=== PATIENT | female | born 1945 | race Caucasian/White ===

== ENCOUNTER → 2017-12-04 | Outpatient (CLI) | payer MEDICARE, OTHER ==
[~2017-12-04] MED LIST: ADVAIR 500/501 EA INH; CARVEDILOL3.125 MG PO; CLOPIDOGREL75 MG PO; COREG3.125 MG PR; CYANOCOBAL1000 MCG/M IM; DIAZEPAM10 MG PO; FUROSEMIDE20 MG PO; GLIMEPIRIDE2 MG PO; JANUVIA100 MG PO; LANCETS1 EACH; LANTUS 3ML100 UNITS/; LOSARTAN POTAS100 MG PO; LOVASTATIN40 MG PO; METFORMIN HCL1000 MG PO; NOVOLOG100 UNITS1; PEN NEEDLE1 EA10 SQ; PLAVIX75 MG PO; PROCARDIA XL60 MG PO; WELLBUTRIN XL150 MG; WELLBUTRIN XL150 MG PO; ZETIA10 MG PO; [UNRECOGNIZED DRUG - OTHER]
--- NOTE | 2017-12-04 11:22 | Diagnostic Imaging Report ---
PROCEDURE: Frontal and lateral views of the chest. COMPARISON: DX, CHEST 2 VIEWS - [facility], 02/20/2016, 9:47. INDICATIONS: COUGH, COPD FINDINGS: Lines/tubes: None. Lungs: The lungs are well inflated. Stable postoperative changes in the left lateral lower lung, with presence of metallic clips. Stable calcified granulomas. There is no evidence of pneumonia or pulmonary edema. Pleura: There is no pleural effusion or pneumothorax. Heart and mediastinum: The heart and the mediastinum are normal. Pulmonary vasculature is normal. Calcified mediastinal nodes. Bones: No acute bony abnormality. IMPRESSION: 1. No acute cardiopulmonary abnormalities. Ivan Rust M.D. Dictated by: Ivan Rust M.D. on 12/04/2017 at 11:28 Electronically approved by: Ivan Rust M.D. on 12/04/2017 at 11:28
== END ==
LOC: RAD 10:41
PROVIDERS: ATTEND Family Medicine
DX: R05 Cough (principal)
CPT/HCPCS: 71046

== ENCOUNTER → 2018-01-15 | Outpatient (CLI) | payer MEDICARE, OTHER ==
--- NOTE | 2018-01-15 13:26 | Diagnostic Imaging Report ---
History: Left arm numbness Comparison studies: None Technique: Cervical spine: Sagittal T1, T2 and inversion recovery, axial T2 and axial 3-D gradient echo. Thoracic spine: Sagittal T1, T2 and inversion recovery, axial T2. Lumbar spine: Sagittal T1,T2 and inversion recovery, axial T2 and spin density oblique without contrast Findings: Number of lumbar vertebral bodies: 5 Alignment: Normal cervical lordosis. Mild grade 1 anterolisthesis of L3 over L4. Normal thoracic kyphosis. No scoliosis . Soft tissues: No prior spinal signal abnormalities. Bilateral renal cysts the largest one measuring 1.2 cm in the left upper pole. Cholelithiasis without evidence of cholecystitis left adrenal mass measuring approximately 2 cm is partially visualized. Paraspinal muscles: No signal abnormalities. Well-preserved. No atrophic changes . Spinal cord: Normal in signal and morphology from the foramen magnum through the tip of the conus at L1-L2 . Vertebrae: No acute fractures, infection or neoplasm. 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 Degenerative changes: Cervical spine: At C2-C3, right uncinate process hypertrophy results in mild right foraminal narrowing with patent canal. At C3-4, bilateral facet hypertrophy with patent canal and mild bilateral foraminal narrowing. At C4-5, disc degeneration with loss of T2 signal. Left uncinate process hypertrophy and bilateral facet hypertrophy results in no significant canal stenosis and moderate right foraminal narrowing. Edema signal at the right facet. At C5-6, disc degeneration with loss of T2 signal. Diffuse disc osteophyte complex, ligamentum flavum thickening, bilateral uncinate process and facet hypertrophy results in mild canal stenosis and moderate right and mild left foraminal narrowing. At C6-7, disc degeneration with decreased intervertebral space. Bilateral uncinate process and facet hypertrophy results in no significant canal stenosis and moderate right and severe left foraminal narrowing At C7-T1, patent canal and foramina. Thoracic spine: Diffuse disc degeneration with loss of T2 signal throughout the thoracic spine. Mild Modic type I changes at T6-7. Patent canal and foramina . Lumbar spine: At L3-L4, disc degeneration with loss of T2 signal. Diffuse disc bulge, moderate facet hypertrophy and ligamentum flavum thickening results in moderate canal stenosis and mild bilateral foraminal narrowing. At L4-L5 disc degeneration with loss of T2 signal. Diffuse disc bulge and mild facet hypertrophy results in no significant canal stenosis or foraminal narrowing. At L5-S1, diffuse disc bulge and mild facet hypertrophy results in no significant canal stenosis or foraminal narrowing. IMPRESSION: Cervical spine: 1. Severe degenerative left foraminal narrowing at C6-7. 2. Moderate degenerative right foraminal narrowing at C4-5, C5-6 and C6-7. 3. Facet hypertrophy with edema signal at C4-5 on the right. Thoracic spine: Mild disc degeneration throughout the thoracic spine. Mild Modic type I changes as to C6-7. Patent canal and foramina. Lumbar spine: 1. No acute spinal abnormality. 2. Moderate canal stenosis and mild bilateral foraminal narrowing at L3-L4. Other mild degenerative changes as described above. 3. Incidentally noted 2 cm left adrenal nodule, recommend further evaluation with dedicated imaging. Signed by: DR Mando Medina M.D. on 01/15/2018 1:23 PM
== END ==
LOC: MRI 08:16
PROVIDERS: ATTEND Physical Medicine & Rehabilitation
DX: M54.2 Cervicalgia (principal); M54.6 Pain in thoracic spine; M54.5 Low back pain
CPT/HCPCS: 72141; 72146; 72148

== ENCOUNTER 2018-03-06 21:36 | Emergency (ER) | payer MEDICARE, OTHER ==
[~2018-03-06] VITALS: Ht 167.6 cm; Wt 76.2 kg
--- OUTSIDE RECORDS SUMMARY | 2018-03-06 21:39 | XMS REPORT | Continuity of Care Document ---
Author Author [facility] Interface Address Unknown Phone Unavailable Problems Problem Status Onset Date Classification Date Reported Comments Source PNEUMONIA Active 12/19/2016 [facility] Diabetes type 2, uncontrolled Active Problem 12/26/2017 Ede Weber Inflammatory arthritis Active Problem 12/26/2017 Ede Weber Trigger finger, right middle finger Active Problem 12/26/2017 Ede Weber Joint pain Active Problem 12/26/2017 Ede Weber Need for prophylactic vaccination and inoculation against influenza Active Diagnosis 02/14/2017 Ede Weber Back pain Active Diagnosis 02/14/2017 Ede Weber Varicose veins of lower extremities with other complications Active Problem 01/25/2016 Argelia Parada Abnormal electrocardiogram Active Problem 01/25/2016 Argelia Parada COPD Active Problem 01/25/2016 Argelia Parada Other nonspecific abnormal cardiovascular system function study Active Problem 01/25/2016 Argelia Parada Patient unable to exercise Active Problem 01/25/2016 Argelia Parada Stented coronary artery Active Problem 01/25/2016 Argelia Parada Old myocardial infarction Active Problem 01/25/2016 Argelia Parada Pure hypercholesterolemia Active Problem 01/25/2016 Argelia Parada CAD in [place] artery Active Problem 01/25/2016 Argelia Parada Type 2 diabetes mellitus with unspecified complications Active Problem 01/25/2016 Argelia 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 Active Problem 01/25/2016 Argelia Parada Smoker Active Problem 01/25/2016 Argelia Parada Carotid artery disease Active Problem 01/25/2016 Argelia Parada Venous insufficiency Active Problem 01/25/2016 Argelia Parada Anemia Resolved Problem 12/25/2016 [facility] Carotid artery disease Active Problem 12/25/2016 [facility] Cataract Resolved Problem 12/25/2016 [facility] Colonic polyp Resolved Problem 12/25/2016 [facility] COPD - Chronic obstructive pulmonary disease Active Problem 12/25/2016 [facility] DM - Diabetes mellitus Active Problem 12/25/2016 [facility] DU - Duodenal ulcer Resolved Problem 12/25/2016 [facility] Emphysema of lung Active Problem 12/25/2016 [facility] Heart attack Resolved Problem 12/25/2016 [facility] HTN - Hypertension Active Problem 12/25/2016 [facility] Hypercholesterolemia Active Problem 12/25/2016 [facility] Lactose intolerance Active Problem 12/25/2016 [facility] OA - Osteoarthritis Active Problem 12/25/2016 [facility] PUD - Peptic ulcer disease Active Problem 12/25/2016 [facility] PNEUMONIA, UNSPECIFIED ORGANISM Active [facility] Medications Medication Details Route Status Patient Instructions Ordering Provider Order Date Source Leflunomide 1 tablet Orally Active 20 MG Orally Once a day Jordana 02/11/2017 Ede Weber Naproxen 1 tablet Orally Active 250 MG Orally Twice a day Jordana 02/11/2017 Ede Weber remove patch 1 patch, Route: TOP, Drug form: ERFILM, Daily, Start date: 12/23/16 9:00:00 CDT, Duration: 30 day, Stop date: 01/21/17 9:00:00 CDTNotes: Remove old patch before application of new patch. WASTE: F/P - P Waste Black; E - P Waste Black No Longer Active 12/23/2016 [facility] Nebulizer 1 ea, MISC, ONCALL, # 1 ea, 0 Refill(s) Active 12/22/2016 [facility] Symbicort 160/4.5 inhalation aerosol with adapter 2 inhalation, INHALATION, RBID, # 1 ea, 0 Refill(s), Pharmacy: [facility] [id number] Active 12/22/2016 [facility] Albuterol 0.833 MG/ML / Ipratropium Calhoun 0.167 MG/ML Inhalant Solution [DuoNeb] 3 mL, NEB, Q6H, PRN as needed for shortness of breath or wheezing, # 360 mL, 0 Refill(s), Pharmacy: [facility] [id number] Active 12/22/2016 [facility] levofloxacin 250 mg oral tablet 750 mg=3 tab, PO, Daily, X 5 day, # 15 tab, 0 Refill(s), Pharmacy: [facility] [id number] Active 12/22/2016 [facility] predniSONE 20 mg oral tablet 40 mg=2 tab, PO, Daily, X 5 day, # 10 tab, 0 Refill(s), Pharmacy: [facility] [id number] Active 12/22/2016 [facility] insulin detemir 10 unit, 0.1 mL, Route: SUB-Q, Drug form: SOLN, ONCE, Dosing Weight 75, kg, Start date: 12/22/16 9:12:00 CDT, Stop date: 12/22/16 9:12:00 CDTNotes: Same as Levemir Do not hold insulin without contact ing prescriber WASTE: F/P - Black; E - Municipal Trash Bin "single patient use only" Inactive 12/22/2016 [facility] Levofloxacin 750 mg, 3 tab, Route: PO, Drug form: TAB, Daily, Dosing Weight 75, kg, Start date: 12/22/16 9:00:00 CDT, Duration: 30 day, Stop date: 01/20/17 9:00:00 CDT, ABX Indication: PneumoniaNotes: Do not give w/ antacids, dairy pdt & minerals Take 1 hr before or 2 hr after dairy pdt (Same as:Levaquin) Inactive 12/22/2016 [facility] Nicotine 21 mg, 1 patch, Route: TOP, Drug form: ERFILM, Daily, Dosing Weight 75, kg, Start date: 12/22/16 9:00:00 CDT, Duration: 30 day, Stop date: 01/20/17 9:00:00 CDTNotes: (Same as: Habitrol) "Remove old patch before application of new patch" WASTE: F/P - P Waste Black; E - P Waste Black Inactive 12/22/2016 [facility] Prednisone 40 mg, 2 tab, Route: PO, Drug form: TAB, Daily, Dosing Weight 75, kg, Priority: NOW, Start date: 12/21/16 14:27:00 CDT, Duration: 30 day, Stop date: 01/20/17 9:00:00 CDTNotes: Take with food. No Longer Active 12/21/2016 [facility] Lasix 20 mg, 2 mL, Route: IVP, Drug form: INJ, ONCE, Dosing Weight 75, kg, Start date: 12/21/16 14:26:00 CDT, Stop date: 12/21/16 14:26:00 CDTNotes: (Same as: Lasix) Inactive 12/21/2016 [facility] Symbicort 160/4.5 inhalation aerosol with adapter 2 inhalation, Route: INHALATION, Drug Form: AERO/A, Dosing Weight 75, kg, RBID, NOW, Start date: 12/21/16 14:26:00 CDT, Duration: 30 day, Stop date: 01/20/17 8:00:00 CDTNotes: (Same as: Symbicort) WASTE: Aerosol - Return to Pharmacy No Longer Active 12/21/2016 [facility] pantoprazole 40 mg, 1 tab, Route: PO, Drug form: ECTAB, Daily, Dosing Weight 75, kg, Start date: 12/21/16 9:00:00 CDT, Duration: 30 day, Stop date: 01/19/17 9:00:00 CDTNotes: Tablet should not be chewed or crushe d. (Same as: Protonix) No Longer Active 12/21/2016 [facility] Zetia 10 mg, 1 tab, Route: PO, Drug form: TAB, Daily, Dosing Weight 75, kg, Start date: 12/21/16 9:00:00 CDT, Duration: 30 day, Stop date: 01/19/17 9:00:00 CDTNotes: (Same as: Zetia) No Longer Active 12/21/2016 [facility] clopidogrel 75 mg, 1 tab, Route: PO, Drug form: TAB, Daily, Dosing Weight 75, kg, Start date: 12/21/16 9:00:00 CDT, Duration: 30 day, Stop date: 01/19/17 9:00:00 CDTNotes: (Same As: Plavix) No Longer Active 12/21/2016 [facility] carvedilol 6.25 mg, 2 tab, Route: PO, Drug form: TAB, Daily, Dosing Weight 75, kg, Start date: 12/21/16 9:00:00 CDT, Duration: 30 day, Stop date: 01/19/17 9:00:00 CDTNotes: Give with food. (Same As: Coreg) No Longer Active 12/21/2016 [facility] Zocor 20 mg, 1 tab, Route: PO, Drug form: TAB, Bedtime, Dosing Weight 75, kg, Start date: 12/20/16 21:00:00 CDT, Duration: 30 day, Stop date: 01/18/17 21:00:00 CDTNotes: (Same as: Zocor) No Longer Active 12/21/2016 [facility] Levemir 20 unit, 0.2 mL, Route: SUB-Q, Drug form: SOLN, Bedtime, Dosing Weight 75, kg, Start date: 12/20/16 21:00:00 CDT, Duration: 30 day, Stop date: 01/18/17 21:00:00 CDTNotes: Same as Levemir Do not hold insulin without contacting prescriber WASTE: F/P - Black; E - Municipal Trash Bin "single patient use only" No Longer Active 12/21/2016 [facility] NovoLog 10 unit, 0.1 mL, Route: SUB-Q, Drug form: SOLN, TID-Before Meals, Dosing Weight 75, kg, Start date: 12/20/16 16:30:00 CDT, Duration: 30 day, Stop date: 01/19/17 11:30:00 CDTNotes: Roll in palms of hands gently; Do not shake vigorously. (Same as: NovoLOG) "single patient use only" WASTE: F/P - Black; E - Municipal Trash Bin Stable for 28 days at room temperature. Expires in days from Date No Longer Active 12/20/2016 [facility] Aspirin 81 mg, 1 tab, Route: PO, Drug form: CHEWTAB, Daily, Dosing Weight 75, kg, Start date: 12/20/16 15:00:00 CDT, Duration: 30 day, Stop date: 01/19/17 9:00:00 CDTNotes: Take with food. No Longer Active 12/20/2016 [facility] azithromycin 250 mg oral tablet 250 mg, 1 tab, Route: PO, Drug form: TAB, [id number], Dosing Weight 75.455, kg, Start date: 12/20/16 11:00:00 CDT, Duration: 4 day, Stop date: 12/23/16 11:00:00 CDT, ABX Indication: Pneumonia No Longer Active 12/20/2016 [facility] Ceftriaxone 1 gm, Route: IVPB, [id number], Dosing Weight 75.455, kg, Start date: 12/20/16 10:00:00 CDT, Duration: 7 day, Stop date: 12/26/16 10:00:00 CDT, ABX Indication: PneumoniaNotes: (Same As: Rocephin). Use with 100 mL NS and infuse over 30 min MEDICATION WASTE Product Size: 1000 mg Product Wasted: ___ mg No Longer Active 12/20/2016 [facility] Streptococcus pneumoniae serotype 1 capsular antigen diphtheria [id number] protein conjugate vaccine / Streptococcus pneumoniae serotype 14 capsular antigen diphtheria [id number] protein conjugate vaccine / Streptococcus pneumoniae serotype 18C capsular antigen d 0.5 mL, Route: IM, Drug Form: INJ, Daily, Start date: 12/20/16 9:00:00 CDT, Duration: 1 doses or times, Stop date: 12/20/16 9:00:00 CDTNotes: Shake well prior to use (Same as: Prevnar 13) Inactive 12/20/2016 [facility] Enoxaparin 40 mg, 0.4 mL, Route: SUB-Q, Drug form: INJ, [id number], Dosing Weight 75.455, kg, Start date: 12/20/16 9:00:00 CDT, Duration: 30 day, Stop date: 01/18/17 9:00:00 CDTNotes: (Same as: Lovenox) No Longer Active 12/20/2016 [facility] Albuterol 0.833 MG/ML / Ipratropium Cal[place] 0.167 MG/ML Inhalant Solution [DuoNeb] 3 ml, Route: NEB, Drug Form: SOLN, Dosing Weight 75.455, kg, PRN, PRN Respiratory Protocol, Start date: 12/20/16 8:37:00 CDT, Duration: 30 day, Stop date: 01/19/17 8:36:00 CDTNotes: (Same as: Duoneb) No Longer Active 12/20/2016 [facility] Codeine Phosphate 2 MG/ML / Guaifenesin 20 MG/ML Oral Solution 5 mL, Route: PO, Drug Form: LIQ, Dosing Weight 75.455, kg, Q4H, PRN Cough, Start date: 12/19/16 23:57:00 CDT, Duration: 30 day, Stop date: 01/18/17 23:56:00 CDTNotes: (Same As: Robitussin AC) No Longer Active 12/20/2016 [facility] Acetaminophen 650 mg, 2 tab, Route: PO, Drug form: TAB, Q4H, Dosing Weight 75.455, kg, PRN Pain Score 1-3, For fever > 100.4. Not to exceed 4 grams in 24 hours, Start date: 12/19/16 23:57:00 CDT, Duration: 30 day, Stop date: 01/18/17 23:56:00 CDTNotes: Do not exceed 4 gm/day. (Same as: Tylenol) No Longer Active 12/20/2016 [facility] Guaifenesin 200 mg, 10 mL, Route: PO, Drug form: LIQ, Q4H, Dosing Weight 75.455, kg, PRN Cough, Start date: 12/19/16 23:57:00 CDT, Duration: 30 day, Stop date: 01/18/17 23:56:00 CDTNotes: (Same as: Yannitussin) No Longer Active 12/20/2016 [facility] Ondansetron 4 mg, 2 mL, Route: IVP, Drug form: INJ, Q6H, Dosing Weight 75.455, kg, PRN Nausea & Vomiting, Start date: 12/19/16 23:57:00 CDT, Duration: 30 day, Stop date: 01/18/17 23:56:00 CDTNotes: (Same as: Erick) MEDICATION WASTE Product Size: 4 mg Product Wasted: ___ mg No Longer Active 12/20/2016 [facility] Albuterol 0.833 MG/ML / Ipratropium Calhoun 0.167 MG/ML Inhalant Solution 3 mL, Route: NEB, Drug Form: SOLN, Dosing Weight 75.455, kg, PRN, PRN Respiratory Protocol, Start date: 12/19/16 23:57:00 CDT, Duration: 30 day, Stop date: 01/18/17 23:56:00 CDTNotes: (Same as: Duoneb) No Longer Active 12/20/2016 [facility] Saline Flush 0.9% 10 ml, Route: IVP, Drug Form: INJ, Dosing Weight 75.455, kg, PRN, PRN Line Flush, Start date: 12/19/16 23:57:00 CDT, Duration: 30 day, Stop date: 01/18/17 23:56:00 CDTNotes: (Same as: BD Posiflush) No Longer Active 12/20/2016 [facility] Azithromycin 500 mg, Route: IVPB, ONCE, Dosing Weight 75.455, kg, Priority: STAT, Start date: 12/19/16 23:56:00 CDT, Duration: 1 doses or times, Stop date: 12/19/16 23:56:00 CDT, ABX Indication: PneumoniaNotes: (Same As: Zithromax IV) No Longer Active 12/20/2016 [facility] Ceftriaxone 1 gm, Route: IVPB, ONCE, Dosing Weight 75.455, kg, Priority: STAT, Start date: 12/19/16 23:56:00 CDT, Duration: 1 doses or times, Stop date: 12/19/16 23:56:00 CDT, ABX Indication: PneumoniaNotes: (Same As: Rocephin). Use with 100 mL NS and infuse over 30 min MEDICATION WASTE Product Size: 1000 mg Product Wasted: ___ mg No Longer Active 12/20/2016 [facility] pregabalin 300 mg oral capsule 300 mg=1 cap, PO, TID, 0 Refill(s) Active 12/20/2016 [facility] clopidogrel 75 mg oral tablet 75 mg=1 tab, PO, Daily, # 30 tab, 0 Refill(s) Active 12/20/2016 [facility] Furosemide 40 MG Oral Tablet 40 mg=1 tab, PO, Daily, # 30 tab, 0 Refill(s) Active 12/20/2016 [facility] ezetimibe 10 MG Oral Tablet [Zetia] 10 mg=1 tab, PO, Daily, # 30 tab, 0 Refill(s) Active 12/20/2016 [facility] naproxen 500 mg oral tablet 500 mg=1 tab, PO, BID, # 60 tab, 0 Refill(s) Active 12/20/2016 [facility] Levofloxacin 500 mg=1 tab, PO, Daily, # 7 tab, 0 Refill(s) Active 12/20/2016 [facility] losartan 100 mg oral tablet 100 mg=1 tab, PO, Daily, # 30 tab, 0 Refill(s) Active 12/20/2016 [facility] diazepam 10 mg oral tablet 10 mg=1 tab, PO, BID, # 60 tab, 0 Refill(s) Active 12/20/2016 [facility] Levemir 20 unit, SUB-Q, Bedtime, 0 Refill(s) Active 12/20/2016 [facility] Aspirin 81 mg, 0 Refill(s) Active 12/20/2016 [facility] Leflunomide 1 tablet Orally Active 20 MG Orally Once a day [facility] Ede Weber Hydroxychloroquine Sulfate 1 tablet with food or milk Orally Active 200 MG Orally BID [facility] Ede Weber Bydureon as directed Subcutaneous Active 2 MG Subcutaneous Jordana Ede Weber Zetia 1 tablet Orally Active 10 MG Orally Once a day [facility] Ede Weber Simvastatin 1 tablet in the evening Orally Active 10 MG Orally Once a day [facility] Ede Weber Furosemide 1 tablet Orally Active 40 MG Orally Once a day [facility] Ede Weber Albuterol as directed Inhalation Active 90 MCG/ACT Inhalation [facility] Ede Weber NovoLog Mix 70/30 as directed Subcutaneous Active (70-30) 100 UNIT/ML Subcutaneous [facility] Ede Weber Diazepam 1 tablet as needed Orally Active 10 MG Orally Twice a day [facility] Ede Weber Coreg as directed Orally Active 6.25 MG Orally [facility] Ede Weber Tizanidine HCl 1 tablet as needed Orally Active 2 MG Orally Three times a day [facility] Ede Weber Pantoprazole Sodium 1 tablet Orally Active 40 MG Orally Once a day [facility] Ede Weber NovoLog as directed Subcutaneous Active 100 UNIT/ML Subcutaneous [facility] Ede Weber Klor-Con 10 1 tablet with food Orally Active 10 MEQ Orally Twice a day [facility] Ede Weber Anoro Ellipta 1 puff Inhalation Active 62.5-25 MCG/INH Inhalation Once a day [facility] Ede Weber Advair Diskus 1 puff Inhalation Active 500-50 MCG/DOSE Inhalation Twice a day [facility] Ede Weber Gabapentin 1 capsule Orally Active 300 MG Orally Three times a day [facility] Ede Weber Losartan 1 tablet Orally Active 50mg Orally Once a day [facility] Ede Weber Plavix 1 tablet Orally Active 75 MG Orally Once a day [facility] Ede Weber Furosemide 1 tablet Orally Active 40 MG Orally Once a day [facility] Ede Weber Klor-Con 10 1 tablet with food Orally Active 10 MEQ Orally Twice a day [facility] Ede Weber Gabapentin 1 capsule Orally Active 300 MG Orally Three times a day [facility] Ede Weber Plavix 1 tablet Orally Active 75 MG Orally Once a day [facility] Ede Weber Pantoprazole Sodium 1 tablet Orally Active 40 MG Orally Once a day Jordana Ede Weber Simvastatin 1 tablet in the evening Orally Active 10 MG Orally Once a day [facility] Ede Weber Coreg as directed Orally Active 6.25 MG Orally [facility] Ede Weber Tizanidine HCl 1 tablet as needed Orally Active 2 MG Orally Three times a day [facility] Ede Weber Aspirin 1 tablet Orally Active 81 MG Orally Once a day [facility] Ede Weber Zetia 1 tablet Orally Active 10 MG Orally Once a day [facility] Ede Weber Diazepam 1 tablet as needed Orally Active 10 MG Orally Twice a day Jordana Ede Weber NovoLog as directed Subcutaneous Active 100 UNIT/ML Subcutaneous [facility] Ede Weber Hydroxychloroquine Sulfate 1 tablet with food or milk Orally Active 200 MG Orally BID Jordana Ede Weber Levofloxacin 1 tablet Orally Active 500 MG Orally Once a day Jordana Ede Weber Benzonatate 1 capsule as needed Orally Active 100 MG Orally Three times a day [facility] Ede Weber Plavix 1 tablet Orally Active 75 MG Orally Once a day [facility] Ede Weber Clopidogrel Bisulfate 1 tablet Orally Active 75 mg Orally Once a day Karma Parada Allergies, Adverse Reactions, Alerts Substance Category Reaction Severity Reaction type Status Date Reported Comments Source penicillin Adverse Reaction swelling Adverse Reaction Active 12/24/2017 Ede Weber penicillins Assertion Drug allergy Active [facility] Immunizations Immunization Date Given Site Status Last Updated Comments Source Flu Vaccine 02/11/2017 completed Ede Weber pneumococcal 13-valent vaccine 12/20/2016 Right deltoid completed García [facility] Results Order Name Results Value Reference Range Date Interpretation Comments Source BACTERIAL - SEROLOGY Strep pneumoniae Ag Negative (12/20/16 3:20 PM) Negative 12/20/2016 [facility] BACTERIAL - SEROLOGY Source Strep Urine *NA* (12/20/16 3:20 PM) 12/20/2016 [facility] CHEM PANEL Procalcitonin Lvl null 0.00 - 0.10 12/20/2016 [facility] Chest 1view DX Chest 1view DX Patient Name: MAMADOU WYATT : 1945; Age: 71 years Female MR: [id number] Study: Chest 1view DX Order Time: 12/20/2016 8:44 AM CDT CLINICAL INDICATION: - PAtient with Pneumonia from [facility] ER COMPARISON: Chest radiograph on 07/13/2008 FINDINGS: Lines: None. Lungs: Unchanged pleural and parenchymal scarring within the left lower lung, associated with surgical clips. No significant effusion or pneumothorax. Mediastinum: The cardiac silhouette is within normal limits of size. Midline trachea. Bones and soft tissues: No acute abnormalities. IMPRESSION: Stable scarring within the left lower lung. No significant change since 07/13/2008. SL: [id number] 12/20/2016 - - Read by: Zhang Browne MD Dictated Date/time: 12/20/16 11:39 Electronically Signed by: Zhang Browne MD 12/20/16 11:40 FINAL REPORT [facility] CHEM PANEL Lactic Acid Lvl 1.5 mMol/L 0.5 - 2.2 12/20/2016 [facility] CHEM PANEL eGFR 56 mL/min/1.73m2 12/20/2016 Result Comment: The eGFR is calculated using the CKD-EPI formula. In most young, healthy individuals the eGFR will be >90 mL/min/1.73m2. The eGFR declines with age. An eGFR of 60-89 may be normal in some populations, particularly the elderly, for whom the CKD-EPI formula has not been extensively validated. Use of the eGFR is not recommended in the following populations: Individuals with unstable creatinine concentrations, including patients and those with serious co-morbid conditions. Patients with extremes in muscle mass or diet. The data above are obtained from the National Kidney Disease Education Program (NKDEP) which additionally recommends that when the eGFR is used in patients with extremes of body mass index for purposes of drug dosing, the eGFR should be multiplied by the estimated BMI. [facility] CHEM PANEL Bili Total 0.5 mg/dL 0.2 - 1.3 12/20/2016 [facility] CHEM PANEL AGAP 13.0 meq/L 10.0 - 20.0 12/20/2016 [facility] CHEM PANEL AST 16 unit/L 0 - 37 12/20/2016 [facility] CHEM PANEL Alk Phos 33 unit/L 39 - 136 12/20/2016 [facility] CHEM PANEL B/C Ratio 18 6 - 25 12/20/2016 [facility] CHEM PANEL A/G Ratio 1.1 0.7 - 1.6 12/20/2016 [facility] CHEM PANEL Globulin 3.6 g/dL 2.7 - 4.2 12/20/2016 [facility] CHEM PANEL Potassium Lvl 4.0 meq/L 3.5 - 5.1 12/20/2016 [facility] CHEM PANEL Chloride Lvl 101 meq/L 95 - 109 12/20/2016 [facility] CHEM PANEL Sodium Lvl 136 meq/L 135 - 145 12/20/2016 [facility] CHEM PANEL ALT 21 unit/L 0 - 65 12/20/2016 [facility] CHEM PANEL Total Protein 7.4 g/dL 6.4 - 8.4 12/20/2016 [facility] CHEM PANEL Albumin Lvl 3.8 g/dL 3.5 - 5.0 12/20/2016 [facility] CHEM PANEL CO2 26 meq/L 24 - 32 12/20/2016 [facility] CHEM PANEL Calcium Lvl 9.0 mg/dL 8.5 - 10.5 12/20/2016 [facility] CHEM PANEL BUN 18 mg/dL 7 - 22 12/20/2016 [facility] CHEM PANEL Creatinine Lvl 1.00 mg/dL 0.50 - 1.40 12/20/2016 [facility] CHEM PANEL Glucose Lvl 114 mg/dL 70 - 99 12/20/2016 [facility] HEMATOLOGY Monocytes # 0.9 K/CMM 0.0 - 0.8 12/20/2016 [facility] HEMATOLOGY Eosinophils # 0.1 K/CMM 0.0 - 0.5 12/20/2016 [facility] HEMATOLOGY Lymphocytes # 1.4 K/CMM 1.0 - 5.5 12/20/2016 [facility] HEMATOLOGY Basophils # 0.1 K/CMM 0.0 - 0.2 12/20/2016 [facility] HEMATOLOGY Basophils 0.8 % 0.0 - 1.0 12/20/2016 [facility] HEMATOLOGY Monocytes 9.1 % 2.0 - 12.0 12/20/2016 [facility] HEMATOLOGY Eosinophils 0.5 % 0.0 - 4.0 12/20/2016 [facility] HEMATOLOGY Segs-Bands # 7.6 K/CMM 1.5 - 8.1 12/20/2016 [facility] HEMATOLOGY Lymphocytes 14.3 % 20.0 - 40.0 12/20/2016 [facility] Segs 75.3 % 45.0 - 75.0 12/20/2016 [facility] HEMATOLOGY RBC 4.47 M/CMM 4.20 - 5.40 12/20/2016 [facility] HEMATOLOGY Hgb 14.1 g/dL 12.0 - 16.0 12/20/2016 [facility] HEMATOLOGY WBC 10.1 K/CMM 3.7 - 10.4 12/20/2016 [facility] HEMATOLOGY Hct 41.6 % 36.0 - 48.0 12/20/2016 [facility] MCV 93.0 fL 80.0 - 98.0 12/20/2016 [facility] HEMATOLOGY RDW 12.6 % 11.5 - 14.5 12/20/2016 [facility] MCH 31.5 pg 27.0 - 31.0 12/20/2016 [facility] MCHC 33.8 g/dL 32.0 - 36.0 12/20/2016 [facility] Platelet 310 K/CMM 133 - 450 12/20/2016 [facility] MPV 8.0 fL 7.4 - 10.4 12/20/2016 [facility] Vital Signs Vital Sign Value Date Comments Source Weight 152.8 12/24/2017 Ede Weber Height 64 12/24/2017 Ede Weber Temperature Oral (F) 97.2 F 12/24/2017 Ede Weber Heart Rate 76 12/24/2017 Ede Weber Diastolic (mm Hg) 70 12/24/2017 Ede Weber Systolic (mm Hg) 134 12/24/2017 Ede Weber Weight 153.9 09/23/2017 Ede Weber Height 64 09/23/2017 Ede Weber Temperature Oral (F) 97.6 F 09/23/2017 Ede Weber Heart Rate 74 09/23/2017 Ede Weber Diastolic (mm Hg) 72 09/23/2017 Ede Weber Systolic (mm Hg) 118 09/23/2017 Ede Weber Weight 158 08/12/2017 Ede Weber Height 64 08/12/2017 Ede Weber Temperature Oral (F) 96.8 F 08/12/2017 Ede Weber Heart Rate 76 08/12/2017 Ede Weber Diastolic (mm Hg) 72 08/12/2017 Ede Weber Systolic (mm Hg) 126 08/12/2017 Ede Weber Weight 161 05/14/2017 Ede Weber Height 64 05/14/2017 Ede Weber Temperature Oral (F) 97.5 F 05/14/2017 Ede Weber Heart Rate 72 05/14/2017 Ede Weber Diastolic (mm Hg) 60 05/14/2017 Ede Weber Systolic (mm Hg) 118 05/14/2017 Ede Weber Weight 164.6 02/11/2017 Ede Weber Height 65 02/11/2017 Ede Weber Temperature Oral (F) 97.5 F 02/11/2017 Ede Weber Heart Rate 72 02/11/2017 Ede Weber Diastolic (mm Hg) 60 02/11/2017 Ede Weber Systolic (mm Hg) 100 02/11/2017 Ede Weber Respitory Rate 18 12/22/2016 [facility] Systolic (mm Hg) 166 12/22/2016 [facility] Diastolic (mm Hg) 93 12/22/2016 [facility] Heart Rate 84 12/22/2016 [facility] Temperature Oral (F) 98.5 F 12/22/2016 [facility] Respitory Rate 18 12/22/2016 [facility] Temperature Oral (F) 98.8 F 12/22/2016 [facility] Systolic (mm Hg) 126 12/22/2016 [facility] Diastolic (mm Hg) 77 12/22/2016 [facility] Heart Rate 75 12/22/2016 [facility] Systolic (mm Hg) 150 12/22/2016 [facility] Diastolic (mm Hg) 77 12/22/2016 [facility] Respitory Rate 18 12/22/2016 [facility] Heart Rate 89 12/22/2016 [facility] Temperature Oral (F) 97.6 F 12/22/2016 [facility] Weight 75 12/20/2016 [facility] BMI Calculated 27.68 12/20/2016 [facility] Weight 75.455 12/20/2016 [facility] Height 165.1 cm 12/20/2016 [facility] Encounters Location Location Details Encounter Type Encounter Number Reason For Visit Attending Provider ADM Date DC Date Status Source Argelia Parada MD PA Unknown [id number] 01/24/2016 01/24/2016 Argelia Parada [facility] Inpatient [id number] 12/20/2016 12/22/2016 [facility] Procedures Procedure Code Date Perfomer Comments Source Insertion of coronary artery stent [id number] 03/12/2012 [facility] Cataract surgery [id number] [facility] Colonoscopy [id number] [facility] Esophagogastroduodenoscopy [id number] [facility]
--- OUTSIDE RECORDS SUMMARY | 2018-03-06 21:40 | XMS REPORT ---
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
--- OUTSIDE RECORDS SUMMARY | 2018-03-06 21:40 | XMS REPORT | Summary of Care ---
Author Author [facility] Organization [facility] Address Unknown Phone Unavailable Encounter HQ Rosa(KELLY) [id number] Date(s): 12/19/16 - 12/22/16 [facility] [address] [place] [address]- [phone] Discharge Disposition: Home or Self Care Vital Signs 1 2 3 Most recent to oldest [Reference Range]: 165.1 cm (12/19/16 9:03 PM) Height 98.5 DegF (12/22/16 11:32 AM) 98.8 DegF (12/22/16 7:19 AM) 97.6 DegF (12/22/16 4:53 AM) Temperature Oral [96.4-99.1 DegF] 166/93 mmHg *HI* (12/22/16 11:32 AM) 126/77 mmHg (12/22/16 7:19 AM) 150/77 mmHg *HI* (12/22/16 4:53 AM) Blood Pressure [90-140/60-90 mmHg] 18 BRMIN (12/22/16 11:32 AM) 18 BRMIN (12/22/16 7:19 AM) 18 BRMIN (12/22/16 4:53 AM) Respiratory Rate [14-20 BRMIN] 84 bpm (12/22/16 11:32 AM) 75 bpm (12/22/16 7:19 AM) 89 bpm (12/22/16 4:53 AM) Peripheral Pulse Rate [60-100 bpm] 75 kg (12/20/16 9:00 AM) 75.455 kg (12/19/16 9:03 PM) Weight 27.68 m2 (12/19/16 9:03 PM) Body Mass Index Problem List Condition Effective Dates Status Health Status Informant Anemia(Confirmed) Resolved Carotid artery Active disease(Confirmed) Cataract(Confirmed) Resolved Colonic Resolved polyp(Confirmed) COPD - Chronic Active obstructive pulmonary disease(Confirmed) DM - Diabetes Active mellitus(Confirmed) DU - Duodenal Resolved ulcer(Confirmed) Emphysema of Active lung(Confirmed) Heart Resolved attack(Confirmed) HTN - Active Hypertension(Confirm ed) Hypercholesterolemia Active (Confirmed) Lactose Active intolerance(Confirme d) OA - Active Osteoarthritis(Confi rmed) PUD - Peptic ulcer Active disease(Confirmed) Allergies, Adverse Reactions, Alerts Substance Reaction Severity Status penicillins Active Medications acetaminophen 650 mg, 2 tab, Route: PO, Drug form: TAB, Q4H, Dosing Weight 75.455, kg, PRN Eliazar n Score 1-3, For fever > 100.4. Not to exceed 4 grams in 24 hours, Start date: 12/19/16 23:57:00 CDT, Duration: 30 day, Stop date: 01/18/17 23:56:00 CDT Notes: Do not exceed 4 gm/day. (Same as: Tylenol) Start Date: 12/19/16 Stop Date: 12/22/16 Status: Discontinued albuterol-ipratropium 2.5-0.5 mg inhalation solution 3 mL, Route: NEB, Drug Form: SOLN, Dosing Weight 75.455, kg, PRN, PRN Respirator y Protocol, Start date: 12/19/16 23:57:00 CDT, Duration: 30 day, Stop date: 01/26 23:56:00 CDT Notes: (Same as: Duoneb) Start Date: 12/19/16 Stop Date: 12/20/16 Status: Discontinued aspirin 81 mg, 1 tab, Route: PO, Drug form: CHEWTAB, Daily, Dosing Weight 75, kg, Start date: 12/20/16 15:00:00 CDT, Duration: 30 day, Stop date: 01/19/17 9:00:00 CDT Notes: Take with food. Start Date: 12/20/16 Stop Date: 12/22/16 Status: Discontinued aspirin 81 mg, 0 Refill(s) Start Date: 12/19/16 Status: Ordered azithromycin + sodium chloride 0.9% INJ 250 mL 500 mg, Route: IVPB, ONCE, Dosing Weight 75.455, kg, Priority: STAT, Start date: 12/19/16 23:56:00 CDT, Duration: 1 doses or times, Stop date: 12/19/16 23:56:00 CDT, ABX Indication: Pneumonia Notes: (Same As: Zithromax IV) Start Date: 12/19/16 Stop Date: 12/20/16 Status: Completed azithromycin 250 mg oral tablet 250 mg, 1 tab, Route: PO, Drug form: TAB, [id number], Dosing Weight 75.455, kg, Sta rt date: 12/20/16 11:00:00 CDT, Duration: 4 day, Stop date: 12/23/16 11:00:00 CD T, ABX Indication: Pneumonia Start Date: 12/20/16 Stop Date: 12/21/16 Status: Discontinued carvedilol 6.25 mg, 2 tab, Route: PO, Drug form: TAB, Daily, Dosing Weight 75, kg, Start da te: 12/21/16 9:00:00 CDT, Duration: 30 day, Stop date: 01/19/17 9:00:00 CDT Notes: Give with food. (Same As: Coreg) Start Date: 12/21/16 Stop Date: 12/22/16 Status: Discontinued cefTRIAXone + sodium chloride 0.9% INJ 100 mL 1 gm, Route: IVPB, [id number], Dosing Weight 75.455, kg, Start date: 12/20/16 10:00 :00 CDT, Duration: 7 day, Stop date: 12/26/16 10:00:00 CDT, ABX Indication: Pneu monia Notes: (Same As: Rocephin).Use with 100 mL NS and infuse over 30 min MEDICA TION WASTE Product Size: 1000 mgProduct Wasted: ___ mg Start Date: 12/20/16 Stop Date: 12/21/16 Status: Discontinued cefTRIAXone + sodium chloride 0.9% INJ 100 mL 1 gm, Route: IVPB, ONCE, Dosing Weight 75.455, kg, Priority: STAT, Start date: 0 12/19/16 23:56:00 CDT, Duration: 1 doses or times, Stop date: 12/19/16 23:56:00 C DT, ABX Indication: Pneumonia Notes: (Same As: Rocephin).Use with 100 mL NS and infuse over 30 min MEDICA TION WASTE Product Size: 1000 mgProduct Wasted: ___ mg Start Date: 12/19/16 Stop Date: 12/20/16 Status: Completed clopidogrel 75 mg, 1 tab, Route: PO, Drug form: TAB, Daily, Dosing Weight 75, kg, Start date : 12/21/16 9:00:00 CDT, Duration: 30 day, Stop date: 01/19/17 9:00:00 CDT Notes: (Same As: Plavix) Start Date: 12/21/16 Stop Date: 12/22/16 Status: Discontinued clopidogrel 75 mg oral tablet 75 mg=1 tab, PO, Daily, # 30 tab, 0 Refill(s) Start Date: 12/19/16 Status: Ordered codeine-guaiFENesin 10 mg-100 mg/5 mL oral syrup 5 mL, Route: PO, Drug Form: LIQ, Dosing Weight 75.455, kg, Q4H, PRN Cough, Start date: 12/19/16 23:57:00 CDT, Duration: 30 day, Stop date: 01/18/17 23:56:00 CDT Notes: (Same As: Robitussin AC) Start Date: 12/19/16 Stop Date: 12/22/16 Status: Discontinued diazepam 10 mg oral tablet 10 mg=1 tab, PO, BID, # 60 tab, 0 Refill(s) Start Date: 12/19/16 Stop Date: 01/18/17 Status: Ordered DuoNeb inhalation solution 3 ml, Route: NEB, Drug Form: SOLN, Dosing Weight 75.455, kg, PRN, PRN Respirator y Protocol, Start date: 12/20/16 8:37:00 CDT, Duration: 30 day, Stop date: 01/19 8:36:00 CDT Notes: (Same as: Duoneb) Start Date: 12/20/16 Stop Date: 12/22/16 Status: Discontinued DuoNeb inhalation solution 3 mL, NEB, Q6H, PRN as needed for shortness of breath or wheezing, # 360 mL, 0 R efill(s), Pharmacy: [facility] [id number] Start Date: 12/22/16 Stop Date: 01/21/17 Status: Ordered enoxaparin 40 mg, 0.4 mL, Route: SUB-Q, Drug form: INJ, [id number], Dosing Weight 75.455, kg, Start date: 12/20/16 9:00:00 CDT, Duration: 30 day, Stop date: 01/18/17 9:00:00 CDT Notes: (Same as: Lovenox) Start Date: 12/20/16 Stop Date: 12/22/16 Status: Discontinued furosemide 40 mg oral tablet 40 mg=1 tab, PO, Daily, # 30 tab, 0 Refill(s) Start Date: 12/19/16 Status: Ordered guaiFENesin 200 mg, 10 mL, Route: PO, Drug form: LIQ, Q4H, Dosing Weight 75.455, kg, PRN Cou gh, Start date: 12/19/16 23:57:00 CDT, Duration: 30 day, Stop date: 01/18/17 23: 56:00 CDT Notes: (Same as: Sara) Start Date: 12/19/16 Stop Date: 12/20/16 Status: Discontinued insulin detemir 10 unit, 0.1 mL, Route: SUB-Q, Drug form: SOLN, ONCE, Dosing Weight 75, kg, Star t date: 12/22/16 9:12:00 CDT, Stop date: 12/22/16 9:12:00 CDT Notes: Same as LevemirDo not hold insulin without contacting prescriberWASTE: F/ P - Black; E - [facility] "single patient use only" Start Date: 12/22/16 Stop Date: 12/22/16 Status: Completed Lasix 20 mg, 2 mL, Route: IVP, Drug form: INJ, ONCE, Dosing Weight 75, kg, Start date: 12/21/16 14:26:00 CDT, Stop date: 12/21/16 14:26:00 CDT Notes: (Same as: Lasix) Start Date: 12/21/16 Stop Date: 12/21/16 Status: Completed Levemir 20 unit, 0.2 mL, Route: SUB-Q, Drug form: SOLN, Bedtime, Dosing Weight 75, kg, S tart date: 12/20/16 21:00:00 CDT, Duration: 30 day, Stop date: 01/18/17 21:00:00 CDT Notes: Same as LevemirDo not hold insulin without contacting prescriberWASTE: F/ P - Black; E - [facility] "single patient use only" Start Date: 12/20/16 Stop Date: 12/22/16 Status: Discontinued Levemir 20 unit, SUB-Q, Bedtime, 0 Refill(s) Start Date: 12/19/16 Status: Ordered levofloxacin 750 mg, 3 tab, Route: PO, Drug form: TAB, Daily, Dosing Weight 75, kg, Start simón e: 12/22/16 9:00:00 CDT, Duration: 30 day, Stop date: 01/20/17 9:00:00 CDT, ABX Indication: Pneumonia Notes: Do not give w/antacids, dairy pdt & minerals Take 1 hr before or 2 hr after dairy pdt (Same as:Levaquin) Start Date: 12/22/16 Stop Date: 12/22/16 Status: Discontinued levofloxacin 500 mg=1 tab, PO, Daily, # 7 tab, 0 Refill(s) Start Date: 12/19/16 Stop Date: 12/26/16 Status: Ordered levofloxacin 250 mg oral tablet 750 mg=3 tab, PO, Daily, X 5 day, # 15 tab, 0 Refill(s), Pharmacy: [facility] [id number] Start Date: 12/22/16 Stop Date: 12/27/16 Status: Ordered losartan 100 mg oral tablet 100 mg=1 tab, PO, Daily, # 30 tab, 0 Refill(s) Start Date: 12/19/16 Status: Ordered naproxen 500 mg oral tablet 500 mg=1 tab, PO, BID, # 60 tab, 0 Refill(s) Start Date: 12/19/16 Status: Ordered Nebulizer 1 ea, MISC, ONCALL, # 1 ea, 0 Refill(s) Start Date: 12/22/16 Status: Ordered nicotine 21 mg, 1 patch, Route: TOP, Drug form: ERFILM, Daily, Dosing Weight 75, kg, Star t date: 12/22/16 9:00:00 CDT, Duration: 30 day, Stop date: 01/20/17 9:00:00 CDT Notes: (Same as: Habitrol)"Remove old patch before application of new patch"WAST E: F/P - P Waste Black; E - P Waste Black Start Date: 12/22/16 Stop Date: 12/22/16 Status: Discontinued NovoLOG 10 unit, 0.1 mL, Route: SUB-Q, Drug form: SOLN, TID-Before Meals, Dosing Weight 75, kg, Start date: 12/20/16 16:30:00 CDT, Duration: 30 day, Stop date: 01/19/17 11:30:00 CDT Notes: Roll in palms of hands gently; Do not shake vigorously. (Same as: Mino Sandy)"single patient use only"WASTE: F/P - Black; E - [facility] Trash [facility] Stable f or 28 days at room temperature.Expires in days from Date Start Date: 12/20/16 Stop Date: 12/22/16 Status: Discontinued ondansetron 4 mg, 2 mL, Route: IVP, Drug form: INJ, Q6H, Dosing Weight 75.455, kg, PRN Nause a & Vomiting, Start date: 12/19/16 23:57:00 CDT, Duration: 30 day, Stop date: 01/18/17 23:56:00 CDT Notes: (Same as: Erick) MEDICATION WASTE Product Size: 4 mgProduct Was kriss: ___ mg Start Date: 12/19/16 Stop Date: 12/22/16 Status: Discontinued pantoprazole 40 mg, 1 tab, Route: PO, Drug form: ECTAB, Daily, Dosing Weight 75, kg, Start da te: 12/21/16 9:00:00 CDT, Duration: 30 day, Stop date: 01/19/17 9:00:00 CDT Notes: Tablet should not be chewed or crushed.(Same as: Protonix) Start Date: 12/21/16 Stop Date: 12/22/16 Status: Discontinued pneumococcal 13-valent vaccine 0.5 mL, Route: IM, Drug Form: INJ, Daily, Start date: 12/20/16 9:00:00 CDT, Dura tion: 1 doses or times, Stop date: 12/20/16 9:00:00 CDT Notes: Shake well prior to use (Same as: Prevnar 13) Start Date: 12/20/16 Stop Date: 12/20/16 Status: Completed predniSONE 40 mg, 2 tab, Route: PO, Drug form: TAB, Daily, Dosing Weight 75, kg, Priority: NOW, Start date: 12/21/16 14:27:00 CDT, Duration: 30 day, Stop date: 01/20/17 9: 00:00 CDT Notes: Take with food. Start Date: 12/21/16 Stop Date: 12/22/16 Status: Discontinued predniSONE 20 mg oral tablet 40 mg=2 tab, PO, Daily, X 5 day, # 10 tab, 0 Refill(s), Pharmacy: [facility] [id number] Start Date: 12/22/16 Stop Date: 12/27/16 Status: Ordered pregabalin 300 mg oral capsule 300 mg=1 cap, PO, TID, 0 Refill(s) Start Date: 12/19/16 Status: Ordered remove patch 1 patch, Route: TOP, Drug form: ERFILM, Daily, Start date: 12/23/16 9:00:00 CDT, Duration: 30 day, Stop date: 01/21/17 9:00:00 CDT Notes: Remove old patch before application of new patch.WASTE: F/P - P Waste Anton ck; E - P Waste Black Start Date: 12/23/16 Stop Date: 12/22/16 Status: Canceled Saline Flush 0.9% 10 ml, Route: IVP, Drug Form: INJ, Dosing Weight 75.455, kg, PRN, PRN Line Flush , Start date: 12/19/16 23:57:00 CDT, Duration: 30 day, Stop date: 01/18/17 23:56 :00 CDT Notes: (Same as: BD Posiflush) Start Date: 12/19/16 Stop Date: 12/22/16 Status: Discontinued Symbicort 160/4.5 inhalation aerosol with adapter 2 inhalation, INHALATION, RBID, # 1 ea, 0 Refill(s), Pharmacy: [facility] [id number] Start Date: 12/22/16 Status: Ordered Symbicort 160/4.5 inhalation aerosol with adapter 2 inhalation, Route: INHALATION, Drug Form: AERO/A, Dosing Weight 75, kg, RBID, NOW, Start date: 12/21/16 14:26:00 CDT, Duration: 30 day, Stop date: 01/20/17 8: 00:00 CDT Notes: (Same as: Symbicort)WASTE: Aerosol - Return to Pharmacy Start Date: 12/21/16 Stop Date: 12/22/16 Status: Discontinued Zetia 10 mg, 1 tab, Route: PO, Drug form: TAB, Daily, Dosing Weight 75, kg, Start date : 12/21/16 9:00:00 CDT, Duration: 30 day, Stop date: 01/19/17 9:00:00 CDT Notes: (Same as: Zetia) Start Date: 12/21/16 Stop Date: 12/22/16 Status: Discontinued Zetia 10 mg oral tablet 10 mg=1 tab, PO, Daily, # 30 tab, 0 Refill(s) Start Date: 12/19/16 Status: Ordered Zocor 20 mg, 1 tab, Route: PO, Drug form: TAB, Bedtime, Dosing Weight 75, kg, Start da te: 12/20/16 21:00:00 CDT, Duration: 30 day, Stop date: 01/18/17 21:00:00 CDT Notes: (Same as: Zocor) Start Date: 12/20/16 Stop Date: 12/22/16 Status: Discontinued Results ELECTROLYTES Most recent to 1 oldest [Reference Range]: Sodium Lvl [135-145 136 mEq/L mEq/L] (12/20/16 12:21 AM) Potassium Lvl 4.0 mEq/L [3.5-5.1 mEq/L] (12/20/16 12:21 AM) Chloride Lvl [95-109 101 mEq/L mEq/L] (12/20/16 12:21 AM) CO2 [24-32 mEq/L] 26 mEq/L (12/20/16 12:21 AM) AGAP [10.0-20.0 13.0 mEq/L mEq/L] (12/20/16 12:21 AM) CHEM PANEL Most recent to 1 oldest [Reference Range]: Creatinine Lvl 1.00 mg/dL [0.50-1.40 mg/dL] (12/20/16 12:21 AM) eGFR 56 mL/min/1.73m2 1 *NA* (12/20/16 12:21 AM) BUN [7-22 mg/dL] 18 mg/dL (12/20/16 AM) B/C Ratio [6-25] 18 (12/20/16: AM) Glucose Lvl [70-99 114 mg/dL mg/dL] *HI* (12/20/16 AM) Total Protein 7.4 g/dL [6.4-8.4 g/dL] (12/20/16 AM) Albumin Lvl [3.5-5.0 3.8 g/dL g/dL] (12/20/16 AM) Globulin [2.7-4.2 3.6 g/dL g/dL] (12/20/16 AM) A/G Ratio [0.7-1.6] 1.1 (12/20/16 AM) Calcium Lvl 9.0 mg/dL [8.5-10.5 mg/dL] (12/20/16: AM) ALT [0-65 unit/L] 21 unit/L (12/20/16 AM) AST [0-37 unit/L] 16 unit/L (12/20/16 AM) Alk Phos [39-136 33 unit/L unit/L] *LOW* (12/20/16: AM) Bili Total [0.2-1.3 0.5 mg/dL mg/dL] (12/20/16 AM) Lactic Acid Lvl 1.5 mMol/L [0.5-2.2 mMol/L] (12/20/16 12: AM) Procalcitonin Lvl <0.05 ng/mL [0.00-0.10 ng/mL] (12/20/16 10:06 AM) 1Result Comment: The eGFR is calculated using the [...] from the National Kidney Disease Education Program ( NKDEP) which additionally recommends that when the eGFR is used in patients with extremes of body mass index for purposes of drug dosing, the eGFR should be mul tiplied by the estimated BMI. HEMATOLOGY Most recent to 1 oldest [Reference Range]: WBC [3.7-10.4 K/CMM] 10.1 K/CMM (12/20/16 AM) RBC [4.20-5.40 4.47 M/CMM M/CMM] (12/20/16 AM) Hgb [12.0-16.0 g/dL] 14.1 g/dL (12/20/16 AM) Hct [36.0-48.0 %] 41.6 % (12/20/16 AM) MCV [80.0-98.0 fL] 93.0 fL (12/20/16 AM) MCH [27.0-31.0 pg] 31.5 pg *HI* (12/20/16 AM) MCHC [32.0-36.0 33.8 g/dL g/dL] (12/20/16 AM) RDW [11.5-14.5 %] 12.6 % (12/20/16 AM) Platelet [133-450 310 K/CMM K/CMM] (12/20/16 AM) MPV [7.4-10.4 fL] 8.0 fL (12/20/16 AM) Segs [45.0-75.0 %] 75.3 % *HI* (12/20/16 AM) Lymphocytes 14.3 % [20.0-40.0 %] *LOW* (12/20/16 AM) Monocytes [2.0-12.0 9.1 % %] (12/20/16 AM) Eosinophils [0.0-4.0 0.5 % %] (8/11/17 12:21 AM) Basophils [0.0-1.0 0.8 % %] (12/20/16 12:21 AM) Segs-Bands # 7.6 K/CMM [1.5-8.1 K/CMM] (12/20/16 12:21 AM) Lymphocytes # 1.4 K/CMM [1.0-5.5 K/CMM] (12/20/16 12:21 AM) Monocytes # [0.0-0.8 0.9 K/CMM K/CMM] *HI* (12/20/16 12:21 AM) Eosinophils # 0.1 K/CMM [0.0-0.5 K/CMM] (12/20/16 12:21 AM) Basophils # [0.0-0.2 0.1 K/CMM K/CMM] (12/20/16 12:21 AM) BACTERIAL - SEROLOGY Most recent to 1 oldest [Reference Range]: Source Strep Urine *NA* (12/20/16 3:20 PM) Strep pneumoniae Ag Negative [Negative] (12/20/16 3:20 PM) Immunizations Given and Recorded Vaccine Date Status Refusal Reason pneumococcal 13-valent vaccine 12/20/16 Given Procedures Procedure Date Related Diagnosis Body Site Insertion of coronary artery stent 03/2012 Cataract surgery Colonoscopy Esophagogastroduodenoscopy Social History Social History Type Response Alcohol Current, Frequency: Daily. Smoking Status Current every day smoker; Exposure to Tobacco Smoke None; Cigarette Smoking Last 365 Days Yes; Reg Smoking Cessation Counseling Yes1 1admission packet-red Assessment and Plan Extracted from: Title: Progress Note * Author: Radha Crawford MD Date: 12/21/16 Impression and Plan Left-sided community Acquired Pneumonia probably bacterial Continue [facility] Acute COPD exacerbation Plan: Optimize medications to address COPD -Duonebs PRN -anti tussive -cultures pending -PT/OT Nicotine abuse Patient counseled on smoking cessation Currently refusing to quit CAD Stable HTN benign essential Continue home medications HLD Continue statin DM without known complication Plan: -c/w home meds, hold PO Diabetic medications -SSI+FSBG DVT prophylaxis: Lovenox Dispo: Plan to discharge tomorrow depending on respiratory status
--- OUTSIDE RECORDS SUMMARY | 2018-03-06 21:40 | XMS REPORT ---
Author [facility] Address Unknown Phone Unavailable Care Team Providers Care Community Organization Aide Name Role Phone JENNIFER JUARES Unavailable Unavailable VIV POLLOCK Unavailable Unavailable Problems This patient has no known problems. Allergies, Adverse Reactions, Alerts This patient has no known allergies or adverse reactions. Medications This patient has no known medications. Results Test Description Test Time Test Comments Text Results Atomic Results Result Comments MRI SPINE THORACIC WO 2018-01-15 13:02:00 [place] [address] Patient Name: MAMADOU WYATT MR #: [id number] : 1945 Age/Sex: 72/F Req #: [id number] Adm Physician: Ordered by: JENNIFER JUARES M.D. Report #: [id number] Location: MRI Room/Bed: Procedure: [id number] MRI/MRI SPINE THORACIC WO Exam Date: Exam Time: REPORT STATUS: Signed History: Left arm numbness Comparison studies: None Technique: Cervical spine: Sagittal T1, T2 and inversion recovery, axial T2 and axial 3-D gradient echo. Thoracic spine: Sagittal T1, T2 and inversion recovery, axial T2. Lumbar spine: Sagittal T1,T2 and inversion recovery, axial T2 and spin density oblique without contrast Findings: Number of lumbar vertebral bodies: 5 Alignment: Normal cervical lordosis. Mild grade 1 anterolisthesis of L3 over L4. Normal thoracic kyphosis. No scoliosis . Soft tissues: No prior spinal signal abnormalities. Bilateral renal cysts the largest one measuring 1.2 cm in the left upper pole. Cholelithiasis without evidence of cholecystitis left adrenal mass measuring approximately 2 cm is partially visualized. Paraspinal muscles: No signal abnormalities. Wel l-preserved. No atrophic changes . Spinal cord: Normal in signal and morphology from the foramen magnum through the tip of the conus at L1-L2 . Vertebrae: No acute fractures, infection or neoplasm. 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 Degenerative changes: Cervical spine: At C2-C3, right uncinate process hypertrophy results in mild right foraminal narrowing with patent canal. At C3-4, bilateral facet hypertrophy with patent canal and mild bilateral foraminal narrowing. At C4- 5, disc degeneration with loss of T2 signal. Left uncinate process hypertrophy and bilateral facet hypertrophy results in no significant canal stenosis and moderate right foraminal narrowing. Edema signal at the right facet. At C5- 6, disc degeneration with loss of T2 signal. Diffuse disc osteophyte complex, ligamentum flavum thickening, bilateral uncinate process and facet hypertrophy results in mild canal stenosis and moderate right and mild left foraminal narrowing. At C6-7, disc degeneration with decreased intervertebral space. Bilateral uncinate process and facet hypertrophy results in no significant canal stenosis and moderate right and severe left foraminal narrowing At C7- T1, patent canal and foramina. Thoracic spine: Diffuse disc degeneration with loss of T2 signal throughout the thoracic spine. Mild Modic type I changes at T6-7. Patent canal and foramina . Lumbar spine: At L3- L4, disc degeneration with loss of T2 signal. Diffuse disc bulge, moderate facet hypertrophy and ligamentum flavum thickening results in moderate canal stenosis and mild bilateral foraminal narrowing. At L4-L5 disc degeneration with loss of T2 signal. Diffuse disc bulge and mild facet hypertrophy results in no significant canal stenosis or foraminal narrowing. At L5-S1, diffuse disc bulge and mild facet hypertrophy results in no significant canal stenosis or foraminal narrowing. IMPRESSION: Cervical spine: 1. Severe degenerative left foraminal narrowing at C6-7. 2. Moderate degenerative right foraminal narrowing at C4-5, C5-6 and C6-7. 3. Facet hypertrophy with edema signal at C4-5 on the right. Thoracic spine: Mild disc degeneration throughout the thoracic spine. Mild Modic type I changes as to C6-7. Patent canal and foramina. Lumbar spine: 1. No acute spinal abnorma lity. 2. Moderate canal stenosis and mild bilateral foraminal narrowing at L3-L4. Other mild degenerative changes as described above. 3. Incidentally noted 2 cm left adrenal nodule, recommend further evaluation with dedicated imaging. Signed by: DR Mando Medina M.D. on 01/15/2018 1:23 PM Dictated By: MANDO SMALLWOOD MD 1323 Transcribed By: SHUN on 01/15/18 1323 COPY TO: JENNIFER JUARES M.D. MRI SPINE LUMBAR WO 2018-01-15 13:02:00 [place] [address] Patient Name: MAMADOU WYATT MR #: [id number] : 1945 Age/Sex: 72/F Req #: [id number] Adm Physician: Ordered by: JENNIFER JUARES M.D. Report #: [id number] Location: MRI Room/Bed: Procedure: [id number] MRI/MRI SPINE LUMBAR WO Exam Date: Exam Time: REPORT STATUS: Signed History: Left arm numbness Comparison studies: None Technique: Cervical spine: Sagittal T1, T2 and inversion recovery, axial T2 and axial 3-D gradient echo. Thoracic spine: Sagittal T1, T2 and inversion recovery, axial T2. Lumbar spine: Sagittal T1,T2 and inversion recovery, axial T2 and spin density oblique without contrast Findings: Number of lumbar vertebral bodies: 5 Alignment: Normal cervical lordosis. Mild grade 1 anterolisthesis of L3 over L4. Normal thoracic kyphosis. No scoliosis . Soft tissues: No prior spinal signal abnormalities. Bilateral renal cysts the largest one measuring 1.2 cm in the left upper pole. Cholelithiasis without evidence of cholecystitis left adrenal mass measuring approximately 2 cm is partially visualized. Paraspinal muscles: No signal abnormalities. Wel l-preserved. No atrophic changes . Spinal cord: Normal in signal and morphology from the foramen magnum through the tip of the conus at L1-L2 . Vertebrae: No acute fractures, infection or neoplasm. 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 Degenerative changes: Cervical spine: At C2-C3, right uncinate process hypertrophy results in mild right foraminal narrowing with patent canal. At C3-4, bilateral facet hypertrophy with patent canal and mild bilateral foraminal narrowing. At C4- 5, disc degeneration with loss of T2 signal. Left uncinate process hypertrophy and bilateral facet hypertrophy results in no significant canal stenosis and moderate right foraminal narrowing. Edema signal at the right facet. At C5- 6, disc degeneration with loss of T2 signal. Diffuse disc osteophyte complex, ligamentum flavum thickening, bilateral uncinate process and facet hypertrophy results in mild canal stenosis and moderate right and mild left foraminal narrowing. At C6-7, disc degeneration with decreased intervertebral space. Bilateral uncinate process and facet hypertrophy results in no significant canal stenosis and moderate right and severe left foraminal narrowing At C7- T1, patent canal and foramina. Thoracic spine: Diffuse disc degeneration with loss of T2 signal throughout the thoracic spine. Mild Modic type I changes at T6-7. Patent canal and foramina . Lumbar spine: At L3- L4, disc degeneration with loss of T2 signal. Diffuse disc bulge, moderate facet hypertrophy and ligamentum flavum thickening results in moderate canal stenosis and mild bilateral foraminal narrowing. At L4-L5 disc degeneration with loss of T2 signal. Diffuse disc bulge and mild facet hypertrophy results in no significant canal stenosis or foraminal narrowing. At L5-S1, diffuse disc bulge and mild facet hypertrophy results in no significant canal stenosis or foraminal narrowing. IMPRESSION: Cervical spine: 1. Severe degenerative left foraminal narrowing at C6-7. 2. Moderate degenerative right foraminal narrowing at C4-5, C5-6 and C6-7. 3. Facet hypertrophy with edema signal at C4-5 on the right. Thoracic spine: Mild disc degeneration throughout the thoracic spine. Mild Modic type I changes as to C6-7. Patent canal and foramina. Lumbar spine: 1. No acute spinal abnorma lity. 2. Moderate canal stenosis and mild bilateral foraminal narrowing at L3-L4. Other mild degenerative changes as described above. 3. Incidentally noted 2 cm left adrenal nodule, recommend further evaluation with dedicated imaging. Signed by: DR Mando Medina M.D. on 01/15/2018 1:23 PM Dictated By: MANDO SMALLWOOD MD 1323 Transcribed By: SHUN on 01/15/18 1323 COPY TO: JENNIFER JUARES M.D. MRI SPINE CERVICAL WO 2018-01-15 13:02:00 [place] [address] Patient Name: MAMADOU WYATT MR #: [id number] : 1945 Age/Sex: 72/F Req #: [id number] Adm Physician: Ordered by: JENNIFER JUARES M.D. Report #: [id number] Location: MRI Room/Bed: Procedure: [id number] MRI/MRI SPINE CERVICAL WO Exam Date: Exam Time: REPORT STATUS: Signed History: Left arm numbness Comparison studies: None Technique: Cervical spine: Sagittal T1, T2 and inversion recovery, axial T2 and axial 3-D gradient echo. Thoracic spine: Sagittal T1, T2 and inversion recovery, axial T2. Lumbar spine: Sagittal T1,T2 and inversion recovery, axial T2 and spin density oblique without contrast Findings: Number of lumbar vertebral bodies: 5 Alignment: Normal cervical lordosis. Mild grade 1 anterolisthesis of L3 over L4. Normal thoracic kyphosis. No scoliosis . Soft tissues: No prior spinal signal abnormalities. Bilateral renal cysts the largest one measuring 1.2 cm in the left upper pole. Cholelithiasis without evidence of cholecystitis left adrenal mass measuring approximately 2 cm is partially visualized. Paraspinal muscles: No signal abnormalities. Wel l-preserved. No atrophic changes . Spinal cord: Normal in signal and morphology from the foramen magnum through the tip of the conus at L1-L2 . Vertebrae: No acute fractures, infection or neoplasm. 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 Degenerative changes: Cervical spine: At C2-C3, right uncinate process hypertrophy results in mild right foraminal narrowing with patent canal. At C3-4, bilateral facet hypertrophy with patent canal and mild bilateral foraminal narrowing. At C4- 5, disc degeneration with loss of T2 signal. Left uncinate process hypertrophy and bilateral facet hypertrophy results in no significant canal stenosis and moderate right foraminal narrowing. Edema signal at the right facet. At C5- 6, disc degeneration with loss of T2 signal. Diffuse disc osteophyte complex, ligamentum flavum thickening, bilateral uncinate process and facet hypertrophy results in mild canal stenosis and moderate right and mild left foraminal narrowing. At C6-7, disc degeneration with decreased intervertebral space. Bilateral uncinate process and facet hypertrophy results in no significant canal stenosis and moderate right and severe left foraminal narrowing At C7- T1, patent canal and foramina. Thoracic spine: Diffuse disc degeneration with loss of T2 signal throughout the thoracic spine. Mild Modic type I changes at T6-7. Patent canal and foramina . Lumbar spine: At L3- L4, disc degeneration with loss of T2 signal. Diffuse disc bulge, moderate facet hypertrophy and ligamentum flavum thickening results in moderate canal stenosis and mild bilateral foraminal narrowing. At L4-L5 disc degeneration with loss of T2 signal. Diffuse disc bulge and mild facet hypertrophy results in no significant canal stenosis or foraminal narrowing. At L5-S1, diffuse disc bulge and mild facet hypertrophy results in no significant canal stenosis or foraminal narrowing. IMPRESSION: Cervical spine: 1. Severe degenerative left foraminal narrowing at C6-7. 2. Moderate degenerative right foraminal narrowing at C4-5, C5-6 and C6-7. 3. Facet hypertrophy with edema signal at C4-5 on the right. Thoracic spine: Mild disc degeneration throughout the thoracic spine. Mild Modic type I changes as to C6-7. Patent canal and foramina. Lumbar spine: 1. No acute spinal abnorma lity. 2. Moderate canal stenosis and mild bilateral foraminal narrowing at L3-L4. Other mild degenerative changes as described above. 3. Incidentally noted 2 cm left adrenal nodule, recommend further evaluation with dedicated imaging. Signed by: DR Mando Medina M.D. on 01/15/2018 1:23 PM Dictated By: MANDO SMALLWOOD MD 1323 Transcribed By: SHUN on 01/15/18 1323 COPY TO: JENNIFER JUARES M.D. CHEST 2 VIEWS 2017-12-04 11:28:00 [place] [address] Patient Name: MAMADOU WYATT MR #: [id number] : 1945 Age/Sex: 72/F Req #: [id number] Adm Physician: Ordered by: VIV POLLOCK MD Report #: [id number] Location: [facility] Room/Bed: Procedure: [id number] DX/CHEST 2 VIEWS Exam Date: 12/04/17 Exam Time: 1040 REPORT STATUS: Signed PROCEDURE: Frontal and lateral views of the chest. COMPARISON: DX, CHEST 2 VIEWS - [place], 02/20/2016, 9:47. INDICATIONS: COUGH, COPD FINDINGS: Lines/tubes: None. Lungs: The lungs are well inflated. Stable postoperative changes in the left lateral lower lung, with presence of metallic clips. Stable calcified granulomas. There is no evidence of pneumonia or pulmonary edema. Pleura: There is no pleural effusion or pneumothorax. Heart and mediastinum: The heart and the mediastinum are normal. Pulmonary vasculature is normal. Calcified mediastinal nodes. Bones: No acute bony abnormality. IMPRESSION: 1. No acute cardiopulmonary abnormalities. Trung Rust M.D. Dictated by: Trung Rust M.D. on 12/04/2017 at 11:28 Electronically appro bria by: Trung Rust M.D. on 12/04/2017 at 11:28 Dictated By: TRUNG RUST MD 1128 Transcribed By: TOY on 12/04/17 1128 COPY TO: VIV POLLOCK MD
--- OUTSIDE RECORDS SUMMARY | 2018-03-06 21:40 | XMS REPORT ---
Author Author Artie Silveira [facility] eClinical[employer] Address Unknown Phone Unavailable Care Team Providers Care Photo Mask Processor Name Role Phone Artie Silveira Unavailable Allergies, Adverse Reactions, Alerts Substance Reaction Event Type penicillin swelling Drug Allergy Problems Problem Type Condition Code Onset Dates Condition Status Problem Diabetes type 2, uncontrolled E11.65 Active Problem Inflammatory arthritis M19.90 Active Problem Trigger finger, right middle finger M65.331 Active Problem Joint pain M25.50 Active Assessment Inflammatory arthritis M19.90 Active Medications Medication Code System Code Instructions Start Date End Date Status Dosage Albuterol NDC 0 90 MCG/ACT Inhalation Active as directed Simvastatin ND 38456180039 10 MG Orally Once a day Active 1 tablet in the evening Tizanidine HCl ND 59968775005 2 MG Orally Three times a day Active 1 tablet as needed Advair Diskus ND 89327353164 500-50 MCG/DOSE Inhalation Twice a day Active 1 puff Hydroxychloroquine Sulfate ND 87338289498 200 MG Orally BID Active 1 tablet with food or milk Plavix [facility] 83662062479 75 MG Orally Once a day Active 1 tablet Coreg ND 74728709340 6.25 MG Orally Active as directed Pantoprazole Sodium ND 00431692143 40 MG Orally Once a day Active 1 tablet Losartan NDC 0 50mg Orally Once a day Active 1 tablet Anoro Ellipta [facility] 91926044477 62.5-25 MCG/INH Inhalation Once a day Active 1 puff Leflunomide ND 78132299886 20 MG Orally Once a day Active 1 tablet Klor-Con 10 ND 21452126616 10 MEQ Orally Twice a day Active 1 tablet with food Furosemide ND 51338824823 40 MG Orally Once a day Active 1 tablet Bydureon ND 65718568196 2 MG Subcutaneous Active as directed Benzonatate ND 95941485681 100 MG Orally Three times a day Active 1 capsule as needed Zetia ND 50982827956 10 MG Orally Once a day Active 1 tablet NovoLog Mix 70/[address] [facility] 81914972242 (70-30) 100 UNIT/ML Subcutaneous Active as directed Levofloxacin [facility] 12646048525 500 MG Orally Once a day Active 1 tablet Vital Signs Date/Time: Dec 24, 2017 BMI 26.23 Index Weight 152.8 lbs Height 64 in Temperature 97.2 F Cardiac Monitoring Heart Rate 76 /min Blood Pressure Diastolic 70 mm Hg Blood Pressure Systolic 134 mm Hg Results No Known Results Summary Purpose eClinicalWorks Submission
--- OUTSIDE RECORDS SUMMARY | 2018-03-06 21:40 | XMS REPORT ---
Author Author Artie Silveira [facility] eClinical[employer] Address Unknown Phone Unavailable Care Team Providers Care Channel Lip Stiffener Insoles Name Role Phone Artie Silveira Unavailable Allergies, Adverse Reactions, Alerts Substance Reaction Event Type penicillin swelling Drug Allergy Problems Problem Type Condition Code Onset Dates Condition Status Problem Diabetes type 2, uncontrolled E11.65 Active Problem Inflammatory arthritis M19.90 Active Problem Trigger finger, right middle finger M65.331 Active Assessment Diabetes type 2, uncontrolled E11.65 Active Assessment Inflammatory arthritis M19.90 Active Problem Joint pain M25.50 Active Assessment Trigger finger, right middle finger M65.331 Active Medications Medication Code System Code Instructions Start Date End Date Status Dosage Anoro Ellipta [facility] 06871698067 62.5-25 MCG/INH Inhalation Once a day Active 1 puff Bydureon ND 96454077238 2 MG Subcutaneous Active as directed Hydroxychloroquine Sulfate ND 62828424388 200 MG Orally BID Active 1 tablet with food or milk Furosemide ND 67181869620 40 MG Orally Once a day Active 1 tablet Levofloxacin ND 67771753635 500 MG Orally Once a day Active 1 tablet Leflunomide ND 91263430512 20 MG Orally Once a day Active 1 tablet NovoLog Mix 70/30 ND 66148215622 (70-30) 100 UNIT/ML Subcutaneous Active as directed Tizanidine HCl ND 88161908463 2 MG Orally Three times a day Active 1 tablet as needed Losartan NDC 0 50mg Orally Once a day Active 1 tablet Klor-Con 10 ND 54729056240 10 MEQ Orally Twice a day Active 1 tablet with food Albuterol NDC 0 90 MCG/ACT Inhalation Active as directed Advair Diskus ND 29377428773 500-50 MCG/DOSE Inhalation Twice a day Active 1 puff Benzonatate ND 99318856821 100 MG Orally Three times a day Active 1 capsule as needed Pantoprazole Sodium ND 11792838632 40 MG Orally Once a day Active 1 tablet Plavix [facility] 01584738092 75 MG Orally Once a day Active 1 tablet Zetia [facility] 84722155454 10 MG Orally Once a day Active 1 tablet Coreg [facility] 60836347023 6.25 MG Orally Active as directed Simvastatin [facility] 45433965068 10 MG Orally Once a day Active 1 tablet in the evening Vital Signs Date/Time: September 23, 2017 BMI 26.41 Index Weight 153.9 lbs Height 64 in Temperature 97.6 F Cardiac Monitoring Heart Rate 74 /min Blood Pressure Diastolic 72 mm Hg Blood Pressure Systolic 118 mm Hg Results No Known Results Summary Purpose eClinicalWorks Submission
--- OUTSIDE RECORDS SUMMARY | 2018-03-06 21:40 | XMS REPORT ---
Author Author Sharan Weber Organization [employer] Address Unknown Phone Unavailable Care Team Providers Care Phlebotomy Manager Name Role Phone Sharan Weber CP Unavailable [...]
--- OUTSIDE RECORDS SUMMARY | 2018-03-06 21:40 | XMS REPORT ---
Author Author Artie Silveira [facility] eClinicalWorks Address Unknown Phone Unavailable Care Team Providers Care Telegraph Installer Name Role Phone Artie Silveira CP Unavailable Allergies, Adverse Reactions, Alerts Substance Reaction Event Type penicillin swelling Drug Allergy Problems Problem Type Condition Code Onset Dates Condition Status Assessment Need for prophylactic vaccination and inoculation against influenza Z23 Active Assessment Back pain M54.9 Active Problem Diabetes type 2, uncontrolled E11.65 Active Problem Joint pain M25.50 Active Problem Trigger finger, right middle finger M65.331 Active Assessment Trigger finger, right middle finger M65.331 Active Assessment Joint pain M25.50 Active Problem Inflammatory arthritis M19.90 Active Assessment Inflammatory arthritis M19.90 Active Medications Medication Code System Code Instructions Start Date End Date Status Dosage Furosemide [facility] [address]-33 40 MG Orally Once a day Active 1 tablet Klor-Con 10 [facility] [address]-92 10 MEQ Orally Twice a day Active 1 tablet with food Leflunomide [facility] [address]-09 20 MG Orally Once a day Feb 11, 2017 Jun 11, 2017 Active 1 tablet Gabapentin [facility] [address]-19 300 MG Orally Three times a day Active 1 capsule Plavix [facility] [address]-11 75 MG Orally Once a day Active 1 tablet Pantoprazole Sodium [facility] [address]-27 40 MG Orally Once a day Active 1 tablet Simvastatin [facility] [address]-59 10 MG Orally Once a day Active 1 tablet in the evening Coreg [facility] [address]-54 6.25 MG Orally Active as directed Albuterol NDC 0 90 MCG/ACT Inhalation Active as directed Naproxen [facility] [address]-53 250 MG Orally Twice a day Feb 11, 2017 Inactive 1 tablet Tizanidine HCl [facility] [address]-04 2 MG Orally Three times a day Active 1 tablet as needed Losartan NDC 0 50mg Orally Once a day Active 1 tablet Aspirin [facility] [address]-29 81 MG Orally Once a day Active 1 tablet Zetia [facility] [address]-74 10 MG Orally Once a day Active 1 tablet Diazepam [facility] [address]-07 10 MG Orally Twice a day Active 1 tablet as needed NovoLog [facility] [address]-26 100 UNIT/ML Subcutaneous Active as directed Hydroxychloroquine Sulfate [facility] [address]-86 200 MG Orally BID Active 1 tablet with food or milk Vital Signs Date/Time: Feb 11, 2017 BMI 27.39 Index Weight 164.6 lbs Height 65 in Temperature 97.5 F Cardiac Monitoring Heart Rate 72 /min Blood Pressure Diastolic 60 mm Hg Blood Pressure Systolic 100 mm Hg Results Name Result Date Reference Range Unit Abnormality Flag COMPREHENSIVE METABOLIC PANEL W/EGFR ----CALCIUM 9.2 85722818 8.6-10.4 mg/dL N ----CARBON DIOXIDE 28 20170211 20-31 mmol/L N ----ALT 17 19053802 6-29 U/L N ----CREATININE 1.44 04856204 0.60-0.93 mg/dL H ----AST 13 58305917 10-35 U/L N ----eGFR NON-AFR. BRUNEIAN 36 60975456 > OR=60 mL/min/1.73m2 L ----ALKALINE PHOSPHATASE 34 49215185 33-130 U/L N ----eGFR 42 00475129 > OR=60 mL/min/1.73m2 L ----BILIRUBIN, TOTAL 0.5 77713243 0.2-1.2 mg/dL N ----BUN/CREATININE RATIO 19 60551289 6-22 (calc) N ----ALBUMIN/GLOBULIN RATIO 1.8 06776202 1.0-2.5 (calc) N ----SODIUM 136 05728488 135-146 mmol/L N ----GLOBULIN 2.4 77999626 1.9-3.7 g/dL (calc) N ----POTASSIUM 4.7 87647627 3.5-5.3 mmol/L N ----GLUCOSE 155 81883502 65-99 mg/dL H ----CHLORIDE 101 75708589 98-110 mmol/L N ----ALBUMIN 4.3 85642428 3.6-5.1 g/dL N ----UREA NITROGEN (BUN) 28 31890874 7-25 mg/dL H ----PROTEIN, TOTAL 6.7 65950927 6.1-8.1 g/dL N SED RATE BY MODIFIED WESTERGREN ----SED RATE BY MODIFIED WESTERGREN 9 06555776 < OR=30 mm/h N C-REACTIVE PROTEIN ----C-REACTIVE PROTEIN 2.7 65910056 <8.0 mg/L N CBC (INCLUDES DIFF/PLT) ----MCHC 33.4 12554788 32.0-36.0 g/dL N ----MCH 30.5 02506917 27.0-33.0 pg N ----PLATELET COUNT 253 35179476 140-400 Thousand/uL N ----RDW 13.0 95850919 11.0-15.0 % N ----BASOPHILS 0.6 31654287 % N ----ABSOLUTE NEUTROPHILS 4951 62091318 2563-4048 cells/uL N ----ABSOLUTE LYMPHOCYTES 831 76707606 850-3900 cells/uL L ----MPV 10.5 92155584 7.5-12.5 fL N ----ABSOLUTE BASOPHILS 40 39819559 0-200 cells/uL N ----HEMATOCRIT 37.1 98499120 35.0-45.0 % N ----NEUTROPHILS 73.9 42444875 % N ----MCV 91.4 38767426 80.0-100.0 fL N ----RED BLOOD CELL COUNT 4.06 24898345 3.80-5.10 Million/uL N ----ABSOLUTE MONOCYTES 670 57479731 200-950 cells/uL N ----ABSOLUTE EOSINOPHILS 208 70514647 15-500 cells/uL N ----HEMOGLOBIN 12.4 52265288 11.7-15.5 g/dL N ----EOSINOPHILS 3.1 78534485 % N ----WHITE BLOOD CELL COUNT 6.7 02717677 3.8-10.8 Thousand/uL N ----LYMPHOCYTES 12.4 52219787 % N ----MONOCYTES 10.0 93846430 % N Immunizations Vaccine Administration Date Flu Vaccine Feb 11, 2017 Summary Purpose eClinicalWorks Submission
--- OUTSIDE RECORDS SUMMARY | 2018-03-06 21:40 | XMS REPORT ---
Author Author Argelia Parada Organization [employer] Address Unknown Phone Unavailable Care Team Providers Care Liner Worker Name Role Phone Argelia Parada CP Unavailable Encounters Encounter Location Date Unknown Argelia Parada MD [place] Jan 24, 2016 Problems Problem Type Condition ICD-9 Code Onset Dates Condition Status Problem Varicose veins of lower extremities with other complications I83.899 Active Problem Abnormal electrocardiogram R94.31 Active Problem COPD (chronic obstructive pulmonary disease) J44.9 Active Problem Other nonspecific abnormal cardiovascular system function study R94.39 Active Problem Patient unable to exercise Z72.89 Active Problem 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 Active Problem Old myocardial infarction I25.2 Active Problem Pure hypercholesterolemia E78.0 Active Problem 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 Status Current Smoker One carton per week Dec 13, 2015 Alcohol Use Yes. Dec 13, 2015 Alcohol Screening: Yes. Did you have a drink containing alcohol in the past year?: Yes, How often did you have a drink containing alcohol in the past year?: Two to four times a month (2 points), How many drinks did you have on a typical day when you were drinking in the past year?: 3 or 4 (1 point), How often did you have six or more drinks on one occasion in the past year?: Less than monthly (1 point), Points: 4 Dec 13, 2015 Marital Status: . Dec 13, 2015 Do you drink alcohol? Yes. 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
--- OUTSIDE RECORDS SUMMARY | 2018-03-06 21:40 | XMS REPORT ---
Author Author Artie Silveira [facility] e[employer] Address Unknown Phone Unavailable Care Team Providers Care Single Stayer Operator Name Role Phone Artie Silveira Unavailable Allergies, Adverse Reactions, Alerts Substance Reaction Event Type penicillin swelling Drug Allergy Problems Problem Type Condition Code Onset Dates Condition Status Problem Diabetes type 2, uncontrolled E11.65 Active Problem Inflammatory arthritis M19.90 Active Problem Trigger finger, right middle finger M65.331 Active Assessment Inflammatory arthritis M19.90 Active Problem Joint pain M25.50 Active Assessment Trigger finger, right middle finger M65.331 Active Medications Medication Code System Code Instructions Start Date End Date Status Dosage Bydureon [facility] 15809346909 2 MG Subcutaneous Active as directed Zetia [facility] 73520000136 10 MG Orally Once a day Active 1 tablet Simvastatin ND 20842890341 10 MG Orally Once a day Active 1 tablet in the evening Furosemide ND 28280799618 40 MG Orally Once a day Active 1 tablet Albuterol ND 0 90 MCG/ACT Inhalation Active as directed NovoLog Mix 70/30 [facility] 32844813304 (70-30) 100 UNIT/ML Subcutaneous Active as directed Diazepam ND 96295659352 10 MG Orally Twice a day Active 1 tablet as needed Coreg ND 58540379122 6.25 MG Orally Active as directed Tizanidine HCl ND 51982451887 2 MG Orally Three times a day Active 1 tablet as needed Pantoprazole Sodium ND 39797436752 40 MG Orally Once a day Active 1 tablet NovoLog [facility] 28699569154 100 UNIT/ML Subcutaneous Active as directed Klor-Con 10 [facility] 34842099281 10 MEQ Orally Twice a day Active 1 tablet with food Anoro Ellipta [facility] 83161068724 62.5-25 MCG/INH Inhalation Once a day Active 1 puff Advair Diskus ND 79105478078 500-50 MCG/DOSE Inhalation Twice a day Active 1 puff Gabapentin ND 83836849702 300 MG Orally Three times a day Active 1 capsule Losartan NDC 0 50mg Orally Once a day Active 1 tablet Leflunomide [facility] 00153372392 20 MG Orally Once a day Active 1 tablet Hydroxychloroquine Sulfate [facility] 15702610688 200 MG Orally BID Active 1 tablet with food or milk Plavix [facility] 41809080028 75 MG Orally Once a day Active 1 tablet Vital Signs Date/Time: May 14, 2017 BMI 27.63 Index Weight 161 lbs Height 64 in Temperature 97.5 F Cardiac Monitoring Heart Rate 72 /min Blood Pressure Diastolic 60 mm Hg Blood Pressure Systolic 118 mm Hg Results No Known Results Summary Purpose [employer] Submission
--- OUTSIDE RECORDS SUMMARY | 2018-03-06 21:40 | XMS REPORT ---
Author Author Sharan Weber Organization [employer] Address Unknown Phone Unavailable Care Team Providers Care Agriculture Science Teacher Name Role Phone Sharan Weber CP Unavailable Allergies No Known Allergies Problems Problem Type Condition Code Onset Dates Condition Status Problem Diabetes type 2, uncontrolled E11.65 Active Problem Inflammatory arthritis M19.90 Active Problem Trigger finger, right middle finger M65.331 Active Problem Joint pain M25.50 Active Assessment Inflammatory arthritis M19.90 Active Medications Medication Code System Code Instructions Start Date End Date Status Dosage Leflunomide [facility] 92609885903 20 MG Orally Once a day Active 1 tablet Hydroxychloroquine Sulfate [facility] 32309325009 200 MG Orally BID Active 1 tablet with food or milk Results No Known Results Summary Purpose [employer] Submission
--- OUTSIDE RECORDS SUMMARY | 2018-03-06 21:40 | XMS REPORT ---
Author Author Artie Silveira [facility] e[employer] Address Unknown Phone Unavailable Care Team Providers Care Burglar Alarm Inspector Name Role Phone Artie Silveira Unavailable Allergies, [...] Instructions Start Date End Date Status Dosage Pantoprazole Sodium ND 93679499330 40 MG Orally Once a day Active 1 tablet Losartan NDC 0 50mg Orally Once a day Active 1 tablet Klor-Con 10 ND 65315643862 10 MEQ Orally Twice a day Active 1 tablet with food Simvastatin ND 54392219422 10 MG Orally Once a day Active 1 tablet in the evening Advair Diskus ND 01426971982 500-50 MCG/DOSE Inhalation Twice a day Active 1 puff Hydroxychloroquine Sulfate ND 71627689958 200 MG Orally BID Active 1 tablet with food or milk Furosemide ND 69321403383 40 MG Orally Once a day Active 1 tablet Levofloxacin ND 03479385433 500 MG Orally Once a day Active 1 tablet NovoLog ND 90931396528 100 UNIT/ML Subcutaneous Active as directed Bydureon ND 69943048925 2 MG Subcutaneous Active as directed Benzonatate ND 31089134757 100 MG Orally Three times a day Active 1 capsule as needed NovoLog Mix 70/30 ND 26789291577 (70-30) 100 UNIT/ML Subcutaneous Active as directed Leflunomide ND 68990654288 20 MG Orally Once a day Active 1 tablet Tizanidine HCl ND 32158494253 2 MG Orally Three times a day Active 1 tablet as needed Diazepam ND 89065059898 10 MG Orally Twice a day Active 1 tablet as needed Zetia [facility] 61282010672 10 MG Orally Once a day Active 1 tablet Anoro Ellipta [facility] 93973390511 62.5-25 MCG/INH Inhalation Once a day Active 1 puff Albuterol [facility] 0 90 MCG/ACT Inhalation Active as directed Gabapentin [facility] 30266922178 300 MG Orally Three times a day Active 1 capsule Coreg [facility] 00092072343 6.25 MG Orally Active as directed Vital Signs Date/Time: August 12, 2017 BMI 27.12 Index Weight 158 lbs Height 64 in Temperature 96.8 F Cardiac Monitoring Heart Rate 76 /min Blood Pressure Diastolic 72 mm Hg Blood Pressure Systolic 126 mm Hg Results No Known Results Summary Purpose [employer] Submission
[2018-03-06] MEDS ORDERED: HYDROCODONE/APAP 7.5MG-325MG 1 EA TAB PO ONE (22:00)
--- NOTE | 2018-03-06 22:33 | Diagnostic Imaging Report ---
SHOULDER LEFT COMPLETE Comparison: None Clinical history: Fall, popping of the left shoulder Findings: Frontal and lateral view provided. See impression Impression: Mildly displaced proximal left humeral fracture. Signed by: Dr Patricia Jin MD on 03/06/2018 10:30 PM
[2018-03-06 22:46] VITALS: BP 129/63
[2018-03-06] MEDS ORDERED: FENTANYL 50 MCG/HR PATCH TOP ONE (23:00)
== END 2018-03-06 22:41 | disposition home or self-care (01) ==
LOC: ER 21:36
DX: S42.292A Other displaced fracture of upper end of left humerus, initial encounter for closed fracture (principal); W01.0XXA Fall on same level from slipping, tripping and stumbling without subsequent striking against object, initial encounter; Y93.01 Activity, walking, marching and hiking; Y92.008 Other place in unspecified non-institutional (private) residence as the place of occurrence of the external cause; E11.9 Type 2 diabetes mellitus without complications; Z86.718 Personal history of other venous thrombosis and embolism
CPT/HCPCS: 99284

== ENCOUNTER → 2018-10-07 | Outpatient (CLI) | payer MEDICARE, OTHER ==
--- NOTE | 2018-10-07 09:47 | Diagnostic Imaging Report ---
EXAMINATION: PA and lateral views of the chest. COMPARISON: Left shoulder radiographs 03/06/2018 CLINICAL HISTORY: Cough DISCUSSION: Lungs are well-inflated and without focal consolidation, pleural effusion, or pneumothorax. Anterior and lateral left chest wall surgical clips are unchanged. Atherosclerotic calcification of the thoracic aorta. Normal heart size. Innumerable calcified hilar and mediastinal lymph nodes presumably related to prior granulomatous disease. No acute osseous abnormality. Incompletely healed fracture of the left humerus partially visualized. IMPRESSION: No acute cardiopulmonary abnormalities. Signed by: Dr. Ruel Lomeli M.D. on 10/07/2018 9:43 AM
== END ==
LOC: RAD 08:51
DX: R05 Cough (principal)
CPT/HCPCS: 71046

== ENCOUNTER → 2018-12-16 | Outpatient (CLI) | payer MEDICARE, OTHER | LOC: RAD 08:26 | DX: M79.662 Pain in left lower leg (principal) | CPT/HCPCS: 93971 ==

== ENCOUNTER → 2019-02-08 | Outpatient (CLI) | payer MEDICARE, OTHER ==
--- NOTE | 2019-02-08 10:03 | Diagnostic Imaging Report ---
EXAMINATION: CHEST 2 VIEWS INDICATION: Shortness of breath COMPARISON: Chest radiograph of 10/07/2018 FINDINGS: LINES/TUBES:None LUNGS:The lungs are moderately inflated. There is perihilar fullness and indistinctness of the pulmonary vasculature. Mild bibasilar subsegmental atelectasis. Postoperative findings of the left lower lung zone with surgical clips in unchanged position. PLEURA:No pleural effusion or pneumothorax. MEDIASTINUM:Cardiomediastinal silhouette is stably enlarged. Atherosclerotic calcifications of the thoracic aorta. Calcified mediastinal and hilar lymph nodes. BONES/SOFT TISSUES:No acute osseous injury. ABDOMEN:No free air under the diaphragm. IMPRESSION: Mild cardiomegaly and mild pulmonary interstitial edema. Signed by: Karon Izquierdo MD on 02/08/2019 10:00 AM
== END ==
LOC: RAD 09:26
DX: R06.02 Shortness of breath (principal); J44.9 Chronic obstructive pulmonary disease, unspecified
CPT/HCPCS: 71046

== ENCOUNTER → 2019-03-09 | Outpatient (CLI) | payer MEDICARE, OTHER ==
[~2019-03-09] MED LIST changes: +IOPAMIDOL 370 MG/ML 200 ML INFUS..BTL INJ ONE; +SODIUM CHLORIDE 0.9% 50ML 50 ML ONE
[2019-03-09 08:40] LABS: BLOOD UREA NITROGEN 8 mg/dL (7-26); BUN/CREATININE RATIO 10 (6-25); CREATININE, SERUM 0.84 mg/dL (0.57-1.11); EST GLOMERULAR FILTRATION RATE > 60 ML/MIN (60-)
--- NOTE | 2019-03-09 09:53 | Diagnostic Imaging Report ---
EXAM: CT Chest WITH intravenous contrast 03/09/2019 7:58 AM INDICATION: Shortness of breath COMPARISON: Chest radiograph of 02/08/2019 TECHNIQUE: Chest was scanned utilizing a multidetector helical scanner from the lung apex through the level of the adrenal glands after administration of IV contrast. Coronal and sagittal reformations were obtained. Routine protocol was performed. IV CONTRAST: 100mL Isovue 370 RADIATION DOSE: Total DLP: 481.9 mGy*cm. Dose modulation, iterative reconstruction, and/or weight based adjustment of the mA/kV was utilized to reduce the radiation dose to as low as reasonably achievable. COMPLICATIONS: None FINDINGS: LINES/ TUBES: None. LUNGS AND AIRWAYS: The central airways are patent. There are bilateral lower lobe predominant ground glass opacities and smooth interlobular septal thickening consistent with mild pulmonary edema. Bibasilar dependent subsegmental atelectasis. Along the medial aspect of the right lower lobe, there is a 3.4 x 3.4 cm parenchymal/sierra mass (series 2 image 56) which abuts the bifurcation of the bronchus intermedius anteriorly. PLEURA: Small bilateral right greater than left pleural effusions. No pneumothorax. Mild pleural thickening and postoperative changes at the lateral lingula. HEART AND MEDIASTINUM: The thyroid gland is normal. No supraclavicular lymphadenopathy. There is calcified and noncalcified mediastinal and bilateral hilar lymphadenopathy. Calcified hilar lymph nodes measure up to 3.1 x 2.5 cm in the subcarinal station. Left hilar lymph nodes measure up to 1.3 cm short axis. Right infrahilar mass/lymphadenopathy measures approximately 3.4 x 3.4 cm (series 2 image 56) as discussed in the lung section. Mild multichamber cardiomegaly.. Atherosclerotic calcifications involve the coronary arteries, thoracic aorta, and proximal great vessels.. No central pulmonary embolism. No pericardial effusion. UPPER ABDOMEN: Limited views of the upper abdomen demonstrate no focal abnormality of the partially visualized liver, spleen, pancreatic tail, or upper left kidney. Partially visualized bilateral adrenal nodules measure indeterminate soft tissue density and up to 3.0 cm on each side. BONES: No acute osseous injury. No suspicious lytic or blastic lesions. SOFT TISSUES: Unremarkable. IMPRESSION: Medial right lower lobe 3.4 x 3.4 cm parenchymal/sierra mass which abuts the bifurcation of the bronchus intermedius anteriorly. Calcified and noncalcified mediastinal and bilateral hilar lymphadenopathy. Findings are concerning for malignancy. There is no safe window for percutaneous biopsy of this lesion. Recommend bronchoscopic biopsy. Bilateral soft tissue density adrenal nodules measure up to 3.0 cm and are indeterminate on this single phase chest CT. However given the above pulmonary findings, metastatic disease would be high in the differential. Mild multichamber cardiomegaly. Mild pulmonary edema. Small bilateral pleural effusions right greater than left. Diffuse atherosclerotic arterial calcifications including of the coronary arteries. Signed by: Karon Izquierdo MD on 03/09/2019 9:50 AM
== END ==
LOC: CT 07:49
PROVIDERS: ATTEND Internal Medicine Critical Care Medicine
DX: D49.1 Neoplasm of unspecified behavior of respiratory system (principal); J44.9 Chronic obstructive pulmonary disease, unspecified
CPT/HCPCS: 36415; 71260; 82565; 84520; Q9967

== ENCOUNTER → 2019-03-17 | Outpatient (CLI) | payer MEDICARE, OTHER ==
[~2019-03-17] MED LIST changes: -IOPAMIDOL 370 MG/ML 200 ML INFUS..BTL INJ ONE; -SODIUM CHLORIDE 0.9% 50ML 50 ML ONE
== END ==
LOC: SLEEP 20:08
PROVIDERS: ATTEND Internal Medicine Critical Care Medicine
DX: G47.33 Obstructive sleep apnea (adult) (pediatric) (principal); J44.9 Chronic obstructive pulmonary disease, unspecified
CPT/HCPCS: 95810

== ENCOUNTER 2019-09-26 11:10 | Emergency (ER) | payer MEDICARE, OTHER ==
[~2019-09-26] VITALS: Ht 167.6 cm; Wt 76.2 kg
--- OUTSIDE RECORDS SUMMARY | 2019-09-26 11:13 | XMS REPORT | Clinical Summary ---
Author Author LG [email or web address] Address Unknown Phone Unavailable Care Team Providers Care Correction Lieutenant Name Role Phone Donald Turk PCP Allergies Comments Active Allergy Reactions Severity Noted Date Penicillins Swelling High 04/19/2019 Medications End Date Status Medication Sig Dispensed Refills Start Date Active calcium-vitamin D 250-100 Take 1 tablet 0 mg-unit per tablet by mouth daily 600mgs / 800 units . Active carvedilol (COREG) 6.25 Take 6.25 mg 0 MG tablet by mouth 2 (two) times daily with breakfast and dinner. Active diazePAM (VALIUM) 10 MG Take 5 mg by 0 tablet mouth every 6 (six) hours as needed for Anxiety. Active exenatide ER 2 mg/0.85 mL Inject 2 mg 0 (BYDUREON) 2 mg/0.85 mL subcutaneousl AtIn y once a week Every Friday . Active fluticasone Inhale 1 puff 0 propion-salmeterol by mouth via (ADVAIR) 500-50 mcg/dose inhaler 2 diskus inhaler (two) times daily. Active furosemide (LASIX) 40 MG Take 40 mg by 0 tablet mouth daily. Active hydroxychloroquine Take by mouth 0 (PLAQUENIL) 200 mg 2 (two) times tabletIndications: daily. arthritis Active insulin aspart U-100 Inject 0 (NOVOLOG) 100 unit/mL subcutaneousl injection y 3 (three) times daily before meals Sliding scale . Active insulin detemir U-100 Inject 20 0 (LEVEMIR) 100 unit/mL (3 Units mL) InPn injection subcutaneousl y every night as needed. Active leflunomide (ARAVA) 20 MG Take 20 mg by 0 tabletIndications: mouth daily. rheumatoid arthritis Active losartan (COZAAR) 100 MG Take 100 mg 0 tablet by mouth daily. Active montelukast (SINGULAIR) Take 10 mg by 0 10 mg tablet mouth nightly. Active pantoprazole (PROTONIX) Take 40 mg by 0 40 MG tablet mouth daily. Active umeclidinium-vilanterol Inhale 1 puff 0 (ANORO ELLIPTA) 62.5-25 by mouth via mcg/actuation DsDv inhaler. Active cholecalciferol, vitamin Take 2,000 0 D3, 2,000 unit Tab Units by mouth daily. Active polyethylene glycol Take 17 g by 14 each 1 06/23 (GLYCOLAX) 17 gram packet mouth daily. 0 Active senna-docusate (SENOKOT Take 2 60 tablet 1 S) 8.6-50 mg per tablet tablets by 0 mouth 2 (two) times daily. 04/27/2019 Discontinued atorvastatin (LIPITOR) 40 Take 40 mg by 0 MG tablet mouth nightly. 06/22/2019 Discontinued clopidogrel (PLAVIX) 75 Take 75 mg by 0 mg tablet mouth daily. 06/04/2019 Discontinued UNKNOWN Neurx 2x 0 daily, Anora inhaler 1 puff daily . 04/27/2019 Discontinued ranitidine (ZANTAC) 300 Take 300 mg 0 MG tablet by mouth nightly. 07/02/2019 HYDROcodone-acetaminophen Take 1 tablet 30 tablet 0 (NORCO 5-325) 5-325 mg by mouth 0 per tablet every 6 (six) hours as needed for Pain for up to 10 days. 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 04/27/2019 Pure hypercholesterolemia 04/27/2019 Bronchospasm Hyperglycemia Anemia of chronic disease Resolved Problems Problem Noted Date Resolved Date Chest tube in place 06/16/2019 06/22/2019 Encounters Care Team Description Date Type Specialty Nahum Gatica MD Surgical follow-up care (Primary Dx) 07/14/2019 Office Visit Cardiology Marcell Allison MD 06/15/2019 Anesthesia Event Nahum Gtaica MD BRONCHOSCOPY 06/15/2019 Surgery Nahum Gatica MD Merchant, Omar, MD Kim, Sung In, MD 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; Non-small cell cancer of right lung (HCC); Malignant pleural effusion; Goals of care, counseling/discussion; Cancer associated pain; Slow transit constipation; Shortness of breath; Advance care planning; Palliative care by specialist 06/15/2019 Hospital Cardiology - Encounter 06/22/2019 Nahum Gatica MD 06/14/2019 Hospital Cardiology Encounter Nahum Gatica MD 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 06/14/2019 Hospital Pre-Admission Testi ng Encounter Antonia Davis, SANTANA 06/14/2019 Orders Only Cardiology 06/04/2019 Hospital Pre-Admission Testi ng Encounter Nahum Gatica MD Right lower lobe lung mass (Primary Dx); Pulmonary emphysema, unspecified emphysema type (HCC) 06/02/2019 Office Visit Cardiology Igor Rinaldi AA 04/27/2019 Anesthesia Event Nahum Gatica MD BRONCHOSCOPY 04/27/2019 Surgery Nahum Gatica MD Malignant neoplasm of hilus of right gómez g (HCC); Mediastinal lymphadenopathy; Chronic obstructive pulmonary disease, unspecified COPD type (HCC); Chronic systolic heart failure (HCC); Coronary artery disease involving sycuan coronary artery of sycuan heart, angina presence unspecified; Type 2 diabetes mellitus with other specified complication, with long-term current use of insulin (HCC) 04/27/2019 Hospital Cardiology - Encounter 04/28/2019 Nahum Gatica MD 04/26/2019 Hospital Encounter Nahum Gatica MD 04/26/2019 Hospital Pre-Admission Testi ng Encounter Donald Turk 04/26/2019 Outside Orders Antonia Davis, SANTANA 04/26/2019 Orders Only Cardiology 04/19/2019 Hospital Pre-Admission Testi ng Encounter after 09/25/2018 Family History Medical History Relation Name Comments Hodgkin's lymphoma Mother Lung cancer Sister Hodgkin's lymphoma Sister Relation Name Status Comments Mother Sister Sister Social History Date Tobacco Use Types Packs/Day Years Used Quit: 04/05/2019 Former Smoker 1.5 Smokeless Tobacco: Never Used Comments: quit cold turkey 2 weeks ago Alcohol Use Drinks/Week oz/Week Comments No quit 1 year ago Alcohol Habits Answer Date Recorded How often do you have a drink containing alcohol? Never 04/19/2019 How many drinks containing alcohol do you have on No t asked a typical day when you are drinking? How often do you have six or more drinks on one Not asked occasion? Sex Assigned at Date Recorded Not on file Industry Job Start Date Occupation Not on file Not on file Not on file Travel End Travel History Travel Start No recent travel history available. Last Filed Vital Signs Time Taken Vital Sign Reading 07/14/2019 1:21 PM [employer]IEF [employer] OFFICER Blood Pressure 105/59 07/14/2019 1:21 PM [employer]IEF [employer] CHAIN OFFICER Pulse 92 06/22/2019 7:50 AM CHIEF [employer] CH[employer] OFFICER Temperature 36.6 C (97.8 F) 06/22/2019 8:10 AM CHIEF [employer] CH[employer] OFFICER Respiratory Rate 18 06/22/2019 8:10 AM CHIEF [employer] CHAIN OFFICER Oxygen Saturation 98% 06/20/2019 9:13 AM CHIEF [employer] OFFICER Inhaled Oxygen 32% Concentration 07/14/2019 1:21 PM CHIEF [employer] OFFICER Weight 62.4 kg (137 lb 8 oz) 06/15/2019 6:00 AM CHIEF [employer] CHAIN OFFICER Height 165.1 cm (5' 5") 07/14/2019 1:21 PM CHIEF [employer] CHAIN OFFICER Body Mass Index 22.88 Plan of Treatment Health Maintenance Due Date Last Done Comments MEDICARE ANNUAL WELLNESS 04/12/2009 (YEAR 2 or FIRST YEAR if no IPPE) PNEUMOCOCCAL 65+ 12/20/2017 12/20/2016 LOW/MEDIUM RISK (2 of 2 - PPSV23) INFLUENZA VACCINE (#1) 2019 HEMOGLOBIN A1C 04/27/2019 Procedures Comments Procedure Name Priority Date/Time Associated Diag nosis RHYTHM STRIP - SCAN 06/23/2019 1:11 PM [employer]IEF [employer] OFFICER POCT-GLUCOSE METER Routine 06/22/2019 8:01 AM CHIEF [employer] CHAIN OFFICER XR CHEST 1 VIEW Routine 06/22/2019 PORTABLE/BEDSIDE 5:46 AM CHIEF [employer] CHAIN OFFICER MAGNESIUM Routine 06/22/2019 3:25 AM CHIEF [employer]Y CHAIN OFFICER BASIC METABOLIC PANEL (7) Routine 06/22/2019 3:25 AM CHIEF [employer]Y CHAIN OFFICER POCT-GLUCOSE METER Routine 06/21/2019 9:41 PM CHIEF SUPPLY CHAIN OFFICER POCT-GLUCOSE METER Routine 06/21/2019 5:27 PM CHIEF SUP[employer]Y CHAIN OFFICER POCT-GLUCOSE METER Routine 06/21/2019 12:37 PM CHIEF SUPPLY CHAIN OFFICER POCT-GLUCOSE METER Routine 06/21/2019 12:23 PM CHIEF [employer]Y CHAIN OFFICER POCT-GLUCOSE METER Routine 06/21/2019 8:09 AM CHIEF [employer]Y CHAIN OFFICER XR CHEST 1 VIEW Routine 06/21/2019 PORTABLE/BEDSIDE 5:28 AM CHIEF SUP[employer]Y CHAIN OFFICER MAGNESIUM Routine 06/21/2019 4:29 AM CHIEF [employer]PPLY CHAIN OFFICER BASIC METABOLIC PANEL (7) Routine 06/21/2019 4:29 AM CHIEF SUPPLY CHAIN OFFICER CBC (HEMOGRAM ONLY) Routine 06/21/2019 4:29 AM CHIEF [employer]PPLY CHAIN OFFICER POCT-GLUCOSE METER Routine 06/20/2019 10:17 PM CHIEF [employer]PPLY CHAIN OFFICER POCT-GLUCOSE METER Routine 06/20/2019 5:33 PM CHIEF [employer]Y CHAIN OFFICER POCT-GLUCOSE METER Routine 06/20/2019 12:34 PM CHIEF [employer] CHAIN OFFICER POCT-GLUCOSE METER Routine 06/20/2019 8:35 AM CHIEF [employer] CHAIN OFFICER XR CHEST 1 VIEW Routine 06/20/2019 PORTABLE/BEDSIDE 2:41 AM CHIEF SUP[employer]Y CHAIN OFFICER POCT-GLUCOSE METER Routine 06/19/2019 9:18 PM CHIEF [employer]Y CHAIN OFFICER POCT-GLUCOSE METER Routine 06/19/2019 6:24 PM CHIEF [employer] CHAIN OFFICER MR BRAIN WITH & WITHOUT CASSI 06/19/2019 IV CONTRAST 6:20 PM CHIEF [employer] CHAIN OFFICER POCT-GLUCOSE METER Routine 06/19/2019 12:57 PM CHIEF [employer] CHAIN OFFICER POCT-GLUCOSE METER Routine 06/19/2019 7:39 AM CHIEF [employer] CHAIN OFFICER CORTISOL Routine 06/19/2019 4:40 AM CHIEF [employer] OFFICER ACTH Routine 06/19/2019 4:40 AM CHIEF [employer] OFFICER TSH/FREE T4 IF INDICATED Routine 06/19/2019 4:40 AM CHIEF [employer] OFFICER HIV-1 ANTIGEN WITH Routine 06/19/2019 HIV-1/2 ANTIBODY 4:40 AM CHIEF [employer] OFFICER HEPATITIS PANEL, ACUTE Routine 06/19/2019 4:40 AM CHIEF [employer] CH[employer] OFFICER XR CHEST 1 VIEW Routine 06/19/2019 PORTABLE/BEDSIDE 2:35 AM CHIEF [employer]ER CT ABDOMEN/PELVIS WITH IV Routine 06/18/2019 CONTRAST 9:52 PM CHIEF [employer] OFFICER CT CHEST WITH IV CONTRAST Routine 06/18/2019 9:52 PM CHIEF [employer]Y CHAIN OFFICER POCT-GLUCOSE METER Routine 06/18/2019 9:11 PM CHIEF [employer] CHAIN OFFICER POCT-GLUCOSE METER Routine 06/18/2019 8:01 PM CHIEF [employer]Y CHAIN OFFICER POCT-GLUCOSE METER Routine 06/18/2019 12:13 PM CHIEF [employer] CHAIN OFFICER POCT-GLUCOSE METER Routine 06/18/2019 7:41 AM CHIEF [employer]Y CHAIN OFFICER CBC W/PLT COUNT & AUTO Routine 06/18/2019 DIFFERENTIAL 5:21 AM CHIEF [employer]Y CHAIN OFFICER BASIC METABOLIC PANEL (7) Routine 06/18/2019 5:21 AM CHIEF [employer]Y CHAIN OFFICER CBC W/PLT COUNT & AUTO Routine 06/18/2019 DIFFERENTIAL 5:21 AM CHIEF [employer]Y CHAIN OFFICER XR CHEST 1 VIEW Routine 06/18/2019 PORTABLE/BEDSIDE 5:04 AM CHIEF [employer]Y CHAIN OFFICER POCT-GLUCOSE METER Routine 06/17/2019 9:38 PM CHIEF [employer]Y CHAIN OFFICER POCT-GLUCOSE METER Routine 06/17/2019 6:08 PM CHIEF [employer] CHAIN OFFICER POCT-GLUCOSE METER Routine 06/17/2019 12:24 PM CHIEF [employer]Y CHAIN OFFICER INTRAOPERATIVE PATH 06/17/2019 REPORT - SCAN 10:00 AM CHIEF [employer] CHAIN OFFICER XR CHEST 1 VIEW Routine 06/17/2019 PORTABLE/BEDSIDE 5:12 AM CHIEF [employer] CHAIN OFFICER CBC W/PLT COUNT & AUTO Routine 06/17/2019 DIFFERENTIAL 3:54 AM CHIEF [employer]Y CHAIN OFFICER BASIC METABOLIC PANEL (7) Routine 06/17/2019 3:54 AM CHIEF [employer]Y CHAIN OFFICER CBC W/PLT COUNT & AUTO Routine 06/17/2019 DIFFERENTIAL 3:54 AM CHIEF [employer]Y CHAIN OFFICER POCT-GLUCOSE METER Routine 06/16/2019 10:00 PM CHIEF [employer]Y CHAIN OFFICER POCT-GLUCOSE METER Routine 06/16/2019 8:35 PM CHIEF [employer]Y CHAIN OFFICER POCT-GLUCOSE METER Routine 06/16/2019 6:22 PM CHIEF [employer] CHAIN OFFICER XR CHEST 1 VIEW Routine 06/16/2019 PORTABLE/BEDSIDE 5:22 AM CHIEF [employer]Y CHAIN OFFICER BLOOD GAS, ARTERIAL Routine 06/16/2019 5:04 AM CHIEF [employer]Y CHAIN OFFICER CBC W/PLT COUNT & AUTO Routine 06/16/2019 DIFFERENTIAL 4:31 AM CHIEF [employer]Y CHAIN OFFICER BASIC METABOLIC PANEL (7) Routine 06/16/2019 4:31 AM CHIEF [employer]Y CHAIN OFFICER CBC W/PLT COUNT & AUTO Routine 06/16/2019 DIFFERENTIAL 4:31 AM CHIEF [employer]Y CHAIN OFFICER MAGNESIUM Routine 06/16/2019 4:31 AM CHIEF [employer]Y CHAIN OFFICER TRANSFUSION SERVICE 06/15/2019 REPORT - SCAN 6:25 PM CHIEF [employer] CHAIN OFFICER XR CHEST 1 VIEW STAT 06/15/2019 PORTABLE/BEDSIDE 5:41 PM CHIEF [employer]Y CHAIN OFFICER CBC W/PLT COUNT & AUTO STAT 06/15/2019 DIFFERENTIAL 5:36 PM CHIEF [employer]Y CHAIN OFFICER PHOSPHORUS STAT 06/15/2019 5:36 PM CHIEF [employer]PPLY CHAIN OFFICER MAGNESIUM STAT 06/15/2019 5:36 PM CHIEF [employer]Y CHAIN OFFICER CBC W/PLT COUNT & AUTO STAT 06/15/2019 DIFFERENTIAL 5:36 PM CHIEF [employer] CHAIN OFFICER COMPREHENSIVE METABOLIC STAT 06/15/2019 PANEL 5:36 PM CHIEF [employer] CHAIN OFFICER BLOOD GAS, ARTERIAL STAT 06/15/2019 1:30 PM CHIEF [employer]Y CHAIN OFFICER MAGNESIUM STAT 06/15/2019 1:29 PM CHIEF [employer] CHAIN OFFICER PHOSPHORUS STAT 06/15/2019 1:29 PM CHIEF [employer] CHAIN OFFICER ECG 12-LEAD Routine 06/15/2019 12:18 PM CHIEF [employer] CHAIN OFFICER Procedure Note - Interface, External Ris In - 06/15/2019 11:20 AM CHIEF [employer]Y CHAIN OFFICER Ventricula r Rate 74 BPM Atrial Rate 74 BPM P-R Interval 158 ms QRS Duration 144 ms Q-T Interval 528 ms QTC Calculatio n(Bazett) 586 ms P [place] 58 degrees R [place] -77 degrees T [place] 8 degrees Normal sinus rhythm Right bundle branch block Left anterior fascicular block Bifascicul ar block Abnormal ECG When compared with ECG of 0 13:44, Nonspecifi c T wave abnormalit y, worse in Anterolate ral leads ECG 12-LEAD Routine 06/15/2019 12:18 PM CHIEF [employer]Y CHAIN OFFICER CALCIUM, IONIZED STAT 06/15/2019 11:21 AM CHIEF [employer]Y CHAIN OFFICER PT/APTT STAT 06/15/2019 11:21 AM CHIEF [employer]Y CHAIN OFFICER BASIC METABOLIC PANEL (7) STAT 06/15/2019 11:21 AM CHIEF [employer]Y CHAIN OFFICER CBC (HEMOGRAM ONLY) STAT 06/15/2019 11:21 AM CHIEF [employer]PPLY CHAIN OFFICER XR CHEST 1 VIEW STAT 06/15/2019 PORTABLE/BEDSIDE 11:15 AM CHIEF SUPPLY CHAIN OFFICER SURGICALLY OBTAINED Routine 06/15/2019 CULTURE + GRAM STAIN 9:58 AM CHIEF [employer]Y CHAIN OFFICER FUNGUS CULTURE + SMEAR Routine 06/15/2019 9:58 AM CHIEF [employer]Y CHAIN OFFICER ANAEROBIC CULTURE Routine 06/15/2019 9:58 AM CHIEF SUPPLY CHAIN OFFICER AFB CULTURE + SMEAR Routine 06/15/2019 (NON-SPUTUM) 9:58 AM CHIEF SUPPLY CHAIN OFFICER TISSUE EXAM AP Routine 06/15/2019 9:30 AM CHIEF [employer]Y CHAIN OFFICER CYTOLOGY AP Routine 06/15/2019 9:12 AM CHIEF [employer]Y CHAIN OFFICER FUNGUS CULTURE + SMEAR Routine 06/15/2019 9:06 AM CHIEF [employer]Y CHAIN OFFICER BODY FLUID CULTURE + GRAM Routine 06/15/2019 STAIN 9:06 AM CHIEF SUPPLY CHAIN OFFICER ANAEROBIC CULTURE Routine 06/15/2019 9:06 AM CHIEF SUPPLY CHAIN OFFICER AFB CULTURE + SMEAR Routine 06/15/2019 (NON-SPUTUM) 9:06 AM CHIEF SUPPLY CHAIN OFFICER FUNGUS CULTURE + SMEAR Routine 06/15/2019 8:10 AM CHIEF SUPPLY CHAIN OFFICER AFB CULTURE + SMEAR Routine 06/15/2019 (NON-SPUTUM) 8:10 AM CHIEF [employer]PPLY CHAIN OFFICER SPIN/CONCENTRATION CHARGE Routine 06/15/2019 8:10 AM CHIEF [employer]PPLY CHAIN OFFICER BRONCHIAL CULTURE + GRAM Routine 06/15/2019 STAIN 8:10 AM CHIEF [employer]PPLY CHAIN OFFICER HGB/HCT (H&H) - STAT LAB STAT 06/15/2019 7:51 AM CHIEF [employer]Y CHAIN OFFICER GLUCOSE-STAT LAB STAT 06/15/2019 7:51 AM CHIEF [employer]Y CHAIN OFFICER POTASSIUM-STAT LAB STAT 06/15/2019 7:51 AM CHIEF [employer]Y CHAIN OFFICER SODIUM NA-STAT LAB STAT 06/15/2019 7:51 AM CHIEF [employer]Y CHAIN OFFICER BLOOD GAS, ARTERIAL STAT 06/15/2019 7:51 AM CHIEF [employer]Y CHAIN OFFICER CALCIUM, IONIZED STAT 06/15/2019 7:51 AM CHIEF [employer]Y CHAIN OFFICER RRL CRITICAL LABS STAT 06/15/2019 (ABG,NA,K,H&H,GLUCOSE) 7:51 AM CHIEF [employer]Y CHAIN OFFICER THORACOTOMY 06/15/2019 Mass of right lung 7:30 AM CHIEF [employer]Y CHAIN OFFICER Case Notes 4 HRS THORACOSCOPY (VATS),LUNG 06/15/2019 Mass of righ t lung BIOPSY 7:30 AM CHIEF [employer] CHAIN OFFICER Case Notes 4 HRS BRONCHOSCOPY 06/15/2019 Mass of right lung 7:30 AM CHIEF [employer] CH[employer] OFFICER Case Notes 4 HRS POCT-GLUCOSE METER Routine 06/15/2019 6:03 AM CHIEF [employer]Y CHAIN OFFICER CBC W/PLT COUNT & AUTO Routine 06/14/2019 DIFFERENTIAL 1:52 PM CHIEF [employer]Y CHAIN OFFICER TYPE AND SCREEN, Routine 06/14/2019 AUTOMATED 1:52 PM CHIEF [employer]Y CHAIN OFFICER PT/APTT Routine 06/14/2019 1:52 PM CHIEF [employer]Y CHAIN OFFICER COMPREHENSIVE METABOLIC Routine 06/14/2019 PANEL 1:52 PM CHIEF [employer]Y CHAIN OFFICER CBC W/PLT COUNT & AUTO Routine 06/14/2019 DIFFERENTIAL 1:52 PM CHIEF [employer]Y CHAIN OFFICER ECG 12-LEAD Routine 06/14/2019 1:44 PM CHIEF [employer]Y CHAIN OFFICER Procedure Note - Interface, External Ris In - 06/14/2019 5:56 PM CHIEF [employer]Y CHAIN OFFICER Ventricula r Rate 94 BPM Atrial Rate 94 BPM P-R Interval 148 ms QRS Duration 132 ms Q-T Interval 436 ms QTC Calculatio n(Bazett) 545 ms P [place] 61 degrees R [place] -64 degrees T [place] 64 degrees Normal sinus rhythm Right bundle branch block Left anterior fascicular block Bifascicul ar block Abnormal ECG When compared with ECG of 13:41, No significan t change was found ECG 12-LEAD Routine 06/14/2019 1:44 PM CHIEF [employer]Y CHAIN OFFICER INTRAOPERATIVE PATH 04/30/2019 REPORT - SCAN 1:04 PM CHIEF [employer] CHAIN OFFICER INTRAOPERATIVE PATH 04/30/2019 REPORT - SCAN 1:04 PM CHIEF [employer] CHAIN OFFICER RHYTHM STRIP - SCAN 04/30/2019 9:10 AM CHIEF [employer]PPLY CHAIN OFFICER TRANSFUSION SERVICE 04/28/2019 REPORT - SCAN 6:00 PM CHIEF [employer]Y CHAIN OFFICER POCT-GLUCOSE METER Routine 04/28/2019 8:11 AM CHIEF [employer]Y CHAIN OFFICER PHOSPHORUS Routine 04/28/2019 5:01 AM CHIEF [employer]Y CHAIN OFFICER MAGNESIUM Routine 04/28/2019 5:01 AM CHIEF [employer]Y CHAIN OFFICER BASIC METABOLIC PANEL (7) Routine 04/28/2019 5:01 AM CHIEF [employer]PPLY CHAIN OFFICER CBC (HEMOGRAM ONLY) Routine 04/28/2019 5:01 AM CHIEF [employer]PPLY CHAIN OFFICER POCT-GLUCOSE METER Routine 04/27/2019 8:28 PM CHIEF SUPPLY CHAIN OFFICER POCT-GLUCOSE METER Routine 04/27/2019 6:34 PM CHIEF SUPPLY CHAIN OFFICER TRANSFUSION SERVICE 04/27/2019 REPORT - SCAN 6:05 PM CHIEF [employer]Y CHAIN OFFICER XR CHEST 1 VIEW Routine 04/27/2019 PORTABLE/BEDSIDE 12:57 PM CHIEF [employer]PPLY CHAIN OFFICER SURGICALLY OBTAINED STAT 04/27/2019 CULTURE + GRAM STAIN 11:22 AM CHIEF SUPPLY CHAIN OFFICER AFB CULTURE + SMEAR STAT 04/27/2019 (NON-SPUTUM) 11:22 AM CHIEF SUPPLY CHAIN OFFICER ANAEROBIC CULTURE STAT 04/27/2019 11:22 AM CHIEF SUPPLY CHAIN OFFICER FUNGUS CULTURE + SMEAR STAT 04/27/2019 11:22 AM CHIEF [employer]Y CHAIN OFFICER TISSUE EXAM AP Routine 04/27/2019 11:15 AM CHIEF [employer]Y CHAIN OFFICER CYTOLOGY STAT 04/27/2019 11:00 AM CHIEF [employer]Y CHAIN OFFICER BRONCHIAL CULTURE + GRAM STAT 04/27/2019 STAIN 10:57 AM CHIEF SUPPLY CHAIN OFFICER MEDIASTINOSCOPY 04/27/2019 Lung mass 8:30 AM CHIEF [employer]Y CHAIN OFFICER Case Notes REQ 3 HRS BRONCHOSCOPY 04/27/2019 Lung mass 8:30 AM CHIEF [employer]Y CHAIN OFFICER Case Notes REQ 3 HRS ABORH, MANUAL STAT 04/27/2019 7:31 AM CHIEF [employer]PPLY CHAIN OFFICER POCT-GLUCOSE METER Routine 04/27/2019 6:09 AM CHIEF [employer]PPLY CHAIN OFFICER ECG 12-LEAD Routine 04/26/2019 1:41 PM CHIEF [employer]PPLY CHAIN OFFICER Procedure Note - Interface, External Ris In - 04/26/2019 5:30 PM CHIEF [employer]Y CHAIN OFFICER Ventricula r Rate 90 BPM Atrial Rate 90 BPM P-R Interval 142 ms QRS Duration 128 ms Q-T Interval 432 ms QTC Calculatio n(Bazett) 528 ms P [place] 61 degrees R [place] -67 degrees T [place] 51 degrees Normal sinus rhythm Right bundle branch block Left anterior fascicular block Bifascicul ar block Abnormal ECG No previous ECGs available ECG 12-LEAD Routine 04/26/2019 1:41 PM CHIEF [employer]PPLY CHAIN OFFICER XR CHEST 2 VIEWS Routine 04/26/2019 1:36 PM CHIEF [employer]PPLY CHAIN OFFICER CBC W/PLT COUNT & AUTO Routine 04/26/2019 DIFFERENTIAL 12:42 PM CHIEF [employer]PPLY CHAIN OFFICER TYPE AND SCREEN, Routine 04/26/2019 AUTOMATED 12:42 PM CHIEF SUPPLY CHAIN OFFICER COMPREHENSIVE METABOLIC Routine 04/26/2019 PANEL 12:42 PM CHIEF [employer]PPLY CHAIN OFFICER CBC W/PLT COUNT & AUTO Routine 04/26/2019 DIFFERENTIAL 12:42 PM CHIEF [employer]PPLY CHAIN OFFICER after 09/25/2018 Results * RHYTHM STRIP - SCAN (06/23/2019 1:11 PM CHIEF SUPPLY CHAIN OFFICER) Only the most recent of 2 results within the time period is included. Narrative Performed At This result has an attachment that is n ot available. * POC-Glucose meter (06/22/2019 8:01 AM CHIEF SUPPLY CHAIN OFFICER) Only the most recent of 29 results within the time period is included. POC-Glucose Meter 215 (H)Comment: : TESTED AT 70 - 110 mg/dL [address] [id number]: Cancer Spec/Construction Director ID = [id number] for SUZANNE FRIEDMAN Specimen Blood Performing Organization Address City/State/Zipcode Ph one Number [address] [facility] [facility] * XR chest 1 view portable / bedside (06/22/2019 5:46 AM CHIEF SUPPLY CHAIN OFFICER) Only the most recent of 10 results within the time period is included. Specimen Narrative Performed At FINAL REPORT [facility] RAD, CHEST, 1 VIEW, NON DEPT INDICATION: s/p thoracotomy COMPARISON: Prior day's exam FINDINGS: Portable frontal view of the chest. IMPRESSION: Support Lines: Thoracostomy tube contin ues to retracted with side port now outside the thoracic cage. Lungs and pleura: Appearance of the int erspaces is unchanged. There is a small left effusion. Interstitial congestion is present bilaterally. Persistent trace right api eugenio pneumothorax. Heart and mediastinum: Stable contours. Redemonstration of multistation calcified lymph nodes. Additional findings: None. Signed: JR Arias Robert MD Report Verified Date/Time: 0 07:19:39 Reading Location: [facility] Reading Room Procedure Note Interface, External Ris In - 06/22/2019 7:21 AM CHIEF SUPPLY CHAIN OFFICER FINAL REPORT RAD, CHEST, 1 VIEW, NON DEPT INDICATION: s/p thoracotomy COMPARISON: Prior day's exam FINDINGS: Portable frontal view of the chest. IMPRESSION: Support Lines: Thoracostomy tube continues to retracted with side port now outside the thoracic cage. Lungs and pleura: Appearance of the interspaces is unchanged. There is a small left effusion. Interstitial congestion is present bilaterally. Persistent trace right apical pneumothorax. Heart and mediastinum: Stable contours. Redemonstration of multistation calcified lymph nodes. Additional findings: None. Signed: JR Arias Robert MD Report Verified Date/Time: 06/22/2019 07:19:39 Reading Location: [place] [facility] Reading Room Performing Organization Address [facility] Ph one Number GE RIS * Magnesium (06/22/2019 3:25 AM CHIEF SUPPLY CHAIN OFFICER) Only the most recent of 6 results within the time period is included. Magnesium 1.9Comment: Specimen slightly 1.6 - 2.6 mg/dL [facility] hemolyzed [facility] Specimen Blood Narrative Performed At Cancer Spec ID - [facility] Performing Organization Address [facility]/Zipcode Ph one Number [place] [phone] [facility]ENTER * Basic Metabolic Panel (06/22/2019 3:25 AM CHIEF SUPPLY CHAIN OFFICER) Only the most recent of 7 results within the time period is included. Sodium 137 136 - 145 meq/L [facility] Potassium 4.4Comment: Specimen slightly 3.5 - 5.1 meq/L [facility] Chlor[facility] 97 (L) 98 - 107 meq/L [facility] CO2 31 (H) 22 - 29 meq/L [facility] BUN 17 7 - 21 mg/dL [facility] Creatinine 0.76Comment: Specimen slightly 0.57 - 1.25 mg/ dL [facility] Glucose 168 (H) 70 - 105 mg/dL [facility] Calcium 9.0 8.4 - 10.2 mg/dL [facility] EGFR 74Comment: ESTIMATED GFR IS mL/min/1.73 sq m [facility] NOT ACCURATE CREATININE [facility] CLEARANCE IN PREDICTING GLOMERULAR FILTRATION RATE. ESTIMATED GFR IS NOT APPLICABLE FOR DIALYSIS PATIENTS. Specimen Blood Narrative Performed At Cancer Spec ID - [facility] Performing Organization Address City/State/[place] Ph one Number [facility] [address] [place] [address] MED[facility]ENTER * CBC (Hemogram only) (06/21/2019 4:29 AM [employer]) Only the most recent of 3 results within the time period is included. WBC 5.7 3.5 - 10.5 K/L [facility] RBC 3.08 (L) 3.93 - 5.22 M/L [facility] Hemoglobin 9.1 (L) 11.2 - 15.7 GM/DL [facility] Hematocrit 28.9 (L) 34.1 - 44.9 % [facility] MCV 93.8 79.4 - 94.8 fL [facility] MCH 29.5 25.6 - 32.2 pg [facility] MCHC 31.5 (L) 32.2 - 35.5 GM/DL [facility] RDW 16.6 (H) 11.7 - 14.4 % [facility] [facility] Platelets 244 150 - 450 K/CU MM [facility] MPV 10.3 9.4 - 12.3 fL [facility] nRBC 0 0 - 0 /100 WBC [facility] Specimen Blood Performing Organization Address City/State/Zipcode Ph one Number [facility] [address] [place], [place] [address] [facility] * MR brain without & with IV contrast (06/19/2019 6:20 PM CHIEF SUPPLY CHAIN OFFICER) Specimen Narrative Performed At FINAL REPORT [facility] Exam: MRI brain with and without contra st Comparison:None. Reason for exam: new dx stage 4 SCC of lung, staging Discussion: Multiplanar MR imaging of t he brain was provided [id number] IV gadolinium administrati on using T1, T2, FLAIR, FFE, diffusion weighted sequences, and ADC m ap imaging. There are mild white matter microvascul ar ischemic disease. There is no intracranial hemorrhage, in tracranial mass, mass effect, hydrocephalus, herniation or extra-axia l collection. There are no areas of abnormal enhancement or abnorm al diffusion restriction. Flow-voids are seen in the basilar and internal carotid arteries as well as in the large posterior dural si nuses. The pineal, sella, and craniocervical j unction regions are within normal limits. There are bilateral lens replacements. The skull base and surrounding soft tissues are unrema rkable. There is trace opacification of bilateral mastoid air cells. There is mild paranasal sinus mucosal thickening. Impression: Mild white matter microvascular ischemi c changes. No MRI evidence of intracranial metasta ses. Signed: Naseem Carrillo MD Report Verified Date/Time: 0 23:48:56 Procedure Note Interface, External Ris In - 06/19/2019 11:51 PM CHIEF SUPPLY CHAIN OFFICER FINAL REPORT Exam: MRI brain with and without contrast Comparison: None. Reason for exam: new dx stage 4 SCC of lung, staging Discussion: Multiplanar MR imaging of the brain was provided [id number] IV gadolinium administration using T1, T2, FLAIR, FFE, diffusion weighted sequences, and ADC map imaging. There are mild white matter microvascular ischemic disease. There is no intracranial hemorrhage, intracranial mass, mass effect, hydrocephalus, herniation or extra-axial collection. There are no areas of abnormal enhancement or abnormal diffusion restriction. Flow-voids are seen in the basilar and internal carotid arteries as well as in the large posterior dural sinuses. The pineal, sella, and craniocervical junction regions are within normal limits. There are bilateral lens replacements. The skull base and surrounding soft tissues are unremarkable. There is trace opacification of bilateral mastoid air cells. There is mild paranasal sinus mucosal thickening. Impression: Mild white matter microvascular ischemic changes. No MRI evidence of intracranial metastases. Signed: Naseem Carrillo MD Report Verified Date/Time: 06/19/2019 23:48:56 Performing Organization Address City[facility]State[facility] Ph one Number [facility] * Cortisol (06/19/2019 4:40 AM CHIEF SUPPLY CHAIN OFFICER) Cortisol, Total 8.0 3.7 - 19.4 ug/dL [facility] Specimen Blood Narrative Performed At Cancer Spec ID - JAMAR Carrillo [facility] Performing Organization Address City/[facility] Ph one Number [address] [facility] * TSH/Free T4 If Indicated (06/19/2019 4:40 AM CHIEF SUPPLY CHAIN OFFICER) TSH 2.82 0.35 - 4.94 uIU/mL [facility] Specimen Blood Narrative Performed At Cancer Spec ID - BREANNA Lugo [facility] Performing Organization Address City/[facility] Ph one Number [address] [facility] * HIV-1 Antigen with HIV-1/2 Antibody (06/19/2019 4:40 AM CHIEF SUPPLY CHAIN OFFICER) HIV-1 Antigen with HIV Nonreactive Nonreactive [facility] 1&2 Antibody [facility] Specimen Blood Narrative Performed At Cancer Spec ID - BREANNA Lugo [facility] Performing Organization Address City/[facility] Ph one [address] [phone] [place] [address] * Hepatitis panel, acute (06/19/2019 4:40 AM CHIEF SUPPLY CHAIN OFFICER) Hep A IgM Nonreactive Nonreactive [facility] Hep B C IgM Nonreactive Nonreactive [facility] Hepatitis C Ab Nonreactive Nonreactive [facility] HBsAg Screen Nonreactive Nonreactive [facility] Specimen Blood Narrative Performed At Cancer Spec ID - BREANNA Lugo [facility] Performing Organization Address City/[facility] Ph one [address] 0 [phone] [place] [address] * ACTH (06/19/2019 4:40 AM CHIEF SUPPLY CHAIN OFFICER) ACTH 8 6 - 50 pg/mL [facility] Comment: [facility] Reference range applies only to the specimens collected between 7am-10am. Specimen Blood Narrative Performed At Performing Lab [facility] it[facility] [address] [place] [id number] Mahesh Rosales MD, PhD, STACY Performing Organization Address City/[facility] Ph one Number [facility] [place], [address] [facility] [address] * CT abdomen/pelvis with IV contrast (06/18/2019 9:52 PM CHIEF SUPPLY CHAIN OFFICER) Specimen Narrative Performed At FINAL REPORT [employer] TECHNIQUE: CT of the chest, abdomen, an d pelvis WITH intravenous contrast and WITHOUT oral contrast. Dos e modulation, iterative reconstruction, and/or weight-based adj ustment of the mA/kV was utilized to reduce the radiation dose t o as low as reasonably achievable. INDICATION: Lung cancer, non-small cell , staging. COMPARISON: Chest CT from 02/27/2019. FINDINGS: LINES/TUBES: None. LUNGS AND AIRWAYS: Diffusely increased interstitial opacities of the lungs. A mass in the medial right lower lobe measures 4.4 x 3.6 x 2.1 cm and abuts the right mainstem bronchu s and right lower lobe pulmonary artery. This previous and higinio sured 2.8 x 3.2 x 1.9 cm. A left upper lobe pulmonary nodule cont ains internal calcification and is most likely a calcified granulom a is seen on sagittal image 86. A few scattered groundglass opacities o f the right lung are new and from an indeterminate cause. The larges t groundglass opacities in the right middle lobe and measures 1.2 cm o n axial image 26. There is mild bibasilar subsegmental at electasis. Surgical clips in the lingula with adjacent scarring and atelectasis. PLEURA: Small bilateral pleural effusio ns with a right chest tube in place. This chest tube appears to exten d along the right major fissure. There is a trace residual righ t pneumothorax. HEART AND MEDIASTINUM: The visualized t hyroid gland is normal. The multiple calcified lymph nodes in the m ediastinum are most likely due to prior granulomatous disease. A promi nent, noncalcified subcarinal lymph node measures 0.7 cm in short axi s dimension on axial image 73. The heart and pericardium are within no rmal limits. Moderate calcifications of the thoracic aorta an d arch branch vessels. Marked coronary arterial calcifications. Trace pneumomediastinum. HEPATOBILIARY: No focal hepatic lesions . A stone in the gallbladder measures 1 cm. No gallbladder distentio n or wall thickening. No biliary ductal dilatation. SPLEEN: No splenomegaly. PANCREAS: No focal masses or ductal dil atation. ADRENALS: No adrenal nodules. KIDNEYS/URETERS: No hydronephrosis or s tones. A left upper pole indeterminate renal lesion measures 1.2 cm. The mild irregularity of the right upper pole and interpolar kid kristen is most likely due to intermixed scar and cortical sparing. PELVIC ORGANS/BLADDER: Unremarkable. PERITONEUM/RETROPERITONEUM: No free air or fluid. LYMPH NODES: There are several prominen t calcified lymph nodes in the upper abdomen which are most likely due to prior granulomatous disease. VESSELS: Marked aortoiliac calcificatio n. GI TRACT: No distention or wall thicken ing. BONES AND SOFT TISSUES: Acute, nondispl aced right lateral sixth rib fracture. A left adrenal nodule measure s 2.1 cm, and a right adrenal nodule measures 2.3 cm. These are both low attenuation and homogeneous. These are unchanged from 1 . Old, healed left proximal humeral fracture. Moderate deg enerative disc changes of the thoracic spine. IMPRESSION: 1.A medial right lower lobe mass measur es 4.4 cm and abuts the right mainstem bronchus and right lower lobe pulmonary artery. No definite metastatic disease in the chest, abdome n, or pelvis. However, the mediastinum is difficult to evaluate gi sergio the multiple calcified lymph nodes. Consider further evaluatio n with a PET/CT. 2.The bilateral adrenal nodules are ind eterminate. Further evaluation with a CT of the abdomen with and witho ut intravenous contrast, adrenal mass protocol, is recommended f or further evaluation given the known malignancy if a PET/CT is not obtained. 3.There are several indeterminate groun dglass opacities in the right lung which measure up to 1.2 cm. These may be due to pulmonary edema or infection. A follow-up chest CT is r ecommended in 3-6 months to exclude neoplasm. 4.The diffusely increased interstitial opacities of lungs are likely due to interstitial pulmonary edema. 5.An indeterminate left renal lesion is most likely a cyst. However, further evaluation at the same time as the CT adrenal mass protocol is recommended. 6.The calcified upper abdominal and med iastinal lymph nodes are likely sequelae of prior granulomatous disease. 7.Small bilateral pleural effusions wit h a right-sided chest tube and a trace right pneumothorax. 8.Acute, nondisplaced right lateral six th rib fracture. 9.Cholelithiasis without acute cholecys titis Signed: Peterson Camacho MD Report Verified Date/Time: 0 10:09:57 Reading Location: [facility] C013Y CT Body Reading Room Procedure Note Interface, External Ris In - 06/19/2019 10:12 AM CHIEF SUPPLY CHAIN OFFICER FINAL REPORT TECHNIQUE: CT of the chest, abdomen, and pelvis WITH intravenous contrast and WITHOUT oral contrast. Dose modulation, iterative reconstruction, and/or weight-based adjustment of the mA/kV was utilized to reduce the radiation dose to as low as reasonably achievable. INDICATION: Lung cancer, non-small cell, staging. COMPARISON: Chest CT from 02/27/2019. FINDINGS: LINES/TUBES: None. LUNGS AND AIRWAYS: Diffusely increased interstitial opacities of the lungs. A mass in the medial right lower lobe measures 4.4 x 3.6 x 2.1 cm and abuts the right mainstem bronchus and right lower lobe pulmonary artery. This previous and measured 2.8 x 3.2 x 1.9 cm. A left upper lobe pulmonary nodule contains internal calcification and is most likely a calcified granuloma is seen on sagittal image 86. A few scattered groundglass opacities of the right lung are new and from an indeterminate cause. The largest groundglass opacities in the right middle lobe and measures 1.2 cm on axial image 26. There is mild bibasilar subsegmental atelectasis. Surgical clips in the lingula with adjacent scarring and atelectasis. PLEURA: Small bilateral pleural effusions with a right chest tube in place. This chest tube appears to extend along the right major fissure. There is a trace residual right pneumothorax. HEART AND MEDIASTINUM: The visualized thyroid gland is normal. The multiple calcified lymph nodes in the mediastinum are most likely due to prior granulomatous disease. A prominent, noncalcified subcarinal lymph node measures 0.7 cm in short axis dimension on axial image 73. The heart and pericardium are within normal limits. Moderate calcifications of the thoracic aorta and arch branch vessels. Marked coronary arterial calcifications. Trace pneumomediastinum. HEPATOBILIARY: No focal hepatic lesions. A stone in the gallbladder measures 1 cm. No gallbladder distention or wall thickening. No biliary ductal dilatation. SPLEEN: No splenomegaly. PANCREAS: No focal masses or ductal dilatation. ADRENALS: No adrenal nodules. KIDNEYS/URETERS: No hydronephrosis or stones. A left upper pole indeterminate renal lesion measures 1.2 cm. The mild irregularity of the right upper pole and interpolar kidney is most likely due to intermixed scar and cortical sparing. PELVIC ORGANS/BLADDER: Unremarkable. PERITONEUM/RETROPERITONEUM: No free air or fluid. LYMPH NODES: There are several prominent calcified lymph nodes in the upper abdomen which are most likely due to prior granulomatous disease. VESSELS: Marked aortoiliac calcification. GI TRACT: No distention or wall thickening. BONES AND SOFT TISSUES: Acute, nondisplaced right lateral sixth rib fracture. A left adrenal nodule measures 2.1 cm, and a right adrenal nodule measures 2.3 cm. These are both low attenuation and homogeneous. These are unchanged from 03/09/2019. Old, healed left proximal humeral fracture. Moderate degenerative disc changes of the thoracic spine. IMPRESSION: 1.A medial right lower lobe mass measure s 4.4 cm and abuts the right mainstem bronchus and right lower lobe pulmonary artery. No definite metastatic disease in the chest, abdomen, or pelvis. However, the mediastinum is difficult to evaluate given the multiple calcified lymph nodes. Consider further evaluation with a PET/CT. 2.The bilateral adrenal nodules are inde terminate. Further evaluation with a CT of the abdomen with and without intravenous contrast, adrenal mass protocol, is recommended for further evaluation given the known malignancy if a PET/CT is not obtained. 3.There are several indeterminate ground glass opacities in the right lung which measure up to 1.2 cm. These may be due to pulmonary edema or infection. A follow-up chest CT is recommended in 3-6 months to exclude neoplasm. 4.The diffusely increased interstitial o pacities of lungs are likely due to interstitial pulmonary edema. 5.An indeterminate left renal lesion is most likely a cyst. However, further evaluation at the same time as the CT adrenal mass protocol is recommended. 6.The calcified upper abdominal and medi astinal lymph nodes are likely sequelae of prior granulomatous disease. 7.Small bilateral pleural effusions with a right-sided chest tube and a trace right pneumothorax. 8.Acute, nondisplaced right lateral sixt h rib fracture. 9.Cholelithiasis without acute cholecyst itis Signed: Peterson Camacho MD Report Verified Date/Time: 06/19/2019 10:09:57 Reading Location: [facility] C013Y CT Body Reading Room Performing Organization Address City/State/Zipcode Ph one Number [facility] * CT chest with IV contrast (06/18/2019 9:52 PM CHIEF SUPPLY CHAIN OFFICER) Specimen Narrative Performed At FINAL REPORT [facility] TECHNIQUE: CT of the chest, abdomen, an d pelvis WITH intravenous contrast and WITHOUT oral contrast. Dos e modulation, iterative reconstruction, and/or weight-based adj ustment of the mA/kV was utilized to reduce the radiation dose t o as low as reasonably achievable. INDICATION: Lung cancer, non-small cell , staging. COMPARISON: Chest CT from 02/27/2019. FINDINGS: LINES/TUBES: None. LUNGS AND AIRWAYS: Diffusely increased interstitial opacities of the lungs. A mass in the medial right lower lobe measures 4.4 x 3.6 x 2.1 cm and abuts the right mainstem bronchu s and right lower lobe pulmonary artery. This previous and higinio sured 2.8 x 3.2 x 1.9 cm. A left upper lobe pulmonary nodule cont ains internal calcification and is most likely a calcified granulom a is seen on sagittal image 86. A few scattered groundglass opacities o f the right lung are new and from an indeterminate cause. The larges t groundglass opacities in the right middle lobe and measures 1.2 cm o n axial image 26. There is mild bibasilar subsegmental at electasis. Surgical clips in the lingula with adjacent scarring and atelectasis. PLEURA: Small bilateral pleural effusio ns with a right chest tube in place. This chest tube appears to exten d along the right major fissure. There is a trace residual righ t pneumothorax. HEART AND MEDIASTINUM: The visualized t hyroid gland is normal. The multiple calcified lymph nodes in the m ediastinum are most likely due to prior granulomatous disease. A promi nent, noncalcified subcarinal lymph node measures 0.7 cm in short axi s dimension on axial image 73. The heart and pericardium are within no rmal limits. Moderate calcifications of the thoracic aorta an d arch branch vessels. Marked coronary arterial calcifications. Trace pneumomediastinum. HEPATOBILIARY: No focal hepatic lesions . A stone in the gallbladder measures 1 cm. No gallbladder distentio n or wall thickening. No biliary ductal dilatation. SPLEEN: No splenomegaly. PANCREAS: No focal masses or ductal dil atation. ADRENALS: No adrenal nodules. KIDNEYS/URETERS: No hydronephrosis or s tones. A left upper pole indeterminate renal lesion measures 1.2 cm. The mild irregularity of the right upper pole and interpolar kid kristen is most likely due to intermixed scar and cortical sparing. PELVIC ORGANS/BLADDER: Unremarkable. PERITONEUM/RETROPERITONEUM: No free air or fluid. LYMPH NODES: There are several prominen t calcified lymph nodes in the upper abdomen which are most likely due to prior granulomatous disease. VESSELS: Marked aortoiliac calcificatio n. GI TRACT: No distention or wall thicken ing. BONES AND SOFT TISSUES: Acute, nondispl aced right lateral sixth rib fracture. A left adrenal nodule measure s 2.1 cm, and a right adrenal nodule measures 2.3 cm. These are both low attenuation and homogeneous. These are unchanged from 1 . Old, healed left proximal humeral fracture. Moderate deg enerative disc changes of the thoracic spine. IMPRESSION: 1.A medial right lower lobe mass measur es 4.4 cm and abuts the right mainstem bronchus and right lower lobe pulmonary artery. No definite metastatic disease in the chest, abdome n, or pelvis. However, the mediastinum is difficult to evaluate gi sergio the multiple calcified lymph nodes. Consider further evaluatio n with a PET/CT. 2.The bilateral adrenal nodules are ind eterminate. Further evaluation with a CT of the abdomen with and witho ut intravenous contrast, adrenal mass protocol, is recommended f or further evaluation given the known malignancy if a PET/CT is not obtained. 3.There are several indeterminate groun dglass opacities in the right lung which measure up to 1.2 cm. These may be due to pulmonary edema or infection. A follow-up chest CT is r ecommended in 3-6 months to exclude neoplasm. 4.The diffusely increased interstitial opacities of lungs are likely due to interstitial pulmonary edema. 5.An indeterminate left renal lesion is most likely a cyst. However, further evaluation at the same time as the CT adrenal mass protocol is recommended. 6.The calcified upper abdominal and med iastinal lymph nodes are likely sequelae of prior granulomatous disease. 7.Small bilateral pleural effusions wit h a right-sided chest tube and a trace right pneumothorax. 8.Acute, nondisplaced right lateral six th rib fracture. 9.Cholelithiasis without acute cholecys titis Signed: Peterson Camacho MD Report Verified Date/Time: 0 10:09:57 Reading Location: [address] Body Reading Room Procedure Note Interface, External Ris In - 06/19/2019 10:12 AM CHIEF SUPPLY CHAIN OFFICER FINAL REPORT TECHNIQUE: CT of the chest, abdomen, and pelvis WITH intravenous contrast and WITHOUT oral contrast. Dose modulation, iterative reconstruction, and/or weight-based adjustment of the mA/kV was utilized to reduce the radiation dose to as low as reasonably achievable. INDICATION: Lung cancer, non-small cell, staging. COMPARISON: Chest CT from 02/27/2019. FINDINGS: LINES/TUBES: None. LUNGS AND AIRWAYS: Diffusely increased interstitial opacities of the lungs. A mass in the medial right lower lobe measures 4.4 x 3.6 x 2.1 cm and abuts the right mainstem bronchus and right lower lobe pulmonary artery. This previous and measured 2.8 x 3.2 x 1.9 cm. A left upper lobe pulmonary nodule contains internal calcification and is most likely a calcified granuloma is seen on sagittal image 86. A few scattered groundglass opacities of the right lung are new and from an indeterminate cause. The largest groundglass opacities in the right middle lobe and measures 1.2 cm on axial image 26. There is mild bibasilar subsegmental atelectasis. Surgical clips in the lingula with adjacent scarring and atelectasis. PLEURA: Small bilateral pleural effusions with a right chest tube in place. This chest tube appears to extend along the right major fissure. There is a trace residual right pneumothorax. HEART AND MEDIASTINUM: The visualized thyroid gland is normal. The multiple calcified lymph nodes in the mediastinum are most likely due to prior granulomatous disease. A prominent, noncalcified subcarinal lymph node measures 0.7 cm in short axis dimension on axial image 73. The heart and pericardium are within normal limits. Moderate calcifications of the thoracic aorta and arch branch vessels. Marked coronary arterial calcifications. Trace pneumomediastinum. HEPATOBILIARY: No focal hepatic lesions. A stone in the gallbladder measures 1 cm. No gallbladder distention or wall thickening. No biliary ductal dilatation. SPLEEN: No splenomegaly. PANCREAS: No focal masses or ductal dilatation. ADRENALS: No adrenal nodules. KIDNEYS/URETERS: No hydronephrosis or stones. A left upper pole indeterminate renal lesion measures 1.2 cm. The mild irregularity of the right upper pole and interpolar kidney is most likely due to intermixed scar and cortical sparing. PELVIC ORGANS/BLADDER: Unremarkable. PERITONEUM/RETROPERITONEUM: No free air or fluid. LYMPH NODES: There are several prominent calcified lymph nodes in the upper abdomen which are most likely due to prior granulomatous disease. VESSELS: Marked aortoiliac calcification. GI TRACT: No distention or wall thickening. BONES AND SOFT TISSUES: Acute, nondisplaced right lateral sixth rib fracture. A left adrenal nodule measures 2.1 cm, and a right adrenal nodule measures 2.3 cm. These are both low attenuation and homogeneous. These are unchanged from 03/09/2019. Old, healed left proximal humeral fracture. Moderate degenerative disc changes of the thoracic spine. IMPRESSION: 1.A medial right lower lobe mass measure s 4.4 cm and abuts the right mainstem bronchus and right lower lobe pulmonary artery. No definite metastatic disease in the chest, abdomen, or pelvis. However, the mediastinum is difficult to evaluate given the multiple calcified lymph nodes. Consider further evaluation with a PET/CT. 2.The bilateral adrenal nodules are inde terminate. Further evaluation with a CT of the abdomen with and without intravenous contrast, adrenal mass protocol, is recommended for further evaluation given the known malignancy if a PET/CT is not obtained. 3.There are several indeterminate ground glass opacities in the right lung which measure up to 1.2 cm. These may be due to pulmonary edema or infection. A follow-up chest CT is recommended in 3-6 months to exclude neoplasm. 4.The diffusely increased interstitial o pacities of lungs are likely due to interstitial pulmonary edema. 5.An indeterminate left renal lesion is most likely a cyst. However, further evaluation at the same time as the CT adrenal mass protocol is recommended. 6.The calcified upper abdominal and medi astinal lymph nodes are likely sequelae of prior granulomatous disease. 7.Small bilateral pleural effusions with a right-sided chest tube and a trace right pneumothorax. 8.Acute, nondisplaced right lateral sixt h rib fracture. 9.Cholelithiasis without acute cholecyst itis Signed: Peterson Camacho MD Report Verified Date/Time: 06/19/2019 10:09:57 Reading Location: [facility] C013Y CT Body Reading Room Performing Organization Address City/State/Zipcode Ph one Number GE RIS * CBC with platelet count + automated diff (06/18/2019 5:21 AM CHIEF SUPPLY CHAIN OFFICER) Only the most recent of 6 results within the time period is included. WBC 7.4 3.5 - 10.5 K/L [facility] RBC 3.03 (L) 3.93 - 5.22 M/L [facility] Hemoglobin 8.9 (L) 11.2 - 15.7 GM/DL [facility] Hematocrit 28.2 (L) 34.1 - 44.9 % [facility] MCV 93.1 79.4 - 94.8 fL [facility] MCH 29.4 25.6 - 32.2 pg [facility] MCHC 31.6 (L) 32.2 - 35.5 GM/DL [facility] RDW 16.8 (H) 11.7 - 14.4 % [facility] Platelets 226 150 - 450 K/CU MM [facility] MPV 10.4 9.4 - 12.3 fL [facility] nRBC 0 0 - 0 /100 WBC [facility] % Neutros 77 % [facility] % Lymphs 8 % [facility] % Monos 12 % [facility] % Eos 2 % [facility] % Baso 1 % [facility] # Neutros 5.70 1.56 - 6.13 K/L [facility] # Lymphs 0.56 (L) 1.18 - 3.74 K/L [facility] # Monos 0.90 (H) 0.24 - 0.36 K/L [facility] # Eos 0.16 0.04 - 0.36 K/L [facility] # Baso 0.04 0.01 - 0.08 K/L [facility] Immature 1 0 - 1 % [facility] Granulocytes-[facility] Specimen Blood Performing Organization Address City/[facility] Ph one Number [place] [address] [facility] * INTRAOPERATIVE PATH REPORT - SCAN (06/17/2019 10:00 AM CHIEF SUPPLY CHAIN OFFICER) Only the most recent of 3 results within the time period is included. Narrative Performed At This result has an attachment that is n ot available. * Blood gas, arterial (06/16/2019 5:04 AM CHIEF SUPPLY CHAIN OFFICER) Only the most recent of 3 results within the time period is included. pH, Arterial 7.38 7.35 - 7.45 [facility] pCO2, Arterial 42 35 - 45 mmHg [facility] pO2, Arterial 121 (H) 80 - 90 mmHg [facility] O2 Sat, Arterial 98.4 (H) 96.0 - 97.0 % [facility] HCO3, Arterial 25 21 - 29 mmol/L [facility] Base Excess, Arterial -0.6 -2.0 - 3.0 mmol/L [facility] Patient Temperature 36.6 C [facility] FIO2 44.0 % [facility] Specimen Blood, Arterial Performing Organization Address City/[facility] one Number [place] [address] [facility] * TRANSFUSION SERVICE REPORT - SCAN (06/15/2019 6:25 PM CHIEF SUPPLY CHAIN OFFICER) Only the most recent of 3 results within the time period is included. Narrative Performed At This result has an attachment that is n ot available. * Phosphorus (06/15/2019 5:36 PM CHIEF SUPPLY CHAIN OFFICER) Only the most recent of 3 results within the time period is included. Phosphorus 4.3Comment: Specimen slightly 2.3 - 4.7 mg/dL [facility] Specimen Blood Narrative Performed At Cancer Spec ID - NTP [facility] Performing Organization Address City/State/Zipcode Ph one Number [address] [address] MEDICAL CENTER * Comprehensive metabolic panel (06/15/2019 5:36 PM CHIEF SUPPLY CHAIN OFFICER) Only the most recent of 3 results within the time period is included. Protein, Total 6.6Comment: Specimen slightly 6.0 - 8.3 gm/dL [facility] Albumin 3.4 (L)Comment: Specimen 3.5 - 5.0 g/dL [facility] Alkaline Phosphatase 37 (L) 40 - 150 U/L [facility] Total Bilirubin 0.8Comment: Specimen slightly 0.2 - 1.2 mg/dL [facility] Sodium 141 136 - 145 meq/L [facility] Potassium 5.1Comment: Specimen slightly 3.5 - 5.1 meq/L [facility] Chloride 107 98 - 107 meq/L [facility] CO2 22 22 - 29 meq/L [facility] BUN 18 7 - 21 mg/dL [facility] Creatinine 0.88Comment: Specimen slightly 0.57 - 1.25 mg/ dL [facility] Glucose 250 (H) 70 - 105 mg/dL [facility] Calcium 9.1 8.4 - 10.2 mg/dL [facility] AST 26Comment: Specimen slightly 5 - 34 U/L [facility] hemolyzed [facility] ALT 14Comment: Specimen slightly 6 - 55 U/L [facility] hemolyzed [facility] EGFR 62Comment: ESTIMATED GFR IS mL/min/1.73 sq m [facility] NOT ACCURATE CREATININE [facility] CLEARANCE IN PREDICTING GLOMERULAR FILTRATION RATE. ESTIMATED GFR IS NOT APPLICABLE FOR DIALYSIS PATIENTS. Specimen Blood Narrative Performed At Cancer Spec ID - NTP [facility] Performing Organization Address City/[facility] Ph one Number [facility] [address] [place] [address] [facility] * ECG 12 lead (06/15/2019 12:18 PM CHIEF SUPPLY CHAIN OFFICER) Only the most recent of 3 results within the time period is included. Specimen Narrative Performed At Ventricular Rate 74 BPM GE MUSE Atrial Rate 74 BPM P-R Interval 158 ms QRS Duration 144 ms Q-T Interval 528 ms QTC Calculation(Bazett) 586 ms P [place] 58 degrees R [place] -77 degrees T [place] 8 degrees Normal sinus rhythm Right bundle branch block Left anterior fascicular block Bifascicular block Nonspecific T wave abnormality Prolonged QT Abnormal ECG When compared with ECG of 14-JUN-2019 1 3:44, Nonspecific T wave abnormality, worse i n Anterolateral leadsand inferior leads Confirmed by MD MELÉNDEZ YOCHAI ([id number] ) on 06/15/2019 1:39:26 PM Procedure Note Interface, External Ris In - 06/15/2019 1:39 PM CHIEF SUPPLY CHAIN OFFICER Ventricular Rate 74 BPM Atrial Rate 74 BPM P-R Interval 158 ms QRS Duration 144 ms Q-T Interval 528 ms QTC Calculation(Bazett) 586 ms P [place] 58 degrees R [place] -77 degrees T [place] 8 degrees Normal sinus rhythm Right bundle branch block Left anterior fascicular block Bifascicular block Nonspecific T wave abnormality Prolonged QT Abnormal ECG When compared with ECG of 14-JUN-2019 13:44, Nonspecific T wave abnormality, worse in Anterolateral leads and inferior leads Confirmed by MD MELÉNDEZ YOCHAI ([id number]) on 06/15/2019 1:39:26 PM Performing Organization Address [facility] Ph one Number GE MUSE * PT/aPTT (06/15/2019 11:21 AM CHIEF SUPPLY CHAIN OFFICER) Only the most recent of 2 results within the time period is included. Protime 16.3 (H) 11.9 - 14.2 seconds [facility] INR 1.4 <=5.9 [facility] PTT 31.7 22.5 - 36.0 seconds [facility] Specimen Blood Narrative Performed At Effective 10/07/2018: PT Reference Range Change [facility] New: 11.9-14.2Previous: 11.7-14.7 [facility] MEDICAL CE NTER RECOMMENDED COUMADIN/WARFARIN INR THERA PY RANGES STANDARD DOSE: 2.0-3.0Includes: PRO PHYLAXIS for venous thrombosis, systemic embolization; TREATMENT for venous thro mbosis and/or pulmonary embolus. HIGH RISK: Target INR is 2.5-3.5 for pa tients wiht mechanical heart valves. Performing Organization Address City/[facility] Ph one Number [address] [facility] * Calcium, Ionized (06/15/2019 11:21 AM CHIEF SUPPLY CHAIN OFFICER) Only the most recent of 2 results within the time period is included. Calcium, Ion 0.95 (L) 1.12 - 1.27 mmol/L [facility] pH, Blood 7.35 [facility] Specimen Blood Performing Organization Address City/[facility] Ph one Number [address] [facility] * AFB culture + smear (non-sputum) (06/15/2019 9:58 AM CHIEF SUPPLY CHAIN OFFICER) Only the most recent of 4 results within the time period is included. Result No acid-fast bacilli isolated [facility] in 42 days [facility] AFB Smear No acid fast bacilli seen [facility] Specimen Tissue Performing Organization Address City/[facility]/Zipcode Ph one Number [address] [facility] * Anaerobic culture (06/15/2019 9:58 AM CHIEF SUPPLY CHAIN OFFICER) Only the most recent of 3 results within the time period is included. Result No anaerobes isolated [facility] Specimen Tissue Performing Organization Address City/[facility] Ph one Number [address] [facility] * Surgically obtained culture + gram stain (06/15/2019 9:58 AM CHIEF SUPPLY CHAIN OFFICER) Only the most recent of 2 results within the time period is included. Result No growth [facility] Gram Stain Result No white blood cells seen [facility] Gram Stain Result No organisms seen [facility] Specimen Tissue Performing Organization Address [facility] one Number [address] [facility] * Fungus culture + smear (06/15/2019 9:58 AM CHIEF SUPPLY CHAIN OFFICER) Only the most recent of 4 results within the time period is included. Result No fungus isolated in 28 days [facility] Fungus Smear No fungi seen [facility] Specimen Tissue Performing Organization Address [facility] one Number [address] [facility] * Tissue Exam (06/15/2019 9:30 AM CHIEF SUPPLY CHAIN OFFICER) Only the most recent of 2 results within the time period is included. Case Report Surgical Pathology [facility] Case: [id number] Authorizing Provider:Nahum Gatica, Collected: 06/15/2019929 Ordering Location: [facility] Received: 06/15/2019 0950 PERIOPERATIVE SERVICES Pathologist: Ashley Joyce MD Specimens: A) - Mass, RIGHT LUNG MASS B) - Mass, RIGHT LUNG MASS ADDENDUM This addendum is being issued [facility] to report results of PDL-1 [facility] immunostain performed at [facility]. RESULT: PDL-1 (22C3 clone): EXPRESSED (2+ intensity in 1% of tumor cells) Please see attached scanned report for further details. DIAGNOSIS A. LUNG, RIGHT, MASS FOR [facility] FROZEN SECTION: [facility] - INVASIVE POORLY DIFFERENTIATED SQUAMOUS CELL CARCINOMA B. LUNG, RIGHT, MASS FOR PERMANENT SECTION: - INVASIVE POORLY DIFFERENTIATED SQUAMOUS CELL CARCINOMA Signing Pathologist Direct Phone Line: [phone] COMMENT B. Immunostain for p40 is [facility] positive, supporting the above [facility] diagnosis. CPT Code(s) 48143J4 [facility] [address] [facility] [address] CLINICAL HISTORY Preop diagnosis: Mass of [facility] right lung [facility] SPECIMEN SOURCE Right lung mass [facility] GROSS DESCRIPTION A. Received fresh for frozen [facility] section, labeled with the [facility] patient's name, accession number and "right lung mass" is a 1.3 cm in length yellow-parrish soft tissue core. One touch prep is made, and the specimen is submitted in toto in FSA1. CG/pl B. Received in formalin labeled "right lung mass" are three turner-white cylindrical soft tissues with lengths ranging from 0.3 cm to 1.2 cm with widths 0.1 cm each. The specimen is submitted entirely in cassette B1. CYB/ew INTRAOPERATIVE A. LUNG, RIGHT, MASS: [facility] - SQUAMOUS CELL CARCINOMA [facility] Reported by Dr. Joyce to Dr. Gatica on 06/15/19 at 0952. SPECIAL STUDIES The interpretation of this [facility] case included the use of [facility] immunohistochemistry or special stains. Control Slides Examined: In-house known positive controls were evaluated along with the test tissue. These control slides run alongside of the patients sample show appropriate staining. Internal positive and negative controls when available are evaluated Immunohistochemistry technical testing was performed at [facility] Pathology Laboratory where it was developed and its performance characteristics were determined. It has not been cleared or approved by the U.S. Food and Drug Administration. The FDA has determined that such clearance or approval is not necessary. The test is used for clinical purposes. It should not be regarded as investigational or for research. This laboratory is certified under the Clinical Laboratory Improvement Amendments of 1988 (CLIA-88) as qualified to perform high complexity clinical laboratory testing. Specimen Tissue Tissue - Mass (morphologic abnormality) Narrative Performed At This result has an attachment that is n ot available. Performing Organization Address City/State/Zipcode Ph one Number [facility] [address] [place], [place] [address] MEDICAL CENTER * Cytology (06/15/2019 9:12 AM CHIEF SUPPLY CHAIN OFFICER) Only the most recent of 2 results within the time period is included. Case Report Medical [facility] H Report [facility] Case: [id number] Authorizing Provider:Nahum Gatica, Collected: 06/15/201912 Ordering Location: [facility] Received: 06/15/2019 0933 PERIOPERATIVE SERVICES Pathologist: Ac Tipton MD Specimen:Pleural DIAGNOSIS PLEURAL FLUID LATERALITY NOT [facility] SPECIFIED (CYTOSPINS AND CELL [facility] BLOCK): - POSITIVE FOR MALIGNANCY - POORLY DIFFERENTIATED SQUAMOUS CELL CARCINOMA Signing Pathologist Direct Phone Line: [phone] COMMENT There are rare malignant cells [facility] in a background of reactive [facility] mesothelial cells and lymphoid inflammation. The tumor cells are positive for p40 and negative for TTF-1. CPT Code(s) 79925, 97557, 76289, 04122 [facility] CLINICAL DATA Bilateral pleural effusions, [facility] history of benign left lung [facility] tumor resection, and a new right lung masswith mediastinal adenopathy (squamous cell carcinoma diagnosed at frozen section). SPECIMEN SOURCE PLEURAL FLUID LATERALITY NOT [facility] SPECIFIED [facility] GROSS DESCRIPTION 300 mls zully; 4 cytospins, [facility] cell block (collodion bag) [facility] Collected: [id number] Received: [id number] STATEMENT OF ADEQUACY Satisfactory [facility] SPECIAL STUDIES The interpretation of this [facility] case included the use of [facility] immunohistochemistry or special stains. Control Slides Examined: In-house known positive controls were evaluated along with the test tissue. These control slides run alongside of the patients sample show appropriate staining. Internal positive and negative controls when available are evaluated Immunohistochemistry technical testing was performed at [facility] Pathology Laboratory where it was developed and its performance characteristics were determined. It has not been cleared or approved by the U.S. Food and Drug Administration. The FDA has determined that such clearance or approval is not necessary. The test is used for clinical purposes. It should not be regarded as investigational or for research. This laboratory is certified under the Clinical Laboratory Improvement Amendments of 1988 (CLIA-88) as qualified to perform high complexity clinical laboratory testing. Gross assessment was [facility] performed at [place], Department of [facility] Pathology, [address] [place] [address], Technical component was [facility] performed at [place], Department of [facility] Pathology, [address] [place] [address], Professional component [facility] was performed at [place], Department of [facility] Pathology, [address] [place] [address], Specimen Body Fluid Narrative Performed At This result has an attachment that is n ot available. Performing Organization Address [facility] Ph one Number [address] [facility] * Body fluid culture + gram stain (06/15/2019 9:06 AM CHIEF SUPPLY CHAIN OFFICER) Result No growth [facility] Gram Stain Result <1+ WBCs [facility] Gram Stain Result No organisms seen [facility] Specimen Body Fluid Performing Organization Address [facility] Ph one Number [address] 0 [phone] [place] [address] * SPIN/CONCENTRATION CHARGE (06/15/2019 8:10 AM CHIEF SUPPLY CHAIN OFFICER) Concentration charged Done [facility] Specimen Bronch Washing Performing Organization Address [facility] Ph one Number [address] 0 [phone] [place] [address] * Bronchial culture + gram stain (06/15/2019 8:10 AM CHIEF SUPPLY CHAIN OFFICER) Only the most recent of 2 results within the time period is included. Result No growth [facility] Gram Stain Result 3+ WBCs [facility] Gram Stain Result No organisms seen [facility] Specimen Bronch Washing Performing Organization Address [facility] Ph one Number [address] 0 [phone] [place] [address] * Potassium-Stat Lab (06/15/2019 7:51 AM CHIEF SUPPLY CHAIN OFFICER) Potassium 4.0 3.6 - 5.5 meq/L [facility] Specimen Blood, Arterial Performing Organization Address [facility] Ph one Number [address] 0 [phone] [place] [address] * Sodium Na-Stat Lab (06/15/2019 7:51 AM CHIEF SUPPLY CHAIN OFFICER) Sodium 137 135 - 148 meq/L [facility] Specimen Blood, Arterial Performing Organization Address [facility] Ph one Number [address] 0 [phone] [address] * Glucose-Stat Lab (06/15/2019 7:51 AM CHIEF SUPPLY CHAIN OFFICER) Glucose 212 (H) 70 - 110 mg/dL [facility] Specimen Blood, Arterial Performing Organization Address [facility] Ph one Number [address] 0 [phone] [place] [address] * HGB/HCT (H&H)-Stat Lab (06/15/2019 7:51 AM CHIEF SUPPLY CHAIN OFFICER) Hemoglobin 9.2 (L) 12.0 - 15.0 g/dL [facility] Hematocrit 27.0 (L) 36.0 - 45.0 % [facility] Specimen Blood, Arterial Performing Organization Address [facility] Ph one Number [address] 0 [phone] [address] * Type and screen, automated (06/14/2019 1:52 PM CHIEF SUPPLY CHAIN OFFICER) Only the most recent of 2 results within the time period is included. ABO/RH AUTOMATED (BEAKER) A POSITIVE [facility] Ab Scrn NEGATIVE [facility] Specimen Blood Performing Organization Address [facility] Ph one [address] [phone] 89-[facility] [address] [place] [address] * ABORH, manual (04/27/2019 7:31 AM CHIEF SUPPLY CHAIN OFFICER) ABO Grouping A [facility] Rh Factor POS [facility] Specimen Blood Performing Organization Address [facility] one [phone] [place] [address] * XR chest 2 views (04/26/2019 1:36 PM CHIEF SUPPLY CHAIN OFFICER) Specimen Narrative Performed At FINAL REPORT [facility] INDICATION: baseline for surgery COMPARISON: None TECHNIQUE: Frontal and lateral views of the chest. FINDINGS: Lungs and pleura: Clear lungs. No effus ion. Heart and mediastinum: Normal heart siz e. Unremarkable mediastinal contours. Osseous structures: No acute abnormalit y. Additional findings: Surgical clips ove rlie the left lateral chest. IMPRESSION: No acute intrathoracic abnormality. Signed: Kiarra Gutiérrez MD Report Verified Date/Time: 9 13:41:06 Reading Location: [facility] Reading Room Procedure Note Interface, External Ris In - 04/26/2019 1:43 PM CHIEF SUPPLY CHAIN OFFICER FINAL REPORT INDICATION: baseline for surgery COMPARISON: None TECHNIQUE: Frontal and lateral views of the chest. FINDINGS: Lungs and pleura: Clear lungs. No effusion. Heart and mediastinum: Normal heart size. Unremarkable mediastinal contours. Osseous structures: No acute abnormality. Additional findings: Surgical clips overlie the left lateral chest. IMPRESSION: No acute intrathoracic abnormality. Signed: Kiarra Gutiérrez MD Report Verified Date/Time: 04/26/2019 13:41:06 Reading Location: [facility] Reading Room Performing Organization Address City/State/Zipcode Ph one Number GE RIS after 09/25/2018 Insurance Payer Benefit Subscriber ID Type Phone Address Plan / Group MEDICARE MEDICARE A xxxxxxxxxxx Medicare B xxxxxxxxxxx Other Govt FOR LIFE (, [place], [facility], etc.) [phone] Advance Directives For more information, please contact: [address] [address] Date Inactivated Comments Code Status Date Activated 06/22/2019 2:16 PM Full Code 06/15/2019 6:42 AM This code status was determined by: Patient 04/28/2019 1:44 PM Full Code 04/27/2019 7:07 AM This code status was determined by: Patient
--- OUTSIDE RECORDS SUMMARY | 2019-09-26 11:14 | XMS REPORT | Continuity of Care Document ---
Author Author [employer] Organization [employer] Address Unknown Phone Unavailable Care Team Providers Care Filenet Architect Name Role Phone [employer] Unavailable Un available Problems Problem Status Onset Date Classification Date Reported Comments Source PNEUMONIA Active 12/19/2016 [facility] Inflammatory arthritis Active Problem 06/18/2019 Ede Weber Osteoporosis Active Problem 06/18/2019 Ede Weber Trigger finger, right middle finger Active Problem 11/2019 Ede Weber Vitamin D deficiency Active Problem 06/18/2019 Ede Weber Joint pain Active Problem 06/18/2019 Ede Weber Diabetes type 2, uncontrolled Active Problem 11/2019 Ede Weber Need for prophylactic vaccination and in oculation against influenza Active Diag nosis 02/14/2017 Ede Weber Back pain Active Diagnosis 02/14/2017 Ede Weber Varicose veins of lower extremities with other complications Active Prob syd 01/25/2016 Argelia Parada Abnormal electrocardiogram Act [place] Problem Argelia Parada COPD (chronic obstructive pulmonary disease) Active Problem 01/25/2016 Argelia Parada Other nonspecific abnormal cardiovascula r system function study Active Prob syd 01/25/2016 Argelia Parada Patient unable to exercise Act [place] Problem Argelia Parada Stented coronary artery Active Problem 01/25/2016 Argelia Parada Old myocardial infarction Acti ve Problem Argelia Parada Pure hypercholesterolemia Acti ve Problem Argelia Parada CAD in [place] artery Active Problem 01/25/2016 Argelia Parada Type 2 diabetes mellitus with unspecified complication s Active Problem 01/25/2016 Argelia Parada correction (current) use of insulin Active Problem Argelia Parada Smoker Active Problem 01/25/2016 Argelia Parada Carotid artery disease Active Problem 01/25/2016 Argelia Parada Venous insufficiency Active Problem 01/25/2016 Argelia Parada Anemia (disorder) Resolved Problem 12/25/2016 [facility] Disorder of carotid artery (disorder) Active Problem [facility] Cataract (disorder) Resolved Problem 12/25/2016 [facility] Polyp of colon (disorder) Reso lved Problem [facility] Chronic obstructive lung disease (disorder) Active Problem 12/25/2016 [facility] Diabetes mellitus (disorder) A ctive Problem [facility] Duodenal ulcer disease (disorder) Resolved Problem [facility] Pulmonary emphysema (disorder) Active Problem [facility] Myocardial infarction (disorder) Resolved Problem [facility] Hypertensive disorder, systemic arterial (disorder) Active Problem 12/25/2016 [facility] Hypercholesterolemia (disorder) Active Problem [facility] Lactose intolerance (disorder) Active Problem [facility] Osteoarthritis (disorder) Acti ve Problem [facility] Peptic ulcer (disorder) Active Problem 12/25/2016 [facility] PNEUMONIA, UNSPECIFIED ORGANISM Active [facility] Medications Medication Details Route Status Patient Instructions Ordering Provider Order Date Source Alendronate Sodium 1 tablet Orally Active 70 MG Orally once a week Jordana 11/23/2018 Ede Weber Vitamin D (Ergocalciferol) 1 c apsule Orally Active 10089 UNIT Orally once a week Jordana 05/22/2018 Ede Weber Alendronate Sodium 1 tablet Orally Active 70 MG Orally once a week Jordana 05/20/2018 Ede Weber Leflunomide 1 tablet Orally Active 20 MG Orally Once a day Jordana 02/11/2017 Ede Weber Naproxen 1 tablet Orally Active 250 MG Orally Twice a d ay Jordana 02/11/2017 Ede Weber remove patch Notes: Remove old patch before application of new patch. WASTE: F/P - P Waste Black; E - P Waste Black No Longer Active 12/23/2016 [facility] Nebulizer 1 ea, MISC, ONCALL, # 1 ea, 0 Refill(s) Active 12/22/2016 [facility] Symbicort 160/4.5 inhalation aerosol with adapter 2 inhalation, INHALATION, RBID, # 1 ea, 0 Refill(s), [facility] [id number] Active 12/22/2016 [facility] Albuterol 0.833 MG/ML / Ipratropium Brom tommy 0.167 MG/ML Inhalant Solution [DuoNeb] 3 mL, NEB, Q6H, PRN as needed for shortn ess of breath or wheezing, # 360 mL, 0 Refill(s), Pharmacy: [facility] [id number] Active 12/22/2016 [facility] levofloxacin 250 mg oral tablet 750 mg = 3 tab, PO, Daily, X 5 day, # 15 tab, 0 Refill(s), Pharmacy: [facility] [id number] Active 12/22/2016 [facility] predniSONE 20 mg oral tablet 4 0 mg = 2 tab, PO, Daily, X 5 day, # 10 tab, 0 Refill(s), Pharmacy: [facility] [id number] Active 12/22/2016 [facility] insulin detemir Notes: Same as Levemir Do not hold insulin without contacting prescriber WASTE: F/P - Black; E - Municipal Trash Bin "single patient use only" Inactive 12/22/2016 [facility] Levofloxacin Notes: Do not giv e w/antacids, dairy pdt & minerals Take 1 hr before or 2 hr after dairy pdt (Same as:Levaquin) Inactive 12/22/2016 [facility] Nicotine Notes: (Same as: Kris vital) "Remove old patch before application of new patch" WASTE: F/P - P Waste Black; E - P Waste Black Inactive 12/22/2016 [facility] Prednisone Notes: Take with fo od. No Longer Active 12/21/2016 [facility] Lasix Notes: (Same as: Lasix) Inactive 12/21/2016 [facility] Symbicort 160/4.5 inhalation aerosol with adapter Notes: (Same as: Symbicort) WASTE: Aerosol - Return to Pharmacy No Longer Active 12/21/2016 [facility] pantoprazole Notes: Tablet bruno uld not be chewed or crushed. (Same as: Protonix) N o Longer Active 12/21/2016 [facility] Zetia Notes: (Same as: Zetia) No Longer Active 12/21/2016 [facility] clopidogrel Notes: (Same As: P lavix) No Longer Active 12/21/2016 [facility] carvedilol Notes: Give with fo od. (Same As: Coreg) No Longer Active 12/21/2016 [facility] Zocor Notes: (Same as: Zocor) No Longer Active 12/21/2016 [facility] Levemir Notes: Same as Levemir Do not hold insulin without contacting prescriber WASTE: F/P - Black; E - Municipal Trash Bin "single patient use only" No Longer Active 12/21/2016 [facility] NovoLog Notes: Roll in palms o f hands gently; Do not shake vigorously. (Same as: NovoLOG) "single patient use only" WASTE: F/P - Black; E - Municipal Trash Bin Stable for 28 days at room temperature. Expires in days from Date No Longer Active 12/20/2016 [facility] Aspirin Notes: Take with food. No Longer Active 12/20/2016 [facility] azithromycin 250 mg oral tablet 250 mg, 1 tab, Route: PO, Drug form: TAB, [id number], Dosing Weight 75.455, kg, Start date: 12/20/16 11:00:00 CDT, Duration: 4 day, Stop date: 12/23/16 11:00:00 CDT, ABX Indication: Pneumonia No Longer Active 12/20/2016 [facility] Ceftriaxone Notes: (Same As: Dixon castro). Use with 100 mL NS and infuse over 30 min MEDICATION WASTE Product Size: 1000 mg Product Wasted: ___ mg No Longer Active 12/20/2016 [facility] Streptococcus pneumoniae serotype 1 caps ular antigen diphtheria [id number] protein conjugate vaccine / Streptococcus pneumoniae serotype 14 capsular antigen diphtheria [id number] protein conjugate vaccine / Streptococcus pneumoniae serotype 18C capsular antigen d Notes: Shake well prior to use (Same as: Prevnar 13) Inactive 12/20/2016 [facility] Enoxaparin Notes: (Same as: Lo venox) No Longer Active 12/20/2016 [facility] Albuterol 0.833 MG/ML / Ipratropium Brom tommy 0.167 MG/ML Inhalant Solution [DuoNeb] Notes: (Same as: Duoneb) No Longer Active 12/20/2016 [facility] Codeine Phosphate 2 MG/ML / Guaifenesin 20 MG/ML Oral Solution Notes: (Same As: Robitussin AC) No Longer Active 12/20/2016 [facility] Acetaminophen Notes: Do not ex ceed 4 gm/day. (Same as: Tylenol) No Longer Active 12/20/2016 [facility] Guaifenesin Notes: (Same as: Dixon obitussin) No Longer Active 12/20/2016 [facility] Ondansetron Notes: (Same as: Billy brumfield) MEDICATION WASTE Product Size: 4 mg Product Wasted: ___ mg No Longer Active 12/20/2016 [facility] Albuterol 0.833 MG/ML / Ipratropium Brom tommy 0.167 MG/ML Inhalant Solution Notes: (Same as: Duoneb) No Longer Active 12/20/2016 [facility] Saline Flush 0.9% Notes: (Same as: BD Posiflush) No Longer Active 12/20/2016 [facility] Azithromycin Notes: (Same As: Zithromax IV) No Longer Active 12/20/2016 [facility] Ceftriaxone Notes: (Same As: Dixon hullphin). Use with 100 mL NS and infuse over 30 min MEDICATION WASTE Product Size: 1000 mg Product Wasted: ___ mg No Longer Active 12/20/2016 [facility] pregabalin 300 mg oral capsule 300 mg = 1 cap, PO, TID, 0 Refill(s) Active 12/20/2016 [facility] clopidogrel 75 mg oral tablet 75 mg = 1 tab, PO, Daily, # 30 tab, 0 Refill(s) Active 12/20/2016 [facility] Furosemide 40 MG Oral Tablet 4 0 mg = 1 tab, PO, Daily, # 30 tab, 0 Refill(s) Active 12/20/2016 [facility] ezetimibe 10 MG Oral Tablet [Zetia] 10 mg = 1 tab, PO, Daily, # 30 tab, 0 Refill(s) Active 12/20/2016 [facility] naproxen 500 mg oral tablet 50 0 mg = 1 tab, PO, BID, # 60 tab, 0 Refill(s) Active 12/20/2016 [facility] Levofloxacin 500 mg = 1 tab, P O, Daily, # 7 tab, 0 Refill(s) Active 12/20/2016 [facility] losartan 100 mg oral tablet 10 0 mg = 1 tab, PO, Daily, # 30 tab, 0 Refill(s) Active 12/20/2016 [facility] diazepam 10 mg oral tablet 10 mg = 1 tab, PO, BID, # 60 tab, 0 Refill(s) Active 12/20/2016 [facility] Levemir 20 unit, SUB-Q, Bedtim e, 0 Refill(s) Active 12/20/2016 [facility] Aspirin 81 mg, 0 Refill(s) Active 12/20/2016 [facility] Pantoprazole Sodium 1 tablet Orally Active 40 MG Orally Once a day Jordana Ede Weber Albuterol as directed Inhalation Active 90 MCG/ACT Inhalation Jordana Ede Weber Klor-Con 10 1 tablet with food Orally Active 10 MEQ Orally Twice a day Jordana Ede Weber Anoro Ellipta 1 puff Inhalation Active 62.5-25 MCG/INH Inhalation Once a day Jordana Ede Weber Zetia 1 tablet Orally Active 10 MG Orally Once a day Jordana Chau Weber Plavix 1 tablet Orally Active 75 MG Orally Once a day Jordana Chau Weber Levofloxacin 1 tablet Orally Active 500 MG Orally Once a da y Jordana Ede Weber Furosemide 1 tablet Orally Active 40 MG Orally Once a day [facility] Ede Weber Advair Diskus 1 puff Inhalation Active 500-50 MCG/DOSE Inhalation Twice a day [facility] Ede Weber Leflunomide take 1 tablet daily Orally Active 20MG Orally Once a day [facility] Ede Weber Hydroxychloroquine Sulfate camilo e 1 tablet twice a day with food or milk Orally Active 200MG Orally bid Jordana Ede Weber Tizanidine HCl 1 tablet as nee ded Orally Active 2 MG Orally Three times a day [facility] Ede Weber Losartan 1 tablet Orally Active 50mg Orally Once a day Jordana Chau Weber NovoLog Mix 70/30 as directed Subcutaneous Active (70-30) 100 UNIT/ML Subcutaneous Jordana Eed Weber Benzonatate 1 capsule as needed Orally Active 100 MG Orally Three times a day Jordana Ede Weber Simvastatin 1 tablet in the ev ening Orally Active 10 MG Orally Once a day Jordana Ede Weber Coreg as directed Orally Active 6.25 MG Orally Jordana hCau Weber Bydureon as directed Subcutaneous Active 2 MG Subcutaneous Jordana Ede Weber Furosemide 1 tablet Orally Active 40 MG Orally Once a day Jordana Ede Weber Klor-Con 10 1 tablet with food Orally Active 10 MEQ Orally Twice a day Jordana Ede Weber Gabapentin 1 capsule Orally Active 300 MG Orally Three radha es a day Jordana Ede Sanchezer Plavix 1 tablet Orally Active 75 MG Orally Once a day Chau Weber Pantoprazole Sodium 1 tablet Orally Active 40 MG Orally Once a day Jordana Ede Weber Simvastatin 1 tablet in the ev ening Orally Active 10 MG Orally Once a day Jordana Ede Weber Coreg as directed Orally Active 6.25 MG Orally Chau ramirez Weber Tizanidine HCl 1 tablet as nee ded Orally Active 2 MG Orally Three times a day Ede Weber Aspirin 1 tablet Orally Active 81 MG Orally Once a day Chau Weber Zetia 1 tablet Orally Active 10 MG Orally Once a day Chau Weber Diazepam 1 tablet as needed Orally Active 10 MG Orally Twice a day Jordana Ede Weber NovoLog as directed Subcutaneous Active 100 UNIT/ML Subcutaneou s Jordana Ede Weber Hydroxychloroquine Sulfate 1 t ablet with food or milk Orally Active 200 MG Orally BID Ede Weber Leflunomide 1 tablet Orally Active 20 MG Orally Once a day Ede Weber Hydroxychloroquine Sulfate 1 t ablet with food or milk Orally Active 200 MG Orally BID Jordana Ede Weber Diazepam 1 tablet as needed Orally Active 10 MG Orally Twice a day Jordana Ede Weber NovoLog as directed Subcutaneous Active 100 UNIT/ML Subcutaneou s Jordana Ede Weber Gabapentin 1 capsule Orally Active 300 MG Orally Three radha es a day Jordana Ede Weber Plavix 1 tablet Orally Active 75 MG Orally Once a day Chau ramirez Weber Ranitidine HCl 1 capsule Orally Active 300 MG Orally Once a da y Ede Weber Clopidogrel Bisulfate 1 tablet Orally Active 75 mg Orally Once a day Karma Parada Allergies, Adverse Reactions, Alerts Substance Category Reaction Severity Reaction type Status Date Reported Comments Source penicillin Adverse Reaction swelling Adverse Reaction Active 08/24/2018 Ede Weber penicillins Assertion Drug allergy Active [facility] Immunizations Immunization Date Given Site Status Last Updated Comments Source Flu Vaccine 02/11/2017 completed Ede Weber pneumococcal 13-valent vaccine 12/20/2016 Right deltoid completed [facility] Results Order Name Results Value Reference Range Date Interpretation Comments Source BACTERIAL - SEROLOGY Strep pneumonia e Ag Negative (12/20/16 3:20 PM) Negative 12/20/2016 [facility] BACTERIAL - SEROLOGY Source Strep Urine *NA* (12/20/16 3:20 PM) 12/20/2016 [facility] CHEM PANEL Procalcitonin Lvl <0.05 0.00 - 0.10 12/20/2016 [facility] CHEM PANEL Lactic Acid Lvl 1.5 0.5 - 2.2 12/20/2016 [facility] CHEM PANEL eGFR 56 12/20/2016 Result Comment: The eGFR is calculated [...] should be multiplied by the estimated BMI. [facility] CHEM PANEL Bili Total 0.5 0.2 - 1.3 12/20/2016 [facility] CHEM PANEL AGAP 13.0 10.0 - 20.0 12/20/2016 [facility] CHEM PANEL AST 16 0 - 37 12/20/2016 [facility] CHEM PANEL Alk Phos 33 39 - 136 12/20/2016 [facility] CHEM PANEL B/C Ratio 18 6 - 25 12/20/2016 [facility] CHEM PANEL A/G Ratio 1.1 0.7 - 1.6 12/20/2016 [facility] CHEM PANEL Globulin 3.6 2.7 - 4.2 12/20/2016 [facility] CHEM PANEL Potassium Lvl 4.0 3.5 - 5.1 12/20/2016 [facility] CHEM PANEL Chloride Lvl 101 95 - 109 12/20/2016 [facility] CHEM PANEL Sodium Lvl 136 135 - 145 12/20/2016 [facility] CHEM PANEL ALT 21 0 - 65 12/20/2016 [facility] CHEM PANEL Total Protein 7.4 6.4 - 8.4 12/20/2016 [facility] CHEM PANEL Albumin Lvl 3.8 3.5 - 5.0 12/20/2016 [facility] CHEM PANEL CO2 26 24 - 32 12/20/2016 [facility] CHEM PANEL Calcium Lvl 9.0 8.5 - 10.5 12/20/2016 [facility] CHEM PANEL BUN 18 7 - 22 12/20/2016 [facility] CHEM PANEL Creatinine Lvl 1.00 0.50 - 1.40 12/20/2016 [facility] CHEM PANEL Glucose Lvl 114 70 - 99 12/20/2016 [facility] HEMATOLOGY Monocytes # 0.9 0.0 - 0.8 12/20/2016 [facility] HEMATOLOGY Eosinophils # 0.1 0.0 - 0.5 12/20/2016 [facility] HEMATOLOGY Lymphocytes # 1.4 1.0 - 5.5 12/20/2016 [facility] HEMATOLOGY Basophils # 0.1 0.0 - 0.2 12/20/2016 [facility] HEMATOLOGY Basophils 0.8 0.0 - 1.0 12/20/2016 [facility] HEMATOLOGY Monocytes 9.1 2.0 - 12.0 12/20/2016 [facility] HEMATOLOGY Eosinophils 0.5 0.0 - 4.0 12/20/2016 [facility] HEMATOLOGY Segs-Bands # 7.6 1.5 - 8.1 12/20/2016 [facility] HEMATOLOGY Lymphocytes 14.3 20.0 - 40.0 12/20/2016 [facility] HEMATOLOGY Segs 75.3 45.0 - 75.0 12/20/2016 [facility] HEMATOLOGY RBC 4.47 4.20 - 5.40 12/20/2016 [facility] HEMATOLOGY Hgb 14.1 12.0 - 16.0 12/20/2016 [facility] HEMATOLOGY WBC 10.1 3.7 - 10.4 12/20/2016 [facility] HEMATOLOGY Hct 41.6 36.0 - 48.0 12/20/2016 [facility] HEMATOLOGY MCV 93.0 80.0 - 98.0 12/20/2016 [facility] HEMATOLOGY RDW 12.6 11.5 - 14.5 12/20/2016 [facility] MCH 31.5 27.0 - 31.0 12/20/2016 [facility] MCHC 33.8 32.0 - 36.0 12/20/2016 [facility] HEMATOLOGY Platelet 310 133 - 450 12/20/2016 [facility] HEMATOLOGY MPV 8.0 7.4 - 10.4 12/20/2016 [facility] Pathology Reports No Data Provided for This Section Diagnostic Reports Report Value Date Source Chest 1view DX Patient Name: Seamus WYATT : 1945; Age: 71 years Female MR: [id number] Study: Chest 1view DX Order Time: 12/20/2016 [...] lung. No significant change since 07/13/2008. SL: [id number] 12/20/2016 [facility] Consultation Notes No Data Provided for This Section Discharge Summaries No Data Provided for This Section History and Physicals No Data Provided for This Section Vital Signs Vital Sign Value Date Comments Source Weight 159.2 11/23/2018 Ede Weber Height 65 0 11/23/2018 Ede Weber Temperature Oral (F) 98.3 F 11/23/2018 Ede Weber Heart Rate 74 11/23/2018 Ede Weber Diastolic (mm Hg) 80 11/23/2018 Ede Weber Systolic (mm Hg) 118 11/23/2018 Ede Weber Weight 152.4 08/24/2018 Ede Weber Height 64 0 08/24/2018 Ede Weber Temperature Oral (F) 97.3 F 08/24/2018 Ede Weber Heart Rate 84 08/24/2018 Ede Weber Diastolic (mm Hg) 70 08/24/2018 Ede Weber Systolic (mm Hg) 122 08/24/2018 Ede Weber Weight 155 05/26/2018 Ede Weber Height 64 0 05/26/2018 Ede Weber Temperature Oral (F) 96.9 F 05/26/2018 Ede Weber Heart Rate 84 05/26/2018 Ede Weber Diastolic (mm Hg) 70 05/26/2018 Ede Weber Systolic (mm Hg) 118 05/26/2018 Ede Weber Weight 151.7 05/20/2018 Ede Weber Height 65 0 05/20/2018 Ede Weber Temperature Oral (F) 97.5 F 05/20/2018 Ede Weber Heart Rate 76 05/20/2018 Ede Weber Diastolic (mm Hg) 70 05/20/2018 Ede Weber Systolic (mm Hg) 138 05/20/2018 Ede Weber Weight 152.8 12/24/2017 Ede Weber Height 64 0 12/24/2017 Ede Weber Temperature Oral (F) 97.2 F 12/24/2017 Ede Weber Heart Rate 76 12/24/2017 Ede Weber Diastolic (mm Hg) 70 12/24/2017 Ede Weber Systolic (mm Hg) 134 12/24/2017 Ede Weber Weight 153.9 09/23/2017 Ede Weber Height 64 0 09/23/2017 Ede Weber Temperature Oral (F) 97.6 F 09/23/2017 Ede Weber Heart Rate 74 09/23/2017 Ede Weber Diastolic (mm Hg) 72 09/23/2017 Ede Weber Systolic (mm Hg) 118 09/23/2017 Ede Weber Weight 158 08/12/2017 Ede Weber Height 64 0 08/12/2017 Ede Weber Temperature Oral (F) 96.8 F 08/12/2017 Ede Weber Heart Rate 76 08/12/2017 Ede Weber Diastolic (mm Hg) 72 08/12/2017 Ede Weber Systolic (mm Hg) 126 08/12/2017 Ede Weber Weight 161 05/14/2017 Ede Weber Height 64 0 05/14/2017 Ede Weber Temperature Oral (F) 97.5 F 05/14/2017 Ede Weber Heart Rate 72 05/14/2017 Ede Weber Diastolic (mm Hg) 60 05/14/2017 Ede Weber Systolic (mm Hg) 118 05/14/2017 Ede Weber Weight 164.6 02/11/2017 Ede Weber Height 65 1 Ede Weber Temperature Oral (F) 97.5 F 02/11/2017 Ede Weber Heart Rate 72 02/11/2017 Ede Weber Diastolic (mm Hg) 60 02/11/2017 Ede Weebr Systolic (mm Hg) 100 02/11/2017 Ede Weber Respitory Rate 18 12/22/2016 [facility] Systolic (mm Hg) 166 12/22/2016 [facility] Diastolic (mm Hg) 93 12/22/2016 [facility] Heart Rate 84 12/22/2016 [facility] Temperature Oral (F) 98.5 F 12/22/2016 [facility] Respitory Rate 18 12/22/2016 [facility] Temperature Oral (F) 98.8 F 12/22/2016 [facility] Systolic (mm Hg) 126 12/22/2016 [facility] Diastolic (mm Hg) 77 12/22/2016 [facility] Heart Rate 75 12/22/2016 [facility] Systolic (mm Hg) 150 12/22/2016 [facility] Diastolic (mm Hg) 77 12/22/2016 [facility] Respitory Rate 18 12/22/2016 [facility] Heart Rate 89 12/22/2016 [facility] Temperature Oral (F) 97.6 F 12/22/2016 [facility] Weight 75 0 12/20/2016 [facility] BMI Calculated 27.68 12/20/2016 [facility] Weight 75.455 12/20/2016 [facility] Height 165.1 cm 12/20/2016 [facility] Encounters Location Location Details Encounter Type Encounter Number Reason For Visit Attending Provider ADM Date DC Date Status Source Argelia Parada MD PA Unknown [id number] 01/24/20 16 01/24/2016 Argelia Parada [facility] Inpatient [id number] 12/20/2016 12/22/2016 [facility] Procedures Procedure Code Date Perfomer Comments Source Insertion of coronary artery stent [id number] 03/12/2012 [facility] Cataract surgery [id number] [facility] Colonoscopy [id number] [facility] st Esophagogastroduodenoscopy [id number] [facility] Assessment and Plan Assessment and Plan Date Source Extracted from:Title: Progress Note * Author: Radha Crawford MD Date: 12/21/16 Impression and Plan Left-sided community Acquired Pneumonia probably bacterial Continue Levaquin Pulmonary hygiene Acute COPD exacerbation Plan: Optimize medications to address COPD -Duonebs PRN -anti tussive -cultures pending -PT/OT Nicotine abuse Patient counseled on smoking cessation Currently refusing to quit CAD Stable HTN benign essential Continue home medications HLD Continue statin DM without known complication Plan: -c/w home meds, hold PO Diabetic medicat ions -SSI+FSBG DVT prophylaxis: Lovenox Dispo: Plan to discharge tomorrow depending on respiratory status 12/22/2016 [facility] Plan of Care No Data Provided for This Section Social History Social History Date Source Social History ElementQualifiersDate Rep orted Smoking . Status Current Smoker One tasha pe r week Dec 13, 2015 Alcohol Use Yes. [...] Yes. 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 Smoking Status Current every day smoker; Exposure to Tobacco Smoke None; Cigarette Smoking Last 365 Days Yes; Reg Smoking Cessation Counseling Yes1 1admission packet-red 07/31/19 14 [facility] Family History No Data Provided for This Section Advance Directives No Data Provided for This Section Functional Status No Data Provided for This Section
--- OUTSIDE RECORDS SUMMARY | 2019-09-26 11:14 | XMS REPORT ---
Author Author MAMADOU Weber Organization [employer] Address Unknown Phone Unavailable Care Team Providers Care Machine Feed Operator Name Role Phone Sharan Weber CP Unavailable Allergies No Known Allergies Problems Problem Type Condition Code Onset Dates Condition Statu s Problem Osteoporosis M81.0 Active Problem Trigger finger, right middle finger M65.331 Active Problem Vitamin D deficiency E55.9 Active Problem Joint pain M25.50 Active Problem Diabetes type 2, uncontrolled E11.65 Active Problem Inflammatory arthritis M19.90 Activ e Medications Medication Code System Code Instructions Start Date End Date Status Dosage Vitamin D (Ergocalciferol) [facility] [id number] UNIT Ora lly once a week May 22, 2018 Active 1 capsule Results No Known Results Summary Purpose [employer] Submission
--- OUTSIDE RECORDS SUMMARY | 2019-09-26 11:14 | XMS REPORT ---
Author Author MAMADOU Weber Organization [employer] Address Unknown Phone Unavailable Care Team Providers Care Commission Auditor Name Role Phone Sharan Weber CP Unavailable Allergies No Known Allergies Problems Problem Type Condition Code Onset Dates Condition Statu s Problem Osteoporosis M81.0 Active Problem Trigger finger, right middle finger M65.331 Active Problem Vitamin D deficiency E55.9 Active Problem Joint pain M25.50 Active Problem Diabetes type 2, uncontrolled E11.65 Active Problem Inflammatory arthritis M19.90 Activ e Medications No Known Medications Results No Known Results Summary Purpose [employer] Submission
--- OUTSIDE RECORDS SUMMARY | 2019-09-26 11:14 | XMS REPORT ---
Author Author MAMADOU Weber Organization [employer] Address Unknown Phone Unavailable Care Team Providers Care Retail Leader Name Role Phone Sharan Weber CP Unavailable Allergies No Known Allergies Problems Problem Type Condition Code Onset Dates Condition Statu s Problem Diabetes type 2, uncontrolled E11.65 Active Problem Inflammatory arthritis M19.90 Activ e Problem Trigger finger, right middle finger M65.331 Active Problem Joint pain M25.50 Active Medications No Known Medications Results No Known Results Summary Purpose [employer] Submission
--- OUTSIDE RECORDS SUMMARY | 2019-09-26 11:14 | XMS REPORT ---
Author Author Formerly [facility] t Organization [facility] Address [address] [place] [address] Phone Unavailable Care Team Providers Care Spring Assembler Name Role Phone JULES GATICA Attphys Unavailable JANICE JUDGE Attphys Unavailable BEAUCHAMP, CRISTINA Attphys Unavailable Brittney RIVERA Attphys Unavailable JENNIFER JUARES Attphys Unavailable VIV POLLOCK Attphys Unavailable JULES GATICA Admphys Unavailable Payers Payer Name Policy Type Policy Number Effective Date Expiration Date S ource Problems This patient has no known problems. Allergies, Adverse Reactions, Alerts Allergy Name Allergy Type Status Severity Reaction(s) Onset Date Inacti ve Date Treating Clinician Comments Source atorvastatin calcium DA Active SV 2015-08-07 00:00:00 [facility] Penicillins DA Active U 2015-08-07 00:00:00 [facility] Medications This patient has no known medications. Procedures This patient has no known procedures. Encounters Start Date/Time End Date/Time Encounter Type Admission Type [facility] Care Department Encounter ID Source 2019-05-26 15:17:00 2019-05-26 15:17:00 Outpatient MD MIN Khan MD [place] [id number] Sharan Weber MD 2018-11-23 09:00:00 2018-11-23 09:00:00 Outpatient Sharan Weber MD PA [id number] Sharan Weber MD 2018-08-24 09:00:00 2018-08-24 09:00:00 Outpatient MD MIN Abdi MD PA [id number] Sharan Weber MD 2018-05-26 08:45:00 2018-05-26 08:45:00 Outpatient Sharan Weber MD PA [id number] Sharan Weber MD 2018-05-22 08:07:00 2018-05-22 08:07:00 Outpatient Sharan Weber MD PA [id number] Sharan Weber MD 2018-05-20 12:16:00 2018-05-20 12:16:00 Outpatient Sharan Weber MD PA [id number] Sharan Weber MD 2018-05-20 11:00:00 2018-05-20 11:00:00 Outpatient Sharan Weber MD PA [id number] Sharan Weber MD 2018-05-19 09:39:00 2018-05-19 09:39:00 Outpatient Sharan Weber MD PA [id number] Sharan Weber MD 2018-03-24 09:34:00 2018-03-24 09:34:00 Outpatient Sharan Weber MD PA [id number] Sharan Weber MD 2018-03-24 09:33:00 2018-03-24 09:33:00 Outpatient Sharan Weber MD PA [id number] Sharan Weber MD 2017-12-24 08:15:00 2017-12-24 08:15:00 Outpatient Sharan Weber MD PA [id number] Sharan Weber MD 2017-09-23 10:30:00 2017-09-23 10:30:00 Outpatient Sharan Weber MD PA [id number] Sharan Weber MD 2017-09-22 12:29:00 2017-09-22 12:29:00 Outpatient Sharan Weber MD PA [id number] Sharan Weber MD 2017-08-16 13:39:2017-08-16 13:39:00 Outpatient Sharan Weber MD PA [id number] Sharan Weber MD 2017-08-12 08:00:00 2017-08-12 08:00:00 Outpatient Sharan COPELAND [id number] Sharan Weber MD 2017-05-14 08:57:00 2017-05-14 08:57:00 Outpatient Sharan COPELAND [id number] Sharan Weber MD 2017-05-14 08:00:00 2017-05-14 08:00:00 Outpatient Sharan COPELAND [id number] Sharan Weber MD 2017-02-11 08:00:00 2017-02-11 08:00:00 Outpatient Sharan Weber MD PA [id number] Sharan Weber MD 2016-12-19 20:35:00 2016-12-22 13:24:00 Outpatient [facility] [id number] [facility] 2016-01-24 14:45:00 2016-01-24 14:45:00 Outpatient MD MIN Barnett MD [place] [id number] Argleia ramos MD PA Results Test Description Test Time Test Comments Results Result Comments Source AFB CULTURE + SMEAR (NON-SPUTUM) 2019-07-26 20:17:00 Test Item CULTURE (BEAKER) (test code = 1095) No acid-fast bacilli isolate d in 42 days AFB SMEAR (BEAKER) (test code = 994) No acid fast bacilli seen AFB CULTURE + SMEAR (NON-SPUTUM)2019-07-26 20:17:00* Test Item Value Reference Range Interpretation Comments CULTURE (BEAKER) (test code = 1095) No acid-fast bacilli isolate d in 42 days AFB SMEAR (BEAKER) (test code = 994) No acid fast bacilli seen AFB CULTURE + SMEAR (NON-SPUTUM)2019-07-26 20:17:00* Test Item Value Reference Range Interpretation Comments CULTURE (BEAKER) (test code = 1095) No acid-fast bacilli isolate d in 42 days AFB SMEAR (BEAKER) (test code = 994) No acid fast bacilli seen FUNGUS CULTURE + [id number] 16:47:00* Test Item Value Reference Range Interpretation Comments CULTURE (BEAKER) (test code = 1095) No fungus isolated in 28 days FUNGUS SMEAR (BEAKER) (test code = 1406) No fungi seen FUNGUS CULTURE + [id number] 16:46:00* Test Item Value Reference Range Interpretation Comments CULTURE (BEAKER) (test code = 1095) No fungus isolated in 28 days FUNGUS SMEAR (BEAKER) (test code = 1406) No fungi seen FUNGUS CULTURE + [id number] 16:46:00* Test Item Value Reference Range Interpretation Comments CULTURE (BEAKER) (test code = 1095) No fungus isolated in 28 days FUNGUS SMEAR (BEAKER) (test code = 1406) No fungi seen TISSUE [id number] 09:02:00Surgical Pathology Report Case: [id number] Authorizing Provider: Nahum Gatica, Collected: 06/15/2019 0930 Ordering Location: [facility] Received: 06/15/2019 0941 PERIOPERATIVE SERVICES Pathologist: Ashley Joyce MD Specimens: A) - Mass, RIGHT LUNG MASS B) - Mass, RIGHT LUNG MASS This addendum is being issued to report results of PDL-1 immunostain performed at [facility].RESULT: PDL-1 (22C3 clone): EXPRESSED (2+ intensity in 1% of tumor cells)Please see attached scanned report for further details.Addendum electronically signed by Ashley Joyce MD on 06/25/2019 at 9:02 AMA. LUNG, RIGHT, MASS FOR FROZEN SECTION: - INVASIVE POORLY DIFFERENTIATED SQUAMOUS CELL CARCINOMAB. LUNG, RIGHT, MASS FOR PERMANENT SECTION: - INVASIVE POORLY DIFFERENTIATED SQUAMOUS CELL CARCINOMA Signing Pathologist Direct Phone Line: [phone] signed by Ashley Joyce MD on 06/18/2019 at 12:08 PMB. Immunostain for p40 is positive, supporting the above diagnosis.[id number] diagnosis: Mass of right lungRight lung mass A. Received fresh for frozen section, labeled with the patient's name, accession number and "right lung [...] specimen is submitted entirely in cassette B1. CYB/Latanya. LUNG, RIGHT, MASS: - SQUAMOUS CELL CARCINOMAReported by Dr. Joyce to Dr. Gatica on 06/15/19 at 0952.The interpretation of this case included the use of immunohistochemistry or special stains.Control Slides Examined: In-house known positive controls were evaluated along with the test tissue. These control slides run alongside of the patients sample show appropr iate staining. Internal positive and negative controls when available are evalua kriss Immunohistochemistry technical testing was performed at [facility], Pathology Laboratory where it was developed and its performance ch aracteristics were determined. It has not been cleared or approved by the U.S. F ood and Drug Administration. The FDA has determined that such clearance or appro jennifer is not necessary. The test is used for clinical purposes. It should not be r egarded as investigational or for research. This laboratory is certified under t he Clinical Laboratory Improvement Amendments of 1988 (CLIA-88) as qualified to perform high complexity clinical laboratory testing.POCT-GLUCOSE [id number] 08:13:00* Test Item Value Reference Range Interpretation Comments POC-GLUCOSE METER (CLAUAKER) (test code = 1538) 215 mg/dL 70-110 H : TESTED AT [facility] [address] [facility], [address]: Roof [employer] Tile Setter/Service Desk Director ID = [id number] for SUZANNE FRIEDMAN RAD, CHEST, 1 VIEW, NON [id number] 07:19:00Reason for exam:->s/p thoracotomyShould this be performed at the bedside?->YesFINAL REPORT RAD, CHEST, 1 VIEW, NON DEPT INDICATION: s/p thoracotomy COMPARISON: Prior day's exam FINDINGS: Portable frontal view of the chest. IMPRESSION: Support Lines: Thoracostomy tube continues to retracted with side port now outside the thoracic cage. Lungs and pleura: Appearance of the interspaces is unchanged. There is a small left effusion. Interstitial congestion is present bilaterally. Persistent trace right apical pneumothorax.Heart and mediastinum: Stable contours. Redemonstration of multistation calcified lymph no vini.Additional findings: None. Signed: JR Arias Robert MDReport Verifie d Date/Time: 06/22/2019 07:19:39 Reading Location: [facility] Radiology Read ing Room [id number] 04:05:00* Test Item Value Reference Range Interpretation Comments MAGNESIUM (BEAKER) (test code = 627) 1.9 mg/dL 1.6-2.6 Specimen slightly hemolyzed [employer] Tile Setter ID - GALAPBASIC METABOLIC [id number] 04:05:00* Test Item Value Reference Range Interpretation Comments SODIUM (BEAKER) (test code = 381) 137 meq/L 136-145 POTASSIUM (BEAKER) (test code = 379) 4.4 meq/L 3.5-5.1 Specimen slightly hemolyzed CHLORIDE (BEAKER) (test code = 382) 97 meq/L 98-107 L CO2 (BEAKER) (test code = 355) 31 meq/L 22-29 H BLOOD UREA NITROGEN (BEAKER) (test code = 354) 17 mg/dL 7-21 CREATININE (BEAKER) (test code = 358) 0.76 mg/dL 0.57-1.25 Specimen slightly hemolyzed GLUCOSE RANDOM (BEAKER) (test code = 652) 168 mg/dL 70-105 H CALCIUM (BEAKER) (test code = 697) 9.0 mg/dL 8.4-10.2 EGFR (BEAKER) (test code = 1092) 74 mL/min/1.73 sq m ESTIMATED GFR IS NOT ACCURATE CREATININE CLEARANCE IN PREDICTING GLOMERULAR FILTRATION RATE. ESTIMATED GFR IS NOT APPLICABLE FOR DIALYSIS PATIENTS. Roof [employer] Tile Setter ID - GALAPANAEROBIC [id number] 22:22:00* Test Item Value Reference Range Interpretation Comments CULTURE (BEAKER) (test code = 1095) No anaerobes isolated ANAEROBIC [id number] 22:22:00* Test Item Value Reference Range Interpretation Comments CULTURE (BEAKER) (test code = 1095) No anaerobes isolated POCT-GLUCOSE [id number] 21:53:00* Test Item Value Reference Range Interpretation Comments POC-GLUCOSE METER (BEAKER) (test code = 1538) 278 mg/dL 70-110 H : TESTED AT [address], [address]: Roof [employer]en[employer] Tile Setter/Service Desk Director ID = [id number] for VILLA PRADOO POCT-GLUCOSE [id number] 17:39:00* Test Item Value Reference Range Interpretation Comments POC-GLUCOSE METER (BEAKER) (test code = 1538) 216 mg/dL 70-110 H : TESTED AT [address], [address]: Roof [employer] Tile Setter/Service Desk Director ID = [id number] for SANCHEZ, SKY POCT-GLUCOSE [id number] 12:48:00* Test Item Value Reference Range Interpretation Comments POC-GLUCOSE METER (BEAKER) (test code = 1538) 156 mg/dL 70-110 H : TESTED AT [address], [address]: Ro[employer] Tile Setter/Service Desk Director ID = [id number] for LOIS ROBBINS POCT-GLUCOSE [id number] 12:35:00* Test Item Value Reference Range Interpretation Comments POC-GLUCOSE METER (BEAKER) (test code = 1538) 155 mg/dL 70-110 H : TESTED AT [address], [address]: Roof [employer] Tile Setter/Service Desk Director ID = [id number] for SANCHEZ, SKY POCT-GLUCOSE [id number] 08:22:00* Test Item Value Reference Range Interpretation Comments POC-GLUCOSE METER (BEAKER) (test code = 1538) 168 mg/dL 70-110 H : TESTED AT [address], [address]: Roof [employer] Tile Setter/Service Desk Director ID = [id number] for SANCHEZ, SKY RAD, CHEST, 1 VIEW, NON [id number] 07:35:00Reason for exam:->s/p thoracotomyShould this be performed at the bedside?->YesFINAL REPORT RAD, CHEST, 1 VIEW, NON DEPT INDICATION: s/p thoracotomy COMPARISON: Prior day's exam FINDINGS: Portable frontal view of the chest. IMPRESSION: Support Lines: Stable right thoracostomy tube. The side port projects at the edge of the thoracic cage and may not be correctly positioned. Lungs and pleura: Mild diffuse interstitial markings. Trace left effusion. No pneumothorax.Heart and mediastinum: Stable contours. Stable calcified hilar nodes.Additional findings: None. Signed: JR Hugo, Ferdinand THEODOREeport Verified Date/Time: 06/21/2019 07:35:02 Reading Location: [facility] Radiology Reading Room [id number] 05:21:00* Test Item Value Reference Range Interpretation Comments MAGNESIUM (BEAKER) (test code = 627) 1.5 mg/dL 1.6-2.6 L [employer] Tile Setter ID - IVAN WBASIC METABOLIC [id number] 05:21:00* Test Item Value Reference Range Interpretation Comments SODIUM (BEAKER) (test code = 381) 140 meq/L 136-145 POTASSIUM (BEAKER) (test code = 379) 3.6 meq/L 3.5-5.1 CHLORIDE (BEAKER) (test code = 382) 99 meq/L 98-107 CO2 (BEAKER) (test code = 355) 35 meq/L 22-29 H BLOOD UREA NITROGEN (BEAKER) (test code = 354) 13 mg/dL 7-21 CREATININE (BEAKER) (test code = 358) 0.74 mg/dL 0.57-1.25 GLUCOSE RANDOM (BEAKER) (test code = 652) 153 mg/dL 70-105 H CALCIUM (BEAKER) (test code = 697) 8.8 mg/dL 8.4-10.2 EGFR (BEAKER) (test code = 1092) 76 mL/min/1.73 sq m ESTIMATED GFR IS NOT ACCURATE CREATININE CLEARANCE IN PREDICTING GLOMERULAR FILTRATION RATE. ESTIMATED GFR IS NOT APPLICABLE FOR DIALYSIS PATIENTS. Roof [employer] Tile Setter ID - IVAN WCBC (HEMOGRAM ONLY)2019-06-21 04:50:00* Test Item Value Reference Range Interpretation Comments WHITE BLOOD CELL COUNT (BEAKER) (test code = 775) 5.7 K/ L 3.5- 10.5 RED BLOOD CELL COUNT (BEAKER) (test code = 761) 3.08 M/ L 3.93-5 .22 L HEMOGLOBIN (BEAKER) (test code = 410) 9.1 GM/DL 11.2-15.7 L HEMATOCRIT (BEAKER) (test code = 411) 28.9 % 34.1-44.9 L MEAN CORPUSCULAR VOLUME (BEAKER) (test code = 753) 93.8 fL 79. 4-94.8 MEAN CORPUSCULAR HEMOGLOBIN (BEAKER) (test code = 751) 29.5 pg 25.6-32.2 MEAN CORPUSCULAR HEMOGLOBIN CONC (BEAKER) (test code = 752) 31.5 GM/DL 32.2-35.5 L RED CELL DISTRIBUTION WIDTH (BEAKER) (test code = 412) 16.6 % 11.7-14.4 H PLATELET COUNT (BEAKER) (test code = 756) 244 K/CU MM 150-450 MEAN PLATELET VOLUME (BEAKER) (test code = 754) 10.3 fL 9.4-12 .3 NUCLEATED RED BLOOD CELLS (BEAKER) (test code = 413) 0 /100 WBC 0 -0 POCT-GLUCOSE [id number] 22:29:00* Test Item Value Reference Range Interpretation Comments POC-GLUCOSE METER (BEAKER) (test code = 1538) 228 mg/dL 70-110 H : TESTED AT [address], [address]: Ro[employer] Tile Setter/Service Desk Director ID = [id number] for MONISHA SPECNER POCT-GLUCOSE [id number] 17:44:00* Test Item Value Reference Range Interpretation Comments POC-GLUCOSE METER (BEAKER) (test code = 1538) 115 mg/dL 70-110 H : TESTED AT [address], [address]: Roof [employer] Tile Setter/Service Desk Director ID = [id number] for ORPHEY, ELIEZER POCT-GLUCOSE [id number] 12:45:00* Test Item Value Reference Range Interpretation Comments POC-GLUCOSE METER (BEAKER) (test code = 1538) 206 mg/dL 70-110 H : TESTED AT [address], [address]: Roof [employer] Tile Setter/Service Desk Director ID = [id number] for ORPHEY, ELIEZER POCT-GLUCOSE [id number] 08:47:00* Test Item Value Reference Range Interpretation Comments POC-GLUCOSE METER (BEAKER) (test code = 1538) 192 mg/dL 70-110 H : TESTED AT [facility] [address] [facility], [address]: Roof Promen[employer] Tile Setter/Service Desk Director ID = [id number] for ELIEZER QUINONES, CHEST, 1 VIEW, NON [id number] 06:21:00Reason for exam:->s/p thoracotomyShould this be performed at the bedside?->YesFINAL REPORT Chest, one view. HISTORY: s/p thoracotomy COMPARISON: Radiograph from yesterday IMPRESSION: Unchanged positioning of the right chest tube. The trace right apical pneumothorax is essentially unchanged. The small left pleural effusion and bibasilar subsegmental atelectasis are unchanged. The bilateral airspace opacities are unchanged. The cardiac silhouette is unchanged in size. There are likely multiple calcified lymph nodes. No acute bony abnormality. Old, healed left proximal humeral fracture. Signed: Lalitha Tovar Verified Date/Time: 06/20/2019 06:21:33 Reading Location: [address] Body Reading Room , BRAIN, [id number] 23:48:00FINAL REPORT Exam: MRI brain with and without contrast Comparison: None. Reason for exam: new dx stage 4 SCC of lung, staging Discussion: Multiplanar MR imaging of the brain was provided [id number] IV gadolinium administration using T1, T2, FLAIR, [...] skull base and surrounding soft tissues are un remarkable. There is trace opacification of bilateral mastoid air cells. There i s mild paranasal sinus mucosal thickening. Impression: Mild white matter microva scular ischemic changes.No MRI evidence of intracranial metastases. Signed: Naseem Velazquez Verified Date/Time: 06/19/2019 23:48:56 Electronically s igned by: NASEEM PEREZ MD on 06/19/2019 11:48 PM POCT-GLUCOSE METER 2019-06-19 21:30:00* Test Item Value Reference Range Interpretation Comments POC-GLUCOSE METER (BEAKER) (test code = 1538) 149 mg/dL 70-110 H : TESTED AT [place] [id number] [facility], [address]: Roof [employer]enade Tile Setter/Service Desk Director ID = [id number] for KEN TRAVIS POCT-GLUCOSE [id number] 18:35:00* Test Item Value Reference Range Interpretation Comments POC-GLUCOSE METER (BEAKER) (test code = 1538) 157 mg/dL 70-110 H : TESTED AT [address], [address]: Roof [employer] Tile Setter/Service Desk Director ID = [id number] for SILVA YOUNG POCT-GLUCOSE [id number] 13:09:00* Test Item Value Reference Range Interpretation Comments POC-GLUCOSE METER (BEAKER) (test code = 1538) 232 mg/dL 70-110 H : TESTED AT [address], [address]: Ro[employer] Tile Setter/Service Desk Director ID = [id number] for SILVA YOUNG SURGICALLY OBTAINED CULTURE + GRAM [id number] 11:58:00* Test Item Value Reference Range Interpretation Comments CULTURE (BEAKER) (test code = 1095) No growth GRAM STAIN RESULT (BEAKER) (test code = 1123) No white blood cells seen GRAM STAIN RESULT (BEAKER) (test code = 00744) No organisms seen BODY FLUID CULTURE + GRAM [id number] 11:58:00* Test Item Value Reference Range Interpretation Comments CULTURE (BEAKER) (test code = 1095) No growth GRAM STAIN RESULT (BEAKER) (test code = 1123) <1+ WBCs GRAM STAIN RESULT (BEAKER) (test code = 83981) No organisms seen CT, CHEST, WITH [id number] 10:09:00FINAL REPORT TECHNIQUE: CT of the chest, abdomen, and pelvis WITH intravenous contrast and WITHOUT oral contrast. Dose modulation, iterative reconstruction, and/or weight- based adjustment of the mA/kV was utilized to [...] fissure. There is a trace residual right pneumothorax.HEART AND MEDIASTINUM: The visualized thyroid gland is normal. The multiple calcified lymph nodes in the mediastinum are most likely due to prior granulomatous disease. A prominent, noncalcified subcarinal lymph node measures 0.7 cm in short axis dimension on axial image 73. The heart and pericardium are within normal limits. Moderate calcifications of the thoracic aorta and arch branch vessels. Marked coronary arterial calcificati ons. Trace pneumomediastinum. HEPATOBILIARY: No focal hepatic lesions. A stone i n the gallbladder measures 1 cm. No gallbladder distention or wall thickening. N o biliary ductal dilatation.SPLEEN: No splenomegaly.PANCREAS: No focal masses or ductal dilatation. ADRENALS: No adrenal nodules.KIDNEYS/URETERS: No hydronephro sis or stones. A left upper pole indeterminate renal lesion measures 1.2 cm. The mild irregularity of the right upper pole and interpolar kidney is most likely due to intermixed scar and cortical sparing.PELVIC ORGANS/BLADDER: Unremarkable. PERITONEUM/RETROPERITONEUM: No free air or fluid.LYMPH NODES: There are several prominent calcified lymph nodes in the upper abdomen which are most likely due to prior granulomatous disease.VESSELS: Marked aortoiliac calcification. GI TRAC T: No distention or wall thickening. BONES AND SOFT TISSUES: Acute, nondisplaced right lateral sixth rib fracture. A left adrenal nodule measures 2.1 cm, and a right adrenal nodule measures 2.3 cm. These are both low attenuation and homogen eous. These are unchanged from 03/09/2019. Old, healed left proximal humeral fra cture. Moderate degenerative disc changes of the thoracic spine. IMPRESSION: 1. A medial right lower lobe mass measures 4.4 cm and abuts the right mainstem bron chus and right lower lobe pulmonary artery. No definite metastatic disease in th e chest, abdomen, or pelvis. However, the mediastinum is difficult to evaluate g iven the multiple calcified lymph nodes. Consider further evaluation with a PET/ CT. 2.The bilateral adrenal nodules are indeterminate. Further evaluation with a CT of the abdomen with and without intravenous contrast, adrenal mass protocol, is recommended for further evaluation given the known malignancy if a PET/CT is not obtained. 3.There are several indeterminate groundglass opacities in the ri ght lung which measure up to 1.2 cm. These may be due to pulmonary edema or infe ction. A follow-up chest CT is recommended in 3-6 months to exclude neoplasm. 4. The diffusely increased interstitial opacities of lungs are likely due to inters titial pulmonary edema. 5.An indeterminate left renal lesion is most likely a cy st. However, further evaluation at the same time as the CT adrenal mass protocol is recommended. 6.The calcified upper abdominal and mediastinal lymph nodes are likely sequelae of prior granulomatous disease. 7.Small bilateral pleural effus ions with a right-sided chest tube and a trace right pneumothorax. 8.Acute, nond isplaced right lateral sixth rib fracture. 9.Cholelithiasis without acute cholec ystitis Signed: Lalitha Tovar MDReport Verified Date/Time: 06/19/2019 10:09:57 Dena nguyen Location: [facility] C0Y CT Body Reading Room , [id number] 10:09:00FINAL REPORT TECHNIQUE: CT of the chest, abdomen, and pelvis WITH intravenous contrast and WITHOUT oral contrast. Dose modulation, iterative reconstruction, and/or weight-based adjustment of the mA/kV was utilized to reduce the radiation dose to as low as reasonably achievable. INDICATION: Lung c ancer, non-small cell, staging. COMPARISON: Chest CT from 02/27/2019. FINDINGS: LINES/TUBES: None. LUNGS AND AIRWAYS: Diffusely increased interstitial opacities of the lungs. A mass in the medial right lower lobe measures 4.4 x 3.6 x 2.1 cm and abuts the right mainstem bronchus and right lower lobe pulmonary artery. T his previous and measured 2.8 x 3.2 x 1.9 cm. A left upper lobe pulmonary nodule contains internal calcification and is most likely a calcified granuloma is seen on sagittal image 86. A few scattered groundglass opacities of the right lung are new and from an indeterminate cause. The largest groundglass opacities in th e right middle lobe and measures 1.2 cm on axial image 26. There is mild bibasil ar subsegmental atelectasis. Surgical clips in the lingula with adjacent scarrin g and atelectasis. PLEURA: Small bilateral pleural effusions with a right chest tube in place. This chest tube appears to extend along the right major fissure. There is a trace residual right pneumothorax.HEART AND MEDIASTINUM: The visualiz ed thyroid gland is normal. The multiple calcified lymph nodes in the mediastinu m are most likely due to prior granulomatous disease. A prominent, noncalcified subcarinal lymph node measures 0.7 cm in short axis dimension on axial image 73. The heart and pericardium are within normal limits. Moderate calcifications of the thoracic aorta and arch branch vessels. Marked coronary arterial calcificati ons. Trace pneumomediastinum. HEPATOBILIARY: No focal hepatic lesions. A stone i n the gallbladder measures 1 cm. No gallbladder distention or wall thickening. N o biliary ductal dilatation.SPLEEN: No splenomegaly.PANCREAS: No focal masses or ductal dilatation. ADRENALS: No adrenal nodules.KIDNEYS/URETERS: No hydronephro sis or stones. A left upper pole indeterminate renal lesion measures 1.2 cm. The mild irregularity of the right upper pole and interpolar kidney is most likely due to intermixed scar and cortical sparing.PELVIC ORGANS/BLADDER: Unremarkable. PERITONEUM/RETROPERITONEUM: No free air or fluid.LYMPH NODES: There are several prominent calcified lymph nodes in the upper abdomen which are most likely due to prior granulomatous disease.VESSELS: Marked aortoiliac calcification. GI TRAC T: No distention or wall thickening. BONES AND SOFT TISSUES: Acute, nondisplaced right lateral sixth rib fracture. A left adrenal nodule measures 2.1 cm, and a right adrenal nodule measures 2.3 cm. These are both low attenuation and homogen eous. These are unchanged from 03/09/2019. Old, healed left proximal humeral fra cture. Moderate degenerative disc changes of the thoracic spine. IMPRESSION: 1. A medial right lower lobe mass measures 4.4 cm and abuts the right mainstem bron chus and right lower lobe pulmonary artery. No definite metastatic disease in th e chest, abdomen, or pelvis. However, the mediastinum is difficult to evaluate g iven the multiple calcified lymph nodes. Consider further evaluation with a PET/ CT. 2.The bilateral adrenal nodules are indeterminate. Further evaluation with a CT of the abdomen with and without intravenous contrast, adrenal mass protocol, is recommended for further evaluation given the known malignancy if a PET/CT is not obtained. 3.There are several indeterminate groundglass opacities in the ri ght lung which measure up to 1.2 cm. These may be due to pulmonary edema or infe ction. A follow-up chest CT is recommended in 3-6 months to exclude neoplasm. 4. The diffusely increased interstitial opacities of lungs are likely due to inters titial pulmonary edema. 5.An indeterminate left renal lesion is most likely a cy st. However, further evaluation at the same time as the CT adrenal mass protocol is recommended. 6.The calcified upper abdominal and mediastinal lymph nodes are likely sequelae of prior granulomatous disease. 7.Small bilateral pleural effus ions with a right-sided chest tube and a trace right pneumothorax. 8.Acute, nond isplaced right lateral sixth rib fracture. 9.Cholelithiasis without acute cholec ystitis Signed: Lalitha Tovar MDReport Verified Date/Time: 06/19/2019 10:09:57 Dena nguyen Location: [address] Body Reading Room TITIS PANEL, [id number] 08:05:00* Test Item Value Reference Range Interpretation Comments HEPATITIS A IGM ANTIBODY (BEAKER) (test code = 498) Nonreactive No nreactive HEPATITIS B CORE IGM ANTIBODY (BEAKER) (test code = 645) Non reactive Nonreactive HEPATITIS C ANTIBODY (BEAKER) (test code = 367) Nonreactive Nonrea ctive HEPATITIS B SURFACE ANTIGEN (2) (SEJAL) (test code = 2585) Nonreactive Nonreactive [employer] Tile Setter ID - PIMONICA LTSH/FREE T4 IF [id number] 08:05:00* Test Item Value Reference Range Interpretation Comments THYROID STIMULATING HORMONE (SEJAL) (test code = 772) 2.82 uIU/mL 0.35-4.94 Ro[employer] Tile Setter ID - PIAYA LHIV-1 ANTIGEN WITH HIV-1/2 [id number] 08:05:00* Test Item Value Reference Range Interpretation Comments HIV-1 ANTIGEN WITH HIV 1\\T\\2 ANTIBODY (2) (SEJAL) (te st code = 2586) Nonreactive Nonreactive [employer] Tile Setter ID - PIMONICA LPOCT-GLUCOSE [id number] 07:50:00* Test Item Value Reference Range Interpretation Comments POC-GLUCOSE METER (SEJAL) (test code = 1538) 133 mg/dL 70-110 H : TESTED AT [facility] [address] [facility], [address]: Ro[employer] Tile Setter/Service Desk Director ID = [id number] for Danya Cardenas RAD, CHEST, 1 VIEW, NON [id number] 06:55:00Reason for exam:->s/p thoracotomyShould this be performed at the bedside?->YesFINAL REPORT Chest one view. Clinical history: s/p thoracotomy Comparison: Chest radiograph 06/18/2019. Technique: A single frontal view of the chest was obtained. Findings:There is a right chest tube with tip in the right lung base.The cardiomediastinal contours are stable. There are persistent diffuse bilateral airspace opacities. There is a small left pleural effusion, grossly unchanged. There is a small right apical pneumothorax. Signed: Naseem Perezeport Verified Date/Time: 06/19/2019 06:55:46 [id number] 06:09:00* Test Item Value Reference Range Interpretation Comments CORTISOL, TOTAL (SEJAL) (test code = 2755) 8.0 ug/dL 3.7-19.4 [employer] Tile Setter ID - JAMAR MPOCT-GLUCOSE [id number] 21:23:00* Test Item Value Reference Range Interpretation Comments POC-GLUCOSE METER (BEAKER) (test code = 1538) 300 mg/dL 70-110 H : TESTED AT [facility] [address] [facility], [address]: [employer] Tile Setter/Service Desk Director ID = [id number] for Fariha Howe POCT-GLUCOSE [id number] 20:12:00* Test Item Value Reference Range Interpretation Comments POC-GLUCOSE METER (BEAKER) (test code = 1538) 272 mg/dL 70-110 H : TESTED AT [place] [id number] [facility], [address]: [employer] Tile Setter/Service Desk Director ID = [id number] for Fariha Howe POCT-GLUCOSE [id number] 12:46:00* Test Item Value Reference Range Interpretation Comments POC-GLUCOSE METER (BEAKER) (test code = 1538) 197 mg/dL 70-110 H : TESTED AT [address], [address]: [employer] Tile Setter/Service Desk Director ID = [id number] for Danya Cardenas RAD, CHEST, 1 VIEW, NON [id number] 08:01:00Reason for exam:->s/p thoracotomyShould this be performed at the bedside?->YesFINAL REPORT RAD, CHEST, 1 VIEW, NON DEPT INDICATION: s/p thoracotomy COMPARISON: Prior day's exam FINDINGS: Portable frontal view of the chest. IMPRESSION: Support Lines: Right chest tube Lungs and pleura: Left effusion and airspace edema are slightly increased in the interim. Platelike atelectasis in the right midlung is unchanged, No pneumothorax.Heart and mediastinum: Stable contours. Stable surgical changes.Additional findings: None. Signed: Rea Vigil MDReport Verified Date/Time: 06/18/2019 08:01:34 Reading Location: [facility] Radiology Reading Room C METABOLIC [id number] 07:58:00* Test Item Value Reference Range Interpretation Comments SODIUM (BEAKER) (test code = 381) 135 meq/L 136-145 L POTASSIUM (BEAKER) (test code = 379) 3.9 meq/L 3.5-5.1 CHLORIDE (BEAKER) (test code = 382) 99 meq/L 98-107 CO2 (BEAKER) (test code = 355) 27 meq/L 22-29 BLOOD UREA NITROGEN (BEAKER) (test code = 354) 16 mg/dL 7-21 CREATININE (BEAKER) (test code = 358) 0.76 mg/dL 0.57-1.25 GLUCOSE RANDOM (BEAKER) (test code = 652) 140 mg/dL 70-105 H CALCIUM (BEAKER) (test code = 697) 8.4 mg/dL 8.4-10.2 EGFR (BEAKER) (test code = 1092) 74 mL/min/1.73 sq m ESTIMATED GFR IS NOT ACCURATE CREATININE CLEARANCE IN PREDICTING GLOMERULAR FILTRATION RATE. ESTIMATED GFR IS NOT APPLICABLE FOR DIALYSIS PATIENTS. [employer] Tile Setter ID - JAMAR MPOCT-GLUCOSE [id number] 07:54:00* Test Item Value Reference Range Interpretation Comments POC-GLUCOSE METER (BEAKER) (test code = 1538) 140 mg/dL 70-110 H : TESTED AT [address], [address]: Ro[employer] Tile Setter/Service Desk Director ID = [id number] for SILVA YOUNG CBC W/PLT COUNT & AUTO [id number] 07:16:00* Test Item Value Reference Range Interpretation Comments WHITE BLOOD CELL COUNT (BEAKER) (test code = 775) 7.4 K/ L 3.5- 10.5 RED BLOOD CELL COUNT (BEAKER) (test code = 761) 3.03 M/ L 3.93-5 .22 L HEMOGLOBIN (BEAKER) (test code = 410) 8.9 GM/DL 11.2-15.7 L HEMATOCRIT (BEAKER) (test code = 411) 28.2 % 34.1-44.9 L MEAN CORPUSCULAR VOLUME (BEAKER) (test code = 753) 93.1 fL 79. 4-94.8 MEAN CORPUSCULAR HEMOGLOBIN (BEAKER) (test code = 751) 29.4 pg 25.6-32.2 MEAN CORPUSCULAR HEMOGLOBIN CONC (BEAKER) (test code = 752) 31.6 GM/DL 32.2-35.5 L RED CELL DISTRIBUTION WIDTH (BEAKER) (test code = 412) 16.8 % 11.7-14.4 H PLATELET COUNT (BEAKER) (test code = 756) 226 K/CU MM 150-450 MEAN PLATELET VOLUME (BEAKER) (test code = 754) 10.4 fL 9.4-12 .3 NUCLEATED RED BLOOD CELLS (BEAKER) (test code = 413) 0 /100 WBC 0 -0 NEUTROPHILS RELATIVE PERCENT (BEAKER) (test code = 429) 77 % LYMPHOCYTES RELATIVE PERCENT (BEAKER) (test code = 430) 8 % MONOCYTES RELATIVE PERCENT (BEAKER) (test code = 431) 12 % EOSINOPHILS RELATIVE PERCENT (BEAKER) (test code = 432) 2 % BASOPHILS RELATIVE PERCENT (BEAKER) (test code = 437) 1 % NEUTROPHILS ABSOLUTE COUNT (BEAKER) (test code = 670) 5.70 K/ L 1.56-6.13 LYMPHOCYTES ABSOLUTE COUNT (BEAKER) (test code = 414) 0.56 K/ L 1.18-3.74 L MONOCYTES ABSOLUTE COUNT (BEAKER) (test code = 415) 0.90 K/ L 0. 24-0.36 H EOSINOPHILS ABSOLUTE COUNT (BEAKER) (test code = 416) 0.16 K/ L 0.04-0.36 BASOPHILS ABSOLUTE COUNT (BEAKER) (test code = 417) 0.04 K/ L 0. 01-0.08 IMMATURE GRANULOCYTES-RELATIVE PERCENT (BEAKER) (test code = 2801) 1 % 0-1 POCT-GLUCOSE [id number] 21:50:00* Test Item Value Reference Range Interpretation Comments POC-GLUCOSE METER (BEAKER) (test code = 1538) 232 mg/dL 70-110 H : TESTED AT [address], [address]: Ro[employer] Tile Setter/Service Desk Director ID = [id number] for KEN TRAVIS POCT-GLUCOSE [id number] 18:20:00* Test Item Value Reference Range Interpretation Comments POC-GLUCOSE METER (BEAKER) (test code = 1538) 167 mg/dL 70-110 H : TESTED AT [place] [id number] [facility], [address]: Ro[employer] Tile Setter/Service Desk Director ID = [id number] for HANK DOMINIQUE [id number] 17:21:00Medical Cytology Report Case: [id number] Authorizing Provider: Nahum Gatica, Collected: 06/15/2019911 Ordering Location: [facility] Received: 06/15/2019 0933 PERIOPERATIVE SERVICES Pathologist: Ac Tipton MD Specimen: Pleural PLEURAL FLUID LATERALITY NOT SPECIFIED (CYTOSPINS AND CELL BLOCK): - POSITIVE FOR MALIGNANCY - POORLY DIFFERENTIATED SQUAMOUS CELL CARCINOMA Signing Pathologist Direct Phone Line: [phone] signed by Ac Tiptno MD on 06/17/2019 at 5:21 PMThere are rare malignant cells in a background of reactive mesothelial cells and lymphoid inflammation. The tumor cells are positive for p40 and negative for TTF- 1.38581, 77190, 76427, 26104Vtoijigfu pleural effusions, history of benign left lung tumor resection, and a new right lung mass with mediastinal adenopathy (squamous cell carcinoma diagnosed at frozen section).PLEURAL FLUID LATERALITY NOT [id number] mls zully; 4 cytospins, cell block (collodion bag)Collected: [id number]: [id number] interpretation of this case included the use of immunohistochemistry or special stains.Control Slides Examined: In-house known positive controls were evaluated along with the test tissue. These control slides run alongside of the patients sample show appropriate staining. Internal positive and negative controls when available are evaluated I mmunohistochemistry technical testing was performed at [facility], Pathology Laboratory where it was developed and its performance charact eristics were determined. It has not been cleared or approved by the U.S. Food a nd Drug Administration. The FDA has determined that such clearance or approval i s not necessary. The test is used for clinical purposes. It should not be regard ed as investigational or for research. This laboratory is certified under the Cl inical Laboratory Improvement Amendments of 1988 (CLIA-88) as qualified to perfo rm high complexity clinical laboratory testing.[facility], Department of Pathology, [address] [place] [address], [facility], [address] [place] [address], [facility], [address] [place] [address], BRONCHIAL CULTURE + GRAM [id number] 13:14:00* Test Item Value Reference Range Interpretation Comments CULTURE (BEAKER) (test code = 1095) No growth GRAM STAIN RESULT (BEAKER) (test code = 1123) 3+ WBCs GRAM STAIN RESULT (BEAKER) (test code = 38953) No organisms seen POCT-GLUCOSE [id number] 12:37:00* Test Item Value Reference Range Interpretation Comments POC-GLUCOSE METER (BEAKER) (test code = 1538) 213 mg/dL 70-110 H : TESTED AT [facility] [address] [facility], [address]: Roof [employer] Tile Setter/Service Desk Director ID = [id number] for HANK DOMINIQUE RAD, CHEST, 1 VIEW, NON [id number] 07:45:00Reason for exam:->s/p thoracotomyShould this be performed at the bedside?->YesFINAL REPORT RAD, CHEST, 1 VIEW, NON DEPT INDICATION: s/p thoracotomy COMPARISON: Prior day's exam FINDINGS: Portable frontal view of the chest. IMPRESSION: Support Lines: Chest tubes are unchanged Lungs and pleura: Bilateral airspace disease and atelectasis are unchanged. This may represent multifocal edema. Superimposed infection may be excluded clinically. No pneumothorax.Heart and mediastinum: Stable contours. Stable surgical changes.Additional findings: None. Signed: Rea Vigil Verified Date/Time: 06/17/2019 07:45:22 Reading Location: [facility] Radiology Reading Room C METABOLIC PANEL 2019-06-17 05:01:00* Test Item Value Reference Range Interpretation Comments SODIUM (BEAKER) (test code = 381) 134 meq/L 136-145 L POTASSIUM (BEAKER) (test code = 379) 4.2 meq/L 3.5-5.1 CHLORIDE (BEAKER) (test code = 382) 99 meq/L 98-107 CO2 (BEAKER) (test code = 355) 28 meq/L 22-29 BLOOD UREA NITROGEN (BEAKER) (test code = 354) 21 mg/dL 7-21 CREATININE (BEAKER) (test code = 358) 0.98 mg/dL 0.57-1.25 GLUCOSE RANDOM (BEAKER) (test code = 652) 66 mg/dL 70-105 L CALCIUM (BEAKER) (test code = 697) 8.8 mg/dL 8.4-10.2 EGFR (BEAKER) (test code = 1092) 55 mL/min/1.73 sq m ESTIMATED GFR IS NOT ACCURATE CREATININE CLEARANCE IN PREDICTING GLOMERULAR FILTRATION RATE. ESTIMATED GFR IS NOT APPLICABLE FOR DIALYSIS PATIENTS. Ro[employer] Tile Setter ID - IVAN WCBC W/PLT COUNT & AUTO [id number] 04:37:00* Test Item Value Reference Range Interpretation Comments WHITE BLOOD CELL COUNT (BEAKER) (test code = 775) 9.5 K/ L 3.5- 10.5 RED BLOOD CELL COUNT (BEAKER) (test code = 761) 3.01 M/ L 3.93-5 .22 L HEMOGLOBIN (BEAKER) (test code = 410) 8.8 GM/DL 11.2-15.7 L HEMATOCRIT (BEAKER) (test code = 411) 28.1 % 34.1-44.9 L MEAN CORPUSCULAR VOLUME (BEAKER) (test code = 753) 93.4 fL 79. 4-94.8 MEAN CORPUSCULAR HEMOGLOBIN (BEAKER) (test code = 751) 29.2 pg 25.6-32.2 MEAN CORPUSCULAR HEMOGLOBIN CONC (BEAKER) (test code = 752) 31.3 GM/DL 32.2-35.5 L RED CELL DISTRIBUTION WIDTH (BEAKER) (test code = 412) 16.5 % 11.7-14.4 H PLATELET COUNT (BEAKER) (test code = 756) 231 K/CU MM 150-450 MEAN PLATELET VOLUME (BEAKER) (test code = 754) 10.1 fL 9.4-12 .3 NUCLEATED RED BLOOD CELLS (BEAKER) (test code = 413) 0 /100 WBC 0 -0 NEUTROPHILS RELATIVE PERCENT (BEAKER) (test code = 429) 80 % LYMPHOCYTES RELATIVE PERCENT (BEAKER) (test code = 430) 7 % MONOCYTES RELATIVE PERCENT (BEAKER) (test code = 431) 12 % EOSINOPHILS RELATIVE PERCENT (BEAKER) (test code = 432) 1 % BASOPHILS RELATIVE PERCENT (BEAKER) (test code = 437) 0 % NEUTROPHILS ABSOLUTE COUNT (BEAKER) (test code = 670) 7.55 K/ L 1.56-6.13 H LYMPHOCYTES ABSOLUTE COUNT (BEAKER) (test code = 414) 0.67 K/ L 1.18-3.74 L MONOCYTES ABSOLUTE COUNT (BEAKER) (test code = 415) 1.11 K/ L 0. 24-0.36 H EOSINOPHILS ABSOLUTE COUNT (BEAKER) (test code = 416) 0.06 K/ L 0.04-0.36 BASOPHILS ABSOLUTE COUNT (BEAKER) (test code = 417) 0.02 K/ L 0. 01-0.08 IMMATURE GRANULOCYTES-RELATIVE PERCENT (BEAKER) (test code = 2801) 1 % 0-1 POCT-GLUCOSE [id number] 22:12:00* Test Item Value Reference Range Interpretation Comments POC-GLUCOSE METER (BEAKER) (test code = 1538) 217 mg/dL 70-110 H : TESTED [address], [address]: Ro[employer] Tile Setter/Service Desk Director ID = [id number] for ZANDRA COHEN POCT-GLUCOSE [id number] 20:47:00* Test Item Value Reference Range Interpretation Comments POC-GLUCOSE METER (BEAKER) (test code = 1538) 267 mg/dL 70-110 H : TESTED AT [address], [address]: Ro[employer] Tile Setter/Service Desk Director ID = [id number] for KEN TRAVIS POCT-GLUCOSE [id number] 18:34:00* Test Item Value Reference Range Interpretation Comments POC-GLUCOSE METER (BEAKER) (test code = 1538) 306 mg/dL 70-110 H : TESTED AT [address], [address]: Ro[employer] Tile Setter/Service Desk Director ID = [id number] for SKY SANCHEZ RAD, CHEST, 1 VIEW, NON [id number] 07:22:00Reason for exam:->s/p thoracotomyShould this be performed at the bedside?->YesFINAL REPORT RAD, CHEST, 1 VIEW, NON DEPT INDICATION: s/p thoracotomy COMPARISON: Prior day's exam FINDINGS: Portable frontal view of the chest. IMPRESSION: Support Lines: Stable. Lungs and pleura: Increasing consolidation bilaterally predominantly in the perihilar regions. No visible pneumothorax.Heart and mediastinum: Stable contours. Additional findings: None. Signed: JR Arias Robert MDReport Verified Date/Time: 06/16/2019 07:22:58 Reading Location: [facility] C013 Neuro Reading Room D GAS, [id number] 05:16:00* Test Item Value Reference Range Interpretation Comments PH ARTERIAL (BEAKER) (test code = 383) 7.38 7.35-7.45 PCO2 ARTERIAL (BEAKER) (test code = 384) 42 mmHg 35-45 PO2 ARTERIAL (BEAKER) (test code = 385) 121 mmHg 80-90 H O2 SATURATION ARTERIAL (BEAKER) (test code = 386) 98.4 % 96.0 -97.0 H HCO3 ARTERIAL (BEAKER) (test code = 388) 25 mmol/L 21-29 BASE EXCESS ARTERIAL (BEAKER) (test code = 387) -0.6 mmol/L -2.0-3 .0 PATIENT TEMPERATURE (BEAKER) (test code = 1818) 36.6 C FIO2 (BEAKER) (test code = 1819) 44.0 % [id number] 04:57:00* Test Item Value Reference Range Interpretation Comments MAGNESIUM (BEAKER) (test code = 627) 1.8 mg/dL 1.6-2.6 Ro[employer] Tile Setter ID - JAMAR MBASIC METABOLIC [id number] 04:57:00* Test Item Value Reference Range Interpretation Comments SODIUM (BEAKER) (test code = 381) 140 meq/L 136-145 POTASSIUM (BEAKER) (test code = 379) 4.7 meq/L 3.5-5.1 CHLORIDE (BEAKER) (test code = 382) 108 meq/L 98-107 H CO2 (BEAKER) (test code = 355) 23 meq/L 22-29 BLOOD UREA NITROGEN (BEAKER) (test code = 354) 18 mg/dL 7-21 CREATININE (BEAKER) (test code = 358) 0.94 mg/dL 0.57-1.25 GLUCOSE RANDOM (BEAKER) (test code = 652) 242 mg/dL 70-105 H CALCIUM (BEAKER) (test code = 697) 9.1 mg/dL 8.4-10.2 EGFR (BEAKER) (test code = 1092) 58 mL/min/1.73 sq m ESTIMATED GFR IS NOT ACCURATE CREATININE CLEARANCE IN PREDICTING GLOMERULAR FILTRATION RATE. ESTIMATED GFR IS NOT APPLICABLE FOR DIALYSIS PATIENTS. Ro[employer] Tile Setter ID - JAMAR MCBC W/PLT COUNT & AUTO [id number] 04:54:00* Test Item Value Reference Range Interpretation Comments WHITE BLOOD CELL COUNT (BEAKER) (test code = 775) 13.6 K/ L 3.5- 10.5 H RED BLOOD CELL COUNT (BEAKER) (test code = 761) 3.28 M/ L 3.93-5 .22 L HEMOGLOBIN (BEAKER) (test code = 410) 9.5 GM/DL 11.2-15.7 L HEMATOCRIT (BEAKER) (test code = 411) 31.4 % 34.1-44.9 L MEAN CORPUSCULAR VOLUME (BEAKER) (test code = 753) 95.7 fL 79. 4-94.8 H MEAN CORPUSCULAR HEMOGLOBIN (BEAKER) (test code = 751) 29.0 pg 25.6-32.2 MEAN CORPUSCULAR HEMOGLOBIN CONC (BEAKER) (test code = 752) 30.3 GM/DL 32.2-35.5 L RED CELL DISTRIBUTION WIDTH (BEAKER) (test code = 412) 16.8 % 11.7-14.4 H PLATELET COUNT (BEAKER) (test code = 756) 261 K/CU MM 150-450 MEAN PLATELET VOLUME (BEAKER) (test code = 754) 10.0 fL 9.4-12 .3 NUCLEATED RED BLOOD CELLS (BEAKER) (test code = 413) 0 /100 WBC 0 -0 NEUTROPHILS RELATIVE PERCENT (BEAKER) (test code = 429) 87 % LYMPHOCYTES RELATIVE PERCENT (BEAKER) (test code = 430) 2 % MONOCYTES RELATIVE PERCENT (BEAKER) (test code = 431) 10 % EOSINOPHILS RELATIVE PERCENT (BEAKER) (test code = 432) 0 % BASOPHILS RELATIVE PERCENT (BEAKER) (test code = 437) 0 % NEUTROPHILS ABSOLUTE COUNT (BEAKER) (test code = 670) 11.81 K/ L 1.56-6.13 H LYMPHOCYTES ABSOLUTE COUNT (BEAKER) (test code = 414) 0.30 K/ L 1.18-3.74 L MONOCYTES ABSOLUTE COUNT (BEAKER) (test code = 415) 1.36 K/ L 0. 24-0.36 H EOSINOPHILS ABSOLUTE COUNT (BEAKER) (test code = 416) 0.00 K/ L 0.04-0.36 L BASOPHILS ABSOLUTE COUNT (BEAKER) (test code = 417) 0.02 K/ L 0. 01-0.08 IMMATURE GRANULOCYTES-RELATIVE PERCENT (BEAKER) (test code = 2801) 0 % 0-1 SPIN/CONCENTRATION [id number] 02:03:00* Test Item Value Reference Range Interpretation Comments CONCENTRATION CHARGED (BEAKER) (test code = 2657) Done AFB CULTURE + SMEAR (NON-SPUTUM)2019-06-15 20:25:00* Test Item Value Reference Range Interpretation Comments CULTURE (BEAKER) (test code = 1095) No acid-fast bacilli isolate d in 42 days AFB SMEAR (BEAKER) (test code = 994) No acid fast bacilli seen RAD, CHEST, 1 VIEW, NON [id number] 19:17:00Post-intubationReason for exam:-> sp chest tube placementShould this be performed at the bedside?->YesFINAL REPORT Chest dated 06/15/2019 COMPARISON: Same day Clinical Information: sp chest tube placement Comment: Heart is enlarged. Pulmonary vasculature is indistinct. Interstitial disease is seen bilaterally suggestive of pulmonary edema worse than prior study. No pleural effusion or pneumothorax is seen. There is no interval change in the positions of the 2 right chest tube s. Signed: Mayo Marinelli MDReport Verified Date/Time: 06/15/2019 19:17:11 Reading Location: [address] Consult Reading Room [id number] 18:11:00* Test Item Value Reference Range Interpretation Comments MAGNESIUM (BEAKER) (test code = 627) 1.9 mg/dL 1.6-2.6 Specimen slightly hemolyzed Ro[employer] Tile Setter ID - [id number] 18:11:00* Test Item Value Reference Range Interpretation Comments PHOSPHORUS (BEAKER) (test code = 604) 4.3 mg/dL 2.3-4.7 Specimen slightly hemolyzed Roof [employer] Tile Setter ID - NTPCOMPREHENSIVE METABOLIC [id number] 18:11:00* Test Item Value Reference Range Interpretation Comments TOTAL PROTEIN (BEAKER) (test code = 770) 6.6 gm/dL 6.0-8.3 Specimen slightly hemolyzed ALBUMIN (BEAKER) (test code = 1145) 3.4 g/dL 3.5-5.0 L Specimen slightly hemolyzed ALKALINE PHOSPHATASE (BEAKER) (test code = 346) 37 U/L 40-150 L BILIRUBIN TOTAL (BEAKER) (test code = 377) 0.8 mg/dL 0.2-1.2 Specimen slightly hemolyzed SODIUM (BEAKER) (test code = 381) 141 meq/L 136-145 POTASSIUM (BEAKER) (test code = 379) 5.1 meq/L 3.5-5.1 Specimen slightly hemolyzed CHLORIDE (BEAKER) (test code = 382) 107 meq/L 98-107 CO2 (BEAKER) (test code = 355) 22 meq/L 22-29 BLOOD UREA NITROGEN (BEAKER) (test code = 354) 18 mg/dL 7-21 CREATININE (BEAKER) (test code = 358) 0.88 mg/dL 0.57-1.25 Specimen slightly hemolyzed GLUCOSE RANDOM (BEAKER) (test code = 652) 250 mg/dL 70-105 H CALCIUM (BEAKER) (test code = 697) 9.1 mg/dL 8.4-10.2 AST (SGOT) (BEAKER) (test code = 353) 26 U/L 5-34 Specimen slightly hemolyzed ALT (SGPT) (BEAKER) (test code = 347) 14 U/L 6-55 Specimen slightly hemolyzed EGFR (BEAKER) (test code = 1092) 62 mL/min/1.73 sq m ESTIMATED GFR IS NOT ACCURATE CREATININE CLEARANCE IN PREDICTING GLOMERULAR FILTRATION RATE. ESTIMATED GFR IS NOT APPLICABLE FOR DIALYSIS PATIENTS. Roof Promenade Tile Setter ID - NTPCBC W/PLT COUNT & AUTO [id number] 17:53:00* Test Item Value Reference Range Interpretation Comments WHITE BLOOD CELL COUNT (BEAKER) (test code = 775) 14.5 K/ L 3.5- 10.5 H RED BLOOD CELL COUNT (BEAKER) (test code = 761) 3.43 M/ L 3.93-5 .22 L HEMOGLOBIN (BEAKER) (test code = 410) 10.0 GM/DL 11.2-15.7 L HEMATOCRIT (BEAKER) (test code = 411) 32.6 % 34.1-44.9 L MEAN CORPUSCULAR VOLUME (BEAKER) (test code = 753) 95.0 fL 79. 4-94.8 H MEAN CORPUSCULAR HEMOGLOBIN (BEAKER) (test code = 751) 29.2 pg 25.6-32.2 MEAN CORPUSCULAR HEMOGLOBIN CONC (BEAKER) (test code = 752) 30.7 GM/DL 32.2-35.5 L RED CELL DISTRIBUTION WIDTH (BEAKER) (test code = 412) 16.8 % 11.7-14.4 H PLATELET COUNT (BEAKER) (test code = 756) 271 K/CU MM 150-450 MEAN PLATELET VOLUME (BEAKER) (test code = 754) 10.1 fL 9.4-12 .3 NUCLEATED RED BLOOD CELLS (BEAKER) (test code = 413) 0 /100 WBC 0 -0 NEUTROPHILS RELATIVE PERCENT (BEAKER) (test code = 429) 92 % LYMPHOCYTES RELATIVE PERCENT (BEAKER) (test code = 430) 1 % MONOCYTES RELATIVE PERCENT (BEAKER) (test code = 431) 6 % EOSINOPHILS RELATIVE PERCENT (BEAKER) (test code = 432) 0 % BASOPHILS RELATIVE PERCENT (BEAKER) (test code = 437) 0 % NEUTROPHILS ABSOLUTE COUNT (BEAKER) (test code = 670) 13.30 K/ L 1.56-6.13 H LYMPHOCYTES ABSOLUTE COUNT (BEAKER) (test code = 414) 0.18 K/ L 1.18-3.74 L MONOCYTES ABSOLUTE COUNT (BEAKER) (test code = 415) 0.87 K/ L 0. 24-0.36 H EOSINOPHILS ABSOLUTE COUNT (BEAKER) (test code = 416) 0.02 K/ L 0.04-0.36 L BASOPHILS ABSOLUTE COUNT (BEAKER) (test code = 417) 0.02 K/ L 0. 01-0.08 IMMATURE GRANULOCYTES-RELATIVE PERCENT (BEAKER) (test code = 2801) 0 % 0-1 [id number] 14:07:00* Test Item Value Reference Range Interpretation Comments PHOSPHORUS (BEAKER) (test code = 604) 3.8 mg/dL 2.3-4.7 [employer] ID - [id number] 14:07:00* Test Item Value Reference Range Interpretation Comments MAGNESIUM (BEAKER) (test code = 627) 1.9 mg/dL 1.6-2.6 [employer] ID - [id number] GAS, [id number] 13:41:00* Test Item Value Reference Range Interpretation Comments PH ARTERIAL (BEAKER) (test code = 383) 7.34 7.35-7.45 L PCO2 ARTERIAL (BEAKER) (test code = 384) 45 mmHg 35-45 PO2 ARTERIAL (BEAKER) (test code = 385) 92 mmHg 80-90 H O2 SATURATION ARTERIAL (BEAKER) (test code = 386) 96.9 % 96.0 -97.0 HCO3 ARTERIAL (BEAKER) (test code = 388) 24 mmol/L 21-29 BASE EXCESS ARTERIAL (BEAKER) (test code = 387) -1.8 mmol/L -2.0-3 .0 PATIENT TEMPERATURE (BEAKER) (test code = 1818) 36.2 C FIO2 (BEAKER) (test code = 1819) 21.0 % BASIC METABOLIC [id number] 11:56:00* Test Item Value Reference Range Interpretation Comments SODIUM (BEAKER) (test code = 381) 139 meq/L 136-145 POTASSIUM (BEAKER) (test code = 379) 4.8 meq/L 3.5-5.1 CHLORIDE (BEAKER) (test code = 382) 106 meq/L 98-107 CO2 (BEAKER) (test code = 355) 23 meq/L 22-29 BLOOD UREA NITROGEN (BEAKER) (test code = 354) 15 mg/dL 7-21 CREATININE (BEAKER) (test code = 358) 0.85 mg/dL 0.57-1.25 GLUCOSE RANDOM (BEAKER) (test code = 652) 248 mg/dL 70-105 H CALCIUM (BEAKER) (test code = 697) 8.6 mg/dL 8.4-10.2 EGFR (BEAKER) (test code = 1092) 65 mL/min/1.73 sq m ESTIMATED GFR IS NOT ACCURATE CREATININE CLEARANCE IN PREDICTING GLOMERULAR FILTRATION RATE. ESTIMATED GFR IS NOT APPLICABLE FOR DIALYSIS PATIENTS. [employer] Tile Setter ID - JAMAR MCALCIUM, [id number] 11:52:00* Test Item Value Reference Range Interpretation Comments CALCIUM IONIZED (BEAKER) (test code = 698) 0.95 mmol/L 1.12-1.27 L PH, BLOOD (BEAKER) (test code = 1810) 7.35 PT/[id number] 11:43:00* Test Item Value Reference Range Interpretation Comments PROTIME (BEAKER) (test code = 759) 16.3 seconds 11.9-14.2 H INR (BEAKER) (test code = 370) 1.4 <=5.9 PARTIAL THROMBOPLASTIN TIME (BEAKER) (test code = 760) 31.7 seconds 22.5-36.0 Effective 10/07/2018: PT Reference Range ChangeNew: 11.9-14.2 Previous: 11.7-14. 7RECOMMENDED COUMADIN/WARFARIN INR THERAPY RANGESSTANDARD DOSE: 2.0-3.0 Include s: PROPHYLAXIS for venous thrombosis, systemic embolization; TREATMENT for venou s thrombosis and/or pulmonary embolus.HIGH RISK: Target INR is 2.5-3.5 for patie nts wiht mechanical heart valves.CBC (HEMOGRAM ONLY)2019-06-15 11:39:00* Test Item Value Reference Range Interpretation Comments WHITE BLOOD CELL COUNT (BEAKER) (test code = 775) 7.1 K/ L 3.5- 10.5 RED BLOOD CELL COUNT (BEAKER) (test code = 761) 3.08 M/ L 3.93-5 .22 L HEMOGLOBIN (BEAKER) (test code = 410) 9.1 GM/DL 11.2-15.7 L HEMATOCRIT (BEAKER) (test code = 411) 29.0 % 34.1-44.9 L MEAN CORPUSCULAR VOLUME (BEAKER) (test code = 753) 94.2 fL 79. 4-94.8 MEAN CORPUSCULAR HEMOGLOBIN (BEAKER) (test code = 751) 29.5 pg 25.6-32.2 MEAN CORPUSCULAR HEMOGLOBIN CONC (BEAKER) (test code = 752) 31.4 GM/DL 32.2-35.5 L RED CELL DISTRIBUTION WIDTH (BEAKER) (test code = 412) 16.7 % 11.7-14.4 H PLATELET COUNT (BEAKER) (test code = 756) 242 K/CU MM 150-450 MEAN PLATELET VOLUME (BEAKER) (test code = 754) 10.1 fL 9.4-12 .3 NUCLEATED RED BLOOD CELLS (BEAKER) (test code = 413) 0 /100 WBC 0 -0 RAD, CHEST, 1 VIEW, NON [id number] 11:22:00Reason for exam:->s/p thoracotomy, lung biopsyShould this be performed at the bedside?->YesFINAL REPORT RAD, CHEST, 1 VIEW, NON DEPT INDICATION: s/p thoracotomy, lung biopsy COMPARISON: April 27, 2019 FINDINGS: Portable front al view of the chest. IMPRESSION: Support Lines: Two right-sided chest tubes Lungs and pleura: Previously noted dense right airspace disease is decreased in the interim. Trace left effusion and left retrocardiac airspace disease remain N o pneumothorax.Heart and mediastinum: Stable contours. Additional findings: None . Signed: Rea Vigil Verified Date/Time: 06/15/2019 11:22:54 Read ing Location: [facility] Radiology Reading Room OSE-STAT [id number] 08:03:00* Test Item Value Reference Range Interpretation Comments GLUCOSE RANDOM (BEAKER) (test code = 652) 212 mg/dL 70-110 H HGB/HCT (H&H) - STAT [id number] 08:03:00* Test Item Value Reference Range Interpretation Comments HEMOGLOBIN (BEAKER) (test code = 410) 9.2 g/dL 12.0-15.0 L HEMATOCRIT (BEAKER) (test code = 411) 27.0 % 36.0-45.0 L BLOOD GAS, [id number] 08:02:00* Test Item Value Reference Range Interpretation Comments PH ARTERIAL (BEAKER) (test code = 383) 7.43 7.35-7.45 PCO2 ARTERIAL (BEAKER) (test code = 384) 38 mmHg 35-45 PO2 ARTERIAL (BEAKER) (test code = 385) 274 mmHg 80-90 H O2 SATURATION ARTERIAL (BEAKER) (test code = 386) 99.7 % 96.0 -97.0 H HCO3 ARTERIAL (BEAKER) (test code = 388) 25 mmol/L 21-29 BASE EXCESS ARTERIAL (BEAKER) (test code = 387) 0.2 mmol/L -2.0-3 .0 PATIENT TEMPERATURE (BEAKER) (test code = 1818) 36.0 C FIO2 (BEAKER) (test code = 1819) 100.0 % CALCIUM, [id number] 08:02:00* Test Item Value Reference Range Interpretation Comments CALCIUM IONIZED (BEAKER) (test code = 698) 0.99 mmol/L 1.12-1.27 L PH, BLOOD (BEAKER) (test code = 1810) 7.42 SODIUM NA-STAT [id number] 08:00:00* Test Item Value Reference Range Interpretation Comments SODIUM (BEAKER) (test code = 381) 137 meq/L 135-148 POTASSIUM-STAT [id number] 08:00:00* Test Item Value Reference Range Interpretation Comments POTASSIUM (BEAKER) (test code = 379) 4.0 meq/L 3.6-5.5 POCT-GLUCOSE [id number] 06:15:00* Test Item Value Reference Range Interpretation Comments POC-GLUCOSE METER (BEAKER) (test code = 1538) 213 mg/dL 70-110 H : TESTED AT [facility] [address] [facility], [address]: [employer] Tile Setter/Service Desk Director ID = [id number] for KATRIN JACKMAN COMPREHENSIVE METABOLIC [id number] 14:53:00* Test Item Value Reference Range Interpretation Comments TOTAL PROTEIN (BEAKER) (test code = 770) 6.8 gm/dL 6.0-8.3 ALBUMIN (BEAKER) (test code = 1145) 3.6 g/dL 3.5-5.0 ALKALINE PHOSPHATASE (BEAKER) (test code = 346) 39 U/L 40-150 L BILIRUBIN TOTAL (BEAKER) (test code = 377) 0.9 mg/dL 0.2-1.2 SODIUM (BEAKER) (test code = 381) 136 meq/L 136-145 POTASSIUM (BEAKER) (test code = 379) 4.0 meq/L 3.5-5.1 CHLORIDE (BEAKER) (test code = 382) 102 meq/L 98-107 CO2 (BEAKER) (test code = 355) 23 meq/L 22-29 BLOOD UREA NITROGEN (BEAKER) (test code = 354) 16 mg/dL 7-21 CREATININE (BEAKER) (test code = 358) 0.94 mg/dL 0.57-1.25 GLUCOSE RANDOM (BEAKER) (test code = 652) 212 mg/dL 70-105 H CALCIUM (BEAKER) (test code = 697) 8.9 mg/dL 8.4-10.2 AST (SGOT) (BEAKER) (test code = 353) 16 U/L 5-34 ALT (SGPT) (BEAKER) (test code = 347) 13 U/L 6-55 EGFR (BEAKER) (test code = 1092) 58 mL/min/1.73 sq m ESTIMATED GFR IS NOT ACCURATE CREATININE CLEARANCE IN PREDICTING GLOMERULAR FILTRATION RATE. ESTIMATED GFR IS NOT APPLICABLE FOR DIALYSIS PATIENTS. [employer] Tile Setter ID - RICARDO FPT/[id number] 14:33:00* Test Item Value Reference Range Interpretation Comments PROTIME (BEAKER) (test code = 759) 15.2 seconds 11.9-14.2 H INR (BEAKER) (test code = 370) 1.2 <=5.9 PARTIAL THROMBOPLASTIN TIME (BEAKER) (test code = 760) 29.8 seconds 22.5-36.0 Effective 10/07/2018: PT Reference Range ChangeNew: 11.9-14.2 Previous: 11.7-14. 7RECOMMENDED COUMADIN/WARFARIN INR THERAPY RANGESSTANDARD DOSE: 2.0-3.0 Include s: PROPHYLAXIS for venous thrombosis, systemic embolization; TREATMENT for venou s thrombosis and/or pulmonary embolus.HIGH RISK: Target INR is 2.5-3.5 for patie nts wiht mechanical heart valves.CBC W/PLT COUNT & AUTO [id number] 14:29:00* Test Item Value Reference Range Interpretation Comments WHITE BLOOD CELL COUNT (BEAKER) (test code = 775) 6.8 K/ L 3.5- 10.5 RED BLOOD CELL COUNT (BEAKER) (test code = 761) 3.19 M/ L 3.93-5 .22 L HEMOGLOBIN (BEAKER) (test code = 410) 9.5 GM/DL 11.2-15.7 L HEMATOCRIT (BEAKER) (test code = 411) 29.5 % 34.1-44.9 L MEAN CORPUSCULAR VOLUME (BEAKER) (test code = 753) 92.5 fL 79. 4-94.8 MEAN CORPUSCULAR HEMOGLOBIN (BEAKER) (test code = 751) 29.8 pg 25.6-32.2 MEAN CORPUSCULAR HEMOGLOBIN CONC (BEAKER) (test code = 752) 32.2 GM/DL 32.2-35.5 RED CELL DISTRIBUTION WIDTH (BEAKER) (test code = 412) 16.3 % 11.7-14.4 H PLATELET COUNT (BEAKER) (test code = 756) 263 K/CU MM 150-450 MEAN PLATELET VOLUME (BEAKER) (test code = 754) 10.2 fL 9.4-12 .3 NUCLEATED RED BLOOD CELLS (BEAKER) (test code = 413) 0 /100 WBC 0 -0 NEUTROPHILS RELATIVE PERCENT (BEAKER) (test code = 429) 78 % LYMPHOCYTES RELATIVE PERCENT (BEAKER) (test code = 430) 7 % MONOCYTES RELATIVE PERCENT (BEAKER) (test code = 431) 13 % EOSINOPHILS RELATIVE PERCENT (BEAKER) (test code = 432) 1 % BASOPHILS RELATIVE PERCENT (BEAKER) (test code = 437) 1 % NEUTROPHILS ABSOLUTE COUNT (BEAKER) (test code = 670) 5.30 K/ L 1.56-6.13 LYMPHOCYTES ABSOLUTE COUNT (BEAKER) (test code = 414) 0.47 K/ L 1.18-3.74 L MONOCYTES ABSOLUTE COUNT (BEAKER) (test code = 415) 0.90 K/ L 0. 24-0.36 H EOSINOPHILS ABSOLUTE COUNT (BEAKER) (test code = 416) 0.05 K/ L 0.04-0.36 BASOPHILS ABSOLUTE COUNT (BEAKER) (test code = 417) 0.04 K/ L 0. 01-0.08 IMMATURE GRANULOCYTES-RELATIVE PERCENT (BEAKER) (test code = 2801) 0 % 0-1 FUNGUS CULTURE + [id number] 16:21:00* Test Item Value Reference Range Interpretation Comments CULTURE (BEAKER) (test code = 1095) No fungus isolated in 28 days FUNGUS SMEAR (BEAKER) (test code = 1406) No fungi seen - PET/CT TUMOR SK [id number] 15:21:00 FAX: Cristina Davis MD [phone] [place]: B St: REG FAX: Janice Mac MD [phone] Name: MAMADOU WYATT [facility] : 1945 Age/S: 74/F [address] [facility] Unit #: [id number] Loc: [place] [address] Phys: Janice Judge MD Acct: [id number] Dis Date: Status: REG CLI PHONE #: [phone] Exam Date: 05/31/2019 0845 FAX #: [phone] Reason: LUNG MASS EXAMS: CPT CODE: [id number] PET/CT TUMOR SK [facility] [address] HISTORY: Lung mass. COMPARISON: None available. Location: [facility]. PET/CT scan: 11.6 mCi of FDG administered. Images obtained from the skull base to the upper thighs 1 hour postinj ection. Blood glucose level = 119 mg/dL. HEAD AND NECK: Inte nse uptake within the brain parenchyma limits evaluation. Physiologic phar yngeal uptake. Uptake within the region of the isthmus of the thyroid glan d with SUV ranging up to 2.7. This lesion measures 1.6 cm. No discrete mas s is visible on the CT scan. Correlate with ultrasound. Uptake is borderli ne. CHEST: 4.7 x 4.5 x 2.3 cm mass in the right superior segment o f the medial right lower lobe abutting the mediastinum. SUV uptake ranging up to 9.7. This is highly suspicious for lung cancer. Correlate with biopsy results. 1 cm mass abutting the pleural surface in the anterior r ight upper lobe without uptake. SUV uptake ranging up to 1.3 which is not suspicious. Small bilateral pleural effusions. No other abnormal uptake. N o pathologic hilar, mediastinal or axillary adenopathy. No breast or chest wall uptake. ABDOMEN: No abnormal liver or adrenal uptake to sugg est metastases. Bilateral adrenal nodules likely adenoma without uptake. N o abnormal uptake within the pancreas, spleen or the kidneys. Excretion in to the bowel. No pathologic mesenteric, retroperitoneal or retrocrural adenopathy or uptake. PELVIS: Excretion into the bowel. Excreti on into the urinary bladder. No abnormal uterine uptake. MUS CULOSKELETAL: No abnormal uptake. IMPRESSION: 4.7 x 4.5 x 2.3 cm mass in the superior segment of the medial right lowe r lobe with SUV uptake ranging up to 9.7 is highly suspicious for primar y bronchogenic carcinoma. Additional mass abutting the pleural surface a nteriorly in the left upper lobe measuring 1 cm without abnormal uptake. No distant metastases. PAGE 1 Signed Report (CONTINUED) FAX: Cristina Davis MD [phone] [place]: St: REG FAX: Janice Mac MD [phone] ------- Name: MAMADOU WYATT [facility] : [birth year] Age/S: 74/F [address] [facility] Unit #: [id number] Loc: [place] [address] Phys: Janice Judge MD Acct: [id number] Dis Date: Status: REG CLI PHONE #: [phone] Exam Date: 05/31/2019 0845 FAX #: [phone] Reason: LUNG MASS EXAMS: CPT CODE: [id number] PET/CT TUMOR SK BS MIDTH 88197 <Continued> Uptake as well within the region of the isthmus of the thyroid gland with SUV ranging up to 2.7. This area measures 1.6 cm. No mass is visible on the CT scan. Correlate with ultrasound for definitive evaluation. at 1521 Reported and signed by: Iron Morley M.D. CC: Cristina Beauchamp MD; Janice Judge MD Technologist: Penny Cruz RT(N) Trnscrd Date/Time/By: 05/31/2019 (152) : By: [email or web address] Orig Print D/T: S: 05/31/2019 (1499) PAGE 2 Signed Report TISSUE [id number] 16:14:00Surgical Pathology Report Case: [id number] Authorizing Provider: Nahum Gatica, Collected: 04/27/2019 1115 MD Ordering Location: [facility] Received: 04/27/2019 1124 PERIOPERATIVE SERVICES Pathologist: Ronald Larsen MD Specimens: A) - Soft Tissue, Other, mediastinal mass - frozen B) - Soft Tissue, Other, mediastinal mass- permanent C) - Soft Tissue, Other, mediastinal mass #2 - frozen D) - Soft Tissue, Other, mediastinal mass #2 - permanent E) - Soft Tissue, Other, mediastinal mass - per manent #3 A. SOFT TISSUE, MEDIASTINAL MASS, BIOPSY:H YALINIZED AND CALCIFIED TISSUEB. SOFT TISSUE, MEDIASTINAL MASS, BIOPSY:HYALINIZE D AND CALCIFIED TISSUEC. SOFT TISSUE, MEDIASTINAL MASS #2, BIOPSY:HYALINIZED AND CALCIFIED TISSUED. SOFT TISSUE, MEDIASTINAL MASS, #2, BIOPSY:HYALINIZED TISSUEE. SOFT TISSUE, MEDIASTINAL MASS #3, BIOPSY:HYALINIZED CALCIFIED TISSUE WITH GRAN ULOMATOUS RESPONSE.SEE DIAGNOSTIC COMMENT. Signing Pathologist Direct Phon e Line: [phone] signed by Ronald Larsen MD on 05/07 at 4:14 PMImmunohistochemical studies performed on block E1 demonstrate s cattered lymphoid cells to be comprised of a mixture of CD20 positive B cells an d CD3 positive T cells. Cam 5.2 and synaptophysin are negative. Special stains f or fungal organisms (GMS) and acid fast bacilli (AFB) performed on block E1 are negative. Congo red special stain for amyloid performed on block E1 is negative. The findings demonstrate hyalinzed tissue with partial calcification and areas of giant cell reaction, compatible with a granulomatous response. There is no ev idence of malignancy in any of the tissue samples. Potential causes of a granulo matous response include but are not limited to infections, autoimmunity, toxic e xposures, and therapy effect. Correlation with microbiological studies and serol ogical markers is required for complete interpretation.This case was reviewed wi Dr. Ac Tipton, who agrees with the above interpretation.[id number], 8833 1x2, 28985j3, 74566, 53347, [id number] lung mass Mediastinal massPreoperative and postoperative diagnosis: Lung mass. A. MEDIASTINUM; B. MEDIASTINUM; C. MED IASTINUM; D. MEDIASTINUM; E. MEDIASTINUMA. Received fresh for intraoperative con sultation diagnosis labeled "mediastinal mass" consists of four minute turner-white tissue fragments measuring in aggregate 0.4 x 0.3 x 0.1 cm. Touch prep is perfo rmed, and the specimen is submitted entirely in cassette FSA1. THewB. Received f resh, labeled with the patient's name, accession number and "mediastinal mass, p ermanent" are two irregular yellow-white fibroadipose tissue fragments measuring 0.7 cm and 0.4 cm which are submitted in toto in B1. CG/bc C. Received fresh f or intraoperative consultation diagnosis labeled "mediastinal mass #2" is a 0.3 x 0.2 x 0.2 cm turner-parrish tissue. Touch prep is performed and the specimen is subm itted entirely in cassette FSC1. TH/plD Received in formalin labeled "mediastin al mass #2 - permanent" is a one turner-white unoriented tissue fragment measuring 0.5 x 0.3 x 0.2 cm. The specimen is submitted entirely in cassette D1. E. Receiv ed in formalin labeled "mediastinal mass - permanent #3" are multiple turner-pink t issue fragments measuring in aggregate 2 x 0.8 x 0.2 cm. The specimen is submitt ed entirely in cassette E. TH/Car. MEDIASTINAL MASS, BIOPSY: - HYALINIZED AND CALCIFIED MATERIAL - DEFER TO PERMANENT SECTIONS. MORE MATERIAL IS REQUESTED Th is was reported to Dr. Gatica in [place] - by Dr. Larsen on April 27 at 11:38 a.m. C. MEDIASTINUM, MASS #2, BIOPSY: - HYALINIZED, CALCIFIED TISSUE. MORE T ISSUE REQUESTEDThis was reported to Dr. Gatica in [place] V- by Dr. Larsen on 2018 at 12:10 p.m. Performed.The interpretation of this case included t he use of immunohistochemistry or special stains.BLOCK E1- AFB, GMS, CONGO RED, CD20, CD3, SYNAPTOPHYSIN, CAM 5.2Control Slides Examined: In-house known positi ve controls were evaluated along with the test tissue. These control slides run alongside of the patients sample show appropriate staining. Internal positive a nd negative controls when available are evaluated Immunohistochemistry technical testing was performed at [facility], Pathology Laboratory where it was developed and its performance characteristics were determined. It has not been cleared or approved by the U.S. Food and Drug Administration. The [facility] has determined that such clearance or approval is not necessary. The test is used for clinical purposes. It should not be regarded as investigational or for research. This laboratory is certified under the Clinical Laboratory Improvement Amendments of 1988 (CLIA-88) as qualified to perform high complexity clinical l aboratory testing.[facility], Department of Pathology, [address] [place] [address], [facility], Department of Pathology, [address] [place] [address], [facility], [facility], [address] [place] [phone], ZJLDXNMHI [id number] 17:04:00 * Test Item Value Reference Range Interpretation Comments CULTURE (BEAKER) (test code = 1095) No anaerobes isolated SURGICALLY OBTAINED CULTURE + GRAM [id number] 15:14:00* Test Item Value Reference Range Interpretation Comments CULTURE (BEAKER) (test code = 1095) No growth GRAM STAIN RESULT (BEAKER) (test code = 1123) <1+ WBCs GRAM STAIN RESULT (BEAKER) (test code = 71060) No organisms seen BRONCHIAL CULTURE + GRAM [id number] 10:11:00* Test Item Value Reference Range Interpretation Comments CULTURE (BEAKER) (test code = 1095) No growth GRAM STAIN RESULT (BEAKER) (test code = 1123) <1+ WBCs GRAM STAIN RESULT (BEAKER) (test code = 22946) No organisms seen [id number] 12:33:00Medical Cytology Report Case: [id number] Authorizing Provider: Nahum Gatica, Collected: 04/27/2019 1100 Ordering Location: [facility] Received: 04/27/2019 1416 PERIOPERATIVE SERVICES Pathologist: Roxane Duffy MD Specimen: BAL LUNG, BAL LATERALITY NOT SPECIFIED (CYTOSPINS): - RARE MILDLY ATYPICAL SQUAMOUS CELLS (SEE COMMENT) Signing Pathologist Direct Phone Line: [phone] signed by Roxane Duffy MD on 04/28/2019 at 12:33 PMCytospins show few scattered mildly atypical dyskeratotic squamous cells, in a background of macrophages, bronchial epithelial cells, and inflammatory cells. The paucity of the atypical cells and lack of marked nuclear atypia preclude a more definitive diagnosis. Clinical/radiological/endoscopic correlation is recommended. Please see surgical pathology case [id number] for further evaluation.96100Quab history of smoking (2 packs per day), COPD, history of benign left lung tumor resection, and a new right lung mass.LUNG, BAL LATERALITY NOT SPECIFIED (CYTOSPINS) 10 mls colorless; 4 cytospinsCollected: 121 719Received: [id number] [facility], Department of P athology, [address] [place] [phone], [facility], [facility] of [facility], [address] [place] [phone], [facility], Department of [facility]ology, [address] [place] [address], SUJH-GLUCOSE METER 2019-04-28 08:23:00* Test Item Value Reference Range Interpretation Comments POC-GLUCOSE METER (BEAKER) (test code = 1538) 135 mg/dL 70-110 H : TESTED AT [address], [address]: Ro[employer] Tile Setter/Service Desk Director ID = [id number] for ELIEZER QUINONES [id number] 06:18:00* Test Item Value Reference Range Interpretation Comments PHOSPHORUS (BEAKER) (test code = 604) 3.5 mg/dL 2.3-4.7 [id number] 06:18:00* Test Item Value Reference Range Interpretation Comments MAGNESIUM (BEAKER) (test code = 627) 1.7 mg/dL 1.6-2.6 BASIC METABOLIC [id number] 06:18:00* Test Item Value Reference Range Interpretation Comments SODIUM (BEAKER) (test code = 381) 138 meq/L 136-145 POTASSIUM (BEAKER) (test code = 379) 4.2 meq/L 3.5-5.1 CHLORIDE (BEAKER) (test code = 382) 103 meq/L 98-107 CO2 (BEAKER) (test code = 355) 27 meq/L 22-29 BLOOD UREA NITROGEN (BEAKER) (test code = 354) 14 mg/dL 7-21 CREATININE (BEAKER) (test code = 358) 0.87 mg/dL 0.57-1.25 GLUCOSE RANDOM (BEAKER) (test code = 652) 175 mg/dL 70-105 H CALCIUM (BEAKER) (test code = 697) 8.9 mg/dL 8.4-10.2 EGFR (BEAKER) (test code = 1092) 63 mL/min/1.73 sq m ESTIMATED GFR IS NOT ACCURATE CREATININE CLEARANCE IN PREDICTING GLOMERULAR FILTRATION RATE. ESTIMATED GFR IS NOT APPLICABLE FOR DIALYSIS PATIENTS. CBC (HEMOGRAM ONLY)2019-04-28 05:39:00* Test Item Value Reference Range Interpretation Comments WHITE BLOOD CELL COUNT (BEAKER) (test code = 775) 10.1 K/ L 3.5- 10.5 RED BLOOD CELL COUNT (BEAKER) (test code = 761) 3.30 M/ L 3.93-5 .22 L HEMOGLOBIN (BEAKER) (test code = 410) 9.9 GM/DL 11.2-15.7 L HEMATOCRIT (BEAKER) (test code = 411) 31.2 % 34.1-44.9 L MEAN CORPUSCULAR VOLUME (BEAKER) (test code = 753) 94.5 fL 79. 4-94.8 MEAN CORPUSCULAR HEMOGLOBIN (BEAKER) (test code = 751) 30.0 pg 25.6-32.2 MEAN CORPUSCULAR HEMOGLOBIN CONC (BEAKER) (test code = 752) 31.7 GM/DL 32.2-35.5 L RED CELL DISTRIBUTION WIDTH (BEAKER) (test code = 412) 13.4 % 11.7-14.4 PLATELET COUNT (BEAKER) (test code = 756) 223 K/CU MM 150-450 MEAN PLATELET VOLUME (BEAKER) (test code = 754) 10.8 fL 9.4-12 .3 NUCLEATED RED BLOOD CELLS (BEAKER) (test code = 413) 0 /100 WBC 0 -0 POCT-GLUCOSE [id number] 20:40:00* Test Item Value Reference Range Interpretation Comments POC-GLUCOSE METER (BEAKER) (test code = 1538) 257 mg/dL 70-110 H : TESTED AT [facility] [address] [facility], [address]: Roof [employer] Tile Setter/Service Desk Director ID = [id number] for JUAN PRADO POCT-GLUCOSE [id number] 18:45:00* Test Item Value Reference Range Interpretation Comments POC-GLUCOSE METER (BEAKER) (test code = 1538) 259 mg/dL 70-110 H : TESTED [address], [address]: Roof [employer] Tile Setter/Service Desk Director ID = [id number] for SULTANASHAMEKAKELSEY RAD, CHEST, 1 VIEW, NON [id number] 14:52:00Reason for exam:->Assess for pneumothoraxShould this be performed at the bedside?->YesFINAL REPORT TECHNIQUE: Frontal chest radiograph dated 04/27/2019. CLINICAL HISTORY: Assess for pneumothorax COMPARISON: Chest radiographs dated 04/26/2019 IMPRESSION:There is a new airspace opacity in the lower lobes, right greater than left concerning for pulmonary edema. There are prominent interstitial lung markings bilaterally. No pleural effusion or pneumothorax. Cardiomediastinal silhouette is stable in size. No fracture. Signed: Rosa [place] Verified Date/Time: 04/27/2019 14:52:10 Reading Location: [facility] Reading Room -GLUCOSE [id number] 06:22:00* Test Item Value Reference Range Interpretation Comments POC-GLUCOSE METER (BEAKER) (test code = 1538) 194 mg/dL 70-110 H : TESTED AT [facility] [address] [facility], [address]: [employer] Tile Setter/Service Desk Director ID = [id number] for KATRIN JACKMAN COMPREHENSIVE METABOLIC [id number] 14:14:00* Test Item Value Reference Range Interpretation Comments TOTAL PROTEIN (BEAKER) (test code = 770) 7.4 gm/dL 6.0-8.3 ALBUMIN (BEAKER) (test code = 1145) 4.0 g/dL 3.5-5.0 ALKALINE PHOSPHATASE (BEAKER) (test code = 346) 32 U/L 40-150 L BILIRUBIN TOTAL (BEAKER) (test code = 377) 0.8 mg/dL 0.2-1.2 SODIUM (BEAKER) (test code = 381) 140 meq/L 136-145 POTASSIUM (BEAKER) (test code = 379) 3.9 meq/L 3.5-5.1 CHLORIDE (BEAKER) (test code = 382) 102 meq/L 98-107 CO2 (BEAKER) (test code = 355) 31 meq/L 22-29 H BLOOD UREA NITROGEN (BEAKER) (test code = 354) 9 mg/dL 7-21 CREATININE (BEAKER) (test code = 358) 0.82 mg/dL 0.57-1.25 GLUCOSE RANDOM (BEAKER) (test code = 652) 132 mg/dL 70-105 H CALCIUM (BEAKER) (test code = 697) 9.2 mg/dL 8.4-10.2 AST (SGOT) (BEAKER) (test code = 353) 18 U/L 5-34 ALT (SGPT) (BEAKER) (test code = 347) 19 U/L 6-55 EGFR (BEAKER) (test code = 1092) 68 mL/min/1.73 sq m ESTIMATED GFR IS NOT ACCURATE CREATININE CLEARANCE IN PREDICTING GLOMERULAR FILTRATION RATE. ESTIMATED GFR IS NOT APPLICABLE FOR DIALYSIS PATIENTS. CBC W/PLT COUNT & AUTO [id number] 13:59:00* Test Item Value Reference Range Interpretation Comments WHITE BLOOD CELL COUNT (BEAKER) (test code = 775) 8.5 K/ L 3.5- 10.5 RED BLOOD CELL COUNT (BEAKER) (test code = 761) 3.83 M/ L 3.93-5 .22 L HEMOGLOBIN (BEAKER) (test code = 410) 11.2 GM/DL 11.2-15.7 HEMATOCRIT (BEAKER) (test code = 411) 36.6 % 34.1-44.9 MEAN CORPUSCULAR VOLUME (BEAKER) (test code = 753) 95.6 fL 79. 4-94.8 H MEAN CORPUSCULAR HEMOGLOBIN (BEAKER) (test code = 751) 29.2 pg 25.6-32.2 MEAN CORPUSCULAR HEMOGLOBIN CONC (BEAKER) (test code = 752) 30.6 GM/DL 32.2-35.5 L RED CELL DISTRIBUTION WIDTH (BEAKER) (test code = 412) 13.3 % 11.7-14.4 PLATELET COUNT (BEAKER) (test code = 756) 249 K/CU MM 150-450 MEAN PLATELET VOLUME (BEAKER) (test code = 754) 10.9 fL 9.4-12 .3 NUCLEATED RED BLOOD CELLS (BEAKER) (test code = 413) 0 /100 WBC 0 -0 NEUTROPHILS RELATIVE PERCENT (BEAKER) (test code = 429) 75 % LYMPHOCYTES RELATIVE PERCENT (BEAKER) (test code = 430) 9 % MONOCYTES RELATIVE PERCENT (BEAKER) (test code = 431) 13 % EOSINOPHILS RELATIVE PERCENT (BEAKER) (test code = 432) 2 % BASOPHILS RELATIVE PERCENT (BEAKER) (test code = 437) 1 % NEUTROPHILS ABSOLUTE COUNT (BEAKER) (test code = 670) 6.43 K/ L 1.56-6.13 H LYMPHOCYTES ABSOLUTE COUNT (BEAKER) (test code = 414) 0.75 K/ L 1.18-3.74 L MONOCYTES ABSOLUTE COUNT (BEAKER) (test code = 415) 1.11 K/ L 0. 24-0.36 H EOSINOPHILS ABSOLUTE COUNT (BEAKER) (test code = 416) 0.14 K/ L 0.04-0.36 BASOPHILS ABSOLUTE COUNT (BEAKER) (test code = 417) 0.07 K/ L 0. 01-0.08 IMMATURE GRANULOCYTES-RELATIVE PERCENT (BEAKER) (test code = 2801) 1 % 0-1 RAD, CHEST, 2 [id number] 13:41:00Reason for exam:->baseline for surgery Should this be performed at the bedside?->NoFINAL REPORT INDICATION: baseline for surgery COMPARISON: None TECHNIQUE: Frontal and lateral views of the chest. FINDINGS: Lungs and pleura: Clear lungs. No effusion.Heart and mediastinum: Normal heart size. Unremarkable mediastinal contours.Osseous structures: No acute abnormality.Additional findings: Surgical clips overlie the left lateral chest. IMPRESSION: No acute intrathoracic abnormality. Signed: Rea Vigil Verified Date/Time: 04/26/2019 13:41:06 Reading Location: [facility] Radiology Reading Room [id number] 11:07:00* Test Item Value Reference Range Interpretation Comments GLUBED (test code = GLUBED) 143 mg/dL 74-106 H Performed by certified wood drill operator at [facility] COMPREHENSIVE METABOLIC [id number] 10:41:00* Test Item Value Reference Range Interpretation Comments SODIUM (test code = NA) 141 mmol/L 136-145 N POTASSIUM (test code = K) 3.9 mmol/L 3.5-5.1 N CHLORIDE (test code = CL) 105.0 mmol/L 98-107 N CARBON DIOXIDE (test code = CO2) 31.0 mmol/L 21-32 N ANION GAP (test code = GAP) 8.9 10-20 L GLUCOSE (test code = GLU) 162 mg/dL 74-106 H BLOOD UREA NITROGEN (test code = BUN) 18 mg/dL 7-18 N GLOMERULAR FILTRATION RATE (test code = GFR) 44 mL/min >=60 Estimated GFR by using Modified MDRD formula.Chronic kidney disease is defined as either kidney damageor GFR <60 mL/min/1.73 m2 for >3 months. CREATININE (test code = CREAT) 1.20 mg/dL 0.55-1.02 H Note change in reference range due to change in reagent. BUN/CREATININE RATIO (test code = BUN/CREA) 15.5 10-20 N TOTAL PROTEIN (test code = PROT) 7.4 gram/dL 6.4-8.2 N ALBUMIN (test code = ALB) 3.4 g/dL 3.4-5.0 N GLOBULIN (test code = GLOB) 4.0 gram/dL 2.7-4.2 N ALBUMIN/GLOBULIN RATIO (test code = A/G) 0.8 0.75-1.50 N CALCIUM (test code = CA) 9.2 mg/dL 8.5-10.1 N BILIRUBIN TOTAL (test code = BILT) 0.80 mg/dL 0.0-1.0 N SGOT/AST (test code = AST) 13 IUnit/L 15-37 L SGPT/ALT (test code = ALT) 22 IUnit/L 12-78 N ALKALINE PHOSPHATASE TOTAL (test code = ALKP) 32 IUnit/L 45-117 L Note change in reference range due to change in reagent. LIPID PROFILE (CORONARY RISK)2019-04-13 10:41:00* Test Item Value Reference Range Interpretation Comments TRIGLYCERIDES (test code = TRIG) 122 mg/dL 20-150 N CHOLESTEROL (test code = CHOL) 170 mg/dL 0-200 N CHOLESTEROL/HDL RATIO (test code = CHOLHDL) 3.0 RATIO 0-4.9 N RISK ASSOCIATED WITH CHOL/HDL RATIOS: Risk Male Female1/2 AVERAGE 3.43 3.27AVERAGE 4.97 4.442X AVERAGE 9.55 7.053X AVERAGE 23.39 11.04 REFERENCE VALUE IS RELATED TO RISK LEVELS ASRECOMMENDED BY THE [facility]. HEART, LUNG, AND BLOOD INST. HDL CHOLESTEROL (test code = HDL) 46 mg/dL 40-60 N LIPOPROTEIN LDL (test code = LDL) 111 mg/dL 100-129 N RN PERSONNEL, CONTACT PHYSICIAN IMMEDIATELY IF THIS IS A STROKE, AMI OR CAROTID STENOSIS PATIENT WHEN THE LDL >100 (1ST OCCURENCE, THIS ADMISSION) Reference Interval: mg/dL mmol/L Optimal <100 <2.6Near/above optimal 100-129 2.6- 3.3Borderline High 130-159 3.4-4.1High 160-189 4.1-4.9Very High >=190 >=4.9========= This LDL result is a direct measurement.========= THYROID STIMULATING [id number] 10:41:00* Test Item Value Reference Range Interpretation Comments THYROID STIMULATING HORMONE (test code = TSH) 1.290 uIU/mL 0.36-3.7 4 N TSH REFERENCE RANGES: EUTHYROID: 0.35 - 4.3 mIU/mL HYPO : > 5.5 mIU/mL HYPER : < 0.35 mIU/mL COMPREHENSIVE METABOLIC [id number] 10:22:00* Test Item Value Reference Range Interpretation Comments SODIUM (test code = NA) 141 mmol/L 136-145 N POTASSIUM (test code = K) 3.9 mmol/L 3.5-5.1 N CHLORIDE (test code = CL) 105.0 mmol/L 98-107 N CARBON DIOXIDE (test code = CO2) mmol/L 21-32 ANION GAP (test code = GAP) 10-20 GLUCOSE (test code = GLU) mg/dL 74-106 BLOOD UREA NITROGEN (test code = BUN) mg/dL 7-18 GLOMERULAR FILTRATION RATE (test code = GFR) mL/min >=60 CREATININE (test code = CREAT) mg/dL 0.55-1.02 BUN/CREATININE RATIO (test code = BUN/CREA) 10-20 TOTAL PROTEIN (test code = PROT) gram/dL 6.4-8.2 ALBUMIN (test code = ALB) g/dL 3.4-5.0 GLOBULIN (test code = GLOB) gram/dL 2.7-4.2 ALBUMIN/GLOBULIN RATIO (test code = A/G) 0.75-1.50 CALCIUM (test code = CA) mg/dL 8.5-10.1 BILIRUBIN TOTAL (test code = BILT) mg/dL 0.0-1.0 SGOT/AST (test code = AST) IUnit/L 15-37 SGPT/ALT (test code = ALT) IUnit/L 12-78 ALKALINE PHOSPHATASE TOTAL (test code = ALKP) IUnit/L 45-117 LIPID PROFILE (CORONARY RISK)2019-04-13 10:22:00* Test Item Value Reference Range Interpretation Comments TRIGLYCERIDES (test code = TRIG) mg/dL 20-150 CHOLESTEROL (test code = CHOL) mg/dL 0-200 CHOLESTEROL/HDL RATIO (test code = CHOLHDL) RATIO 0-4.9 HDL CHOLESTEROL (test code = HDL) mg/dL 40-60 LIPOPROTEIN LDL (test code = LDL) mg/dL 100-129 THYROID STIMULATING [id number] 10:22:00* Test Item Value Reference Range Interpretation Comments THYROID STIMULATING HORMONE (test code = TSH) uIU/mL 0.36-3.7 4 CBC W/AUTO [id number] 09:44:00* Test Item Value Reference Range Interpretation Comments WHITE BLOOD CELL (test code = WBC) 6.0 K/mm3 4.5-12.5 N RED BLOOD CELL (test code = RBC) 3.84 mill/mm3 3.7-5.2 N HEMOGLOBIN (test code = HGB) 11.4 gram/dL 11.5-15.5 L HEMATOCRIT (test code = HCT) 36.9 % 36.0-46.0 N MEAN CELL VOLUME (test code = MCV) 96.1 fL 80-98 N MEAN CELL HGB (test code = MCH) 29.7 picogram 27.0-33.0 N MEAN CELL HGB CONCETRATION (test code = MCHC) 30.9 gram/dL 33.0-36. 0 L RED CELL DISTRIBUTION WIDTH (test code = RDW) 13.6 % 11.6-16. 2 N RED CELL DISTRIBUTION WIDTH SD (test code = RDW-SD) 48.2 fL 37 .0-51.0 N PLATELET COUNT (test code = PLT) 254 K/mm3 150-450 N MEAN PLATELET VOLUME (test code = MPV) 10.7 fL 6.7-11.0 N NEUTROPHIL % (test code = NT%) 73.9 % 39.0-69.0 H IMMATURE GRANULOCYTE % (test code = IG%) 0.3 % 0.0-5.0 N LYMPHOCYTE % (test code = LY%) 9.8 % 25.0-55.0 L MONOCYTE % (test code = MO%) 12.9 % 0.0-10.0 H EOSINOPHIL % (test code = EO%) 2.3 % 0.0-5.0 N BASOPHIL % (test code = BA%) 0.8 % 0.0-1.0 N NUCLEATED RBC % (test code = NRBC%) 0.0 % 0-0 N NEUTROPHIL # (test code = NT#) 4.42 K/mm3 1.8-7.7 N IMMATURE GRANULOCYTE # (test code = IG#) 0.02 x10 3/uL 0-0.03 N LYMPHOCYTE # (test code = LY#) 0.59 K/mm3 1.0-5.0 L MONOCYTE # (test code = MO#) 0.77 K/mm3 0-0.8 N EOSINOPHIL # (test code = EO#) 0.14 K/mm3 0.0-0.5 N BASOPHIL # (test code = BA#) 0.05 K/mm3 0.0-0.2 N NUCLEATED RBC # (test code = NRBC#) 0.00 K/mm3 0.0-0.1 N CBC W/AUTO [id number] 09:37:00* Test Item Value Reference Range Interpretation Comments WHITE BLOOD CELL (test code = WBC) K/mm3 4.5-12.5 RED BLOOD CELL (test code = RBC) mill/mm3 3.7-5.2 HEMOGLOBIN (test code = HGB) gram/dL 11.5-15.5 HEMATOCRIT (test code = HCT) 36.9 % 36.0-46.0 N MEAN CELL VOLUME (test code = MCV) fL 80-98 MEAN CELL HGB (test code = MCH) picogram 27.0-33.0 MEAN CELL HGB CONCETRATION (test code = MCHC) gram/dL 33.0-36. 0 RED CELL DISTRIBUTION WIDTH (test code = RDW) % 11.6-16. 2 RED CELL DISTRIBUTION WIDTH SD (test code = RDW-SD) fL 37 .0-51.0 PLATELET COUNT (test code = PLT) K/mm3 150-450 MEAN PLATELET VOLUME (test code = MPV) fL 6.7-11.0 NEUTROPHIL % (test code = NT%) % 39.0-69.0 IMMATURE GRANULOCYTE % (test code = IG%) % 0.0-5.0 LYMPHOCYTE % (test code = LY%) % 25.0-55.0 MONOCYTE % (test code = MO%) % 0.0-10.0 EOSINOPHIL % (test code = EO%) % 0.0-5.0 BASOPHIL % (test code = BA%) % 0.0-1.0 NEUTROPHIL # (test code = NT#) K/mm3 1.8-7.7 LYMPHOCYTE # (test code = LY#) K/mm3 1.0-5.0 MONOCYTE # (test code = MO#) K/mm3 0-0.8 EOSINOPHIL # (test code = EO#) K/mm3 0.0-0.5 BASOPHIL # (test code = BA#) K/mm3 0.0-0.2 - XR CHEST 2 [id number] 08:49:00 FAX: Cristina Davis MD [phone] [place]: O St: PRE FAX: Argelia Senior [phone] Name: MAMADOU WYATT [facility] : 1945 Age/S: 73/F [address] [facility] Unit #: [id number] Loc: [place] [address] Phys: Argelia Parada MD Acct: [id number] Dis Date: Status: PRE [facility] PHONE #: [phone] Exam Date: 04/13/2019 0839 FAX #: [phone] Reason: PRE OP EXAMS: CPT CODE: [id number] XR CHEST 2 V 72312 REASON FOR EXAM: PRE OP Exam Order Date: 04/13/2019 8:29 AM Ordering M.DElli: Argelia Parada MD PROCEDURE: - XR CHEST 2 V COMPARISON: 2 view chest x-ray August 07, 2015 FINDINGS: Surgical clips projecting over the left lower lung zone are unchanged from the prior exam. There is subsegmental atelectasis in the left lung base. There is also mildly increased reticulations in the mid to lower lung zones with indistinctness of the pulmonary vessels. Upper lungs are clear. Cardiomediastinal si lhouette is mildly prominent. Calcified hilar and mediastinal lymph nodes are unchanged. Degenerative changes in the shoulders and spine adele ear similar to the prior exam. Upper abdomen is radiographically unremarka ble. IMPRESSION: Bibasilar subsegmental atelectasis and findings of mild interstitial pulmonary edema in the lower lungs. Upper lungs are clear. Location: [facility] Electronically Sign ed by Robert Louis MD on 04/13/2019 at 0849 Reported and signed by: Robert Louis MD CC: Cristina Beauchamp MD; Argelia Parada Technologist: MARIAM Soria) Trnscrd Date/Time/By: 04/13/2019 (0849) : By: [email or web address] Orig Print D/T: S: 04/13/2019 (0852) [address] CHEST [id number] 09:30:00 [place] [address] Patient Name: MAMADOU WYATT MR #: [id number] : 1945 Age/Sex: 73/F Req #: [id number] Adm Physician: Ordered by: JANICE JUDGE MD Report #: [id number] Location: CT Room/Bed: Procedure: [id number] CT/CT CHEST W Exam Date: 03/09/19 Exam Time: 09 REPORT STATUS: Signed EXAM: CT Chest WITH intravenous contrast 03/09/2019 7:58 AM INDICATION: Shortness of breath CO MPARISON: Chest radiograph of 02/08/2019 TECHNIQUE: Chest was scanned [employer] ng a multidetector helical scanner from the lung apex through the level of the adrenal glands after administration of IV contrast. Coronal and sagittal refo rmations were obtained. Routine protocol was performed. IV CONTRAST: 100m L Isovue 370 RADIATION DOSE: Total DLP: 481.9 mGy*cm. Dose modulation, iterati ve reconstruction, and/or weight based adjustment of the mA/kV was utilized to reduce the radiation dose to as low as reasonably achievable. COMPLICATION S: None FINDINGS: LINES/ TUBES: None. LUNGS AND AIRWAYS: The j carlos tral airways are patent. There are bilateral lower lobe predominant ground gl ass opacities and smooth interlobular septal thickening consistent with mild p ulmonary edema. Bibasilar dependent subsegmental atelectasis. Along the medial aspect of the right lower lobe, there is a 3.4 x 3.4 cm parenchymal/sierra mass (series 2 image 56) which abuts the bifurcation of the bronchus intermedius anteriorly. PLEURA: Small bilateral right greater than left pleural effusio ns. No pneumothorax. Mild pleural thickening and postoperative changes at the lateral lingula. HEART AND MEDIASTINUM: The thyroid gland is normal. No supraclavicular lymphadenopathy. There is calcified and noncalcified mediasti nal and bilateral hilar lymphadenopathy. Calcified hilar lymph nodes measure u p to 3.1 x 2.5 cm in the subcarinal station. Left hilar lymph nodes measure up to 1.3 cm short axis. Right infrahilar mass/lymphadenopathy measures approxim ately 3.4 x 3.4 cm (series 2 image 56) as discussed in the lung section. Mild multichamber cardiomegaly.. Atherosclerotic calcifications involve the coronar y arteries, thoracic aorta, and proximal great vessels.. No central pulmonary embolism. No pericardial effusion. UPPER ABDOMEN: Limited views of the u pper abdomen demonstrate no focal abnormality of the partially visualized live r, spleen, pancreatic tail, or upper left kidney. Partially visualized bilater al adrenal nodules measure indeterminate soft tissue density and up to 3.0 cm on each side. BONES: No acute osseous injury. No suspicious lytic or blasti c lesions. SOFT TISSUES: Unremarkable. IMPRESSION: Medial right low er lobe 3.4 x 3.4 cm parenchymal/sierra mass which abuts the bifurcation of the bronchus intermedius anteriorly. Calcified and noncalcified mediastinal and b ilateral hilar lymphadenopathy. Findings are concerning for malignancy. There is no safe window for percutaneous biopsy of this lesion. Recommend bronchosco pic biopsy. Bilateral soft tissue density adrenal nodules measure up to 3.0 cm and are indeterminate on this single phase chest CT. However given the abo ve pulmonary findings, metastatic disease would be high in the differential. Mild multichamber cardiomegaly. Mild pulmonary edema. Small bilateral pleural effusions right greater than left. Diffuse atherosclerotic arterial eugenio cifications including of the coronary arteries. Signed by: Wilver Garcia MD on 03/09/2019 9:50 AM Dictated By: WILVER GARCIA MD 9 Transcribed By: SHUN on 03/09/19949 COPY TO: JANICE JUDGE MD CHEST 2 [id number] 09:57:00 [place] [address] Patient Name: MAMADOU WYATT MR #: [id number] : 1945 Age/Sex: 73/F Req #: [id number] Adm Physician: Ordered by: CRISTINA BEAUCHAMP MD Report #: [id number] Location: [facility] Room/Bed: Procedure: [id number] DX/ CHEST 2 VIEWS Exam Date: 02/08/19 Exam Time: 09 REPORT STATUS: Signed EXAMINATION: CHEST 2 VIEWS INDICATION: Shortness of breath COMPARISON: Chest radiograph of 10/07/2018 FINDINGS: LINES/TUBES:None LUNGS:The lungs are moderately inflated. There is perihilar fullness and indistinctness of the pulmonary vasculature. Mild bibasilar subsegmental atelectasis. Postop erative findings of the left lower lung zone with surgical clips in unchanged position. PLEURA:No pleural effusion or pneumothorax. MEDIASTINUM:Card iomediastinal silhouette is stably enlarged. Atherosclerotic calcifications of the thoracic aorta. Calcified mediastinal and hilar lymph nodes. BONES/S OFT TISSUES:No acute osseous injury. ABDOMEN:No free air under the diaphrag m. IMPRESSION: Mild cardiomegaly and mild pulmonary interstitial rory a. Signed by: Wilver Garcia MD on 02/08/2019 10:00 AM Dictated By: WILBERT GARCIA MD 1000 Transcribed By: SHUN on 02/08/19 1000 COPY TO: CRISTINA BEAUCHAMP MD CHEST 2 [id number] 09:39:00 [place] [address] Patient Name: MAMADOU WYATT MR #: [id number] : 1945 Age/Sex: 73/F Req #: [id number] Adm Physician: Ordered by: CRISTINA BEAUCHAMP MD Report #: [id number] Location: [facility] Room/Bed: Procedure: [id number] DX/ CHEST 2 VIEWS Exam Date: 10/07/18 Exam Time: 0900 REPORT STATUS: Signed EXAMINATI ON: PA and lateral views of the chest. COMPARISON: Left shoulder radiograph s 03/06/2018 CLINICAL HISTORY: Cough DISCUSSION: Lungs are well-inflated and without focal consolidation, pleural effusion, or pneumothor ax. Anterior and lateral left chest wall surgical clips are unchanged. Atheros clerotic calcification of the thoracic aorta. Normal heart size. Innumerable c alcified hilar and mediastinal lymph nodes presumably related to prior granulo matous disease. No acute osseous abnormality. Incompletely healed fracture of the left humerus partially visualized. IMPRESSION: No acute cardiopulmon negrito abnormalities. Signed by: Dr. Kenji Solis M.D. on 9:43 AM Dictated By: KENJI SOLIS MD 2 Transcribed By: SHUN on 10/07/18942 CO PY TO: CRISTINA BEAUCHAMP MD SCR MAMM BILATERAL RUSSEL CAD [id number] 11:43:06 - SCR MAMM BILATERAL RUSSEL CAD DIGITALBILATERAL DIGITAL SCREENING MAMMOGRAM 3D/2D WITH CAD: 09/09/2018CLINICAL: Asymptomatic. Digital breast tomosynthesis was performed in addition to routine CC and MLO views. Current mammographic images were evaluated by either a [employer] M-Vu or a [employer] ImageChecker CAD (computer aided detection system). Comparison is made to exams dated 09/08/2017 mammogram, 09/04/2016 mammogram, and 09/06/2015 mammogram - [facility]. The tissue of both breasts is predominantly fatty. No suspicious mass, architectural distortion, malignant type calcification, or lymph node abnormality detected. Breast architecture is stable compared to prior exams.IMPRESSION: NEGATIVEThere is no mammographic evidence of malignancy. Resume annual screening mammography in one year. Goran correa/penrad:09/09/2018 11:43:06 Proof Passer: Carole MARY, [facility] sent: BIRADS 1-2 Normal Mammogram BI-RADS: 1 Negative SHOULDER LEFT [id number] 22:27:00 [place] [address] Patient Name: MAMADOU WYATT MR #: [id number] : 1945 Age/Sex: 72/F Req #: [id number] Adm Physician: Ordered by: JOSEPH RIVERA MD Report #: [id number] Location: ER Room/Bed: Procedure: [id number] DX/SHOULDER LEFT COMPLETE Exam Date: 03/06/18 Ex m Time: 2209 REPORT STATUS: Signed SHOULDER LEFT COMPLETE Comparison: None Clinical history: Fall, popping of the left shoulder Findings: Frontal and lateral view provided. See i mpression Impression: Mildly displaced proximal left humeral fracture. Signed by: Dr Anita Lin MD on 03/06/2018 10:30 PM Dictated By: HUBER LIN MD 29 Transcribed By: SHUN on 03/06/182229 COPY TO: JOSEPH RIVERA MD MRI SPINE THORACIC [id number] 13:02:00 [place] [address] Patient Name: MAMADOU WYATT MR #: [id number] : 1945 Age/Sex: 72/F Req #: [id number] Adm Physician: Ordered by: JENNIEFR JUARES M.D. Report #: [id number] Location: MRI Room/Bed: Procedure: [id number] MRI/MRI SPINE THORACIC WO Date: Exam Time: REPORT STATUS: Signed H istory: Left arm numbness Comparison studies: None Technique: Cervical spine: Sagittal T1, T2 and inversion recovery, axial T2 and axial 3-D gradient echo. Thoracic spine: Sagittal T1, T2 and inversion recovery, axial T2. Celia mbar spine: Sagittal T1,T2 and inversion recovery, axial T2 and spin density o blique without contrast Findings: Number of lumbar vertebral bodies: 5 Alignment: Normal cervical lordosis. Mild grade 1 anterolisthesis of L3 over L4. Normal thoracic kyphosis. No scoliosis . Soft tissues: No anneliese or spinal signal abnormalities. Bilateral renal cysts the largest one measurin g 1.2 cm in the left upper pole. Cholelithiasis without evidence of cholecysti tis left adrenal mass measuring approximately 2 cm is partially visualized. Paraspinal muscles: No signal abnormalities. Well-preserved. No atrophic changes . Spinal cord: Normal in signal and morphology from the foramen magnum through the tip of the conus at L1-L2 . Vertebrae: No acute fractures, infection or neoplasm. 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 Degenerative changes: Cervical spine: At C2-C3, right u ncinate process hypertrophy results in mild right foraminal narrowing with pat ent canal. At C3-4, bilateral facet hypertrophy with patent canal and mild dirk ateral foraminal narrowing. At C4-5, disc degeneration with loss of T2 signa l. Left uncinate process hypertrophy and bilateral facet hypertrophy results i n no significant canal stenosis and moderate right foraminal narrowing. Edema signal at the right facet. At C5-6, disc degeneration with loss of T2 signal . Diffuse disc osteophyte complex, ligamentum flavum thickening, bilateral unc inate process and facet hypertrophy results in mild canal stenosis and moderat e right and mild left foraminal narrowing. At C6-7, disc degeneration with d ecreased intervertebral space. Bilateral uncinate process and facet hypertroph y results in no significant canal stenosis and moderate right and severe left foraminal narrowing At C7-T1, patent canal and foramina. Thoracic spine: Diffuse disc degeneration with loss of T2 signal throughout the thoracic sp ine. Mild Modic type I changes at T6-7. Patent canal and foramina . Lumbar spine: At L3-L4, disc degeneration with loss of T2 signal. Diffuse disc bulge, moderate facet hypertrophy and ligamentum flavum thickening results in moder ate canal stenosis and mild bilateral foraminal narrowing. At L4-L5 disc deg eneration with loss of T2 signal. Diffuse disc bulge and mild facet hypertroph y results in no significant canal stenosis or foraminal narrowing. At L5-S1, diffuse disc bulge and mild facet hypertrophy results in no significant canal stenosis or foraminal narrowing. IMPRESSION: Cervical spine: 1. Severe degenerative left foraminal narrowing at C6-7. 2. Moderate degene rative right foraminal narrowing at C4-5, C5-6 and C6-7. 3. Facet hypertro phy with edema signal at C4-5 on the right. Thoracic spine: Mild disc degeneration throughout the thoracic spine. Mild Modic type I changes as to C6 -7. Patent canal and foramina. Lumbar spine: 1. No acute spinal abnormali ty. 2. Moderate canal stenosis and mild bilateral foraminal narrowing at L3 -L4. Other mild degenerative changes as described above. 3. Incidentally noted 2 cm left adrenal nodule, recommend further evaluation with dedicated im aging. Signed by: DR Mando Medina M.D. on 01/15/2018 1:23 PM Dictated By: MANDO SMALLWOOD MD 1323 Transcribed By: SHUN on 01/15/18 1323 COPY TO: JENNIFER JUARES M.D. MRI SPINE LUMBAR [id number] 13:02:00 [place] [address] Patient Name: MAMADOU WYATT MR #: [id number] : 1945 Age/Sex: 72/F Req #: [id number] Adm Physician: Ordered by: JENNIFER JUARES M.D. Report #: [id number] Location: MRI Room/Bed: Procedure: [id number] MRI/MRI SPINE LUMBAR WO Exam Date: Exam Time: REPORT STATUS: Signed His tory: Left arm numbness Comparison studies: None Technique: Cervical s pine: Sagittal T1, T2 and inversion recovery, axial T2 and axial 3-D gradient echo. Thoracic spine: Sagittal T1, T2 and inversion recovery, axial T2. Lumb ar spine: Sagittal T1,T2 and inversion recovery, axial T2 and spin density obl ique without contrast Findings: Number of lumbar vertebral bodies: 5 Alignment: Normal cervical lordosis. Mild grade 1 anterolisthesis of L3 ov er L4. Normal thoracic kyphosis. No scoliosis . Soft tissues: No prior spinal signal abnormalities. Bilateral renal cysts the largest one measuring 1.2 cm in the left upper pole. Cholelithiasis without evidence of cholecystiti s left adrenal mass measuring approximately 2 cm is partially visualized. Paraspinal muscles: No signal abnormalities. Well-preserved. No atrophic ch anges . Spinal cord: Normal in signal and morphology from the foramen m agnum through the tip of the conus at L1-L2 . Vertebrae: No acute fr actures, infection or neoplasm. Multiple nondeforming hemangiomas at the thora cic spine. Degenerative changes: Cervical spine: At C2-C3, right unc inate process hypertrophy results in mild right foraminal narrowing with paten t canal. At C3-4, bilateral facet hypertrophy with patent canal and mild bilat eral foraminal narrowing. At C4-5, disc degeneration with loss of T2 signal. Left uncinate process hypertrophy and bilateral facet hypertrophy results in no significant canal stenosis and moderate right foraminal narrowing. Edema si gnal at the right facet. At C5-6, disc degeneration with loss of T2 signal. Diffuse disc osteophyte complex, ligamentum flavum thickening, bilateral uncin ate process and facet hypertrophy results in mild canal stenosis and moderate right and mild left foraminal narrowing. At C6-7, disc degeneration with dec reased intervertebral space. Bilateral uncinate process and facet hypertrophy results in no significant canal stenosis and moderate right and severe left fo raminal narrowing At C7-T1, patent canal and foramina. Thoracic spine: Diffuse disc degeneration with loss of T2 signal throughout the thoracic spin e. Mild Modic type I changes at T6-7. Patent canal and foramina . Lumbar s pine: At L3-L4, disc degeneration with loss of T2 signal. Diffuse disc bulge, moderate facet hypertrophy and ligamentum flavum thickening results in moderate canal stenosis and mild bilateral foraminal narrowing. At L4-L5 disc degen eration with loss of T2 signal. Diffuse disc bulge and mild facet hypertrophy results in no significant canal stenosis or foraminal narrowing. At L5-S1, d iffuse disc bulge and mild facet hypertrophy results in no significant canal s tenosis or foraminal narrowing. IMPRESSION: Cervical spine: 1. Severe degenerative left foraminal narrowing at C6-7. 2. Moderate degenera tive right foraminal narrowing at C4-5, C5-6 and C6-7. 3. Facet hypertroph y with edema signal at C4-5 on the right. Thoracic spine: Mild disc de generation throughout the thoracic spine. Mild Modic type I changes as to C6-7 . Patent canal and foramina. Lumbar spine: 1. No acute spinal abnormality . 2. Moderate canal stenosis and mild bilateral foraminal narrowing at L3-L 4. Other mild degenerative changes as described above. 3. Incidentally no kriss 2 cm left adrenal nodule, recommend further evaluation with dedicated imag ing. Signed by: DR Mando Medina M.D. on 01/15/2018 1:23 PM Di ctated By: MANDO SMALLWOOD MD 1323 Transcribed By: SHUN on 01/15/18 1323 COPY TO: JENNIFER REYEZ M.D. MRI SPINE CERVICAL [id number] 13:02:00 [place] [address] Patient Name: MAMADOU WYATT MR #: [id number] : 1945 Age/Sex: 72/F Req #: [id number] Adm Physician: Ordered by: JENNIFER JUARES M.D. Report #: [id number] Location: MRI Room/Bed: Procedure: [id number] MRI/MRI SPINE CERVICAL WO Garrett m Date: Exam Time: REPORT STATUS: Signed H istory: Left arm numbness Comparison studies: None Technique: Cervical spine: Sagittal T1, T2 and inversion recovery, axial T2 and axial 3-D gradient echo. Thoracic spine: Sagittal T1, T2 and inversion recovery, axial T2. Celia mbar spine: Sagittal T1,T2 and inversion recovery, axial T2 and spin density o blique without contrast Findings: Number of lumbar vertebral bodies: 5 Alignment: Normal cervical lordosis. Mild grade 1 anterolisthesis of L3 over L4. Normal thoracic kyphosis. No scoliosis . Soft tissues: No anneliese or spinal signal abnormalities. Bilateral renal cysts the largest one measurin g 1.2 cm in the left upper pole. Cholelithiasis without evidence of cholecysti tis left adrenal mass measuring approximately 2 cm is partially visualized. Paraspinal muscles: No signal abnormalities. Well-preserved. No atrophic changes . Spinal cord: Normal in signal and morphology from the foramen magnum through the tip of the conus at L1-L2 . Vertebrae: No acute fractures, infection or neoplasm. 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 Degenerative changes: Cervical spine: At C2-C3, right u ncinate process hypertrophy results in mild right foraminal narrowing with pat ent canal. At C3-4, bilateral facet hypertrophy with patent canal and mild dirk ateral foraminal narrowing. At C4-5, disc degeneration with loss of T2 signa l. Left uncinate process hypertrophy and bilateral facet hypertrophy results i n no significant canal stenosis and moderate right foraminal narrowing. Edema signal at the right facet. At C5-6, disc degeneration with loss of T2 signal . Diffuse disc osteophyte complex, ligamentum flavum thickening, bilateral unc inate process and facet hypertrophy results in mild canal stenosis and moderat e right and mild left foraminal narrowing. At C6-7, disc degeneration with d ecreased intervertebral space. Bilateral uncinate process and facet hypertroph y results in no significant canal stenosis and moderate right and severe left foraminal narrowing At C7-T1, patent canal and foramina. Thoracic spine: Diffuse disc degeneration with loss of T2 signal throughout the thoracic sp ine. Mild Modic type I changes at T6-7. Patent canal and foramina . Lumbar spine: At L3-L4, disc degeneration with loss of T2 signal. Diffuse disc bulge, moderate facet hypertrophy and ligamentum flavum thickening results in moder ate canal stenosis and mild bilateral foraminal narrowing. At L4-L5 disc deg eneration with loss of T2 signal. Diffuse disc bulge and mild facet hypertroph y results in no significant canal stenosis or foraminal narrowing. At L5-S1, diffuse disc bulge and mild facet hypertrophy results in no significant canal stenosis or foraminal narrowing. IMPRESSION: Cervical spine: 1. Severe degenerative left foraminal narrowing at C6-7. 2. Moderate degene rative right foraminal narrowing at C4-5, C5-6 and C6-7. 3. Facet hypertro phy with edema signal at C4-5 on the right. Thoracic spine: Mild disc degeneration throughout the thoracic spine. Mild Modic type I changes as to C6 -7. Patent canal and foramina. Lumbar spine: 1. No acute spinal abnormali ty. 2. Moderate canal stenosis and mild bilateral foraminal narrowing at L3 -L4. Other mild degenerative changes as described above. 3. Incidentally noted 2 cm left adrenal nodule, recommend further evaluation with dedicated im aging. Signed by: DR Mando Medina M.D. on 01/15/2018 1:23 PM Dictated By: MANDO SMALLWOOD MD 1323 Transcribed By: SHUN on 01/15/18 1323 COPY TO: JENNIFER JUARES M.D. CHEST 2 [id number] 11:28:00 [place] [address] Patient Name: MAMADOU WYATT MR #: [id number] : 1945 Age/Sex: 72/F Req #: [id number] Adm Physician: Ordered by: VIV POLLOCK MD Report #: [id number] Location: [facility] Room/Bed: Procedure: [id number] DX/CHEST 2 VIEWS Exam Date: 11/10 10/27 Exam Time: 1040 REPORT STATUS: Signed P ROCEDURE: Frontal and lateral views of the chest. COMPARISON: DX, CHEST 2 VIEWS - [facility], 02/20/2016, 9:47. INDICATIONS: COUGH, COPD FINDINGS: Lines/tubes: None. Lungs: The lungs are well inflated. Stabl e postoperative changes in the left lateral lower lung, with presence of meta llic clips. Stable calcified granulomas. There is no evidence of pneumonia or pulmonary edema. Pleura: There is no pleural effusion or pneumothorax. Heart and mediastinum: The heart and the mediastinum are normal. Pul monary vasculature is normal. Calcified mediastinal nodes. Bones: No acut e bony abnormality. IMPRESSION: 1. No acute cardiopulmonary abnorm alities. Ivan Schroeder M.D. Dictated by: Ivan Shcroeder M.D. on 12/04/2017 at 11:28 Electronically approved by: Ivan Schroeder M.D. on 12/04/2017 at 11:28 Dictated By: IVAN SCHROEDER MD E lectronically Signed By: IVAN SCHROEDER MD on 12/04/17 1128 Transcribed By: KEAGAN HUERTA on 12/04/178 COPY TO: VIV POLLOCK MD
--- OUTSIDE RECORDS SUMMARY | 2019-09-26 11:14 | XMS REPORT ---
Author Author MAMADOU Silveira [facility] eClinicalWorks Address Unknown Phone Unavailable Care Team Providers Care Save All Operator Name Role Phone Artie Silveira Unavailable Allergies, Adverse Reactions, Alerts Substance Reaction Event Type penicillin swelling Drug Allergy Problems Problem Type Condition Code Onset Dates Condition Statu s Assessment Inflammatory arthritis M19.90 Activ e Assessment Osteoporosis M81.0 Active Problem Osteoporosis M81.0 Active Problem Trigger finger, right middle finger M65.331 Active Problem Vitamin D deficiency E55.9 Active Problem Joint pain M25.50 Active Problem Diabetes type 2, uncontrolled E11.65 Active Problem Inflammatory arthritis M19.90 Activ e Medications Medication Code System Code Instructions Start Date End Date Status Dosage Zetia [facility] 78958688595 10 MG Orally Once a day Acti ve 1 tablet Advair Diskus ND 76859925265 500-50 MCG/DOSE Inhalation Twice a day Active 1 puff NovoLog ND 56216541222 100 UNIT/ML Subcutaneous Ac tive as directed Leflunomide ND 15778830315 20MG Orally Once a day A ctive take 1 tablet daily Pantoprazole Sodium ND 19806609224 40 MG Orally Once a day Active 1 tablet Plavix ND 74414073659 75 MG Orally Once a day Acti ve 1 tablet Furosemide ND 09028853928 40 MG Orally Once a day A ctive 1 tablet Bydureon ND 42531014459 2 MG Subcutaneous Active as directed Anoro Ellipta ND 17777156231 62.5-25 MCG/INH Inhalation Once a day Active 1 puff Ranitidine HCl ND 97086555868 300 MG Orally Once a day Active 1 capsule Alendronate Sodium ND 96874805407 70 MG Orally once a week Ju 2018Mar 23, 2019 Active 1 tablet Hydroxychloroquine Sulfate ND 26359142453 200MG Orally bid Active take 1 tablet twice a day with food or milk Losartan NDC 0 50mg Orally Once a day Active 1 tablet Coreg [facility] 50670779669 6.25 MG Orally Active as d irected Tizanidine HCl [facility] 44553169454 2 MG Orally Three times a day Active 1 tablet as needed Benzonatate [facility] 47556840012 100 MG Orally Three times a day Active 1 capsule as needed Vital Signs Date/Time: November 23, 2018 BMI 26.49 Index Weight 159.2 lbs Height 65 in Temperature 98.3 F Cardiac Monitoring Heart Rate 74 /min Blood Pressure Diastolic 80 mm Hg Blood Pressure Systolic 118 mm Hg Results No Known Results Summary Purpose eClinicalWorks Submission
--- OUTSIDE RECORDS SUMMARY | 2019-09-26 11:14 | XMS REPORT ---
Author Author MAMADOU Silveira [facility] eClinicalWorks Address Unknown Phone Unavailable Care Team Providers Care Applied Researcher Name Role Phone Artie Silveira Unavailable Allergies No Known Allergies Problems Problem Type Condition Code Onset Dates Condition Statu s Assessment Osteoporosis M81.0 Active Assessment Inflammatory arthritis M19.90 Activ e Assessment Trigger finger, right middle finger M65.331 Active Assessment Vitamin D deficiency E55.9 Active Problem Osteoporosis M81.0 Active Problem Trigger finger, right middle finger M65.331 Active Problem Vitamin D deficiency E55.9 Active Problem Joint pain M25.50 Active Problem Diabetes type 2, uncontrolled E11.65 Active Problem Inflammatory arthritis M19.90 Activ e Medications Medication Code System Code Instructions Start Date End Date Status Dosage Tizanidine HCl [facility] 32396514201 2 MG Orally Three times a day Active 1 tablet as needed Furosemide ND 22880712228 40 MG Orally Once a day A ctive 1 tablet Albuterol ND 0 90 MCG/ACT Inhalation Active as directed Levofloxacin ND 32755410020 500 MG Orally Once a day Active 1 tablet Alendronate Sodium ND 28808649919 70 MG Orally once a week Ja n 2018September 17, 2018 Active 1 tablet Plavix [facility] 74734869626 75 MG Orally Once a day Acti ve 1 tablet Benzonatate ND 70140793876 100 MG Orally Three times a day Active 1 capsule as needed Klor-Con 10 ND 48649052043 10 MEQ Orally Twice a day Active 1 tablet with food Anoro Ellipta ND 58724473372 62.5-25 MCG/INH Inhalation Once a day Active 1 puff Advair Diskus ND 27144168816 500-50 MCG/DOSE Inhalation Twice a day Active 1 puff Zetia ND 61507934742 10 MG Orally Once a day Acti ve 1 tablet NovoLog Mix 70/30 ND 30006705795 (70-30) 100 UNIT/ML Subcutaneous Active as directed Leflunomide [facility] 81885587157 20MG Once a day Active TAKE 1 TABLET DAILY Hydroxychloroquine Sulfate [facility] 20666263066 200MG bid Active TAKE 1 TABLET TWICE A DAY WITH FOOD OR MILK Coreg [facility] 72053602460 6.25 MG Orally Active as d irected Bydureon [facility] 60061881447 2 MG Subcutaneous Active as directed Pantoprazole Sodium [facility] 37241346094 40 MG Orally Once a day Active 1 tablet Losartan NDC 0 50mg Orally Once a day Active 1 tablet Simvastatin [facility] 76132514668 10 MG Orally Once a day Active 1 tablet in the evening Vital Signs Date/Time: May 20, 2018 BMI 25.24 Index Weight 151.7 lbs Height 65 in Temperature 97.5 F Cardiac Monitoring Heart Rate 76 /min Blood Pressure Diastolic 70 mm Hg Blood Pressure Systolic 138 mm Hg Results Name Result Date Reference Range Unit Abnormali ty Flag CBC W/AUTO DIFF ----MONOCYTES 10.6 [id number] 4.0-13.0 % ----LYMPHOCYTES 10.6 50364882 19.0-48.0 % L ----HEMOGLOBIN 11.7 05428212 11.5-15.5 G/DL ----HEMATOCRIT 35.5 23608807 34.0-45.0 % ----MCV 94.9 41012751 80.0-100.0 fL ----MCH 31.3 91545255 27.0-34.0 PG ----MCHC 33.0 61316705 32.0-35.5 G/DL ----PLATELET COUNT 237 30794694 130-400 K/UL ----RDW 12.2 05098566 11.0-15.0 % ----WBC 6.5 61387437 4.0-11.0 K/UL ----NEUTROPHILS 74.7 96367878 40.0-74.0 % H ----BASOPHILS 0.9 67158276 0.0-2.0 % ----RBC 3.74 37156794 3.80-5.10 M/UL L ----EOSINOPHILS 3.2 65728360 0.0-7.0 % SEDIMENTATION RATE ----SEDIMENTATION RATE 10 12871376 0-20 MM/HOUR VITAMIN D, 25 OH ----VITAMIN D, 25 OH 23 20180520 SEE BELOW NG/ML L C-REACTIVE PROTEIN ----C-REACTIVE PROTEIN 0.6 20180520 <0.5 MG/DL H COMPREHENSIVE METABOLIC PANEL ----POTASSIUM 4.2 20180520 3.5-5.4 MEQ/L ----SODIUM 142 20180520 133-146 MEQ/L ----CALC BUN/CREAT 18 20180520 6-28 RATIO ---- eGFR NON- AMER. 64 20180520 >60 ML/MIN/1 .73 ---- eGFR AMER. 74 20180520 >60 ML/MIN/1.73 ----CREATININE 0.88 20180520 0.60-1.30 MG/DL ----BUN 16 20180520 8-23 MG/DL ----GLUCOSE 145 20180520 70-99 MG/DL H ----AST 16 20180520 9-40 U/L ----CALC GLOBULIN 2.0 20180520 1.9-3.7 G/DL ----ALT 16 20180520 5-40 U/L ----CALC A/G RATIO 2.2 20180520 1.0-2.6 RATIO ----BILIRUBIN, TOTAL 0.5 20180520 <=1.2 MG/DL ----ALKALINE PHOSPHATASE 35 20180520 40-142 U/L L ----CARBON DIOXIDE 31 20180520 19-31 MEQ/L ----CALCIUM 9.3 20180520 8.5-10.5 MG/DL ----PROTEIN, TOTAL 6.4 02510362 6.1-8.3 G/DL ----ALBUMIN 4.4 58938525 3.5-5.2 G/DL ----CHLORIDE 101 03859199 95-107 MEQ/L Summary Purpose eClinicalWorks Submission
--- OUTSIDE RECORDS SUMMARY | 2019-09-26 11:14 | XMS REPORT ---
Author Author MAMADOU Silveira [facility] eClinicalWorks Address Unknown Phone Unavailable Care Team Providers Care Side Laster Tack Name Role Phone Artie Silveira Unavailable Allergies, Adverse Reactions, Alerts Substance Reaction Event Type penicillin swelling Drug Allergy Problems Problem Type Condition Code Onset Dates Condition Statu s Assessment Inflammatory arthritis M19.90 Activ e Assessment Trigger finger, right middle finger M65.331 Active Problem Osteoporosis M81.0 Active Problem Trigger finger, right middle finger M65.331 Active Problem Vitamin D deficiency E55.9 Active Problem Joint pain M25.50 Active Problem Diabetes type 2, uncontrolled E11.65 Active Problem Inflammatory arthritis M19.90 Activ e Medications Medication Code System Code Instructions Start Date End Date Status Dosage Vitamin D (Ergocalciferol) [facility] 35932116445 07638 UNIT Ora lly once a week May 22, 2018 Active 1 capsule Plavix [facility] 86465671389 75 MG Orally Once a day Acti ve 1 tablet Albuterol ND 0 90 MCG/ACT Inhalation Active as directed Klor-Con 10 ND 78985827844 10 MEQ Orally Twice a day Active 1 tablet with food Levofloxacin ND 24094550303 500 MG Orally Once a day Active 1 tablet Coreg ND 57104276330 6.25 MG Orally Active as d irected Alendronate Sodium ND 47846447279 70 MG Orally once a week Ja n 2018September 17, 2018 Active 1 tablet Anoro Ellipta ND 20218412862 62.5-25 MCG/INH Inhalation Once a day Active 1 puff Pantoprazole Sodium ND 52368131732 40 MG Orally Once a day Active 1 tablet Leflunomide ND 72898979271 20MG Once a day Active TAKE 1 TABLET DAILY Benzonatate ND 97917169152 100 MG Orally Three times a day Active 1 capsule as needed Bydureon ND 12367107559 2 MG Subcutaneous Active as directed NovoLog Mix 70/30 ND 38172492240 (70-30) 100 UNIT/ML Subcutaneous Active as directed Tizanidine HCl [facility] 79527713375 2 MG Orally Three times a day Active 1 tablet as needed Losartan NDC 0 50mg Orally Once a day Active 1 tablet Zetia ND 81275640388 10 MG Orally Once a day Acti ve 1 tablet Hydroxychloroquine Sulfate [facility] 08736169461 200MG bid Active TAKE 1 TABLET TWICE A DAY WITH FOOD OR MILK Simvastatin ND 78478848771 10 MG Orally Once a day Active 1 tablet in the evening Furosemide [facility] 98510934518 40 MG Orally Once a day A ctive 1 tablet Advair Diskus [facility] 32129070675 500-50 MCG/DOSE Inhalation Twice a day Active 1 puff Vital Signs Date/Time: May 26, 2018 BMI 26.60 Index Weight 155 lbs Height 64 in Temperature 96.9 F Cardiac Monitoring Heart Rate 84 /min Blood Pressure Diastolic 70 mm Hg Blood Pressure Systolic 118 mm Hg Results No Known Results Summary Purpose eClinicalWorks Submission
--- OUTSIDE RECORDS SUMMARY | 2019-09-26 11:14 | XMS REPORT ---
Author Author MAMADOU Weber Organization eClinicalWorks Address Unknown Phone Unavailable Care Team Providers Care Book Editor Name Role Phone Sharan Weber CP Unavailable [...]
--- OUTSIDE RECORDS SUMMARY | 2019-09-26 11:14 | XMS REPORT ---
Author Author MAMADOU Weber Organization eClinicalWorks Address Unknown Phone Unavailable Care Team Providers Care Precision Lens Generator Name Role Phone Sharan Weber CP Unavailable [...]
--- OUTSIDE RECORDS SUMMARY | 2019-09-26 11:14 | XMS REPORT ---
Author Author MAMADOU Silveira [facility] eClinicalWorks Address Unknown Phone Unavailable Care Team Providers Care Cruise Staff Member Name Role Phone Artie Silveira Unavailable Allergies, [...] Date End Date Status Dosage Pantoprazole Sodium [facility] 93405597568 40 MG Orally Once a day Active 1 tablet Vitamin D (Ergocalciferol) [facility] 91430231308 54156 UNIT Ora lly once a week May 22, 2018 Active 1 capsule Albuterol ND 0 90 MCG/ACT Inhalation Active as directed Klor-Con 10 ND 80271333272 10 MEQ Orally Twice a day Active 1 tablet with food Anoro Ellipta [facility] 43381659731 62.5-25 MCG/INH Inhalation Once a day Active 1 puff Zetia [facility] 50453173820 10 MG Orally Once a day Acti ve 1 tablet Plavix [facility] 82587047015 75 MG Orally Once a day Acti ve 1 tablet Levofloxacin ND 68532035403 500 MG Orally Once a day Active 1 tablet Furosemide ND 90776600536 40 MG Orally Once a day A ctive 1 tablet Advair Diskus ND 18756951340 500-50 MCG/DOSE Inhalation Twice a day Active 1 puff Alendronate Sodium ND 65293981958 70 MG Orally once a week Ja n 2018September 17, 2018 Active 1 tablet Leflunomide ND 41225092440 20MG Orally Once a day A ctive take 1 tablet daily Hydroxychloroquine Sulfate ND 53266232632 200MG Orally bid Active take 1 tablet twice a day with food or milk Tizanidine HCl [facility] 57888223036 2 MG Orally Three times a day Active 1 tablet as needed Losartan NDC 0 50mg Orally Once a day Active 1 tablet NovoLog Mix 70/30 [facility] 77939857273 (70-30) 100 UNIT/ML Subcutaneous Active as directed Benzonatate [facility] 30618883194 100 MG Orally Three times a day Active 1 capsule as needed Simvastatin [facility] 57496108562 10 MG Orally Once a day Active 1 tablet in the evening Coreg [facility] 41643068557 6.25 MG Orally Active as d irected Bydureon [facility] 59892104481 2 MG Subcutaneous Active as directed Vital Signs Date/Time: August 24, 2018 BMI 26.16 Index Weight 152.4 lbs Height 64 in Temperature 97.3 F Cardiac Monitoring Heart Rate 84 /min Blood Pressure Diastolic 70 mm Hg Blood Pressure Systolic 122 mm Hg Results No Known Results Summary Purpose eClinicalWorks Submission
--- OUTSIDE RECORDS SUMMARY | 2019-09-26 11:14 | XMS REPORT ---
Author Author MAMADOU Weber Organization eClinicalWorks Address Unknown Phone Unavailable Care Team Providers Care Wet Process Head Miller Name Role Phone Sharan Weber CP Unavailable [...]
[2019-09-26] MEDS ORDERED: SODIUM CHLORIDE 0.9% 1000ML 1,000 ML IV STA (11:20)
[2019-09-26] MEDS ORDERED: PANTOPRAZOLE 40 MG 10ML VIAL IV NR (11:30)
[2019-09-26] MEDS ORDERED: MORPHINE SULFATE 2 MG/ML SYR 1ML IV ONE (11:45)
[2019-09-26] MEDS ORDERED: SODIUM CHLORIDE 0.9% 500ML 500 ML IV ONE (11:45)
[2019-09-26] MEDS ORDERED: ONDANSETRON HCL INJ 2MG/ML 2ML 2 MG/ML VIAL IV ONE (11:45)
[2019-09-26 11:53] LABS: BASOPHILS # (AUTO) 0.1 (0.0-0.1); BASOPHILS % 0.7 % (0.0-1.0); EOSINOPHILS # (AUTO) 0.1 (0.0-0.4); EOSINOPHILS % 0.6 % (0.0-6.0); HEMATOCRIT 30.8 % (34.2-44.1); HEMOGLOBIN 9.4 g/dL (12.0-16.0); LYMPHOCYTES # (AUTO) 0.3 (1.0-3.2); LYMPHOCYTES % 3.5 % (18.0-39.1); MEAN CORPUSCULAR HEMOGLOBIN 27.2 pg (28-32); MEAN CORPUSCULAR HGB CONC 30.5 g/dL (31-35); MONOCYTES % 12.7 % (4.4-11.3); NEUTROPHILS # (AUTO) 6.7 (2.1-6.9); PLATELET COUNT 341 x10e3/uL (140-360); RED BLOOD COUNT 3.46 x10e6/uL (3.6-5.1)
[2019-09-26 12:03] LABS: INR 1.06; PROTHROMBIN TIME 14.5 seconds (11.9-14.5)
[2019-09-26 12:04] LABS: PARTIAL THROMBOPLASTIN TIME 34.7 seconds (23.8-35.5)
[2019-09-26 12:14] LABS: ALBUMIN 2.6 g/dL (3.5-5.0); ALBUMIN/GLOBULIN RATIO 0.7 (0.8-2.0); ANION GAP 18.5 mmol/L (8-16); CALCIUM 9.6 mg/dL (8.4-10.2); CREATININE, SERUM 0.94 mg/dL (0.57-1.11); MAGNESIUM 2.2 MG/DL (1.3-2.1); POTASSIUM 4.5 mmol/L (3.5-5.1)
[2019-09-26 12:21] LABS: B-TYPE NATRIURETIC PEPTIDE2 797.6 pg/mL (0-100); CREATINE KINASE MB 0.5 ng/mL (0-5.0)
--- NOTE | 2019-09-26 12:34 | Emergency Department Note ---
History of Present Illnes History of Present Illness Chief Complaint: General Medicine Complaints History of Present Illness This is a 74 year old female HERE FOR LEFT LEG SWELLING AND PAIN, CLIENTS FOOT IS COOL TO TOUCH. HISTORY OF TERMINAL LUNG CANCER. 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 Any updates have been documented here. Past Medical History Recent Fever: No Clinical Suspicion of Infectio: No New/Unexplained Change in Ment: No Past Medical History: Hypertension, Diabetes, COPD, CHF, HI, Asthma, CAD, DVT/P E, Chronic Kidney Disease Other Medical History: DVT ARTHRITIS Past Surgical History: PCI Other Surgery: RECENT STENT PLACED Social History Smoking Cessation: Current every day smoker Counseling Performed: No Alcohol Use: None Any Illegal Drug Use: No TB Exposure/Symptoms: No Physically hurt or threatened: No Family History Family history of heart diseas: Yes Other Last Tetanus: UNKNOWN Any Pre-Existing Lines (PICC,: No Is patient up to date on immun: Yes Last Flu: utd Last Pneumovax: utd Review of Systems Review of Systems Constitutional: no symptoms EENTM: no symptoms Cardiovascular: no symptoms Respiratory: dyspnea (CHRONIC, ON HOME O2) Gastrointestinal: no symptoms Genitourinary: no symptoms Musculoskeletal: no symptoms Neurological: no symptoms Psychological: no symptoms Endocrine: no symptoms Hematological/Lymphatic: no symptoms Review of other systems All other systems reviewed and negative. Physical Exam Related Data Allergies: Uncoded Allergies: PENICILLIN (Allergy, Severe, 06/07/15) Triage Vital Signs Vital Signs Date Time Temp Pulse Resp B/P (MAP) Pulse Ox O2 Delivery O2 Flow Rate FiO2 09/26/19 11:13 97.8 87 16 96/64 96 Physical Exam CONSTITUTIONAL Constitutional: well-developed, well-nourished HENT HENT: normocephalic, atraumatic, oropharynx clear/moist, nose normal HENT L/R: left ext ear normal, right ext ear normal EYES Eyes: PERRL, conjunctivae normal NECK Neck: ROM normal PULMONARY Pulmonary: effort normal, other (MOD DECR BREATH SOUNDS BILAT) CARDIOVASCULAR Cardiovascular: regular rhythm, heart sounds normal, capillary refill normal, normal rate GASTROINTESTINAL Abdominal: soft, nontender, bowel sounds normal GENITOURINARY Genitourinary: exam deferred SKIN Skin: warm, dry MUSCULOSKELETAL Musculoskeletal: ROM normal, edema (RLE TRACE EDEMA, LEFT LEG WITH 3+ EDEMA BELOW KNEE TO FOOT), other (LEFT FOOT COOL TO TOUCH WITH DECR CAP REFILL IN TOES, UNABLE TO PALPATE DP/PT PULSES - DP PRESENT WITH DOPPLER, UNABLE TO DOPP LER PT ON LEFT) NEUROLOGICAL Neurological: alert, oriented x 3, no gross motor or sensory deficits PSYCHOLOGICAL Psychological: mood/affect normal, judgement normal Results Laboratory Result Diagram: 09/26/19 1130 09/26/19 1130 Laboratory Laboratory Tests Test 09/26/19 11:30 White Blood Count 8.11 x10e3/uL (4.8-10.8) Red Blood Count 3.46 x10e6/uL (3.6-5.1) Hemoglobin 9.4 g/dL (12.0-16.0) Hematocrit 30.8 % (34.2-44.1) Mean Corpuscular Volume 89.0 fL (81-99) Mean Corpuscular Hemoglobin 27.2 pg (28-32) Mean Corpuscular Hemoglobin Concent 30.5 g/dL (31-35) Red Cell Distribution Width 16.0 % (11.7-14.4) Platelet Count 341 x10e3/uL (140-360) Neutrophils (%) (Auto) 82.0 % (38.7-80.0) Lymphocytes (%) (Auto) 3.5 % (18.0-39.1) Monocytes (%) (Auto) 12.7 % (4.4-11.3) Eosinophils (%) (Auto) 0.6 % (0.0-6.0) Basophils (%) (Auto) 0.7 % (0.0-1.0) Neutrophils # (Auto) 6.7 (2.1-6.9) Lymphocytes # (Auto) 0.3 (1.0-3.2) Monocytes # (Auto) 1.0 (0.2-0.8) Eosinophils # (Auto) 0.1 (0.0-0.4) Basophils # (Auto) 0.1 (0.0-0.1) Absolute Immature Granulocyte (auto 0.04 x10e3/uL (0-0.1) Prothrombin Time 14.5 seconds (11.9-14.5) Prothromb Time International Ratio 1.06 Activated Partial Thromboplast Time 34.7 seconds (23.8-35.5) Sodium Level 136 mmol/L (136-145) Potassium Level 4.5 mmol/L (3.5-5.1) Chloride Level 95 mmol/L (98-107) Carbon Dioxide Level 27 mmol/L (22-29) Anion Gap 18.5 mmol/L (8-16) Blood Urea Nitrogen 16 mg/dL (7-26) Creatinine 0.94 mg/dL (0.57-1.11) Estimat Glomerular Filtration Rate 58 ML/MIN (60-) BUN/Creatinine Ratio 17 (6-25) Glucose Level 132 mg/dL (74-118) Lactic Acid Level 1.7 mmol/L (0.5-2.0) Calcium Level 9.6 mg/dL (8.4-10.2) Magnesium Level 2.2 MG/DL (1.3-2.1) Total Bilirubin 0.9 mg/dL (0.2-1.2) Aspartate Amino Transf (AST/SGOT) 13 IU/L (5-34) Alanine Aminotransferase (ALT/SGPT) 10 IU/L (0-55) Alkaline Phosphatase 40 IU/L (40-150) Creatine Kinase 26 IU/L (29-168) Total Protein 6.6 g/dL (6.5-8.1) Albumin 2.6 g/dL (3.5-5.0) Globulin 4.0 g/dL (2.3-3.5) Albumin/Globulin Ratio 0.7 (0.8-2.0) Lab results reviewed: Yes Imaging Imaging results reviewed: Yes Impressions EXAM: CT Chest WITH intravenous contrast INDICATION: Left leg swelling, history of pulmonary embolism. COMPARISON: CT chest 03/09/2019. TECHNIQUE: Chest was scanned utilizing a multidetector helical scanner from the lung apex through the level of the adrenal glands after administration of IV contrast. Coronal and sagittal reformations were obtained. Pulmonary embolism protocol was performed. IV CONTRAST: 100mL Isovue 370 RADIATION DOSE: Total DLP: 460.6 mGy*cm. Dose modulation, iterative reconstruction, and/or weight based adjustment of the mA/kV was utilized to reduce the radiation dose to as low as reasonably achievable. COMPLICATIONS: None FINDINGS: Inferior aspect of the right lung base is partially excluded from the [id number]. LINES/ TUBES: None. PULMONARY ARTERIES: The main pulmonary artery measures 3.0 cm. No evidence of pulmonary embolism to the level of segmental pulmonary arteries. LUNGS AND AIRWAYS/PLEURA: There has been interval development of partial consolidation with associated patchy opacities and volume loss in the right lower lobe. The known right lower lobe medial lung mass and associated right infrahilar lymphadenopathy abutting the bronchus intermedius is not well distinguished from the consolidation, but has likely enlarged in size. Interval development of patchy consolidation within the right middle lobe. The central airways are patent. Interval development of bilateral pulmonary nodules, for example a 1.0 cm solid nodule in the left upper lobe on series 2, image 18 and a 0.4 cm nodule in the right upper lobe on image 39. Bilateral mild smooth interlobular septal thickening with scattered groundglass opacities, likely representing pulmonary edema. There has been interval enlargement of a loculated moderate to large right sided basilar predominant pleural effusion. Interval development of nodular thickening along portions of the pleura including along the right major and minor fissures, for example in the anterior right lung base, measuring up to 2.7 cm. Decreased small pleural effusion, now trace. Mild pleural thickening and postoperative changes at the lateral lingula, unchanged No pneumothorax. HEART AND MEDIASTINUM: The thyroid gland is normal. No supraclavicular lymphadenopathy. There is calcified and noncalcified mediastinal and bilateral hilar lymphadenopathy. Partially calcified subcarinal lymph nodes measure up to 3.1 x 2.5 cm, unchanged. Partially calcified left hilar lymph nodes, measuring up to 1.2 cm. Mild multichamber cardiomegaly. Atherosclerotic calcifications involve the coronary arteries, thoracic aorta, and proximal great vessels.. No pericardial effusion. UPPER ABDOMEN: Limited views of the upper abdomen. A partially visualized 2.7 cm left adrenal nodule measures -3 Hounsfield units, most compatible with an adrenal adenoma, although the prior imaging characteristics are indeterminate. BONES: There are acute, minimally displaced fractures of the right lateral sixth and seventh ribs. SOFT TISSUES: Unremarkable. IMPRESSION: No evidence of pulmonary embolism to the level of the segmental pulmonary arteries. Dilated main pulmonary artery, suggestive of pulmonary arterial hypertension. Interval progression of malignancy with enlarging moderate to large loculated right pleural effusion with associated nodularity, and new bilateral pulmonary nodules. Unchanged calcified and noncalcified mediastinal lymphadenopathy. The known right lower lobe mass is not well identified secondary to associated consolidation. The central airways appear patent, however there is new consolidation within the right lower lobe with associated volume loss which is new from prior study, which may represent a combination of enlarging mass and post obstructive pneumonitis/atelectasis. A partially visualized 2.7 cm left adrenal nodule measures -3 Hounsfield units, most compatible with an adrenal adenoma, although the prior imaging characteristics were indeterminate. Recommend follow-up nonemergent CT of the abdomen and pelvis for staging or comparison with outside imaging. New patchy consolidation within the right middle lobe, which may represent atelectasis or infection. Cardiomegaly with coronary atherosclerosis. Mild pulmonary edema. Acute, minimally displaced right lateral sixth and seventh rib fractures. Signed by: Dr. Otis Rich MD on 09/26/2019 3:52 PM BILAT VENOUS AND ARTERIAL DOPPLER NEGATIVE FOR THROMBUS Diagnostics Tests Diagnostic test(s) reviewed: Yes Procedures 12 Lead ECG Interpretation Electronics Engineering Manager: Interpreted by ED physician Rhythm: sinus rhythm Ectopy: PJC's Rate: normal (78) QRS axis: left Conduction: LAFB ST segments normal: Yes Clinical Impression: abnormal ECG Critical Care Time Subsequent provider I assumed direction of critical care for this patient from another provider of my specialty. Assessment & Plan Assessment & Plan Problems: (1) Edema (2) Hypoalbuminemia (3) Lung cancer Assessment & Plan DR ADKINS CAME TO SEE PT, SENT HER HOME, WILL F/U IN CLINIC AND WITH PCP Depart Disposition: HOME, SELF-CARE Last Vital Signs Date Time Temp Pulse Resp B/P (MAP) Pulse Ox O2 Delivery O2 Flow Rate FiO2 09/26/19 11:45 98.4 77 17 104/72 100 Home Meds Reported Medications Carvedilol (COREG) 3.125 Mg Tab, MG NM DAILY 06/07/12 Nifedipine (PROCARDIA XL) 60 Mg Tab.er.24, MG PO DAILY 06/07/12 Bupropion Hcl (WELLBUTRIN XL) 150 Mg Tabcr, MG DAILY 1/27/13 Clopidogrel Bisulfate* (PLAVIX) 75 Mg Tablet, 75 MG PO DAILY 06/07/12 Lovastatin (LOVASTATIN) 40 Mg Tablet, 40 MG PO BEDTIME 05/31/12 Cyanocobalamin (CYANOCOBALAMIN INJECTION) 1,000 Mcg/Ml Soln, 1 ML IM UD 05/31/12 Lancets (LANCETS) 1 Each Each, ACHS PRN 05/31/12 Blood Sugar Diagnostic (PRECISION POINT OF CARE) 1 Each Strip, .ROUTE ACHS 05/31/12 Clopidogrel Bisulfate (CLOPIDOGREL) 75 Mg Tablet, 75 MG PO DAILY 05/31/12 Salmeterol Xinaf/Fluticasone* (ADVAIR 500/50*) 1 Ea Aerp, 1 PUFF INH BID 05/31/12 Glimepiride (GLIMEPIRIDE) 2 Mg Tablet, 2 MG PO TID 05/31/12 [place], Insulin Disposable (PEN NEEDLE) 1 Each Dis.needle, 1 SQ 5XD 05/31/12 Bupropion Hcl (WELLBUTRIN XL) 150 Mg Tabcr, 150 MG PO DAILY 05/31/12 Insulin Aspart (NOVOLOG) 100 Units/1 Ml Inj, FLEX ACHS 05/31/12 Sitagliptin Phosphate (JANUVIA) 100 Mg Tablet, 100 MG PO DAILY 05/31/12 Ezetimibe (ZETIA) 10 Mg Tablet, 10 MG PO DAILY 05/31/12 Carvedilol (CARVEDILOL) 3.125 Mg Tablet, 3.125 MG PO BID 05/31/12 Furosemide (FUROSEMIDE) 20 Mg Tablet, 20 MG PO DAILY 05/31/12 Insulin Glargine (LANTUS 3ML PEN) 100 Units/1 Ml Inj 05/31/12 Metformin Hcl (METFORMIN HCL) 1,000 Mg Tablet, 1000 MG PO BID 05/31/12 Diazepam (DIAZEPAM) 10 Mg Tablet, 10 MG PO BID PRN 05/31/12 Losartan Potassium (LOSARTAN POTASSIUM) 100 Mg Tablet, 100 MG PO DAILY 05/31/12 Medications in the ED Pantoprazole Sodium 40 mg ONCE IV Last administered on 09/26/19at 12:08; Admin Dose 40 MG; Start 09/26/19 at 11:30; Stop 09/26/19 at 12:59 Morphine Sulfate 2 mg ONCE ONCE IV Last administered on 09/26/19at 12:08; Admin Dose 2 MG; Start 09/26/19 at 11:45; Stop 09/26/19 at 11:46 Ondansetron HCl 4 mg ONCE ONCE IV Last administered on 09/26/19at 12:08; Admin Dose 4 MG; Start 09/26/19 at 11:45; Stop 09/26/19 at 11:46 Sodium Chloride 1,000 ml @ 0 mls/hr Q0M STAT IV ; Start 09/26/19 at 11:20; Stop 09/26/19 at 11:43; Status DC Sodium Chloride 500 ml @ 0 mls/hr Q0M ONCE IV Last administered on 09/26/19at 12:08; Admin Dose 499 MLS/HR; Start 09/26/19 at 11:45; Stop 09/26/19 at 11:46 SHLOMO DHILLON MD September 26, 2019 12:34
[2019-09-26] MEDS ORDERED: SODIUM CHLORIDE 0.9% 50ML 50 ML ONE (12:48)
[2019-09-26] MEDS ORDERED: IOPAMIDOL 370 MG/ML 200 ML INFUS..BTL INJ ONE (12:49)
[2019-09-26 13:53] LABS: CLARITY,URINE SL CLOUDY (CLEAR); COLOR,URINE YELLOW (YELLOW)
[2019-09-26 13:54] LABS: BILIRUBIN,URINE NEGATIVE (NEGATIVE); KETONES,URINE NEGATIVE (NEGATIVE); LEUKOCYTE ESTERASE ,URINE NEGATIVE (NEGATIVE); NITRITE,URINE NEGATIVE (NEGATIVE); PROTEIN,URINE DIPSTICK NEGATIVE (NEGATIVE); URINE UROBILINOGEN 0.2 mg/dL (0.2 - 1)
[2019-09-26 14:14] LABS: BACTERIA,URINE RARE /HPF; EPITHELIAL CELLS,URINE FEW /LPF
--- NOTE | 2019-09-26 15:55 | Diagnostic Imaging Report ---
EXAM: CT Chest WITH intravenous contrast INDICATION: Left leg swelling, history of pulmonary embolism. COMPARISON: CT chest 03/09/2019. TECHNIQUE: Chest was scanned utilizing a multidetector helical scanner from the lung apex through the level of the adrenal glands after administration of IV contrast. Coronal and sagittal reformations were obtained. Pulmonary embolism protocol was performed. IV CONTRAST: 100mL Isovue 370 RADIATION DOSE: Total DLP: 460.6 mGy*cm. Dose modulation, iterative reconstruction, and/or weight based adjustment of the mA/kV was utilized to reduce the radiation dose to as low as reasonably achievable. COMPLICATIONS: None FINDINGS: Inferior aspect of the right lung base is partially excluded from the [id number]. LINES/ TUBES: None. PULMONARY ARTERIES: The main pulmonary artery measures 3.0 cm. No evidence of pulmonary embolism to the level of segmental pulmonary arteries. LUNGS AND AIRWAYS/PLEURA: There has been interval development of partial consolidation with associated patchy opacities and volume loss in the right lower lobe. The known right lower lobe medial lung mass and associated right infrahilar lymphadenopathy abutting the bronchus intermedius is not well distinguished from the consolidation, but has likely enlarged in size. Interval development of patchy consolidation within the right middle lobe. The central airways are patent. Interval development of bilateral pulmonary nodules, for example a 1.0 cm solid nodule in the left upper lobe on series 2, image 18 and a 0.4 cm nodule in the right upper lobe on image 39. Bilateral mild smooth interlobular septal thickening with scattered groundglass opacities, likely representing pulmonary edema. There has been interval enlargement of a loculated moderate to large right sided basilar predominant pleural effusion. Interval development of nodular thickening along portions of the pleura including along the right major and minor fissures, for example in the anterior right lung base, measuring up to 2.7 cm. Decreased small pleural effusion, now trace. Mild pleural thickening and postoperative changes at the lateral lingula, unchanged No pneumothorax. HEART AND MEDIASTINUM: The thyroid gland is normal. No supraclavicular lymphadenopathy. There is calcified and noncalcified mediastinal and bilateral hilar lymphadenopathy. Partially calcified subcarinal lymph nodes measure up to 3.1 x 2.5 cm, unchanged. Partially calcified left hilar lymph nodes, measuring up to 1.2 cm. Mild multichamber cardiomegaly. Atherosclerotic calcifications involve the coronary arteries, thoracic aorta, and proximal great vessels.. No pericardial effusion. UPPER ABDOMEN: Limited views of the upper abdomen. A partially visualized 2.7 cm left adrenal nodule measures -3 Hounsfield units, most compatible with an adrenal adenoma, although the prior imaging characteristics are indeterminate. BONES: There are acute, minimally displaced fractures of the right lateral sixth and seventh ribs. SOFT TISSUES: Unremarkable. IMPRESSION: No evidence of pulmonary embolism to the level of the segmental pulmonary arteries. Dilated main pulmonary artery, suggestive of pulmonary arterial hypertension. Interval progression of malignancy with enlarging moderate to large loculated right pleural effusion with associated nodularity, and new bilateral pulmonary nodules. Unchanged calcified and noncalcified mediastinal lymphadenopathy. The known right lower lobe mass is not well identified secondary to associated consolidation. The central airways appear patent, however there is new consolidation within the right lower lobe with associated volume loss which is new from prior study, which may represent a combination of enlarging mass and post obstructive pneumonitis/atelectasis. A partially visualized 2.7 cm left adrenal nodule measures -3 Hounsfield units, most compatible with an adrenal adenoma, although the prior imaging characteristics were indeterminate. Recommend follow-up nonemergent CT of the abdomen and pelvis for staging or comparison with outside imaging. New patchy consolidation within the right middle lobe, which may represent atelectasis or infection. Cardiomegaly with coronary atherosclerosis. Mild pulmonary edema. Acute, minimally displaced right lateral sixth and seventh rib fractures. Signed by: Dr. Otis Rich MD on 09/26/2019 3:52 PM
== END 2019-09-26 14:56 | disposition home or self-care (01) ==
LOC: ER 11:10
DX: R60.9 Edema, unspecified (principal); E88.09 Other disorders of plasma-protein metabolism, not elsewhere classified; C34.90 Malignant neoplasm of unspecified part of unspecified bronchus or lung; I51.7 Cardiomegaly; I25.10 Atherosclerotic heart disease of native coronary artery without angina pectoris; Z86.711 Personal history of pulmonary embolism
CPT/HCPCS: 36415; 71260; 80053; 81001; 82550; 82553; 83605; 83735; 83880; 84484; 85025; 85610; 85730; 87040; 87086; 93005; 93925; 93970; 99284; J2270; J2405; J7040; Q9967

== ENCOUNTER 2019-09-29 05:14 | Emergency (ER) | payer MEDICARE, OTHER ==
[~2019-09-29] VITALS: Ht 167.6 cm; Wt 59.0 kg
--- OUTSIDE RECORDS SUMMARY | 2019-09-29 05:16 | XMS REPORT | Continuity of Care Document ---
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 Name Role Phone [employer] Unavailable Un available Problems Problem Status Onset Date Classification Date Reported Comments Source PNEUMONIA Active 12/19/2016 [facility] Inflammatory arthritis Active Problem 06/18/2019 Ede [...] Acti ve Problem Argelia Parada CAD in [place] artery Active Problem 01/25/2016 Argelia Parada Type 2 diabetes mellitus with unspecified complication s Active Problem 01/25/2016 Argelia Parada [facility] (current) use of insulin Active Problem Argelia Parada Smoker Active Problem 01/25/2016 Argelia Parada Carotid artery disease Active Problem 01/25/2016 Argelia Parada Venous insufficiency Active Problem 01/25/2016 Argelia Parada Anemia (disorder) Resolved Problem 12/25/2016 [facility] Disorder of carotid artery (disorder) Active Problem [facility] Cataract (disorder) Resolved Problem 12/25/2016 [facility] Polyp of colon (disorder) Reso lved Problem [facility] Chronic obstructive lung disease (disorder) Active Problem 12/25/2016 [facility] Diabetes mellitus (disorder) A ctive Problem [facility] Duodenal ulcer disease (disorder) Resolved Problem [facility] Pulmonary emphysema (disorder) Active Problem [facility] Myocardial infarction (disorder) Resolved Problem [facility] Hypertensive disorder, systemic arterial (disorder) Active Problem 12/25/2016 [facility] Hypercholesterolemia (disorder) Active Problem [facility] Lactose intolerance (disorder) Active Problem [facility] Osteoarthritis (disorder) Acti ve Problem [facility] Peptic ulcer (disorder) Active Problem 12/25/2016 [facility] PNEUMONIA, UNSPECIFIED ORGANISM Active [facility] Medications Medication Details Route Status Patient Instructions Ordering Provider Order Date Source Alendronate Sodium 1 tablet Orally Active 70 MG Orally once a week Jordana 11/23/2018 Ede Weber Vitamin D (Ergocalciferol) 1 c apsule Orally Active 94790 UNIT Orally once a week Jordana 05/22/2018 Ede Weber Alendronate Sodium 1 tablet Orally Active 70 MG Orally once a week Jordana 05/20/2018 Ede Weber Leflunomide 1 tablet Orally Active 20 MG Orally Once a day Jordana 02/11/2017 dEe Weber Naproxen 1 tablet Orally Active 250 MG Orally Twice a d ay Jordana 02/11/2017 Ede Weber remove patch Notes: Remove old patch before application of new patch. WASTE: F/P - P Waste Black; E - P Waste Black No Longer Active 12/23/2016 [facility] Nebulizer 1 ea, MISC, ONCALL, # 1 ea, 0 Refill(s) Active 12/22/2016 [facility] Symbicort 160/4.5 inhalation aerosol with adapter 2 inhalation, INHALATION, RBID, # 1 ea, 0 Refill(s), [facility] [id number] Active 12/22/2016 [facility] Albuterol 0.833 MG/ML / Ipratropium Brom tommy 0.167 MG/ML Inhalant Solution [DuoNeb] 3 mL, NEB, Q6H, PRN as needed for shortn ess of breath or wheezing, # 360 mL, 0 Refill(s), Pharmacy: [facility] [id number] Active 12/22/2016 [facility] levofloxacin 250 mg oral tablet 750 mg = 3 tab, PO, Daily, X 5 day, # 15 tab, 0 Refill(s), Pharmacy: [facility] [id number] Active 12/22/2016 [facility] predniSONE 20 mg oral tablet 4 0 mg = 2 tab, PO, Daily, X 5 day, # 10 tab, 0 Refill(s), Pharmacy: [facility] [id number] Active 12/22/2016 [facility] insulin detemir Notes: Same as Levemir Do not hold insulin without contacting prescriber WASTE: F/P - Black; E - Municipal Trash Bin "single patient use only" Inactive 12/22/2016 [facility] Levofloxacin Notes: Do not giv e w/antacids, dairy pdt & minerals Take 1 hr before or 2 hr after dairy pdt (Same as:Levaquin) Inactive 12/22/2016 [facility] Nicotine Notes: (Same as: Kris vital) "Remove old patch before application of new patch" WASTE: F/P - P Waste Black; E - P Waste Black Inactive 12/22/2016 [facility] Prednisone Notes: Take with fo od. No Longer Active 12/21/2016 [facility] Lasix Notes: (Same as: Lasix) Inactive 12/21/2016 [facility] Symbicort 160/4.5 inhalation aerosol with adapter Notes: (Same as: Symbicort) WASTE: Aerosol - Return to Pharmacy No Longer Active 12/21/2016 [facility] pantoprazole Notes: Tablet bruno uld not be chewed or crushed. (Same as: Protonix) N o Longer Active 12/21/2016 [facility] Zetia Notes: (Same as: Zetia) No Longer Active 12/21/2016 [facility] clopidogrel Notes: (Same As: P lavix) No Longer Active 12/21/2016 [facility] carvedilol Notes: Give with fo od. (Same As: Coreg) No Longer Active 12/21/2016 [facility] Zocor Notes: (Same as: Zocor) No Longer Active 12/21/2016 [facility] Levemir Notes: Same as Levemir Do not hold insulin without contacting prescriber WASTE: F/P - Black; E - Municipal Trash Bin "single patient use only" No Longer Active 12/21/2016 [facility] NovoLog Notes: Roll in palms o f hands gently; Do not shake vigorously. (Same as: NovoLOG) "single patient use only" WASTE: F/P - Black; E - Municipal Trash Bin Stable for 28 days at room temperature. Expires in days from Date No Longer Active 12/20/2016 [facility] Aspirin Notes: Take with food. No Longer Active 12/20/2016 [facility] azithromycin 250 mg oral tablet 250 mg, 1 tab, Route: PO, Drug form: TAB, [id number], Dosing Weight 75.455, kg, Start date: 12/20/16 11:00:00 CDT, Duration: 4 day, Stop date: 12/23/16 11:00:00 CDT, ABX Indication: Pneumonia No Longer Active 12/20/2016 [facility] Ceftriaxone Notes: (Same As: Dixon castro). Use with 100 mL NS and infuse over 30 min MEDICATION WASTE Product Size: 1000 mg Product Wasted: ___ mg No Longer Active 12/20/2016 [facility] Streptococcus pneumoniae serotype 1 caps ular antigen diphtheria [id number] protein conjugate vaccine / Streptococcus pneumoniae serotype 14 capsular antigen diphtheria [id number] protein conjugate vaccine / Streptococcus pneumoniae serotype 18C capsular antigen d Notes: Shake well prior to use (Same as: Prevnar 13) Inactive 12/20/2016 [facility] Enoxaparin Notes: (Same as: Lo venox) No Longer Active 12/20/2016 [facility] Albuterol 0.833 MG/ML / Ipratropium Brom tommy 0.167 MG/ML Inhalant Solution [DuoNeb] Notes: (Same as: Duoneb) No Longer Active 12/20/2016 [facility] Codeine Phosphate 2 MG/ML / Guaifenesin 20 MG/ML Oral Solution Notes: (Same As: Robitussin AC) No Longer Active 12/20/2016 [facility] Acetaminophen Notes: Do not ex ceed 4 gm/day. (Same as: Tylenol) No Longer Active 12/20/2016 [facility] Guaifenesin Notes: (Same as: Dixon obitussin) No Longer Active 12/20/2016 [facility] Ondansetron Notes: (Same as: Billy brumfield) MEDICATION WASTE Product Size: 4 mg Product Wasted: ___ mg No Longer Active 12/20/2016 [facility] Albuterol 0.833 MG/ML / Ipratropium Brom tommy 0.167 MG/ML Inhalant Solution Notes: (Same as: Duoneb) No Longer Active 12/20/2016 [facility] Saline Flush 0.9% Notes: (Same as: BD Posiflush) No Longer Active 12/20/2016 [facility] Azithromycin Notes: (Same As: Zithromax IV) No Longer Active 12/20/2016 [facility] Ceftriaxone Notes: (Same As: Dixon hullphin). Use with 100 mL NS and infuse over 30 min MEDICATION WASTE Product Size: 1000 mg Product Wasted: ___ mg No Longer Active 12/20/2016 [facility] pregabalin 300 mg oral capsule 300 mg = 1 cap, PO, TID, 0 Refill(s) Active 12/20/2016 [facility] clopidogrel 75 mg oral tablet 75 mg = 1 tab, PO, Daily, # 30 tab, 0 Refill(s) Active 12/20/2016 [facility] Furosemide 40 MG Oral Tablet 4 0 mg = 1 tab, PO, Daily, # 30 tab, 0 Refill(s) Active 12/20/2016 [facility] ezetimibe 10 MG Oral Tablet [Zetia] 10 mg = 1 tab, PO, Daily, # 30 tab, 0 Refill(s) Active 12/20/2016 [facility] naproxen 500 mg oral tablet 50 0 mg = 1 tab, PO, BID, # 60 tab, 0 Refill(s) Active 12/20/2016 [facility] Levofloxacin 500 mg = 1 tab, P O, Daily, # 7 tab, 0 Refill(s) Active 12/20/2016 [facility] losartan 100 mg oral tablet 10 0 mg = 1 tab, PO, Daily, # 30 tab, 0 Refill(s) Active 12/20/2016 [facility] diazepam 10 mg oral tablet 10 mg = 1 tab, PO, BID, # 60 tab, 0 Refill(s) Active 12/20/2016 [facility] Levemir 20 unit, SUB-Q, Bedtim e, 0 Refill(s) Active 12/20/2016 [facility] Aspirin 81 mg, 0 Refill(s) Active 12/20/2016 [facility] Pantoprazole Sodium 1 tablet Orally Active [...] Active 40 MG Orally Once a day [facility] Ede Weber Advair Diskus 1 puff Inhalation Active 500-50 MCG/DOSE Inhalation Twice a day [facility] Ede Weber Leflunomide take 1 tablet daily Orally Active 20MG Orally Once a day [facility] Ede Weber Hydroxychloroquine Sulfate camilo e 1 tablet twice a day with food or milk Orally Active 200MG Orally bid Jordana Ede Weber Tizanidine HCl 1 tablet as nee ded Orally Active 2 MG Orally Three times a day [facility] Ede Weber Losartan 1 tablet Orally Active 50mg Orally Once a day Jordana Chau Weber NovoLog Mix 70/30 as directed Subcutaneous Active (70-30) 100 UNIT/ML Subcutaneous Jordana Ede Weber Benzonatate 1 capsule as needed Orally Active 100 MG Orally Three times a day Jordana Ede Weber Simvastatin 1 tablet in the ev ening Orally Active 10 MG Orally Once a day Jordana Ede Weber Coreg as directed Orally Active 6.25 MG Orally Jordana Chau Weber Bydureon as directed Subcutaneous Active 2 [...] Active 200 MG Orally BID Jordana Ede eWber Diazepam 1 tablet as needed Orally Active [...] Ede Weber penicillins Assertion Drug allergy Active [facility] Immunizations Immunization Date Given Site Status Last Updated Comments Source Flu Vaccine 02/11/2017 completed Ede Weber pneumococcal 13-valent vaccine 12/20/2016 Right deltoid completed Garc[facility] theast Results Order Name Results Value Reference Range Date Interpretation Comments Source BACTERIAL - SEROLOGY Strep pneumonia e Ag Negative (12/20/16 3:20 PM) Negative 12/20/2016 [facility] BACTERIAL - SEROLOGY Source Strep Urine *NA* (12/20/16 3:20 PM) 12/20/2016 [facility] CHEM PANEL Procalcitonin Lvl <0.05 0.00 - 0.10 12/20/2016 [facility] CHEM PANEL Lactic Acid Lvl 1.5 0.5 - 2.2 12/20/2016 [facility] CHEM PANEL eGFR 56 12/20/2016 Result [...] should be multiplied by the estimated BMI. [facility] CHEM PANEL Bili Total 0.5 0.2 - 1.3 12/20/2016 [facility] CHEM PANEL AGAP 13.0 10.0 - 20.0 12/20/2016 [facility] CHEM PANEL AST 16 0 - 37 12/20/2016 [facility] CHEM PANEL Alk Phos 33 39 - 136 12/20/2016 [facility] CHEM PANEL B/C Ratio 18 6 - 25 12/20/2016 [facility] CHEM PANEL A/G Ratio 1.1 0.7 - 1.6 12/20/2016 [facility] CHEM PANEL Globulin 3.6 2.7 - 4.2 12/20/2016 [facility] CHEM PANEL Potassium Lvl 4.0 3.5 - 5.1 12/20/2016 [facility] CHEM PANEL Chloride Lvl 101 95 - 109 12/20/2016 [facility] CHEM PANEL Sodium Lvl 136 135 - 145 12/20/2016 [facility] CHEM PANEL ALT 21 0 - 65 12/20/2016 [facility] CHEM PANEL Total Protein 7.4 6.4 - 8.4 12/20/2016 [facility] CHEM PANEL Albumin Lvl 3.8 3.5 - 5.0 12/20/2016 [facility] CHEM PANEL CO2 26 24 - 32 12/20/2016 [facility] CHEM PANEL Calcium Lvl 9.0 8.5 - 10.5 12/20/2016 [facility] CHEM PANEL BUN 18 7 - 22 12/20/2016 [facility] CHEM PANEL Creatinine Lvl 1.00 0.50 - 1.40 12/20/2016 [facility] CHEM PANEL Glucose Lvl 114 70 - 99 12/20/2016 [facility] HEMATOLOGY Monocytes # 0.9 0.0 - 0.8 12/20/2016 [facility] HEMATOLOGY Eosinophils # 0.1 0.0 - 0.5 12/20/2016 [facility] HEMATOLOGY Lymphocytes # 1.4 1.0 - 5.5 12/20/2016 [facility] HEMATOLOGY Basophils # 0.1 0.0 - 0.2 12/20/2016 [facility] HEMATOLOGY Basophils 0.8 0.0 - 1.0 12/20/2016 [facility] HEMATOLOGY Monocytes 9.1 2.0 - 12.0 12/20/2016 [facility] HEMATOLOGY Eosinophils 0.5 0.0 - 4.0 12/20/2016 [facility] HEMATOLOGY Segs-Bands # 7.6 1.5 - 8.1 12/20/2016 [facility] HEMATOLOGY Lymphocytes 14.3 20.0 - 40.0 12/20/2016 [facility] HEMATOLOGY Segs 75.3 45.0 - 75.0 12/20/2016 [facility] HEMATOLOGY RBC 4.47 4.20 - 5.40 12/20/2016 [facility] HEMATOLOGY Hgb 14.1 12.0 - 16.0 12/20/2016 [facility] HEMATOLOGY WBC 10.1 3.7 - 10.4 12/20/2016 [facility] HEMATOLOGY Hct 41.6 36.0 - 48.0 12/20/2016 [facility] HEMATOLOGY MCV 93.0 80.0 - 98.0 12/20/2016 [facility] HEMATOLOGY RDW 12.6 11.5 - 14.5 12/20/2016 [facility] MCH 31.5 27.0 - 31.0 12/20/2016 [facility] MCHC 33.8 32.0 - 36.0 12/20/2016 [facility] HEMATOLOGY Platelet 310 133 - 450 12/20/2016 [facility] HEMATOLOGY MPV 8.0 7.4 - 10.4 12/20/2016 [facility] Pathology Reports No Data Provided for This Section Diagnostic Reports Report Value Date Source Chest 1view DX Patient Name: Seamus WYATT : 1945; Age: 71 years Female MR: [id number] Study: Chest 1view DX Order Time: 12/20/2016 [...] lung. No significant change since 07/13/2008. SL: [id number] 12/20/2016 [facility] Consultation Notes No Data Provided for [...] 02/11/2017 Ede Weber Respitory Rate 18 12/22/2016 [facility] Systolic (mm Hg) 166 12/22/2016 [facility] Diastolic (mm Hg) 93 12/22/2016 [facility] Heart Rate 84 12/22/2016 [facility] Temperature Oral (F) 98.5 F 12/22/2016 [facility] Respitory Rate 18 12/22/2016 [facility] Temperature Oral (F) 98.8 F 12/22/2016 [facility] Systolic (mm Hg) 126 12/22/2016 [facility] Diastolic (mm Hg) 77 12/22/2016 [facility] Heart Rate 75 12/22/2016 [facility] Systolic (mm Hg) 150 12/22/2016 [facility] Diastolic (mm Hg) 77 12/22/2016 [facility] Respitory Rate 18 12/22/2016 [facility] Heart Rate 89 12/22/2016 [facility] Temperature Oral (F) 97.6 F 12/22/2016 [facility] Weight 75 0 12/20/2016 [facility] BMI Calculated 27.68 12/20/2016 [facility] Weight 75.455 12/20/2016 [facility] Height 165.1 cm 12/20/2016 [facility] Encounters Location Location Details Encounter Type Encounter Number Reason For Visit Attending Provider ADM Date DC Date Status Source Argelia Parada MD PA Unknown [id number] 01/24/20 16 01/24/2016 Argelia Parada [facility] Inpatient [id number] 12/20/2016 12/22/2016 [facility] Procedures Procedure Code Date Perfomer Comments Source Insertion of coronary artery stent [id number] 03/12/2012 [facility] Cataract surgery [id number] [facility] Colonoscopy [id number] [facility] st Esophagogastroduodenoscopy [phone] [facility] Assessment and Plan Assessment and Plan [...] discharge tomorrow depending on respiratory status 12/22/2016 [facility] Plan of Care No Data Provided [...] Yes. 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 Smoking Status Current every day smoker; Exposure to Tobacco Smoke None; Cigarette Smoking Last 365 Days Yes; Reg Smoking Cessation Counseling Yes1 1admission packet-red 07/31/19 14 [facility] Family History No Data Provided for This Section Advance Directives No Data Provided for This Section Functional Status No Data Provided for This Section
--- OUTSIDE RECORDS SUMMARY | 2019-09-29 05:16 | XMS REPORT | Clinical Summary ---
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 04/27/2019 Pure hypercholesterolemia 04/27/2019 Bronchospasm Hyperglycemia Anemia of chronic disease Resolved Problems Problem Noted Date Resolved Date Chest tube in place 06/16/2019 06/22/2019 Encounters Care Team Description Date Type Specialty Nahum Gatica MD Surgical follow-up care (Primary Dx) 07/14/2019 Office Visit Cardiology Marcell Allison MD 06/15/2019 Anesthesia Event Nahum Gatica MD BRONCHOSCOPY 06/15/2019 Surgery Nahum Gatica MD Merchant, Omar, MD Kim, Sung In, MD CAD in [place] artery; Non-small cell cancer of right lung (HCC); Malignant pleural effusion; Goals of care, counseling/discussion; Cancer associated pain; Slow transit constipation; Shortness of breath; Advance care planning; Palliative care by specialist 06/15/2019 Hospital Cardiology - Encounter 06/22/2019 Nahum Gatica MD 06/14/2019 Hospital Cardiology Encounter Nahum Gatica MD CAD in [place] artery 06/14/2019 Hospital Pre-Admission Testi ng Encounter [...] heart failure (HCC); Coronary artery disease involving [place] coronary artery of [place] heart, angina presence unspecified; Type 2 diabetes mellitus with other specified complication, with long-term current use of insulin (HCC) 04/27/2019 Hospital Cardiology - Encounter 04/28/2019 Nahum Gatica MD 04/26/2019 Hospital Encounter Nahum Gatica MD 04/26/2019 Hospital Pre-Admission Testi ng Encounter Donald Turk 04/26/2019 Outside Orders Antonia Davis, SANTANA 04/26/2019 Orders Only Cardiology 04/19/2019 Hospital Pre-Admission Testi ng Encounter after 09/28/2018 Family History Medical History Relation Name Comments [...] Taken Vital Sign Reading 07/14/2019 1:21 PM SECURITY TESTER Blood Pressure 105/59 07/14/2019 1:21 PM SECURITY TESTER Pulse 92 06/22/2019 7:50 AM SECURITY TESTER Temperature 36.6 C (97.8 F) 06/22/2019 8:10 AM SECURITY TESTER Respiratory Rate 18 06/22/2019 8:10 AM SECURITY TESTER Oxygen Saturation 98% 06/20/2019 9:13 AM SECURITY TESTER Inhaled Oxygen 32% Concentration 07/14/2019 1:21 PM SECURITY TESTER Weight 62.4 kg (137 lb 8 oz) 06/15/2019 6:00 AM SECURITY TESTER Height 165.1 cm (5' 5") 07/14/2019 1:21 PM SECURITY TESTER Body Mass Index 22.88 Plan of Treatment Health Maintenance Due Date Last Done Comments DIABETIC EYE EXAM 1955 DIABETIC FOOT EXAM 1955 MEDICARE ANNUAL WELLNESS 04/12/2009 (YEAR 2 or FIRST YEAR if no IPPE) PNEUMOCOCCAL 65+ 12/20/2017 12/20/2016 LOW/MEDIUM RISK (2 of 2 - PPSV23) HEMOGLOBIN A1C 04/27/2019 INFLUENZA VACCINE (Season 01/11/2020 Ended) Procedures Comments Procedure Name Priority Date/Time Associated Diag nosis RHYTHM STRIP - SCAN 06/23/2019 1:11 PM SECURITY TESTER POCT-GLUCOSE METER Routine 06/22/2019 8:01 AM SECURITY TESTER XR CHEST 1 VIEW Routine 06/22/2019 PORTABLE/BEDSIDE 5:46 AM SECURITY TESTER MAGNESIUM Routine 06/22/2019 3:25 AM SECURITY TESTER BASIC METABOLIC PANEL (7) Routine 06/22/2019 3:25 AM SECURITY TESTER POCT-GLUCOSE METER Routine 06/21/2019 9:41 PM SECURITY TESTER POCT-GLUCOSE METER Routine 06/21/2019 5:27 PM SECURITY TESTER POCT-GLUCOSE METER Routine 06/21/2019 12:37 PM SECURITY TESTER POCT-GLUCOSE METER Routine 06/21/2019 12:23 PM SECURITY TESTER POCT-GLUCOSE METER Routine 06/21/2019 8:09 AM SECURITY TESTER XR CHEST 1 VIEW Routine 06/21/2019 PORTABLE/BEDSIDE 5:28 AM SECURITY TESTER MAGNESIUM Routine 06/21/2019 4:29 AM SECURITY TESTER BASIC METABOLIC PANEL (7) Routine 06/21/2019 4:29 AM SECURITY TESTER CBC (HEMOGRAM ONLY) Routine 06/21/2019 4:29 AM SECURITY TESTER POCT-GLUCOSE METER Routine 06/20/2019 10:17 PM SECURITY TESTER POCT-GLUCOSE METER Routine 06/20/2019 5:33 PM SECURITY TESTER POCT-GLUCOSE METER Routine 06/20/2019 12:34 PM SECURITY TESTER POCT-GLUCOSE METER Routine 06/20/2019 8:35 AM SECURITY TESTER XR CHEST 1 VIEW Routine 06/20/2019 PORTABLE/BEDSIDE 2:41 AM SECURITY TESTER POCT-GLUCOSE METER Routine 06/19/2019 9:18 PM SECURITY TESTER POCT-GLUCOSE METER Routine 06/19/2019 6:24 PM SECURITY TESTER MR BRAIN WITH & WITHOUT CASSI 06/19/2019 IV CONTRAST 6:20 PM SECURITY TESTER POCT-GLUCOSE METER Routine 06/19/2019 12:57 PM SECURITY TESTER POCT-GLUCOSE METER Routine 06/19/2019 7:39 AM SECURITY TESTER CORTISOL Routine 06/19/2019 4:40 AM SECURITY TESTER ACTH Routine 06/19/2019 4:40 AM SECURITY TESTER TSH/FREE T4 IF INDICATED Routine 06/19/2019 4:40 AM SECURITY TESTER HIV-1 ANTIGEN WITH Routine 06/19/2019 HIV-1/2 ANTIBODY 4:40 AM SECURITY TESTER HEPATITIS PANEL, ACUTE Routine 06/19/2019 4:40 AM SECURITY TESTER XR CHEST 1 VIEW Routine 06/19/2019 PORTABLE/BEDSIDE 2:[address] ABDOMEN/PELVIS WITH IV Routine 06/18/2019 CONTRAST 9:[address] CHEST WITH IV CONTRAST Routine 06/18/2019 9:52 PM SECURITY TESTER POCT-GLUCOSE METER Routine 06/18/2019 9:11 PM SECURITY TESTER POCT-GLUCOSE METER Routine 06/18/2019 8:01 PM SECURITY TESTER POCT-GLUCOSE METER Routine 06/18/2019 12:13 PM SECURITY TESTER POCT-GLUCOSE METER Routine 06/18/2019 7:41 AM SECURITY TESTER CBC W/PLT COUNT & AUTO Routine 06/18/2019 DIFFERENTIAL 5:21 AM SECURITY TESTER BASIC METABOLIC PANEL (7) Routine 06/18/2019 5:21 AM SECURITY TESTER CBC W/PLT COUNT & AUTO Routine 06/18/2019 DIFFERENTIAL 5:21 AM SECURITY TESTER XR CHEST 1 VIEW Routine 06/18/2019 PORTABLE/BEDSIDE 5:04 AM SECURITY TESTER POCT-GLUCOSE METER Routine 06/17/2019 9:38 PM SECURITY TESTER POCT-GLUCOSE METER Routine 06/17/2019 6:08 PM SECURITY TESTER POCT-GLUCOSE METER Routine 06/17/2019 12:24 PM SECURITY TESTER INTRAOPERATIVE PATH 06/17/2019 REPORT - SCAN 10:00 AM SECURITY TESTER XR CHEST 1 VIEW Routine 06/17/2019 PORTABLE/BEDSIDE 5:12 AM SECURITY TESTER CBC W/PLT COUNT & AUTO Routine 06/17/2019 DIFFERENTIAL 3:54 AM SECURITY TESTER BASIC METABOLIC PANEL (7) Routine 06/17/2019 3:54 AM SECURITY TESTER CBC W/PLT COUNT & AUTO Routine 06/17/2019 DIFFERENTIAL 3:54 AM SECURITY TESTER POCT-GLUCOSE METER Routine 06/16/2019 10:00 PM SECURITY TESTER POCT-GLUCOSE METER Routine 06/16/2019 8:35 PM SECURITY TESTER POCT-GLUCOSE METER Routine 06/16/2019 6:22 PM SECURITY TESTER XR CHEST 1 VIEW Routine 06/16/2019 PORTABLE/BEDSIDE 5:22 AM SECURITY TESTER BLOOD GAS, ARTERIAL Routine 06/16/2019 5:04 AM SECURITY TESTER CBC W/PLT COUNT & AUTO Routine 06/16/2019 DIFFERENTIAL 4:31 AM SECURITY TESTER BASIC METABOLIC PANEL (7) Routine 06/16/2019 4:31 AM SECURITY TESTER CBC W/PLT COUNT & AUTO Routine 06/16/2019 DIFFERENTIAL 4:31 AM SECURITY TESTER MAGNESIUM Routine 06/16/2019 4:31 AM SECURITY TESTER TRANSFUSION SERVICE 06/15/2019 REPORT - SCAN 6:25 PM SECURITY TESTER XR CHEST 1 VIEW STAT 06/15/2019 PORTABLE/BEDSIDE 5:41 PM SECURITY TESTER CBC W/PLT COUNT & AUTO STAT 06/15/2019 DIFFERENTIAL 5:36 PM SECURITY TESTER PHOSPHORUS STAT 06/15/2019 5:36 PM SECURITY TESTER MAGNESIUM STAT 06/15/2019 5:36 PM SECURITY TESTER CBC W/PLT COUNT & AUTO STAT 06/15/2019 DIFFERENTIAL 5:36 PM SECURITY TESTER COMPREHENSIVE METABOLIC STAT 06/15/2019 PANEL 5:36 PM SECURITY TESTER BLOOD GAS, ARTERIAL STAT 06/15/2019 1:30 PM SECURITY TESTER MAGNESIUM STAT 06/15/2019 1:29 PM SECURITY TESTER PHOSPHORUS STAT 06/15/2019 1:29 PM SECURITY TESTER ECG 12-LEAD Routine 06/15/2019 12:18 PM SECURITY TESTER Procedure Note - Interface, External Ris In - 06/15/2019 11:20 AM SECURITY TESTER Ventricula r Rate 74 BPM Atrial Rate 74 BPM P-R Interval 158 ms QRS Duration 144 ms Q-T Interval 528 ms QTC Calculatio n(Bazett) 586 ms P [place] 58 degrees R [place] -77 degrees T [place] 8 degrees Normal sinus rhythm Right bundle branch block Left anterior fascicular block Bifascicul ar block Abnormal ECG When compared with ECG of 0 13:44, Nonspecifi c T wave abnormalit y, worse in Anterolate ral leads ECG 12-LEAD Routine 06/15/2019 12:18 PM SECURITY TESTER CALCIUM, IONIZED STAT 06/15/2019 11:21 AM SECURITY TESTER PT/APTT STAT 06/15/2019 11:21 AM SECURITY TESTER BASIC METABOLIC PANEL (7) STAT 06/15/2019 11:21 AM SECURITY TESTER CBC (HEMOGRAM ONLY) STAT 06/15/2019 11:21 AM SECURITY TESTER XR CHEST 1 VIEW STAT 06/15/2019 PORTABLE/BEDSIDE 11:15 AM SECURITY TESTER SURGICALLY OBTAINED Routine 06/15/2019 CULTURE + GRAM STAIN 9:58 AM SECURITY TESTER FUNGUS CULTURE + SMEAR Routine 06/15/2019 9:58 AM SECURITY TESTER ANAEROBIC CULTURE Routine 06/15/2019 9:58 AM SECURITY TESTER AFB CULTURE + SMEAR Routine 06/15/2019 (NON-SPUTUM) 9:58 AM SECURITY TESTER TISSUE EXAM AP Routine 06/15/2019 9:30 AM SECURITY TESTER CYTOLOGY AP Routine 06/15/2019 9:12 AM SECURITY TESTER FUNGUS CULTURE + SMEAR Routine 06/15/2019 9:06 AM SECURITY TESTER BODY FLUID CULTURE + GRAM Routine 06/15/2019 STAIN 9:06 AM SECURITY TESTER ANAEROBIC CULTURE Routine 06/15/2019 9:06 AM SECURITY TESTER AFB CULTURE + SMEAR Routine 06/15/2019 (NON-SPUTUM) 9:06 AM SECURITY TESTER FUNGUS CULTURE + SMEAR Routine 06/15/2019 8:10 AM SECURITY TESTER AFB CULTURE + SMEAR Routine 06/15/2019 (NON-SPUTUM) 8:10 AM SECURITY TESTER SPIN/CONCENTRATION CHARGE Routine 06/15/2019 8:10 AM SECURITY TESTER BRONCHIAL CULTURE + GRAM Routine 06/15/2019 STAIN 8:10 AM SECURITY TESTER HGB/HCT (H&H) - STAT LAB STAT 06/15/2019 7:51 AM SECURITY TESTER GLUCOSE-STAT LAB STAT 06/15/2019 7:51 AM SECURITY TESTER POTASSIUM-STAT LAB STAT 06/15/2019 7:51 AM SECURITY TESTER SODIUM NA-STAT LAB STAT 06/15/2019 7:51 AM SECURITY TESTER BLOOD GAS, ARTERIAL STAT 06/15/2019 7:51 AM SECURITY TESTER CALCIUM, IONIZED STAT 06/15/2019 7:51 AM SECURITY TESTER RRL CRITICAL LABS STAT 06/15/2019 (ABG,NA,K,H&H,GLUCOSE) 7:51 AM SECURITY TESTER THORACOTOMY 06/15/2019 Mass of right lung 7:30 AM SECURITY TESTER Case Notes 4 HRS THORACOSCOPY (VATS),LUNG 06/15/2019 Mass of righ t lung BIOPSY 7:30 AM SECURITY TESTER Case Notes 4 HRS BRONCHOSCOPY 06/15/2019 Mass of right lung 7:30 AM SECURITY TESTER Case Notes 4 HRS POCT-GLUCOSE METER Routine 06/15/2019 6:03 AM SECURITY TESTER CBC W/PLT COUNT & AUTO Routine 06/14/2019 DIFFERENTIAL 1:52 PM SECURITY TESTER TYPE AND SCREEN, Routine 06/14/2019 AUTOMATED 1:52 PM SECURITY TESTER PT/APTT Routine 06/14/2019 1:52 PM SECURITY TESTER COMPREHENSIVE METABOLIC Routine 06/14/2019 PANEL 1:52 PM SECURITY TESTER CBC W/PLT COUNT & AUTO Routine 06/14/2019 DIFFERENTIAL 1:52 PM SECURITY TESTER ECG 12-LEAD Routine 06/14/2019 1:44 PM SECURITY TESTER Procedure Note - Interface, External Ris In - 06/14/2019 5:56 PM SECURITY TESTER Ventricula r Rate 94 BPM Atrial Rate 94 BPM P-R Interval 148 ms QRS Duration 132 ms Q-T Interval 436 ms QTC Calculatio n(Bazett) 545 ms P [place] 61 degrees R [place] -64 degrees T [place] 64 degrees Normal sinus rhythm Right bundle branch block Left anterior fascicular block Bifascicul ar block Abnormal ECG When compared with ECG of 9 13:41, No significan t change was found ECG 12-LEAD Routine 06/14/2019 1:44 PM SECURITY TESTER INTRAOPERATIVE PATH 04/30/2019 REPORT - SCAN 1:04 PM SECURITY TESTER INTRAOPERATIVE PATH 04/30/2019 REPORT - SCAN 1:04 PM SECURITY TESTER RHYTHM STRIP - SCAN 04/30/2019 9:10 AM SECURITY TESTER TRANSFUSION SERVICE 04/28/2019 REPORT - SCAN 6:00 PM SECURITY TESTER POCT-GLUCOSE METER Routine 04/28/2019 8:11 AM SECURITY TESTER PHOSPHORUS Routine 04/28/2019 5:01 AM SECURITY TESTER MAGNESIUM Routine 04/28/2019 5:01 AM SECURITY TESTER BASIC METABOLIC PANEL (7) Routine 04/28/2019 5:01 AM SECURITY TESTER CBC (HEMOGRAM ONLY) Routine 04/28/2019 5:01 AM SECURITY TESTER POCT-GLUCOSE METER Routine 04/27/2019 8:28 PM SECURITY TESTER POCT-GLUCOSE METER Routine 04/27/2019 6:34 PM SECURITY TESTER TRANSFUSION SERVICE 04/27/2019 REPORT - SCAN 6:05 PM SECURITY TESTER XR CHEST 1 VIEW Routine 04/27/2019 PORTABLE/BEDSIDE 12:57 PM SECURITY TESTER SURGICALLY OBTAINED STAT 04/27/2019 CULTURE + GRAM STAIN 11:22 AM SECURITY TESTER AFB CULTURE + SMEAR STAT 04/27/2019 (NON-SPUTUM) 11:22 AM SECURITY TESTER ANAEROBIC CULTURE STAT 04/27/2019 11:22 AM SECURITY TESTER FUNGUS CULTURE + SMEAR STAT 04/27/2019 11:22 AM SECURITY TESTER TISSUE EXAM AP Routine 04/27/2019 11:15 AM SECURITY TESTER CYTOLOGY STAT 04/27/2019 11:00 AM SECURITY TESTER BRONCHIAL CULTURE + GRAM STAT 04/27/2019 STAIN 10:57 AM SECURITY TESTER MEDIASTINOSCOPY 04/27/2019 Lung mass 8:30 AM SECURITY TESTER Case Notes REQ 3 HRS BRONCHOSCOPY 04/27/2019 Lung mass 8:30 AM SECURITY TESTER Case Notes REQ 3 HRS ABORH, MANUAL STAT 04/27/2019 7:31 AM SECURITY TESTER POCT-GLUCOSE METER Routine 04/27/2019 6:09 AM SECURITY TESTER ECG 12-LEAD Routine 04/26/2019 1:41 PM SECURITY TESTER Procedure Note - Interface, External Ris In - 04/26/2019 5:30 PM SECURITY TESTER Ventricula r Rate 90 BPM Atrial Rate 90 BPM P-R Interval 142 ms QRS Duration 128 ms Q-T Interval 432 ms QTC Calculatio n(Bazett) 528 ms P [place] 61 degrees R [place] -67 degrees T [place] 51 degrees Normal sinus rhythm Right bundle branch block Left anterior fascicular block Bifascicul ar block Abnormal ECG No previous ECGs available ECG 12-LEAD Routine 04/26/2019 1:41 PM SECURITY TESTER XR CHEST 2 VIEWS Routine 04/26/2019 1:36 PM SECURITY TESTER CBC W/PLT COUNT & AUTO Routine 04/26/2019 DIFFERENTIAL 12:42 PM SECURITY TESTER TYPE AND SCREEN, Routine 04/26/2019 AUTOMATED 12:42 PM SECURITY TESTER COMPREHENSIVE METABOLIC Routine 04/26/2019 PANEL 12:42 PM SECURITY TESTER CBC W/PLT COUNT & AUTO Routine 04/26/2019 DIFFERENTIAL 12:42 PM SECURITY TESTER after 09/28/2018 Results * RHYTHM STRIP - SCAN (06/23/2019 1:11 PM SECURITY TESTER) Only the most recent of 2 results within the time period is included. Narrative Performed At This result has an attachment that is n ot available. * POC-Glucose meter (06/22/2019 8:01 AM SECURITY TESTER) Only the most recent of 29 results within the time period is included. POC-Glucose Meter 215 (H)Comment: : TESTED AT 70 - 110 mg/dL [address] [address]: Remote Computer Terminal Operator/Senior Ux Designer ID = [id number] for SUZANNE FRIEDMAN Specimen Blood Performing Organization Address City/State/Zipcode Ph one Number [address] [facility] * XR chest 1 view portable / bedside (06/22/2019 5:46 AM SECURITY TESTER) Only the most recent of 10 results within the time period is included. Specimen Narrative Performed At FINAL REPORT [facility] RAD, CHEST, 1 VIEW, NON DEPT INDICATION: [...] Report Verified Date/Time: 0 07:19:39 Reading Location: [facility] Reading Room Procedure Note Interface, External Ris In - 06/22/2019 7:21 AM SECURITY TESTER FINAL REPORT RAD, CHEST, 1 VIEW, NON [...] Report Verified Date/Time: 06/22/2019 07:19:39 Reading Location: [facility] Radiology Reading Room Performing Organization Address City/[facility] Ph one Number GE RIS * Magnesium (06/22/2019 3:25 AM SECURITY TESTER) Only the most recent of 6 results within the time period is included. Magnesium 1.9Comment: Specimen slightly 1.6 - 2.6 mg/dL [facility] hemolyzed [facility] Specimen Blood Narrative Performed At Remote Computer Terminal Operator ID - GALAP [facility] Performing Organization Address [facility] [facility] Ph one Number [address] [facility] * Basic Metabolic Panel (06/22/2019 3:25 AM SECURITY TESTER) Only the most recent of 7 results within the time period is included. Sodium 137 136 - 145 meq/L [facility] Potassium 4.4Comment: Specimen slightly 3.5 - 5.1 meq/L [facility] Chloride 97 (L) 98 - 107 meq/L [facility] CO2 31 (H) 22 - 29 meq/L [facility] BUN 17 7 - 21 mg/dL [facility] Creatinine 0.76Comment: Specimen slightly 0.57 - 1.25 mg/ dL [facility] Glucose 168 (H) 70 - 105 mg/dL [facility] Calcium 9.0 8.4 - 10.2 mg/dL [facility] EGFR 74Comment: ESTIMATED GFR IS mL/min/1.[address] [facility] NOT ACCURATE CREATININE [facility] CLEARANCE IN PREDICTING GLOMERULAR FILTRATION RATE. ESTIMATED GFR IS NOT APPLICABLE FOR DIALYSIS PATIENTS. Specimen Blood Narrative Performed At Remote Computer Terminal Operator ID - GALAP [facility] Performing Organization Address City/State/Zipcode Ph one Number [place] [address] [facility] * CBC (Hemogram only) (06/21/2019 4:29 AM SECURITY TESTER) Only the most recent of 3 results within the time period is included. WBC 5.7 3.5 - 10.5 K/L [facility] RBC 3.08 (L) 3.93 - 5.22 M/L [facility] Hemoglobin 9.1 (L) 11.2 - 15.7 GM/DL [facility] Hematocrit 28.9 (L) 34.1 - 44.9 % [facility] MCV 93.8 79.4 - 94.8 fL [facility] MCH 29.5 25.6 - 32.2 pg [facility] MCHC 31.5 (L) 32.2 - 35.5 GM/DL [facility] RDW 16.6 (H) 11.7 - 14.4 % [facility] Platelets 244 150 - 450 K/CU MM [facility] MPV 10.3 9.4 - 12.3 fL [facility] nRBC 0 0 - 0 /100 WBC [facility] Specimen Blood Performing Organization Address City/State/Zipcode Ph one Number [place] [id number] [place], [place] [address] [facility] * MR brain without & with IV contrast (06/19/2019 6:20 PM SECURITY TESTER) Specimen Narrative Performed At FINAL REPORT [employer] RIS Exam: MRI brain with and without contra st Comparison:None. Reason for exam: new dx stage 4 SCC of lung, staging Discussion: Multiplanar MR imaging of t he brain was provided yaf-xht-rily IV gadolinium administrati on using T1, T2, [...] External Ris In - 06/19/2019 11:51 PM SECURITY TESTER FINAL REPORT Exam: MRI brain with and without contrast Comparison: None. Reason for exam: new dx stage 4 SCC of lung, staging Discussion: Multiplanar MR imaging of the brain was provided jlp-ljv-lpol IV gadolinium administration using T1, T2, FLAIR, [...] Verified Date/Time: 06/19/2019 23:48:56 Performing Organization Address City/[facility] [facility] Ph one Number GE RIS * Cortisol (06/19/2019 4:40 AM SECURITY TESTER) Cortisol, Total 8.0 3.7 - 19.4 ug/dL [facility] Specimen Blood Narrative Performed At Remote Computer Terminal Operator ID - JAMAR Carrillo [facility] Performing Organization Address City/[facility] Ph one Number [address] 0 [phone] [place] [address] * TSH/Free T4 If Indicated (06/19/2019 4:40 AM SECURITY TESTER) TSH 2.82 0.35 - 4.94 uIU/mL [facility] Specimen Blood Narrative Performed At Remote Computer Terminal Operator ID - BREANNA Lugo [facility] Performing Organization Address [facility] [facility]erc[facility] Ph one [address] [place] [address] * HIV-1 Antigen with HIV-1/2 Antibody (06/19/2019 4:40 AM SECURITY TESTER) HIV-1 Antigen with HIV Nonreactive Nonreactive [facility] 1&2 Antibody [facility] Specimen Blood Narrative Performed At Remote Computer Terminal Operator ID - BREANNA Lugo [facility] Performing Organization Address City/[facility] Ph one [place] [phone] [phone] [place] [address] * Hepatitis panel, acute (06/19/2019 4:40 AM SECURITY TESTER) Hep A IgM Nonreactive Nonreactive [facility] Hep B C IgM Nonreactive Nonreactive [facility] Hepatitis C Ab Nonreactive Nonreactive [facility] HBsAg Screen Nonreactive Nonreactive [facility] Specimen Blood Narrative Performed At Remote Computer Terminal Operator ID - BREANNA Lugo [facility] Performing Organization Address City/[facility] Ph one [place] [phone] [place] [address] * ACTH (06/19/2019 4:40 AM SECURITY TESTER) ACTH 8 6 - 50 pg/mL [facility] Comment: [facility] Reference range applies only to the specimens collected between 7am-10am. Specimen Blood Narrative Performed At Performing Lab [facility] [employer] [facility] itute [phone] [place] [id number] Mahesh Rosales MD, PhD, STACY Performing Organization Address City/[facility] Ph one Number [facility], [address] [facility] [address] * CT abdomen/pelvis with IV contrast (06/18/2019 9:52 PM SECURITY TESTER) Specimen Narrative Performed At FINAL REPORT [facility] [employer] TECHNIQUE: CT of the chest, abdomen, an [...] attenuation and homogeneous. These are unchanged from . Old, healed left proximal humeral fracture. [...] Report Verified Date/Time: 0 10:09:57 Reading Location: [facility] B1 C013Y CT Body Reading Room Procedure Note Interface, External Ris In - 06/19/2019 10:12 AM SECURITY TESTER FINAL REPORT TECHNIQUE: CT of the chest, [...] Report Verified Date/Time: 06/19/2019 10:09:57 Reading Location: [facility] B1 C013Y CT Body Reading Room Performing Organization Address City/State/Zipcode Ph one Number [place] * CT chest with IV contrast (06/18/2019 9:52 PM SECURITY TESTER) Specimen Narrative Performed At FINAL REPORT [place] TECHNIQUE: CT of the chest, abdomen, an [...] Verified Date/Time: 0 10:09:57 Reading Location: [facility] C013Y CT Body Reading Room Procedure Note Interface, External Ris In - 06/19/2019 10:12 AM SECURITY TESTER FINAL REPORT TECHNIQUE: CT of the chest, [...] Verified Date/Time: 06/19/2019 10:09:57 Reading Location: [facility] C013Y CT Body Reading Room Performing Organization Address City/State/Zipcode Ph one Number GE RIS * CBC with platelet count + automated diff (06/18/2019 5:21 AM SECURITY TESTER) Only the most recent of 6 results within the time period is included. WBC 7.4 3.5 - 10.5 K/L [facility] RBC 3.03 (L) 3.93 - 5.22 M/L [facility] Hemoglobin 8.9 (L) 11.2 - 15.7 GM/DL [facility] Hematocrit 28.2 (L) 34.1 - 44.9 % [facility] MCV 93.1 79.4 - 94.8 fL [facility] MCH 29.4 25.6 - 32.2 pg [facility] MCHC 31.6 (L) 32.2 - 35.5 GM/DL [facility] RDW 16.8 (H) 11.7 - 14.4 % [facility] Platelets 226 150 - 450 K/CU MM [facility] MPV 10.4 9.4 - 12.3 fL [facility] nRBC 0 0 - 0 /100 WBC [facility] % Neutros 77 % [facility] % Lymphs 8 % [facility] % Monos 12 % [facility] % Eos 2 % [facility] % Baso 1 % [facility] # Neutros 5.70 1.56 - 6.13 K/L [facility] # Lymphs 0.56 (L) 1.18 - 3.74 K/L [facility] # Monos 0.90 (H) 0.24 - 0.36 K/L [facility] # Eos 0.16 0.04 - 0.36 K/L [facility] # Baso 0.04 0.01 - 0.08 K/L [facility] Immature 1 0 - 1 % [facility] Granulocytes-Relative [facility] Specimen Blood Performing Organization Address City/[facility] Ph one Number [address] [facility] * INTRAOPERATIVE PATH REPORT - SCAN (06/17/2019 10:00 AM SECURITY TESTER) Only the most recent of 3 results within the time period is included. Narrative Performed At This result has an attachment that is n ot available. * Blood gas, arterial (06/16/2019 5:04 AM SECURITY TESTER) Only the most recent of 3 results within the time period is included. pH, Arterial 7.38 7.35 - 7.45 [facility] pCO2, Arterial 42 35 - 45 mmHg [facility] pO2, Arterial 121 (H) 80 - 90 mmHg [facility] O2 Sat, Arterial 98.4 (H) 96.0 - 97.0 % [facility] HCO3, Arterial 25 21 - 29 mmol/L [facility] Base Excess, Arterial -0.6 -2.0 - 3.0 mmol/L [facility] Patient Temperature 36.6 C [facility] FIO2 44.0 % [facility] Specimen Blood, Arterial Performing Organization Address City/[facility] one Number [address] [facility] * TRANSFUSION SERVICE REPORT - SCAN (06/15/2019 6:25 PM SECURITY TESTER) Only the most recent of 3 results within the time period is included. Narrative Performed At This result has an attachment that is n ot available. * Phosphorus (06/15/2019 5:36 PM SECURITY TESTER) Only the most recent of 3 results within the time period is included. Phosphorus 4.3Comment: Specimen slightly 2.3 - 4.7 mg/dL [facility] Specimen Blood Narrative Performed At Remote Computer Terminal Operator ID - [id number] [facility] Performing Organization Address City/State/Zipcode Ph one Number [facility] [address] [place], [place] [address] [facility] * Comprehensive metabolic panel (06/15/2019 5:36 PM SECURITY TESTER) Only the most recent of 3 results within the time period is included. Protein, Total 6.6Comment: Specimen slightly 6.0 - 8.3 gm/dL [facility] Albumin 3.4 (L)Comment: Specimen 3.5 - 5.0 g/dL [facility] Al[facility]aline Phosphatase 37 (L) 40 - 150 U/L [facility] Total Bilirubin 0.8Comment: Specimen slightly 0.2 - 1.2 mg/dL [facility] Sodium 141 136 - 145 meq/L [facility] Potassium 5.1Comment: Specimen slightly 3.5 - 5.1 meq/L [facility] Chloride 107 98 - 107 meq/L [facility] CO2 22 22 - 29 meq/L [facility] BUN 18 7 - 21 mg/dL [facility] Creatinine 0.88Comment: Specimen slightly 0.57 - 1.25 mg/ dL [facility] Glucose 250 (H) 70 - 105 mg/dL [facility] Calcium 9.1 8.4 - 10.2 mg/dL [facility] AST 26Comment: Specimen slightly 5 - 34 U/L C [facility] hemolyzed [facility] ALT 14Comment: Specimen slightly 6 - 55 U/L C [facility] hemolyzed [facility] EGFR 62Comment: ESTIMATED GFR IS mL/min/1.[address] [facility] NOT ACCURATE CREATININE [facility] CLEARANCE IN PREDICTING GLOMERULAR FILTRATION RATE. ESTIMATED GFR IS NOT APPLICABLE FOR DIALYSIS PATIENTS. Specimen Blood Narrative Performed At Remote Computer Terminal Operator ID - [id number] [facility] Performing Organization Address City/State/Zipcode Ph one Number [place] [address] [facility] * ECG 12 lead (06/15/2019 12:18 PM SECURITY TESTER) Only the most recent of 3 results within the time period is included. Specimen Narrative Performed At Ventricular Rate 74 BPM GE MUSE Atrial Rate 74 BPM P-R Interval 158 ms QRS Duration 144 ms Q-T Interval 528 ms QTC Calculation(Bazett) 586 ms P [place] 58 degrees R [place] -77 degrees T [place] 8 degrees Normal sinus rhythm Right bundle branch block Left anterior fascicular block Bifascicular block Nonspecific T wave abnormality Prolonged QT Abnormal ECG When compared with ECG of 14-JUN-2019 1 3:44, Nonspecific T wave abnormality, worse i n Anterolateral leadsand inferior leads Confirmed by MD MELÉNDEZ YOCHAI ([id number] ) on 06/15/2019 1:39:26 PM Procedure Note Interface, External Ris In - 06/15/2019 1:39 PM SECURITY TESTER Ventricular Rate 74 BPM Atrial Rate 74 BPM P-R Interval 158 ms QRS Duration 144 ms Q-T Interval 528 ms QTC Calculation(Bazett) 586 ms P [place] 58 degrees R [place] -77 degrees T [place] 8 degrees Normal sinus rhythm Right bundle branch block Left anterior fascicular block Bifascicular block Nonspecific T wave abnormality Prolonged QT Abnormal ECG When compared with ECG of 14-JUN-2019 13:44, Nonspecific T wave abnormality, worse in Anterolateral leads and inferior leads Confirmed by MD MELÉNDEZ YOCHAI ([id number]) on 06/15/2019 1:39:26 PM Performing Organization Address City/State/[facility] one Number [facility] * PT/aPTT (06/15/2019 11:21 AM SECURITY TESTER) Only the most recent of 2 results within the time period is included. Protime 16.3 (H) 11.9 - 14.2 seconds [facility] INR 1.4 <=5.9 [facility] PTT 31.7 22.5 - 36.0 seconds [facility] Specimen Blood Narrative Performed At Effective 10/07/2018: PT Reference Range Change [facility] New: 11.9-14.2Previous: 11.7-14.7 [facility] MEDICAL NTER RECOMMENDED COUMADIN/WARFARIN INR THERA PY RANGES STANDARD DOSE: 2.0-3.0Includes: PRO PHYLAXIS for venous thrombosis, systemic embolization; TREATMENT for venous thro mbosis and/or pulmonary embolus. HIGH RISK: Target INR is 2.5-3.5 for pa tients wiht mechanical heart valves. Performing Organization Address [facility] Ph one Number [place] [address] [facility] * Calcium, Ionized (06/15/2019 11:21 AM SECURITY TESTER) Only the most recent of 2 results within the time period is included. Calcium, Ion 0.95 (L) 1.12 - 1.27 mmol/L [facility] pH, Blood 7.35 [facility] Specimen Blood Performing Organization Address [facility] Ph one Number [facility] [address] [place], [place] [address] [facility] * AFB culture + smear (non-sputum) (06/15/2019 9:58 AM SECURITY TESTER) Only the most recent of 4 results within the time period is included. Result No acid-fast bacilli isolated [facility] in 42 days [facility] AFB Smear No acid fast bacilli seen [facility] Specimen Tissue Performing Organization Address City/[facility] one Number [address] [facility] * Anaerobic culture (06/15/2019 9:58 AM SECURITY TESTER) Only the most recent of 3 results within the time period is included. Result No anaerobes isolated [facility] Specimen Tissue Performing Organization Address [facility] one Number [address] [facility] * Surgically obtained culture + gram stain (06/15/2019 9:58 AM SECURITY TESTER) Only the most recent of 2 results within the time period is included. Result No growth [facility] Gram Stain Result No white blood cells seen [facility] Gram Stain Result No organisms seen [facility] Specimen Tissue Performing Organization Address [facility] one Number [address] [facility] * Fungus culture + smear (06/15/2019 9:58 AM SECURITY TESTER) Only the most recent of 4 results within the time period is included. Result No fungus isolated in [address] [facility] Fungus Smear No fungi seen [facility] Specimen Tissue Performing Organization Address [facility] one Number [address] [facility] * Tissue Exam (06/15/2019 9:30 AM SECURITY TESTER) Only the most recent of 2 results within the time period is included. Case Report Surgical Pathology [facility] Case: [id number] Authorizing Provider:Nahum Gatica, Collected: 06/15/2019 0930 Ordering Location: [facility] Received: 06/15/2019 0996 PERIOPERATIVE SERVICES Pathologist: Ashley Joyce MD Specimens: A) - Mass, RIGHT LUNG MASS B) - Mass, RIGHT LUNG MASS ADDENDUM This addendum is being issued [facility] to report results of PDL-1 [facility] immunostain performed at [employer]. RESULT: PDL-1 (22C3 clone): EXPRESSED (2+ intensity in 1% of tumor cells) Please see attached scanned report for further details. DIAGNOSIS A. LUNG, RIGHT, MASS FOR [facility] FROZEN SECTION: [facility] - INVASIVE POORLY DIFFERENTIATED SQUAMOUS CELL CARCINOMA B. LUNG, RIGHT, MASS FOR PERMANENT SECTION: - INVASIVE POORLY DIFFERENTIATED SQUAMOUS CELL CARCINOMA Signing Pathologist Direct Phone Line: [phone] COMMENT B. Immunostain for p40 is [facility] positive, supporting the above [facility] diagnosis. CPT Code(s) 25379Q3 [facility] [address] [facility] [address] CLINICAL HISTORY Preop diagnosis: Mass of [facility] right lung [facility] SPECIMEN SOURCE Right lung mass [facility] GROSS DESCRIPTION A. Received fresh for frozen [facility] section, labeled with the [facility] patient's name, accession number and "right [...] B1. CYB/ew INTRAOPERATIVE A. LUNG, RIGHT, MASS: [facility] EALT CONSULTATION - SQUAMOUS CELL CARCINOMA [facility] Reported by Dr. Joyce to Dr. Gatica on 06/15/19 at 0952. SPECIAL STUDIES The interpretation of this [facility] case included the use of [facility] immunohistochemistry or special stains. Control Slides Examined: In-house known positive controls were evaluated along with the test tissue. These control slides run alongside of the patients sample show appropriate staining. Internal positive and negative controls when available are evaluated Immunohistochemistry technical testing was performed at [facility], Pathology Laboratory where it was developed and [...] Performing Organization Address City/State/Zipcode Ph one Number [facility] [address] [place] [address] [facility] * Cytology (06/15/2019 9:12 AM SECURITY TESTER) Only the most recent of 2 results within the time period is included. Case Report Medical Cytology [facility] H Report [facility] Case: [id number] Authorizing Provider:Nahum Gatica, Collected: 06/15/201912 Ordering Location: [facility] Received: 06/15/2019 0933 PERIOPERATIVE SERVICES Pathologist: Ac Tipton MD Specimen:Pleural DIAGNOSIS PLEURAL FLUID LATERALITY NOT [facility] SPECIFIED (CYTOSPINS AND CELL [facility] BLOCK): - POSITIVE FOR MALIGNANCY - POORLY DIFFERENTIATED SQUAMOUS CELL CARCINOMA Signing Pathologist Direct Phone Line: [phone] COMMENT There are rare malignant cells [facility] in a background of reactive [facility] mesothelial cells and lymphoid inflammation. The tumor cells are positive for p40 and negative for TTF-1. CPT Code(s) 21821, 90830, 88733, 27358 [facility] CLINICAL DATA Bilateral pleural effusions, [facility] history of benign left lung [facility] tumor resection, and a new right lung masswith mediastinal adenopathy (squamous cell carcinoma diagnosed at frozen section). SPECIMEN SOURCE PLEURAL FLUID LATERALITY NOT [facility] SPECIFIED [facility] GROSS DESCRIPTION 300 mls zully; 4 cytospins, [facility] cell block (collodion bag) [facility] Collected: [id number] Received: [id number] STATEMENT OF ADEQUACY Satisfactory [facility] ALTH [facility] SPECIAL STUDIES The interpretation of this [facility] case included the use of [facility] immunohistochemistry or special stains. Control Slides Examined: In-house known positive controls were evaluated along with the test tissue. These control slides run alongside of the patients sample show appropriate staining. Internal positive and negative controls when available are evaluated Immunohistochemistry technical testing was performed at [facility], Pathology Laboratory where it was developed and [...] complexity clinical laboratory testing. Gross assessment was [facility] performed at [place], Department of [facility] TER Pathology, [address] [place] [address], Technical component was [facility] performed at [place], Department of [facility] TER Pathology, [address] [place] [phone], Professional component [facility] was performed at [place], Department of [facility] TER Pathology, [address] [place] [phone], Specimen Body Fluid Narrative Performed At This result has an attachment that is n ot available. Performing Organization Address City/State/[facility] Ph one Number [place] [address] [facility] * Body fluid culture + gram stain (06/15/2019 9:06 AM SECURITY TESTER) Result No growth [facility] Gram Stain Result <1+ WBCs [facility] Gram Stain Result No organisms seen [facility] Specimen Body Fluid Performing Organization Address City/[facility] Ph one Number [address] [facility] * SPIN/CONCENTRATION CHARGE (06/15/2019 8:10 AM SECURITY TESTER) Concentration charged Done [facility] Specimen Bronch Washing Performing Organization Address [facility] Ph one Number [address] 0 [phone] [place] [address] * Bronchial culture + gram stain (06/15/2019 8:10 AM SECURITY TESTER) Only the most recent of 2 results within the time period is included. Result No growth [facility] Gram Stain Result 3+ WBCs [facility] Gram Stain Result No organisms seen [facility] Specimen Bronch Washing Performing Organization Address [facility] Ph one Number [address] 7[address] 0 [phone] [place] [address] * Potassium-Stat Lab (06/15/2019 7:51 AM SECURITY TESTER) Potassium 4.0 3.6 - 5.5 meq/L [facility] Specimen Blood, Arterial Performing Organization Address [facility] Ph one Number [address] 0 [phone] [place] [address] * Sodium Na-Stat Lab (06/15/2019 7:51 AM SECURITY TESTER) Sodium 137 135 - 148 meq/L [facility] Specimen Blood, Arterial Performing Organization Address [facility] Ph one Number [address] 0 [phone] [place] [address] * Glucose-Stat Lab (06/15/2019 7:51 AM SECURITY TESTER) Glucose 212 (H) 70 - 110 mg/dL [facility] Specimen Blood, Arterial Performing Organization Address [facility]/Zipcode Ph one Number [place] [address] [address] [phone] [place] [address] * HGB/HCT (H&H)-Stat Lab (06/15/2019 7:51 AM SECURITY TESTER) Hemoglobin 9.2 (L) 12.0 - 15.0 g/dL [facility] Hematocrit 27.0 (L) 36.0 - 45.0 % [facility] Specimen Blood, Arterial Performing Organization Address [facility] one Number [place] [phone] [place] [address] * Type and screen, automated (06/14/2019 1:52 PM SECURITY TESTER) Only the most recent of 2 results within the time period is included. ABO/RH AUTOMATED (BEAKER) A POSITIVE [facility] Ab Scrn NEGATIVE [facility] Specimen Blood Performing Organization Address [facility] one Number [phone] * JAYLAN, manual (04/27/2019 7:31 AM SECURITY TESTER) ABO Grouping A [facility] Rh Factor POS [facility] Specimen Blood Performing Organization Address [facility] one [address] * XR chest 2 views (04/26/2019 1:36 PM SECURITY TESTER) Specimen Narrative Performed At FINAL REPORT [facility] INDICATION: baseline for surgery COMPARISON: None TECHNIQUE: [...] External Ris In - 04/26/2019 1:43 PM SECURITY TESTER FINAL REPORT INDICATION: baseline for surgery COMPARISON: [...] City/State/Zipcode Ph one Number [facility] RIS after 09/28/2018 Insurance Payer Benefit Subscriber ID Type Phone Address Plan / Group MEDICARE MEDICARE A xxxxxxxxxxx Medicare B xxxxxxxxxxx Other Govt FOR LIFE (, [place], [facility], etc.) [phone] Advance Directives For more information, please contact: [address] [address] Date Inactivated Comments Code Status Date Activated 06/22/2019 2:16 PM Full Code 06/15/2019 6:42 AM This code status was determined by: Patient 04/28/2019 1:44 PM Full Code 04/27/2019 7:07 AM This code status was determined by: Patient
--- OUTSIDE RECORDS SUMMARY | 2019-09-29 05:17 | XMS REPORT ---
Author Author [facility] t Organization [facility] t Address [address] [place] [address] Phone Unavailable Care Team Providers Care Cement Patcher Name Role Phone MD CRISTINA BEAUCHAMP PCP Don DHILLON Attphys Unavailable JULES GATICA Attphys Unavailable JANICE JUDGE Attphys Unavailable CRISTINA BEAUCHAMP Attphys Unavailable Brittney RIVERA Attphys Unavailable JENNIFER JUARES Attphys Unavailable VIV POLLOCK Attphys Unavailable JULES GATICA Admphys Unavailable Payers Payer Name Policy Type Policy Number Effective Date Expiration Date S ource Advance Directives Directive Decision Effective Date Termination Date Comments Sour ce Yes N/A [facility] Problems Condition Name Condition Details Condition Category Status Onset Date Resolution Date Last Treatment Date Treating Clinician Comments Source Contusion Problem [facility] Allergies, Adverse Reactions, Alerts Allergy Name Allergy Type Status Severity Reaction(s) Onset Date Inacti ve Date Treating Clinician Comments Source atorvastatin calcium DA Active SV 2015-08-07 00:00:00 [facility] Penicillins DA Active U 2015-08-07 00:00:00 [facility] PENICILLIN Allergy to substance Active 2015-06-07 00:00:00 [facility] Social History Social Habit Start Date Stop Date Quantity Comments Source Sex Ass[birth year] At 1945 00:00:00 1945 00:[birth year]:00 Female [facility] Medications Ordered Medication Name Filled Medication Name Start Date Stop Da te Current Medication? Ordering Clinician Indication Dosage Frequency Signature (SIG) Comments Components Source Blood Sugar Diagnostic (Precision Point Of Care) 1 Eac h STRIP Blood Sugar Diagnostic (Precision Point Of Care) 1 Each STRIP Yes [facility] Bupropion Hcl (Wellbutrin Xl) 150 Mg TABCR Bupropion H cl (Wellbutrin Xl) 150 Mg TABCR Yes 150 [facility] Bupropion Hcl (Wellbutrin Xl) 150 Mg TABCR Bupropion H cl (Wellbutrin Xl) 150 Mg TABCR Yes [facility] Carvedilol Carvedilol Yes 3.125 [facility] I [facility] Carvedilol (Coreg) 3.125 Mg TAB Carvedilol (Coreg) 3.125 Mg TAB Yes [facility] Clopidogrel Bisulfate (Clopidogrel) 75 Mg TABLET Clopi dogrel Bisulfate (Clopidogrel) 75 Mg TABLET Yes 75 [facility] Clopidogrel Bisulfate (Plavix) 75 Mg TABLET Clopidogre l Bisulfate (Plavix) 75 Mg TABLET Yes 75 [facility] Cyanocobalamin (Cyanocobalamin Injection) 1,000 Mcg/Ml SOLN Cyanocobalamin (Cyanocobalamin Injection) 1,000 Mcg/Ml SOLN Yes 1 [facility] Diazepam Diazepam Yes 10 [facility] Ezetimibe (Zetia) 10 Mg TABLET Ezetimibe (Zetia) 10 Mg TABLET Yes 10 [facility] Furosemide Furosemide Yes 20 [facility] Glimepiride Glimepiride Yes 2 C [facility] Insulin Aspart (Novolog) 100 Units/1 Ml INJ Insulin As part (Novolog) 100 Units/1 Ml INJ Yes [facility] Insulin Glargine (Lantus 3ML Pen) 100 Units/1 Ml INJ I nsulin Glargine (Lantus 3ML Pen) 100 Units/1 Ml INJ Yes [facility] Losartan Potassium Losartan Potassium Yes 100 [facility] Lovastatin Lovastatin Yes 40 [facility] Metformin Hcl Metformin Hcl Yes 1000 [facility] Nifedipine (Procardia Xl) 60 Mg TAB.ER.24 Nifedipine ( Procardia Xl) 60 Mg TAB.ER.24 Yes [facility] Salmeterol Xinafoate/Fluticasone (Advair 500/50*) 1 Ea AERP Salmeterol Xinafoate/Fluticasone (Advair 500/50*) 1 Ea AERP Yes 1 [facility] Sitagliptin Phosphate (Januvia) 100 Mg TABLET Sitaglip tin Phosphate (Januvia) 100 Mg TABLET Yes 100 [facility] Vital Signs Vital Name Observation Time Observation Value Comments Source Weight 2019-09-26 11:13:00 168 [lb_av] [facility] BMI (Body Mass Index) 2019-09-26 11:13:00 27.1 kg/m2 [facility] Procedures Procedure Date / Time Performed Performing Clinician [facility] e Computed tomography of chest with contrast 2019-09-26 00:00:00 [facility] Computed tomography of chest with contrast 2019-03-09 00:00:00 [facility] X-ray of chest, two views 2019-02-08 00:00:00 [facility]h [facility] Plan of Care Planned Activity Planned Date Details Comments Source Future Scheduled Test Blood culture [code = 05488879] [facility] Future Scheduled Test Bacterial urine culture [code = 630-4] [facility] Instructions Deep Vein Thrombosis [facility] Encounters Start Date/Time End Date/Time Encounter Type Admission Type [facility] Facility Care Department Encounter ID Source 2019-05-26 15:17:00 2019-05-26 15:17:00 Outpatient MD MIN Khan MD [place] [id number] Sharan Weber MD 2019-03-17 19:08:00 2019-03-17 19:08:00 Registered Clinic [facility] [id number] [facility] 2019-03-09 07:49:00 2019-03-09 07:49:00 Registered Clinic 3 JANICE PATRICIA [facility] [id number] [facility] 2019-02-08 09:26:00 2019-02-08 09:26:00 Registered Clinic 3 CRISTINA BEAUCHAMP [facility] [id number] [facility] 2018-12-16 08:26:00 2018-12-16 08:26:00 Registered Clinic [facility] [id number] [facility] 2018-11-23 09:00:00 2018-11-23 09:00:00 Outpatient Sharan Weber MD [place] [id number] Sharan Weber MD 2018-08-24 09:00:00 2018-08-24 09:00:00 Outpatient MD MIN Abdi MD [place] [id number] Sharan Weber MD 2018-05-26 08:45:00 2018-05-26 08:45:00 Outpatient Sharan Weber MD PA [id number] Sharan Weber MD 2018-05-22 08:07:00 2018-05-22 08:07:00 Outpatient Sharan Weber MD PA [id number] Sharan Weber MD 2018-05-20 12:16:00 2018-05-20 12:16:00 Outpatient Sharan Weber MD PA [id number] Sharan Weber MD 2018-05-20 11:00:00 2018-05-20 11:00:00 Outpatient Sharan Weber MD PA [id number] Sharan Weber MD 2018-05-19 09:39:00 2018-05-19 09:39:00 Outpatient Sharan Weber MD PA Sharan Weber MD PA [id number] Shraan Weber MD 2018-03-24 09:34:00 2018-03-24 09:34:00 Outpatient Sharan Weber MD PA [id number] Sharan Weber MD 2018-03-24 09:33:00 2018-03-24 09:33:00 Outpatient Sharan Weber MD PA [id number] Sharan Weber MD 2017-12-24 08:15:00 2017-12-24 08:15:00 Outpatient Sharan Weber MD PA [id number] Sharan Weber MD 2017-09-23 10:30:00 2017-09-23 10:30:00 Outpatient Sharan Weber MD PA [id number] Sharan Weber MD 2017-09-22 12:29:00 2017-09-22 12:29:00 Outpatient Sharan Weber MD PA [id number] Sharan Weber MD 2017-08-16 13:39:00 2017-08-16 13:39:00 Outpatient Sharan Weber MD PA [id number] Sharan Weber MD 2017-08-12 08:00:00 2017-08-12 08:00:00 Outpatient Sharan Weber MD [place] [id number] Sharan Weber MD 2017-05-14 08:57:00 2017-05-14 08:57:00 Outpatient Sharan Weber MD PA [id number] Sharan Weber MD 2017-05-14 08:00:00 2017-05-14 08:00:00 Outpatient Sharan Weber MD PA [id number] Sharan Weber MD 2017-02-11 08:00:00 2017-02-11 08:00:00 Outpatient Sharan Weber MD PA [id number] Sharan Weber MD 2016-12-19 20:35:00 2016-12-22 13:24:00 Outpatient [facility] [id number] [facility] 2016-01-24 14:45:00 2016-01-24 14:45:00 Outpatient MD MIN Barnett MD [place] [id number] MD MIN Milligan Results Test Description Test Time Test Comments Results Result Comments Source CT CHEST W 2019-09-26 14:49:00 [facility] [address] [address] Patient Name: MAMADOU WYATT MR #: [id number] : 1945 Age/Sex: 74/F Req #: [id number] Adm Physician: Ordered by: SHLOMO DHILLON MD Report #: [id number] Location: ER Room/Bed: Procedure: [id number] CT/CT CHEST W Exam Date: 09/26/19 Exam Time: 1350 REPORT STATUS: Signed EXAM: CT Chest WITH intravenous contrast INDICATION: Left leg swelling, history of pulmonary embolism. COMPARISON: CT chest 03/09/2019. TECHNIQUE: Chest was scanned utilizing a multidetector helical scanner from the lung apex through the level of the adrenal glands after administration of IV contrast. Coronal and sagittal reformations were obtained. Pulmonary embolism protocol was performed. IV CONTRAST: 100mL Isovue 370 RADIATION DOSE: Total DLP: 460.6 mGy*cm. Dose modulation, iterative reconstruction, and/or weight based adjustment of the mA/kV was utilized to reduce the radiation dose to as low as reasonably achievable. COMPLICATIONS: None FINDINGS: Inferior aspect of the right lung base is partially excluded from the [id number]-[id number]-efon. LINES/ TUBES: None. PULMONARY ARTERIES: The main pulmonary artery measures 3.0 cm. No evidence of pulmonary embolism to the level of segmental pulmonary arteries. LUNGS AND AIRWAYS/PLEURA: There has been interval development of partial consolidation with associated patchy opacities and volume loss in the right lower lobe. The known right lower lobe medial lung mass and associated right infrahilar lymphadenopathy abutting the bronchus intermedius is not well distinguished from the consolidation, but has likely enlarged in size. Interval development of patchy consolidation within the right middle lobe. The central airways are patent. Interval development of bilateral pulmonary nodules, for example a 1.0 cm solid nodule in the left upper lobe on series 2, image 18 and a 0.4 cm nodule in the right upper lobe on image 39. Bilateral mild smooth interlobular septal thickening with scattered groundglass opacities, likely representing pulmonary edema. There has been interval enlargement of a loculated moderate to large right sided basilar predominant pleural effusion. Interval development of nodular thickening along portions of the pleura including along the right major and minor fissures, for example in the anterior right lung base, measuring up to 2.7 cm. Decreased small pleural effusion, now trace. Mild pleural thickening and postoperative changes at the lateral lingula, unchanged No pneumothorax. HEART AND MEDIASTINUM: The thyr oid gland is normal. No supraclavicular lymphadenopathy. There is calcified and noncalcified mediastinal and bilateral hilar lymphadenopathy. Partially calcified subcarinal lymph nodes measure up to 3.1 x 2.5 cm, unchanged. Partially calcified left hilar lymph nodes, measuring up to 1.2 cm. Mild multichamber cardiomegaly. Atherosclerotic calcifications involve the coronary arteries, thoracic aorta, and proximal great vessels.. No pericardial effusion. UPPER ABDOMEN: Limited views of the upper abdomen. A partially visualized 2.7 cm left adrenal nodule measures -3 Hounsfield units, most compatible with an adrenal adenoma, although the prior imaging characteristics are indeterminate. BONES: There are acute, minimally displaced fractures of the right lateral sixth and seventh ribs. SOFT TISSUES: Unremarkable. IMPRESSION: No evidence of pulmonary embolism to the level of the segmental pulmonary arteries. Dilated main pulmonary artery, suggestive of pulmonary arterial hypertension. Interval progression of malignancy with enlarging moderate to large loculated right pleural effusion with associated nodularity, and new bilateral pulmonary nodules. Unchanged calcified and noncalcified mediastinal lymphadenopathy. The known right lower lobe mass is not well identified secondary to associated consolidation. The central airways appear patent, however there is new consolidation within the right lower lobe with associated volume loss which is new from prior study, which may represent a combination of enlarging mass and post obstructive pneumonitis/atelectasis. A partially visualized 2.7 cm left adrenal nodule measures -3 Hounsfield units, most compatible with an adrenal adenoma, although the prior imaging characteristics were indeterminate. Recommend follow-up nonemergent CT of the abdomen and pelvis for staging or comparison with outside imaging. New patchy consolidation within the right middle lobe, which may represent atelectasis or infection. Cardiomegaly with coronary atherosclerosis. Mild pulmonary edema. Acute, minimally displaced right lateral sixth and seventh rib fractures. Signed by: Dr. Austen Tyler MD on 09/26/2019 3:52 PM Dictated By: AUSTEN TYLER MD 51 Transcribed By: SHUN on 09/26/191551 COPY TO: SHLOMO DHILLON MD Urine color determination 2019-09-26 13:40:00 Test Item Urine Color (test code = 5778-6) YELLOW [facility] [id number] 13:40:00* Test Item Value Reference Range Interpretation Comments Urine Clarity (test code = 94319-0) SL [facility] by Test strip 2019-09-26 13:40:00* Test Item Value Reference Range Interpretation Comments Urine Specific Jewell (test code = 5811-5) 1.020 [facility] pH measurement by automated test [id number] 13:40:00* Test Item Value Reference Range Interpretation Comments Urine pH (test code = 37920-6) 7 [facility] Hospital[facility] leukocyte esterase detection by pdexosra1998-61-14 13:40:00* Test Item Value Reference Range Interpretation Comments Urine Leukocyte Esterase (test code = 5799-2) NEGATIVE [facility] HospitalUrine nitrite dfwqnoowd0491-44-59 13:40:00* Test Item Value Reference Range Interpretation Comments Urine Nitrite (test code = 42814-5) NEGATIVE [facility] Hospital[facility] protein measurement by test strip (mass/volume)2019-09-26 13:40:00* Test Item Value Reference Range Interpretation Comments Urine Protein (test code = 5804-0) NEGATIVE [facility] HospitalU[facility] glucose uzpiimegb1583-35-61 13:40:00* Test Item Value Reference Range Interpretation Comments Urine Glucose (UA) (test code = 2349-9) NEGATIVE [facility] Hospital[facility] ketones detection by automated test kgzll8027-63-55 13:40:00* Test Item Value Reference Range Interpretation Comments Urine Ketones (test code = 07663-2) NEGATIVE [facility] HospitalUrine urobilinogen measurement by test strip (mass/volume)2019-09-26 13:40:00* Test Item Value Reference Range Interpretation Comments Urine Urobilinogen (test code = 78861-9) 0.2 [facility] Hospital[facility] total bilirubin measurement (mass/volume)2019-09-26 13:40:00* Test Item Value Reference Range Interpretation Comments Urine Bilirubin (test code = 1978-6) NEGATIVE [facility] HospitalU[facility] erythrocytes axefoczee5519-36-76 13:40:00* Test Item Value Reference Range Interpretation Comments Urine Blood (test code = 96899-5) TRACE [facility] HospitalAutomated urine sediment leukocyte count by microscopy (number/high power field)2019-09-26 13:40:00* Test Item Value Reference Range Interpretation Comments Urine WBC (test code = 5821-4) 6-10 [facility] HospitalErythrocytes detection in urine sediment by light vjdzjbgkvn5005-09-36 13:40:00* Test Item Value Reference Range Interpretation Comments Urine RBC (test code = 85220-0) 6-10 [facility] HospitalBacteria detection in urine sediment by light lylkvxqrnk0582-22-39 13:40:00* Test Item Value Reference Range Interpretation Comments Urine Bacteria (test code = 13090-7) RARE [facility] HospitalEpithelial cells detection in urine sediment by light vgauitcypx7192-49-33 13:40:00* Test Item Value Reference Range Interpretation Comments Urine Epithelial Cells (test code = 89973-9) FEW [facility] HospitalBlood leukocytes automated count (number/volume)2019-09-26 11:30:00* Test Item Value Reference Range Interpretation Comments White Blood Count (test code = 6690-2) 8.11 [facility] HospitalBlood erythrocytes automated count (number/volume)2019-09-26 11:30:00* Test Item Value Reference Range Interpretation Comments Red Blood Count (test code = 789-8) 3.46 [facility] HospitalBlood hemoglobin measurement (moles/volume)2019-09-26 11:30:00* Test Item Value Reference Range Interpretation Comments Hemoglobin (test code = 35808-6) 9.4 [facility] HospitalAutomated blood hematocrit (volume fraction)2019-09-26 11:30:00* Test Item Value Reference Range Interpretation Comments Hematocrit (test code = 4544-3) 30.8 [facility] HospitalAutomated erythrocyte mean corpuscular wbebql2035-40-34 11:30:00* Test Item Value Reference Range Interpretation Comments Mean Corpuscular Volume (test code = 787-2) 89.0 [facility] HospitalAutomated erythrocyte mean corpuscular hemoglobin (mass per erythrocyte)2019-09-26 11:30:00* Test Item Value Reference Range Interpretation Comments Mean Corpuscular Hemoglobin (test code = 785-6) 27.2 [facility] HospitalAutomated erythrocyte mean corpuscular hemoglobin concentration measurement (mass/volume)2019-09-26 11:30:00* Test Item Value Reference Range Interpretation Comments Mean Corpuscular Hemoglobin Concent (test code = 786-4) 30.5 [facility] HospitalRDW DesRn-Ogs5395-44-17 11:30:00* Test Item Value Reference Range Interpretation Comments Red Cell Distribution Width (test code = 34105-8) 16.0 [facility] HospitalAutomated blood platelet count (count/volume)2019-09-26 11:30:00* Test Item Value Reference Range Interpretation Comments Platelet Count (test code = 777-3) 341 [facility] HospitalAutomated blood segmented neutrophil count as percentage of total gadnwltvag2931-45-02 11:30:00* Test Item Value Reference Range Interpretation Comments Neutrophils (%) (Auto) (test code = 24725-3) 82.0 [facility] HospitalAutomated blood lymphocyte count as percentage ot total cgetiawmod2790-87-82 11:30:00* Test Item Value Reference Range Interpretation Comments Lymphocytes (%) (Auto) (test code = 736-9) 3.5 [facility] HospitalAutomated blood monocyte count as percentage of total ozwwoilukg7372-73-61 11:30:00* Test Item Value Reference Range Interpretation Comments Monocytes (%) (Auto) (test code = 5905-5) 12.7 [facility] HospitalAutomated blood eosinophil count as percentage of total pixjzkvjpv3470-27-77 11:30:00* Test Item Value Reference Range Interpretation Comments Eosinophils (%) (Auto) (test code = 713-8) 0.6 [facility] HospitalAutomated blood basophil count as percentage of total giaesfsmwk4253-61-44 11:30:00* Test Item Value Reference Range Interpretation Comments Basophils (%) (Auto) (test code = 706-2) 0.7 [facility] HospitalFluoroscopic procedure less than one hour cbgxprzz6647-82-56 11:30:00* Test Item Value Reference Range Interpretation Comments IM GRANULOCYTES % (test code = IM GRANULOCYTES %) 0.5 [facility] HospitalAutomated blood neutrophil count 2019-09-26 11:30:00* Test Item Value Reference Range Interpretation Comments Neutrophils # (Auto) (test code = 751-8) 6.7 [facility] HospitalBlood lymphocytes count (number/volume) 2019-09-26 11:30:00* Test Item Value Reference Range Interpretation Comments Lymphocytes # (Auto) (test code = 66866-6) 0.3 [facility] monocytes automated count (number/volume)2019-09-26 11:30:00* Test Item Value Reference Range Interpretation Comments Monocytes # (Auto) (test code = 742-7) 1.0 [facility] HospitalAutomated blood eosinophil count 2019-09-26 11:30:00* Test Item Value Reference Range Interpretation Comments Eosinophils # (Auto) (test code = 711-2) 0.1 [facility] HospitalAutomated blood basophil count (count/volume)2019-09-26 11:30:00* Test Item Value Reference Range Interpretation Comments Basophils # (Auto) (test code = 704-7) 0.1 [facility] HospitalFluoroscopic procedure less than one hour gpauvmzl7248-85-11 11:30:00* Test Item Value Reference Range Interpretation Comments Absolute Immature Granulocyte (auto (judson t code = Absolute Immature Granulocyte (auto) 0.04 [facility] HospitalProthrombin time (PT) in platelet poor plasma by coagulation flwmz7213-41-94 11:30:00* Test Item Value Reference Range Interpretation Comments Prothrombin Time (test code = 5902-2) 14.5 [facility] HospitalINR in Platelet poor plasma by Coagulation ewoiv0560-82-70 11:30:00* Test Item Value Reference Range Interpretation Comments Prothromb Time International Ratio (test code = 6301-6) 1.06 [facility] HospitalActivated partial thromboplastin time (aPTT) in platelet poor plasma by coagulation nkuit0874-15-00 11:30:00* Test Item Value Reference Range Interpretation Comments Activated Partial Thromboplast Time (test code = 06209-7) 34.7 [facility]um or plasma sodium measurement (moles/volume)2019-09-26 11:30:00* Test Item Value Reference Range Interpretation Comments Sodium Level (test code = 2951-2) 136 [facility] Hospitalerum or plasma potassium measurement (moles/volume)2019-09-26 11:30:00* Test Item Value Reference Range Interpretation Comments Potassium Level (test code = 2823-3) 4.5 [facility] plasma chloride measurement (moles/volume)2019-09-26 11:30:00* Test Item Value Reference Range Interpretation Comments Chloride Level (test code = 2075-0) 95 [facility] Hospitalerum or plasma carbon dioxide, total measurement (moles/volume)2019-09-26 11:30:00* Test Item Value Reference Range Interpretation Comments Carbon Dioxide Level (test code = 2028-9) 27 [facility] Hospitalerum or plasma anion afk8073-18-14 11:30:00* Test Item Value Reference Range Interpretation Comments Anion Gap (test code = 24833-7) 18.5 [facility] Hospital[facility] or plasma urea nitrogen measurement (mass/volume)2019-09-26 11:30:00* Test Item Value Reference Range Interpretation Comments Blood Urea Nitrogen (test code = 3094-0) 16 [facility] Hospital[facility]um or plasma creatinine measurement (mass/volume)2019-09-26 11:30:00* Test Item Value Reference Range Interpretation Comments Creatinine (test code = 2160-0) 0.94 [facility] Hospitalerum or plasma urea nitrogen/creatinine mass dzggh4423-09-51 11:30:00* Test Item Value Reference Range Interpretation Comments BUN/Creatinine Ratio (test code = 3097-3) 17 [facility] HospitalEstimated glomerular filtration rate (GFR) imauxfawkcpmb3849-95-27 11:30:00* Test Item Value Reference Range Interpretation Comments Estimat Glomerular Filtration Rate (test code = 602197295) 58 [facility] HospitalGlucose ttzsmzxdrcw5167-21-07 11:30:00* Test Item Value Reference Range Interpretation Comments Glucose Level (test code = HUV7436) 132 [facility] Hospital[facility] or plasma calcium measurement (mass/volume)2019-09-26 11:30:00* Test Item Value Reference Range Interpretation Comments Calcium Level (test code = 05545-4) 9.6 [facility] HospitalFluoroscopic procedure less than one hour kpbgkghp6326-59-75 11:30:00* Test Item Value Reference Range Interpretation Comments Lactic Acid Level (test code = Lactic Acid Level) 1.7 [facility] Hospital[facility] or plasma magnesium measurement (mass/volume)2019-09-26 11:30:00* Test Item Value Reference Range Interpretation Comments Magnesium Level (test code = 86250-8) 2.2 [facility] Hospitalerum or plasma total bilirubin measurement (mass/volume)2019-09-26 11:30:00* Test Item Value Reference Range Interpretation Comments Total Bilirubin (test code = 1975-2) 0.9 [facility] HospitalFluoroscopic procedure less than one hour [id number] 11:30:00* Test Item Value Reference Range Interpretation Comments Aspartate Amino Transf (AST/SGOT) (test code = Aspartate Amino Transf (AST/SGOT)) 13 [facility] alanine aminotransferase measurement (enzymatic activity/volume)2019-09-26 11:30:00* Test Item Value Reference Range Interpretation Comments Alanine Aminotransferase (ALT/SGPT) (test code = 1742-6) 10 [facility] protein measurement (mass/volume)2019-09-26 11:30:00* Test Item Value Reference Range Interpretation Comments Total Protein (test code = 2885-2) 6.6 [facility] albumin measurement (mass/volume)2019-09-26 11:30:00* Test Item Value Reference Range Interpretation Comments Albumin (test code = 1751-7) 2.6 [facility] HospitalPlasma globulin measurement (mass/volume) 2019-09-26 11:30:00* Test Item Value Reference Range Interpretation Comments Globulin (test code = 50417-9) 4.0 [facility] albumin/globulin mass [id number] 11:30:00* Test Item Value Reference Range Interpretation Comments Albumin/Globulin Ratio (test code = 1759-0) 0.7 [facility] alkaline phosphatase measurement (enzymatic activity/volume)2019-09-26 11:30:00* Test Item Value Reference Range Interpretation Comments Alkaline Phosphatase (test code = 6768-6) 40 [facility] HospitalBNP [id number] 11:30:00* Test Item Value Reference Range Interpretation Comments B-Type Natriuretic Peptide (test code = 87365-7) 797.6 [facility] creatine kinase measurement (enzymatic activity/volume)2019-09-26 11:30:00* Test Item Value Reference Range Interpretation Comments Creatine Kinase (test code = 2157-6) 26 [facility] creatine kinase MB measurement (mass/volume)2019-09-26 11:30:00* Test Item Value Reference Range Interpretation Comments Creatine Kinase MB (test code = 71694-4) 0.50 [facility] HospitalTroponin I measurement by highly sensitive enzyme [id number] 11:30:00* Test Item Value Reference Range Interpretation Comments Troponin I (test code = 02277-8) 0.002 [facility] HospitalAFB CULTURE + SMEAR (NON-SPUTUM) 2019-07-26 20:17:00* Test Item Value Reference Range Interpretation [...] acid fast bacilli seen FUNGUS CULTURE + [id number] 16:47:00* Test Item Value Reference Range Interpretation Comments CULTURE (BEAKER) (test code = 1095) No fungus isolated in 28 days FUNGUS SMEAR (BEAKER) (test code = 1406) No fungi seen FUNGUS CULTURE + [id number] 16:46:00* Test Item Value Reference Range Interpretation Comments CULTURE (BEAKER) (test code = 1095) No fungus isolated in 28 days FUNGUS SMEAR (BEAKER) (test code = 1406) No fungi seen FUNGUS CULTURE + [id number] 16:46:00* Test Item Value Reference Range Interpretation Comments CULTURE (BEAKER) (test code = 1095) No fungus isolated in 28 days FUNGUS SMEAR (BEAKER) (test code = 1406) No fungi seen TISSUE [id number] 09:02:00Surgical Pathology Report Case: [id number] Authorizing Provider: Nahum Gatica, Collected: 06/15/2019 0930 Ordering Location: [facility] Received: 06/15/2019 0941 PERIOPERATIVE SERVICES Pathologist: Ashley Joyce MD Specimens: A) - Mass, RIGHT LUNG MASS B) - Mass, RIGHT LUNG MASS This addendum is being issued to report results of PDL-1 immunostain performed at [facility].RESULT: PDL-1 (22C3 clone): EXPRESSED (2+ intensity in 1% of tumor cells)Please see attached scanned report for further details.Addendum electronically signed by Ashley Joyce MD on 06/25/2019 at 9:02 AMA. LUNG, RIGHT, MASS FOR FROZEN SECTION: - INVASIVE POORLY DIFFERENTIATED SQUAMOUS CELL CARCINOMAB. LUNG, RIGHT, MASS FOR PERMANENT SECTION: - INVASIVE POORLY DIFFERENTIATED SQUAMOUS CELL CARCINOMA Signing Pathologist Direct Phone Line: [phone] signed by Ashley Joyce MD on 06/18/2019 at 12:08 PMB. Immunostain for p40 is positive, supporting the above diagnosis.[id number] diagnosis: Mass of right lungRight lung mass [...] kriss Immunohistochemistry technical testing was performed at [facility], Pathology Laboratory where it was developed and [...] research. This laboratory is certified under t Clinical Laboratory Improvement Amendments of 1988 (CLIA-88) as qualified to perform high complexity clinical laboratory testing.POCT-GLUCOSE [id number] 08:13:00* Test Item Value Reference Range Interpretation Comments POC-GLUCOSE METER (BEAKER) (test code = 1538) 215 mg/dL 70-110 H : TESTED AT [facility] [address] [facility], [address]: Senior Environmental Technician/Video System Repairer ID = [id number] for SUZANNE FRIEDMAN RAD, CHEST, 1 VIEW, NON [id number] 07:19:00Reason for exam:->s/p thoracotomyShould this be performed [...] findings: None. Signed: JR Arias Robert MDReport Vereric guevara Date/Time: 06/22/2019 07:19:39 Reading Location: [facility] Radiology Read ing Room [id number] 04:05:00* Test Item Value Reference Range Interpretation Comments MAGNESIUM (BEAKER) (test code = 627) 1.9 mg/dL 1.6-2.6 Specimen slightly hemolyzed Senior Environmental Technician ID - GALAPBASIC METABOLIC [id number] 04:05:00* Test Item Value Reference Range Interpretation [...] GFR IS NOT APPLICABLE FOR DIALYSIS PATIENTS. Senior Environmental Technician ID - GALAPANAEROBIC [id number] 22:22:00* Test Item Value Reference Range Interpretation Comments CULTURE (BEAKER) (test code = 1095) No anaerobes isolated ANAEROBIC [id number] 22:22:00* Test Item Value Reference Range Interpretation Comments CULTURE (BEAKER) (test code = 1095) No anaerobes isolated POCT-GLUCOSE [id number] 21:53:00* Test Item Value Reference Range Interpretation Comments POC-GLUCOSE METER (BEAKER) (test code = 1538) 278 mg/dL 70-110 H : TESTED AT [address], [address]: Senior Environmental Technician/Video System Repairer ID = [id number] for PRADO, JUAN POCT-GLUCOSE [id number] 17:39:00* Test Item Value Reference Range Interpretation Comments POC-GLUCOSE METER (BEAKER) (test code = 1538) 216 mg/dL 70-110 H : TESTED AT [address], [address]: Senior Environmental Technician/Video System Repairer ID = [id number] for SANCHEZ, SKY POCT-GLUCOSE [id number] 12:48:00* Test Item Value Reference Range Interpretation Comments POC-GLUCOSE METER (BEAKER) (test code = 1538) 156 mg/dL 70-110 H : TESTED AT [facility] [address] [facility], [address]: Senior Environmental Technician/Video System Repairer ID = [id number] for LOIS ROBBINS POCT-GLUCOSE [id number] 12:35:00* Test Item Value Reference Range Interpretation Comments POC-GLUCOSE METER (BEAKER) (test code = 1538) 155 mg/dL 70-110 H : TESTED AT [place] [id number] [facility], [address]: Senior Environmental Technician/Video System Repairer ID = [id number] for SANCHEZ, SKY POCT-GLUCOSE [id number] 08:22:00* Test Item Value Reference Range Interpretation Comments POC-GLUCOSE METER (BEAKER) (test code = 1538) 168 mg/dL 70-110 H : TESTED AT [place] [id number] [facility], [address]: Senior Environmental Technician/Video System Repairer ID = [id number] for SANCHEZ, SKY RAD, CHEST, 1 VIEW, NON [id number] 07:35:00Reason for exam:->s/p thoracotomyShould this be performed [...] calcified hilar nodes.Additional findings: None. Signed: JR Arias Robert [facility]ITAL[facility] Verified Date/Time: 06/21/2019 07:35:02 Reading Location: [facility] Reading Room [id number] 05:21:00* Test Item Value Reference Range Interpretation Comments MAGNESIUM (BEAKER) (test code = 627) 1.5 mg/dL 1.6-2.6 L Senior Environmental Technician ID - IVAN WBASIC METABOLIC [id number] 05:21:00* Test Item Value Reference Range Interpretation [...] GFR IS NOT APPLICABLE FOR DIALYSIS PATIENTS. Senior Environmental Technician ID - IVAN WCBC (HEMOGRAM ONLY)2019-06-21 04:50:00* [...] 413) 0 /100 WBC 0 -0 POCT-GLUCOSE [id number] 22:29:00* Test Item Value Reference Range Interpretation Comments POC-GLUCOSE METER (BEAKER) (test code = 1538) 228 mg/dL 70-110 H : TESTED AT [place] [id number] [facility], [address]: Senior Environmental Technician/Video System Repairer ID = [id number] for MONISHA SPENCER POCT-GLUCOSE [id number] 17:44:00* Test Item Value Reference Range Interpretation Comments POC-GLUCOSE METER (BEAKER) (test code = 1538) 115 mg/dL 70-110 H : TESTED AT [address], [address]: Senior Environmental Technician/Video System Repairer ID = [id number] for ORPHSTEVENSON, ELIEZER POCT-GLUCOSE [id number] 12:45:00* Test Item Value Reference Range Interpretation Comments POC-GLUCOSE METER (BEAKER) (test code = 1538) 206 mg/dL 70-110 H : TESTED AT [address], [address]: Senior Environmental Technician/Video System Repairer ID = [id number] for ORPHEY, ELIEZER POCT-GLUCOSE [id number] 08:47:00* Test Item Value Reference Range Interpretation Comments POC-GLUCOSE METER (BEAKER) (test code = 1538) 192 mg/dL 70-110 H : TESTED AT [address], [address]: Senior Environmental Technician/Video System Repairer ID = [id number] for ORPHEY, ELIEZER RAD, CHEST, 1 VIEW, NON [id number] 06:21:00Reason for exam:->s/p thoracotomyShould this be performed [...] left proximal humeral fracture. Signed: Lalitha Tovar MDReport Verified Date/Time: 06/20/2019 06:21:33 Reading Location: [facility] B1 C013Y CT Body Reading Room , BRAIN, [id number] 23:48:00FINAL REPORT Exam: MRI brain with and without contrast Comparison: None. Reason for exam: new dx stage 4 SCC of lung, staging Discussion: Multiplanar MR imaging of the brain was provided osx-vby-qfay IV gadolinium administration using T1, T2, FLAIR, [...] evidence of intracranial metastases. Signed: Naseem Velazquez MDReport Verified Date/Time: 06/19/2019 23:48:56 Electronically s igned by: NASEEM PEREZ MD on 06/19/2019 11:48 PM POCT-GLUCOSE METER 2019-06-19 21:30:00* Test Item Value Reference Range Interpretation Comments POC-GLUCOSE METER (BEAKER) (test code = 1538) 149 mg/dL 70-110 H : TESTED AT [place] [id number] [facility], [address]: Senior Environmental Technician/Video System Repairer ID = [id number] for EAGLEXX, DEJANLIADAMIA POCT-GLUCOSE [id number] 18:35:00* Test Item Value Reference Range Interpretation Comments POC-GLUCOSE METER (BEAKER) (test code = 1538) 157 mg/dL 70-110 H : TESTED AT [address], [address]: Senior Environmental Technician/Video System Repairer ID = [id number] for SILVA YOUNG POCT-GLUCOSE [id number] 13:09:00* Test Item Value Reference Range Interpretation Comments POC-GLUCOSE METER (BEAKER) (test code = 1538) 232 mg/dL 70-110 H : TESTED AT [facility] [address] [facility], [address]: Senior Environmental Technician/Video System Repairer ID = [id number] for SILVA YOUNG SURGICALLY OBTAINED CULTURE + GRAM [id number] 11:58:00* Test Item Value Reference Range Interpretation Comments CULTURE (BEAKER) (test code = 1095) No growth GRAM STAIN RESULT (BEAKER) (test code = 1123) No white blood cells seen GRAM STAIN RESULT (BEAKER) (test code = 22329) No organisms seen BODY FLUID CULTURE + GRAM [id number] 11:58:00* Test Item Value Reference Range Interpretation Comments CULTURE (BEAKER) (test code = 1095) No growth GRAM STAIN RESULT (BEAKER) (test code = 1123) <1+ WBCs GRAM STAIN RESULT (BEAKER) (test code = 55491) No organisms seen CT, CHEST, WITH [id number] 10:09:00FINAL REPORT TECHNIQUE: CT of the chest, [...] Verified Date/Time: 06/19/2019 10:09:57 Dena nguyen Location: [facility] C013Y CT Body Reading Room , [id number] 10:09:00FINAL REPORT TECHNIQUE: CT of the chest, [...] Verified Date/Time: 06/19/2019 10:09:57 Dena nguyen Location: [facility] C013Y CT Body Reading Room TITIS PANEL, [id number] 08:05:00* Test Item Value Reference Range Interpretation Comments HEPATITIS A IGM ANTIBODY (Zooppa) (test code = 498) Nonreactive No nreactive HEPATITIS B CORE IGM ANTIBODY (Zooppa) (test code = 645) Non reactive Nonreactive HEPATITIS C ANTIBODY (Zooppa) (test code = 367) Nonreactive Nonrea ctive HEPATITIS B SURFACE ANTIGEN (2) (Zooppa) (test code = 2585) Nonreactive Nonreactive Senior Environmental Technician ID - PIAYA LTSH/FREE T4 IF [id number] 08:05:00* Test Item Value Reference Range Interpretation Comments THYROID STIMULATING HORMONE (BEAKER) (test code = 772) 2.82 uIU/mL 0.35-4.94 Senior Environmental Technician ID - PIAYA LHIV-1 ANTIGEN WITH HIV-1/2 [id number] 08:05:00* Test Item Value Reference Range Interpretation Comments HIV-1 ANTIGEN WITH HIV 1\\T\\2 ANTIBODY (2) (Zooppa) (te st code = 2586) Nonreactive Nonreactive Senior Environmental Technician ID - PIAYA LPOCT-GLUCOSE [id number] 07:50:00* Test Item Value Reference Range Interpretation Comments POC-GLUCOSE METER (Zooppa) (test code = 1538) 133 mg/dL 70-110 H : TESTED AT [place] [address] [facility], [address]: Senior Environmental Technician/Video System Repairer ID = [id number] for Danya Cardenas RAD, CHEST, 1 VIEW, NON [id number] 06:55:00Reason for exam:->s/p thoracotomyShould this be performed [...] Signed: Naseem Perezeport Verified Date/Time: 06/19/2019 06:55:46 [id number] 06:09:00* Test Item Value Reference Range Interpretation Comments CORTISOL, TOTAL (BEAKER) (test code = 2755) 8.0 ug/dL 3.7-19.4 Senior Environmental Technician ID - JAMAR MPOCT-GLUCOSE [id number] 21:23:00* Test Item Value Reference Range Interpretation Comments POC-GLUCOSE METER (BEAKER) (test code = 1538) 300 mg/dL 70-110 H : TESTED AT [address], [address]: Senior Environmental Technician/Video System Repairer ID = [id number] for Fariha Howe POCT-GLUCOSE [id number] 20:12:00* Test Item Value Reference Range Interpretation Comments POC-GLUCOSE METER (BEAKER) (test code = 1538) 272 mg/dL 70-110 H : TESTED AT [address], [address]: Senior Environmental Technician/Video System Repairer ID = [id number] for Fariha Howe POCT-GLUCOSE [id number] 12:46:00* Test Item Value Reference Range Interpretation Comments POC-GLUCOSE METER (BEAKER) (test code = 1538) 197 mg/dL 70-110 H : TESTED AT [address], [address]: Senior Environmental Technician/Video System Repairer ID = [id number] for Danya Cardenas RAD, CHEST, 1 VIEW, NON [id number] 08:01:00Reason for exam:->s/p thoracotomyShould this be performed [...] findings: None. Signed: Rea Vigil Verified Date/Time: 06/18/2019 08:01:34 Reading Location: [facility] Radiology Reading Room C METABOLIC [id number] 07:58:00* Test Item Value Reference Range Interpretation [...] GFR IS NOT APPLICABLE FOR DIALYSIS PATIENTS. Senior Environmental Technician ID - JAMAR MPOCT-GLUCOSE [id number] 07:54:00* Test Item Value Reference Range Interpretation Comments POC-GLUCOSE METER (BEAKER) (test code = 1538) 140 mg/dL 70-110 H : TESTED AT [facility] [address] [place] [place], [address]: Senior Environmental Technician/Video System Repairer ID = [id number] for SILVA YOUNG CBC W/PLT COUNT & AUTO [id number] 07:16:00* Test Item Value Reference Range Interpretation [...] code = 2801) 1 % 0-1 POCT-GLUCOSE [id number] 21:50:00* Test Item Value Reference Range Interpretation Comments POC-GLUCOSE METER (BEAKER) (test code = 1538) 232 mg/dL 70-110 H : TESTED AT [facility] [address] [facility], [address]: Senior Environmental Technician/Video System Repairer ID = [id number] for KEN TRAVIS POCT-GLUCOSE [id number] 18:20:00* Test Item Value Reference Range Interpretation Comments POC-GLUCOSE METER (BEAKER) (test code = 1538) 167 mg/dL 70-110 H : TESTED AT [place] [address] [facility], [address]: Senior Environmental Technician/Video System Repairer ID = [id number] for LG DOMINIQUEALHAJI [id number] 17:21:00Medical Cytology Report Case: [id number] Authorizing Provider: Nahum Gatica, Collected: 06/15/2019 0912 Ordering Location: [facility] Received: 06/15/2019 0933 PERIOPERATIVE SERVICES Pathologist: Ac Tipton MD Specimen: Pleural PLEURAL FLUID LATERALITY NOT SPECIFIED (CYTOSPINS AND CELL BLOCK): - POSITIVE FOR MALIGNANCY - POORLY DIFFERENTIATED SQUAMOUS CELL CARCINOMA Signing Pathologist Direct Phone Line: [phone] signed by Ac Tipton MD on 06/17/2019 at 5:21 PMThere are rare malignant cells in a background of reactive mesothelial cells and lymphoid inflammation. The tumor cells are positive for p40 and negative for TTF- 1.45200, 37832, 71574, 56799Zjiaqnsiu pleural effusions, history of benign left lung tumor resection, and a new right lung mass with mediastinal adenopathy (squamous cell carcinoma diagnosed at frozen section).PLEURAL FLUID LATERALITY NOT BIYYEYFWB140 mls zully; 4 cytospins, cell block (collodion bag)Collected: [id number]: [id number] interpretation of this case included the use of immunohistochemistry or special stains.Control Slides Examined: In-house known positive controls were evaluated along with the test tissue. These control slides run alongside of the patients sample show appropriate staining. Internal positive and negative controls when available are evaluated I mmunohistochemistry technical testing was performed at [facility], Pathology Laboratory where it was developed [...] to perfo rm high complexity clinical laboratory testing.[facility], Department of Pathology, [address] [place] [address], [facility] of [facility], [address] [place] [address], [facility] t of [facility]ology, [address] [place] [address], BRONCHIAL CULTURE + GRAM [id number] 13:14:00* Test Item Value Reference Range Interpretation Comments CULTURE (BEAKER) (test code = 1095) No growth GRAM STAIN RESULT (BEAKER) (test code = 1123) 3+ WBCs GRAM STAIN RESULT (BEAKER) (test code = 15021) No organisms seen POCT-GLUCOSE [id number] 12:37:00* Test Item Value Reference Range Interpretation Comments POC-GLUCOSE METER (BEAKER) (test code = 1538) 213 mg/dL 70-110 H : TESTED AT [address], [address]: Senior Environmental Technician/Video System Repairer ID = [id number] for HANK DOMINIQUE RAD, CHEST, 1 VIEW, NON [id number] 07:45:00Reason for exam:->s/p thoracotomyShould this be performed [...] Vigil Verified Date/Time: 06/17/2019 07:45:22 Reading Location: [facility] Radiology Reading Room C METABOLIC PANEL 2019-06-17 [...] GFR IS NOT APPLICABLE FOR DIALYSIS PATIENTS. Senior Environmental Technician ID - IVAN WCBC W/PLT COUNT & AUTO [id number] 04:37:00* Test Item Value Reference Range Interpretation [...] code = 2801) 1 % 0-1 POCT-GLUCOSE [id number] 22:12:00* Test Item Value Reference Range Interpretation Comments POC-GLUCOSE METER (BEAKER) (test code = 1538) 217 mg/dL 70-110 H : TESTED AT [facility] [address] [facility], [address]: Senior Environmental Technician/Video System Repairer ID = [id number] for ZANDRA COHEN POCT-GLUCOSE [id number] 20:47:00* Test Item Value Reference Range Interpretation Comments POC-GLUCOSE METER (BEAKER) (test code = 1538) 267 mg/dL 70-110 H : TESTED AT [facility] [address] [facility], [address]: Senior Environmental Technician/Video System Repairer ID = [id number] for KEN TRAVIS POCT-GLUCOSE [id number] 18:34:00* Test Item Value Reference Range Interpretation Comments POC-GLUCOSE METER (BEAKER) (test code = 1538) 306 mg/dL 70-110 H : TESTED AT [facility] [address] [facility], [address]: Senior Environmental Technician/Video System Repairer ID = [id number] for SKY SANCHEZ RAD, CHEST, 1 VIEW, NON [id number] 07:22:00Reason for exam:->s/p thoracotomyShould this be performed [...] MDReport Verified Date/Time: 06/16/2019 07:22:58 Reading Location: [address] Neuro Reading Room D GAS, [id number] 05:16:00* Test Item Value Reference Range Interpretation [...] (BEAKER) (test code = 1819) 44.0 % [id number] 04:57:00* Test Item Value Reference Range Interpretation Comments MAGNESIUM (BEAKER) (test code = 627) 1.8 mg/dL 1.6-2.6 Senior Environmental Technician VANESSA ROLDAN MBASIC METABOLIC [id number] 04:57:00* Test Item Value Reference Range Interpretation [...] GFR IS NOT APPLICABLE FOR DIALYSIS PATIENTS. Senior Environmental Technician VANESSA - JAMAR MCBC W/PLT COUNT & AUTO [id number] 04:54:00* Test Item Value Reference Range Interpretation [...] code = 2801) 0 % 0-1 SPIN/CONCENTRATION [id number] 02:03:00* Test Item Value Reference Range Interpretation Comments CONCENTRATION CHARGED (BEAKER) (test code = 2657) Done AFB CULTURE + SMEAR (NON-SPUTUM)2019-06-15 20:25:00* Test Item Value Reference Range Interpretation Comments CULTURE (BEAKER) (test code = 1095) No acid-fast bacilli isolate d in 42 days AFB SMEAR (BEAKER) (test code = 994) No acid fast bacilli seen RAD, CHEST, 1 VIEW, NON [id number] 19:17:00Post-intubationReason for exam:-> sp chest tube placementShould [...] MDReport Verified Date/Time: 06/15/2019 19:17:11 Reading Location: [facility] B1 C013W Consult Reading Room [id number] 18:11:00* Test Item Value Reference Range Interpretation Comments MAGNESIUM (BEAKER) (test code = 627) 1.9 mg/dL 1.6-2.6 Specimen slightly hemolyzed Senior Environmental Technician ID - [id number] 18:11:00* Test Item Value Reference Range Interpretation Comments PHOSPHORUS (BEAKER) (test code = 604) 4.3 mg/dL 2.3-4.7 Specimen slightly hemolyzed Senior Environmental Technician ID - NTPCOMPREHENSIVE METABOLIC [id number] 18:11:00* Test Item Value Reference Range Interpretation [...] GFR IS NOT APPLICABLE FOR DIALYSIS PATIENTS. Senior Environmental Technician ID - NTPCBC W/PLT COUNT & AUTO [id number] 17:53:00* Test Item Value Reference Range Interpretation [...] (test code = 2801) 0 % 0-1 [id number] 14:07:00* Test Item Value Reference Range Interpretation Comments PHOSPHORUS (BEAKER) (test code = 604) 3.8 mg/dL 2.3-4.7 Senior Environmental Technician ID - [id number] 14:07:00* Test Item Value Reference Range Interpretation Comments MAGNESIUM (BEAKER) (test code = 627) 1.9 mg/dL 1.6-2.6 Senior Environmental Technician ID - NTPBLOOD GAS, [id number] 13:41:00* Test Item Value Reference Range Interpretation [...] code = 1819) 21.0 % BASIC METABOLIC [id number] 11:56:00* Test Item Value Reference Range Interpretation [...] GFR IS NOT APPLICABLE FOR DIALYSIS PATIENTS. Senior Environmental Technician ID - JAMAR MCALCIUM, [id number] 11:52:00* Test Item Value Reference Range Interpretation Comments CALCIUM IONIZED (BEAKER) (test code = 698) 0.95 mmol/L 1.12-1.27 L PH, BLOOD (BEAKER) (test code = 1810) 7.35 [id number] 11:43:00* Test Item Value Reference Range Interpretation [...] 0 -0 RAD, CHEST, 1 VIEW, NON [id number] 11:22:00Reason for exam:->s/p thoracotomy, lung biopsyShould this [...] Additional findings: None . Signed: Rea Vigil MDReport Verified Date/Time: 06/15/2019 11:22:54 Read ing Location: [facility] Reading Room OSE-STAT [id number] 08:03:00* Test Item Value Reference Range Interpretation Comments GLUCOSE RANDOM (BEAKER) (test code = 652) 212 mg/dL 70-110 H HGB/HCT (H&H) - STAT [id number] 08:03:00* Test Item Value Reference Range Interpretation Comments HEMOGLOBIN (BEAKER) (test code = 410) 9.2 g/dL 12.0-15.0 L HEMATOCRIT (BEAKER) (test code = 411) 27.0 % 36.0-45.0 L BLOOD GAS, [id number] 08:02:00* Test Item Value Reference Range Interpretation [...] (test code = 1819) 100.0 % CALCIUM, [id number] 08:02:00* Test Item Value Reference Range Interpretation Comments CALCIUM IONIZED (BEAKER) (test code = 698) 0.99 mmol/L 1.12-1.27 L PH, BLOOD (BEAKER) (test code = 1810) 7.42 SODIUM NA-STAT [id number] 08:00:00* Test Item Value Reference Range Interpretation Comments SODIUM (BEAKER) (test code = 381) 137 meq/L 135-148 POTASSIUM-STAT [id number] 08:00:00* Test Item Value Reference Range Interpretation Comments POTASSIUM (BEAKER) (test code = 379) 4.0 meq/L 3.6-5.5 POCT-GLUCOSE [id number] 06:15:00* Test Item Value Reference Range Interpretation Comments POC-GLUCOSE METER (BEAKER) (test code = 1538) 213 mg/dL 70-110 H : TESTED AT [facility] [address] [facility], [address]: Senior Environmental Technician/Video System Repairer ID = [id number] for KATRIN JACKMAN COMPREHENSIVE METABOLIC [id number] 14:53:00* Test Item Value Reference Range Interpretation [...] GFR IS NOT APPLICABLE FOR DIALYSIS PATIENTS. Senior Environmental Technician ID - RICARDO FPT/[id number] 14:33:00* Test Item Value Reference Range Interpretation [...] mechanical heart valves.CBC W/PLT COUNT & AUTO [id number] 14:29:00* Test Item Value Reference Range Interpretation [...] 2801) 0 % 0-1 FUNGUS CULTURE + [id number] 16:21:00* Test Item Value Reference Range Interpretation Comments CULTURE (BEAKER) (test code = 1095) No fungus isolated in 28 days FUNGUS SMEAR (BEAKER) (test code = 1406) No fungi seen - PET/CT TUMOR SK [id number] 15:21:00 FAX: Cristina Davis MD [phone] [place]: St: REG FAX: Janice Mac MD [phone] Name: MAMADOU WYATT [facility] : 1945 Age/S: 74/F [address] Unit #: [id number] Loc: [place] [address] Phys: Janice Judge MD Acct: [id number] Dis Date: Status: REG CLI PHONE #: [phone] Exam Date: 05/31/2019 0845 FAX #: [phone] Reason: LUNG MASS EXAMS: CPT CODE: [id number] PET/CT TUMOR SK BS MIDTH 00343 HISTORY: Lung mass. COMPARISON: None available. Location: [facility]. PET/CT scan: 11.6 mCi of FDG administered. [...] Signed Report (CONTINUED) FAX: Cristina Davis MD [phone] [place]: B St: REG FAX: Janice Mac MD [phone] ------- Name: MAMADOU WYATT [facility] : [birth year] Age/S: 74/F [address] [facility] Unit #: [id number] Loc: [place] [address] Phys: Janice Judge MD Acct: [id number] Dis Date: Status: REG CLI PHONE #: [phone] Exam Date: 05/31/2019 0845 FAX #: [phone] Reason: LUNG MASS EXAMS: CPT CODE: [id number] PET/CT TUMOR SK BS MIDTH 72994 <Continued> Uptake as well within the region of the isthmus of the thyroid gland with SUV ranging up to 2.7. This area measures 1.6 cm. No mass is visible on the CT scan. Correlate with ultrasound for definitive evaluation. at 1521 Reported and signed by: Iron Morley M.D. CC: Cristina Beauchamp MD; Janice Judge MD Technologist: Penny Cruz RT(N) Trnscrd Date/Time/By: 05/31/2019 (1521) : By: [email or web address] Orig Print D/T: S: 05/31/2019 (4676) PAGE 2 Signed Report TISSUE [id number] 16:14:00Surgical Pathology Report Case: [id number] Authorizing Provider: Nahum Gatica, Collected: 04/27/2019 Annika GAONA Ordering Location: [facility] Received: 04/27/2019 1124 PERIOPERATIVE SERVICES Pathologist: Ronald [...] COMMENT. Signing Pathologist Direct Phon e Line: [phone] signed by Ronald Larsen MD on 05/07 [...] [place], who agrees with the above interpretation.27995j9, 8833 1x2, 60404y3, 60325, 47838, 83427w2Evspo lung mass Mediastinal massPreoperative and postoperative diagnosis: Lung mass. A. MEDIASTINUM; B. MEDIASTINUM; C. MED IASTINUM; D. MEDIASTINUM; E. MEDIASTINUMA. Received fresh for intraoperative con sultation diagnosis labeled "mediastinal mass" consists of four minute turner-white tissue fragments measuring in aggregate 0.4 x 0.3 x 0.1 cm. Touch prep is perfo rmed, and the specimen is submitted entirely in cassette FSA1. THewB. Received f [facility], labeled with the patient's name, accession number [...] was reported to Dr. Gatica in OR CV-[address] Larsen on April 27 at 11:38 a.m. C. MEDIASTINUM, MASS #2, BIOPSY: - HYALINIZED, CALCIFIED TISSUE. MORE T ISSUE REQUESTEDThis was reported to Dr. Gatica in OR V-[address] Larsen on 2018 at 12:10 [...] evaluated Immunohistochemistry technical testing was performed at [facility], Pathology Laboratory where it was developed and its performance characteristics were determined. It has not been cleared or approved by the U.S. Food and Drug Administration. The [facility] has determined that such clearance or approval is not necessary. The test is used for clinical purposes. It should not be regarded as investigational or for research. This laboratory is certified under the Clinical Laboratory Improvement Amendments of 1988 (CLIA-88) as qualified to perform high complexity clinical l aboratory testing.[facility], Department of Pathology, [address] [place] [address], [facility], Department of Pathology, [address] [place] [address], Tel [facility], Department of Pathology, [address] [place] [address], KZLKJYSQJ [id number] 17:04:00 * Test Item Value Reference Range Interpretation Comments CULTURE (BEAKER) (test code = 1095) No anaerobes isolated SURGICALLY OBTAINED CULTURE + GRAM [id number] 15:14:00* Test Item Value Reference Range Interpretation Comments CULTURE (BEAKER) (test code = 1095) No growth GRAM STAIN RESULT (BEAKER) (test code = 1123) <1+ WBCs GRAM STAIN RESULT (BEAKER) (test code = 60380) No organisms seen BRONCHIAL CULTURE + GRAM [id number] 10:11:00* Test Item Value Reference Range Interpretation Comments CULTURE (BEAKER) (test code = 1095) No growth GRAM STAIN RESULT (BEAKER) (test code = 1123) <1+ WBCs GRAM STAIN RESULT (BEAKER) (test code = 46533) No organisms seen [id number] 12:33:00Medical Cytology Report Case: [id number] Authorizing Provider: Nahum Gatica, Collected: 04/27/2019 Michael GAONA Ordering Location: [facility] Received: 04/27/2019 [facility] PERIOPERATIVE SERVICES Pathologist: Roxane Duffy MD Specimen: BAL LUNG, BAL LATERALITY NOT SPECIFIED (CYTOSPINS): - RARE MILDLY ATYPICAL SQUAMOUS CELLS (SEE COMMENT) Signing Pathologist Direct Phone Line: [phone] signed by Roxane Duffy MD on 04/28/2019 at 12:33 PMCytospins show few scattered mildly atypical dyskeratotic squamous cells, in a background of macrophages, bronchial epithelial cells, and inflammatory cells. The paucity of the atypical cells and lack of marked nuclear atypia preclude a more definitive diagnosis. Clinical/radiological/endoscopic correlation is recommended. Please see surgical pathology case [id number] for further evaluation.83785Uagw history of smoking (2 packs per day), COPD, history of benign left lung tumor resection, and a new right lung mass.LUNG, BAL LATERALITY NOT SPECIFIED (CYTOSPINS) 10 mls colorless; 4 cytospinsCollected: 121 719Received: [id number] [facility], Department of P athology, [address] [place] [address], [facility], [facility], [address] [place] [address], [facility], Department [facility]ology, [address] [place] [address], SPEL-GLUCOSE METER 2019-04-28 08:23:00* Test Item Value Reference Range Interpretation Comments POC-GLUCOSE METER (BEAKER) (test code = 1538) 135 mg/dL 70-110 H : TESTED AT [address], [address]: Senior Environmental Technician/Video System Repairer ID = [id number] for ELIZEER QUINONES [id number] 06:18:00* Test Item Value Reference Range Interpretation Comments PHOSPHORUS (BEAKER) (test code = 604) 3.5 mg/dL 2.3-4.7 [id number] 06:18:00* Test Item Value Reference Range Interpretation Comments MAGNESIUM (BEAKER) (test code = 627) 1.7 mg/dL 1.6-2.6 BASIC METABOLIC [id number] 06:18:00* Test Item Value Reference Range Interpretation [...] 413) 0 /100 WBC 0 -0 POCT-GLUCOSE [id number] 20:40:00* Test Item Value Reference Range Interpretation Comments POC-GLUCOSE METER (BEAKER) (test code = 1538) 257 mg/dL 70-110 H : TESTED AT [address], [address]: Senior Environmental Technician/Video System Repairer ID = [id number] for JOHAN JUAN POCT-GLUCOSE [id number] 18:45:00* Test Item Value Reference Range Interpretation Comments POC-GLUCOSE METER (BEAKER) (test code = 1538) 259 mg/dL 70-110 H : TESTED AT [place] [address] [facility], [address]: Senior Environmental Technician/Video System Repairer ID = [id number] for KELSEY QUINN RAD, CHEST, 1 VIEW, NON [id number] 14:52:00Reason for exam:->Assess for pneumothoraxShould this be [...] stable in size. No fracture. Signed: Rosa Crowepangy Verified Date/Time: 04/27/2019 14:52:10 Reading Location: [facility] Reading Room -GLUCOSE [id number] 06:22:00* Test Item Value Reference Range Interpretation Comments POC-GLUCOSE METER (BEAKER) (test code = 1538) 194 mg/dL 70-110 H : TESTED AT [facility] [address] [facility], [address]: Senior Environmental Technician/Video System Repairer ID = [id number] for KATRIN JACKMAN COMPREHENSIVE METABOLIC [id number] 14:14:00* Test Item Value Reference Range Interpretation [...] DIALYSIS PATIENTS. CBC W/PLT COUNT & AUTO [id number] 13:59:00* Test Item Value Reference Range Interpretation [...] 2801) 1 % 0-1 RAD, CHEST, 2 [id number] 13:41:00Reason for exam:->baseline for surgery Should this be performed at the bedside?->NoFINAL REPORT INDICATION: baseline for surgery COMPARISON: None TECHNIQUE: Frontal and lateral views of the chest. FINDINGS: Lungs and pleura: Clear lungs. No effusion.Heart and mediastinum: Normal heart size. Unremarkable mediastinal contours.Osseous structures: No acute abnormality.Additional findings: Surgical clips overlie the left lateral chest. IMPRESSION: No acute intrathoracic abnormality. Signed: Rea Vigil MDReport Verified Date/Time: 04/26/2019 13:41:06 Reading Location: [facility] Radiology Reading Room [id number] 11:07:00* Test Item Value Reference Range Interpretation Comments GLUBED (test code = GLUBED) 143 mg/dL 74-106 H Performed by certified tool engine lathe set up operator at [facility] COMPREHENSIVE METABOLIC [id number] 10:41:00* Test Item Value Reference Range Interpretation [...] result is a direct measurement.========= THYROID STIMULATING [id number] 10:41:00* Test Item Value Reference Range Interpretation Comments THYROID STIMULATING HORMONE (test code = TSH) 1.290 uIU/mL 0.36-3.7 4 N TSH REFERENCE RANGES: EUTHYROID: 0.35 - 4.3 mIU/mL HYPO : > 5.5 mIU/mL HYPER : < 0.35 mIU/mL COMPREHENSIVE METABOLIC [id number] 10:22:00* Test Item Value Reference Range Interpretation [...] code = LDL) mg/dL 100-129 THYROID STIMULATING [id number] 10:22:00* Test Item Value Reference Range Interpretation Comments THYROID STIMULATING HORMONE (test code = TSH) uIU/mL 0.36-3.7 4 CBC W/AUTO [id number] 09:44:00* Test Item Value Reference Range Interpretation [...] NRBC#) 0.00 K/mm3 0.0-0.1 N CBC W/AUTO [id number] 09:37:00* Test Item Value Reference Range Interpretation [...] BA#) K/mm3 0.0-0.2 - XR CHEST 2 [id number] 08:49:00 FAX: Cristina Davis MD [phone] [place]: O St: PRE FAX: Argelia Senior [phone] Name: MAMADOU WYATT [facility] : 1945 Age/S: 73/F [address] Unit #: [id number] Loc: [place] [address] Phys: Argelia Parada MD Acct: [id number] Dis Date: Status: PRE SDC PHONE #: [phone] Exam Date: 04/13/2019 0839 FAX #: [phone] Reason: PRE OP EXAMS: CPT CODE: [id number] XR CHEST 2 V 41510 REASON FOR EXAM: PRE OP Exam Order Date: 04/13/2019 8:29 AM Ordering M.D.: Argelia Parada MD PROCEDURE: - XR CHEST [...] lower lungs. Upper lungs are clear. Location: [facility] Electronically Sign ed by Robert Louis MD on 04/13/2019 at 0849 Reported and signed by: Robert Louis MD CC: Cristina Beauchamp MD; Argelia Parada Technologist: RT Yang(R) Trnscrd Date/Time/By: 04/13/2019 (49) : By: [email or web address] Orig Print D/T: S: 04/13/2019 (0852) PAGE [address] CHEST [id number] 09:30:00 [place] [address] Patient Name: MAMADOU WYATT #: [id number] : 1945 Age/Sex: 73/F [facility] #: [id number] [facility] Physician: Ordered by: JANICE JUDGE MD Report #: [id number] Location: CT Room/Bed: Procedure: [id number] CT/CT CHEST W Exam Date: 03/09/19 Exam Time: 0900 REPORT STATUS: Signed EXAM: CT Chest WITH intravenous contrast 03/09/2019 7:58 AM INDICATION: Shortness of breath CO MPARISON: Chest radiograph of 02/08/2019 TECHNIQUE: Chest was scanned utilOmmven ng a multidetector helical scanner from the [...] COPY TO: JANICE JUDGE MD CHEST 2 [id number] 09:57:00 [place] [address] Patient Name: MAMADOU WYATT MR #: [id number] : 1945 Age/Sex: 73/F Req #: [id number] Adm Physician: Ordered by: CRISTINA BEAUCHAMP MD Report #: [id number] Location: RAD Room/Bed: Procedure: [id number] DX/ CHEST 2 VIEWS Exam Date: 02/08/19 Exam Time: 939 REPORT STATUS: Signed EXAMINATION: CHEST 2 VIEWS [...] COPY TO: CRISTINA BEAUCHAMP MD CHEST 2 [id number] 09:39:00 [place] [address] Patient Name: MAMADOU WYATT MR #: [id number] : 1945 Age/Sex: 73/F Req #: [id number] Adm Physician: Ordered by: CRISTINA BEAUCHAMP MD Report #: [id number] Location: RAD Room/Bed: Procedure: [id number] DX/ CHEST 2 VIEWS Exam Date: 10/07/18 [...] Signed by: Dr. Kenji Solis M.D. on 019 9:43 AM Dictated By: KENJI SOLIS MD 2 Transcribed By: SHUN on 10/07/18942 CO PY TO: CRISTINA BEAUCHAMP MD SCR MAMM BILATERAL RUSSEL CAD [id number] 11:43:06 - SCR MAMM BILATERAL RUSSEL CAD DIGITALBILATERAL DIGITAL SCREENING MAMMOGRAM 3D/2D WITH CAD: 09/09/2018CLINICAL: Asymptomatic. Digital breast tomosynthesis was performed in addition to routine CC and MLO views. Current mammographic images were evaluated by either a [facility] M-Vu or a [employer] ImageChecker CAD (computer aided detection system). Comparison is made to exams dated 09/08/2017 mammogram, 09/04/2016 mammogram, and 09/06/2015 mammogram - [facility]-. The tissue of both breasts is predominantly fatty. No suspicious mass, architectural distortion, malignant type calcification, or lymph node abnormality detected. Breast architecture is stable compared to prior exams.IMPRESSION: NEGATIVEThere is no mammographic evidence of malignancy. Resume annual screening mammography in one year. Goran correa/penrad:09/09/2018 11:43:06 Instructor Decorating: Carole MARY, [facility]-FWletter sent: BIRADS 1-2 Normal Mammogram BI-RADS: 1 Negative SHOULDER LEFT [id number] 22:27:00 [place] [address] Patient Name: MAMADOU WYATT MR #: [id number] : 1945 Age/Sex: 72/F Req #: [id number] Adm Physician: Ordered by: JOSEPH RVIERA MD Report #: [id number] Location: ER Room/Bed: Procedure: 1026-00 96 DX/SHOULDER LEFT COMPLETE Exam Date: 03/06/18 Exa Time: 2209 REPORT STATUS: Signed SHOULDER LEFT COMPLETE Comparison: None Clinical history: Fall, popping of the left shoulder Findings: Frontal and lateral view provided. See i mpression Impression: Mildly displaced proximal left humeral fracture. Signed by: Dr Anita Lin MD on 03/06/2018 10:30 PM Dictated By: HUBER LIN MD 29 Transcribed By: SHUN on 03/06/182229 COPY TO: JOSEPH RIVERA MD MRI SPINE THORACIC [id number] 13:02:00 [place] [address] Patient Name: MAMADOU WYATT MR #: [id number] : 1945 Age/Sex: 72/F Req #: [id number] [facility] Physician: Ordered by: JENNIFER JUARES M.D. Report #: [id number] Location: MRI Room/Bed: Procedure: [id number] MRI/MRI SPINE THORACIC WO Exa m Date: Exam Time: REPORT STATUS: Signed [...] By: SHUN on 01/15/18 1323 COPY TO: BLANQUITA,JENNIFER M.D. MRI SPINE LUMBAR [id number] 13:02:00 [place] [address] Patient Name: MAMADOU WYATT MR #: [id number] : 1945 Age/Sex: 72/F Req #: [id number] Adm Physician: Ordered by: JENNIFER JUARES M.D. Report #: [id number] Location: MRI Room/Bed: Procedure: [id number] MRI/MRI SPINE LUMBAR WO Exam Date: Exam [...] PM Di ctated By: MANDO SMALLWOOD MD 22 Transcribed By: SHUN on 01/15/181322 COPY TO: JENNIFER REYEZ M.D. MRI SPINE CERVICAL [id number] 13:02:00 [place] [address] Patient Name: MAMADOU WYATT MR #: [id number] : 1945 Age/Sex: 72/F Req #: [id number] Adm Physician: Ordered by: JENNIFER JUARES M.D. Report #: [id number] Location: MRI Room/Bed: Procedure: [id number] MRI/MRI SPINE CERVICAL WO a Date: Exam Time: REPORT STATUS: Signed H [...] 1:23 PM Dictated By: MANDO SMALLWOOD MD 22 Transcribed By: SHUN on 01/15/181322 COPY TO: JENNIFER JUARES M.D. CHEST 2 [id number] 11:28:00 [place] [address] Patient Name: MAMADOU WYATT MR #: [id number] : 1945 Age/Sex: 72/F Req #: [id number] Adm Physician: Ordered by: VIV POLLOCK MD Report #: [id number] Location: [facility] Room/Bed: Procedure: [id number] DX/CHEST 2 VIEWS Exam Date: 11/10 10/27 Exam Time: 1040 REPORT STATUS: Signed P ROCEDURE: Frontal and lateral views of the chest. COMPARISON: DX, CHEST 2 VIEWS - [place], 02/20/2016, 9:47. INDICATIONS: COUGH, COPD FINDINGS: Lines/tubes: [...] alities. Ivan Schroeder M.D. Dictated by: Ivan Scrhoeder M.D. on 12/04/2017 at 11:28 Electronically approved by: Ivan Schroeder M.D. on 12/04/2017 at 11:28 Dictated By: IVAN SCHROEDER MD E lectronically Signed By: IVAN SCHROEDER MD on 12/04/178 Transcribed By: KEAGAN HUERTA on 12/04/171127 COPY TO: VIV POLLOCK MD
--- NOTE | 2019-09-29 05:57 | Emergency Department Note ---
History of Present Illnes History of Present Illness Chief Complaint: Laceration History of Present Illness This is a 74 year old female arrived to the ED after sustaining a mech anical fall, complaining of pain to the back of her head. Historian: Patient Arrival Mode: Car Onset (how long ago): hour(s) Radiation: back Onset quality: sudden Duration (how long): hour(s) Timing of current episode: constant Progression: unchanged Relieving factors: none Associated symptoms: denies other symptoms Treatments prior to arrival: none (MARICEL SALCIDO DO) Past Medical/Family History Physician Review I have reviewed the patient's past medical and family history. Any updates have been documented here. (MARICEL SALCIDO DO) Past Medical History Recent Fever: No Clinical Suspicion of Infectio: No New/Unexplained Change in Ment: No Past Medical History: Hypertension, Diabetes, COPD, CHF, CA, Asthma, CAD, Cancer, DVT/PE, Chronic Kidney Disease Other Medical History: DVT ARTHRITIS STAGE 4 LUNG CA Past Surgical History: PCI Other Surgery: RECENT STENT PLACED (MARICEL SALCIDO DO) Other Last Tetanus: UNKNOWN (MARICEL SALCIDO DO) Review of Systems Review of Systems Constitutional: no symptoms EENTM: no symptoms Cardiovascular: no symptoms Respiratory: no symptoms Gastrointestinal: no symptoms Genitourinary: no symptoms Musculoskeletal: as per HPI Neurological: no symptoms Psychological: no symptoms Endocrine: no symptoms Hematological/Lymphatic: no symptoms Review of other systems All other systems reviewed and negative. (MARICEL SALCIDO DO) Physical Exam Related Data Allergies: Uncoded Allergies: PENICILLIN (Allergy, Severe, 06/07/15) Triage Vital Signs Vital Signs Date Time Temp Pulse Resp B/P (MAP) Pulse Ox O2 Delivery O2 Flow Rate FiO2 09/28/ 05:25 97.5 90 24 97/60 90 Vital signs reviewed: Yes (+ 5-6 cm linear laceration over posterior scalp) (MARICEL SALCIDO DO) Physical Exam CONSTITUTIONAL Constitutional: well-developed, well-nourished HENT HENT: normocephalic, oropharynx clear/moist, nose normal HENT L/R: left ext ear normal, right ext ear normal EYES Eyes: PERRL, conjunctivae normal NECK Neck: ROM normal PULMONARY Pulmonary: effort normal, breath sounds normal CARDIOVASCULAR Cardiovascular: regular rhythm, heart sounds normal, capillary refill normal, normal rate GASTROINTESTINAL Abdominal: soft, nontender, bowel sounds normal GENITOURINARY Genitourinary: exam deferred SKIN Skin: warm, dry MUSCULOSKELETAL Musculoskeletal: ROM normal NEUROLOGICAL Neurological: alert, oriented x 3, no gross motor or sensory deficits PSYCHOLOGICAL Psychological: mood/affect normal, judgement normal (SANDHIR, AMBICA, DO) Results Imaging Imaging results reviewed: Yes Impressions History: Fall. Comparison: None. Findings/Impression: 1. No evidence of acute fracture or malalignment. Well corticated bone at the left greater trochanter, compatible with remote trauma. 2. Bowel gas partially obscures visualization of the pelvis. The sacrum is not well evaluated, possibly secondary to positioning. Recommend dedicated sacral radiographs. 3. There are 1 cm and a 0.6 cm calcifications or ossifications to the right of the L4-L5 disc space, which are indeterminate but could represent fractured syndesmophytes, ureteral calcifications, or pelvic phleboliths, recommend clinical correlation. Signed by: Dr. Otis Rich MD on 09/29/2019 7:18 AM Procedure: [id number] CT/CT CERVICAL SPINE WO Exam Date: 09/29/19 Exam Time: 0630 REPORT STATUS: Signed History: Trauma, fall Comparison studies: Cervical spine MRI 01/15/2018 Technique: Axial images were obtained through the cervical region. Coronal and sagittal images reconstructed from the axial data. Dose modulation, iterative reconstruction, and/or weight based adjustment of the mA/kV was utilized to reduce the radiation dose to as low as reasonably achievable. Intravenous contrast: None Findings: Atlantoaxial articulation: Intact. Alignment: Normal cervical lordosis. Minimal anterolisthesis of C4 on C5 is most likely degenerative in etiology. Cervicomedullary junction: No abnormalities. The foramen magnum is patent. Soft tissues: No gross acute abnormalities. Scattered calcified atherosclerosis is present. Vertebrae: No fractures, infection or neoplasm. Degenerative changes: Mild to moderately degenerated C6-C7 disc with loss of disc height. Moderate canal stenosis at C5-C6 due to a disc osteophyte complex and thickened/calcified ligamentum flavum. Advanced multilevel facet arthrosis with fused facets on the right at C4-C5. Multilevel uncovertebral facet arthrosis result in multilevel foraminal stenosis which is mild on the right at C2-C3, mild bilaterally at C3-C4, moderate right at C4-C5, severe right and mild left at C5-C6 and severe left and moderate right at C6-C7. These findings are not significantly changed from the prior cervical spine right 01/15/2018. Occluded lung apices: Partially imaged right pleural effusion, scarring and/or intralobular septal thickening at the bilateral lung apices and 7 mm pleural-parenchymal density present at the left lung apex. Please refer to dedicated chest CT report from 09/26/2019 for further characterization of intrathoracic findings. IMPRESSION: 1. No cervical spine fracture or acute subluxation. 2. Multilevel degenerative changes as described. 3. Ligament, spinal cord and or vascular abnormalities cannot be excluded on the basis of this examination Signed by: Dr. Ruel Dukes M.D. on 09/29/2019 7:17 AM Procedure: [id number] CT/CT BRAIN WO Exam Date: 09/29/19 Exam Time: 629 REPORT STATUS: Signed History: Laceration to back of the head, status post fall. Comparison studies:None Technique: Axial images were obtained from the brain. Coronal and sagittal images reconstructed from the axial data. Intravenous contrast: None Dose modulation, iterative reconstruction, and/or weight based adjustment of the mA/kV was utilized to reduce the radiation dose to as low as reasonably achievable. Findings: Scalp/skull: No abnormalities. No fractures, blastic or lytic lesions. Brain sulci: Appropriate for age. Ventricles: Normal in size and configuration. No hydrocephalus. Extra-axial spaces: Dural based extra-axial calcification abutting the left lateral cerebellar hemisphere without significant mass effect, measuring approximately 1 cm. No fluid collections. Parenchyma: No abnormal densities. No masses, hemorrhage, acute or chronic cortical vascular insults. Sellar/suprasellar region: No abnormalities. Craniocervical junction: Patent foramen magnum. No Chiari one malformation. Atherosclerotic calcifications of the carotid siphons Impression: 1. No acute abnormality. Signed by: DR Mando Medina M.D. on 09/29/2019 7:22 AM (SHLOMO DHILLON MD) Procedures Laceration Laceration: Laceration 1 Site: scalp (posterior) Size (cm): 6 Description: linear Depth: simple, single layer Local anesthesia: lidocaine 1%, with epi Amount of anesthesia (mL): 4 Pre-repair: irrigated extensively Skin layer closed with: other (stefan) Number of sutures: 5 (SHLOMO DHILLON MD) Critical Care Time Subsequent provider I assumed direction of critical care for this patient from another provider of my specialty. (MARICEL SALCIDO DO) Assessment & Plan Assessment & Plan Final Impression: (1) Fall (2) Laceration of scalp (3) Contusion Assessment & Plan DC home, pt is initiating Hospice, F/U with them Stefan out in 7-10 days (SHLOMO DHILLON MD) Depart Disposition: HOME, SELF-CARE Last Vital Signs Date Time Temp Pulse Resp B/P (MAP) Pulse Ox O2 Delivery O2 Flow Rate FiO2 09/29/19 05:25 97.5 90 24 97/60 90 (MARICEL SALCIDO DO) Home Meds Reported Medications Carvedilol (COREG) 3.125 Mg Tab, MG MS DAILY 06/07/12 Nifedipine (PROCARDIA XL) 60 Mg Tab.er.24, MG PO DAILY 06/07/12 Bupropion Hcl (WELLBUTRIN XL) 150 Mg Tabcr, MG DAILY 06/07/12 Clopidogrel Bisulfate* (PLAVIX) 75 Mg Tablet, 75 MG PO DAILY 06/07/12 Lovastatin (LOVASTATIN) 40 Mg Tablet, 40 MG PO BEDTIME 05/31/12 Cyanocobalamin (CYANOCOBALAMIN INJECTION) 1,000 Mcg/Ml Soln, 1 ML IM UD 05/31/12 Lancets (LANCETS) 1 Each Each, ACHS PRN 05/31/12 Blood Sugar Diagnostic (PRECISION POINT OF CARE) 1 Each Strip, .ROUTE ACHS 05/31/12 Clopidogrel Bisulfate (CLOPIDOGREL) 75 Mg Tablet, 75 MG PO DAILY 05/31/12 Salmeterol Xinaf/Fluticasone* (ADVAIR 500/50*) 1 Ea Aerp, 1 PUFF INH BID 05/31/12 Glimepiride (GLIMEPIRIDE) 2 Mg Tablet, 2 MG PO TID 05/31/12 [place], Insulin Disposable (PEN NEEDLE) 1 Each Dis.needle, 1 SQ 5XD 05/31/12 Bupropion Hcl (WELLBUTRIN XL) 150 Mg Tabcr, 150 MG PO DAILY 05/31/12 Insulin Aspart (NOVOLOG) 100 Units/1 Ml Inj, FLEX ACHS 05/31/12 Sitagliptin Phosphate (JANUVIA) 100 Mg Tablet, 100 MG PO DAILY 05/31/12 Ezetimibe (ZETIA) 10 Mg Tablet, 10 MG PO DAILY 05/31/12 Carvedilol (CARVEDILOL) 3.125 Mg Tablet, 3.125 MG PO BID 05/31/12 Furosemide (FUROSEMIDE) 20 Mg Tablet, 20 MG PO DAILY 05/31/12 Insulin Glargine (LANTUS 3ML PEN) 100 Units/1 Ml Inj 05/31/12 Metformin Hcl (METFORMIN HCL) 1,000 Mg Tablet, 1000 MG PO BID 05/31/12 Diazepam (DIAZEPAM) 10 Mg Tablet, 10 MG PO BID PRN 05/31/12 Losartan Potassium (LOSARTAN POTASSIUM) 100 Mg Tablet, 100 MG PO DAILY 05/31/12 MARICEL SALCIDO DO September 29, 2019 05:57 SHLOMO DHILLON MD September 29, 2019 08:00
--- NOTE | 2019-09-29 07:19 | Diagnostic Imaging Report ---
History: Laceration to back of the head, status post fall. Comparison studies:None Technique: Axial images were obtained from the brain. Coronal and sagittal images reconstructed from the axial data. Intravenous contrast: None Dose modulation, iterative reconstruction, and/or weight based adjustment of the mA/kV was utilized to reduce the radiation dose to as low as reasonably achievable. Findings: Scalp/skull: No abnormalities. No fractures, blastic or lytic lesions. Brain sulci: Appropriate for age. Ventricles: Normal in size and configuration. No hydrocephalus. Extra-axial spaces: Dural based extra-axial calcification abutting the left lateral cerebellar hemisphere without significant mass effect, measuring approximately 1 cm. No fluid collections. Parenchyma: No abnormal densities. No masses, hemorrhage, acute or chronic cortical vascular insults. Sellar/suprasellar region: No abnormalities. Craniocervical junction: Patent foramen magnum. No Chiari one malformation. Atherosclerotic calcifications of the carotid siphons Impression: 1. No acute abnormality. Signed by: DR Mando Medina M.D. on 09/29/2019 7:22 AM
--- NOTE | 2019-09-29 07:20 | Diagnostic Imaging Report ---
History: Trauma, fall Comparison studies: Cervical spine MRI 01/15/2018 Technique: Axial images were obtained through the cervical region. Coronal and sagittal images reconstructed from the axial data. Dose modulation, iterative reconstruction, and/or weight based adjustment of the mA/kV was utilized to reduce the radiation dose to as low as reasonably achievable. Intravenous contrast: None Findings: Atlantoaxial articulation: Intact. Alignment: Normal cervical lordosis. Minimal anterolisthesis of C4 on C5 is most likely degenerative in etiology. Cervicomedullary junction: No abnormalities. The foramen magnum is patent. Soft tissues: No gross acute abnormalities. Scattered calcified atherosclerosis is present. Vertebrae: No fractures, infection or neoplasm. Degenerative changes: Mild to moderately degenerated C6-C7 disc with loss of disc height. Moderate canal stenosis at C5-C6 due to a disc osteophyte complex and thickened/calcified ligamentum flavum. Advanced multilevel facet arthrosis with fused facets on the right at C4-C5. Multilevel uncovertebral facet arthrosis result in multilevel foraminal stenosis which is mild on the right at C2-C3, mild bilaterally at C3-C4, moderate right at C4-C5, severe right and mild left at C5-C6 and severe left and moderate right at C6-C7. These findings are not significantly changed from the prior cervical spine right 01/15/2018. Occluded lung apices: Partially imaged right pleural effusion, scarring and/or intralobular septal thickening at the bilateral lung apices and 7 mm pleural-parenchymal density present at the left lung apex. Please refer to dedicated chest CT report from 09/26/2019 for further characterization of intrathoracic findings. IMPRESSION: 1. No cervical spine fracture or acute subluxation. 2. Multilevel degenerative changes as described. 3. Ligament, spinal cord and or vascular abnormalities cannot be excluded on the basis of this examination Signed by: Dr. Ruel Dukes M.D. on 09/29/2019 7:17 AM
--- NOTE | 2019-09-29 07:21 | Diagnostic Imaging Report ---
Exam: AP radiograph of the pelvis - 1 view History: Fall. Comparison: None. Findings/Impression: 1. No evidence of acute fracture or malalignment. Well corticated bone at the left greater trochanter, compatible with remote trauma. 2. Bowel gas partially obscures visualization of the pelvis. The sacrum is not well evaluated, possibly secondary to positioning. Recommend dedicated sacral radiographs. 3. There are 1 cm and a 0.6 cm calcifications or ossifications to the right of the L4-L5 disc space, which are indeterminate but could represent fractured syndesmophytes, ureteral calcifications, or pelvic phleboliths, recommend clinical correlation. Signed by: Dr. Otis Rich MD on 09/29/2019 7:18 AM
--- NOTE | 2019-09-29 07:42 | NUR ---
laceration irrigated with ns mixture with betadine, and then irrigated with ns solution. total of 300 ml used for irrigating of wound. Dr. Seo at bedside to close lac with skin sadia, total of 5 used for wound closure. Addendum: 09/29/[address] Seo infiltrated area with 1% lidocaine with epinephrine.
[2019-09-29] MEDS ORDERED: LIDOCAINE 1% W/EPINEPHRINE 20 ML VIAL INJ ONE (07:45)
== END 2019-09-29 08:08 | disposition home or self-care (01) ==
LOC: ER 05:14
DX: S01.01XA Laceration without foreign body of scalp, initial encounter (principal); W18.00XA Striking against unspecified object with subsequent fall, initial encounter; Y92.003 Bedroom of unspecified non-institutional (private) residence as the place of occurrence of the external cause; C34.90 Malignant neoplasm of unspecified part of unspecified bronchus or lung; I10 Essential (primary) hypertension; E11.9 Type 2 diabetes mellitus without complications; N18.9 Chronic kidney disease, unspecified; J44.9 Chronic obstructive pulmonary disease, unspecified; I50.9 Heart failure, unspecified; I25.2 Old myocardial infarction; Z86.718 Personal history of other venous thrombosis and embolism
CPT/HCPCS: 70450; 72125; 72170; 99282